=== PATIENT | female | born 1970 | race Caucasian/White ===

== ENCOUNTER 2021-06-02 17:31 | Emergency (ER) | payer OTHER, SELFPAY ==
--- NOTE | ~2021-06-02 | XR_ITS ---
XR chest 2V DATE: 06/02/2021 17:59 INDICATION: Cough, congestion, chest pain TECHNIQUE: 2 views COMPARISON: None FINDINGS: Normal heart size. No hilar or mediastinal enlargement. No pulmonary infiltrate or consolid ation, pleural effusion or pulmonary vascular congestion or pneumothorax is detected. IMPRESSION: No active cardiopulmonary disease Reviewed, dictated and finalized at location A. CELL TECHNICIAN
[2021-06-02 17:45] VITALS: BP 161/96; PULSE 95; RESP 18; TEMP 36.6; O2SAT 99
--- NOTE | 2021-06-02 17:53 | ECG_ITS ---
Measurements Intervals [place] Rate: 77 P: 38 CT: 146 QRS: 9 QRSD: 82 T: 54 QT: 360 QTc: 407 Interpretive Statements SINUS RHYTHM VOLTAGE CRITERIA FOR LVH CONSIDER INFERIOR INFARCT, AGE INDETERMINATE BASELINE ARTIFACT- I, II, III, AVR, AVF ABNORMAL ECG Electronically Signed On 06-02-2021 20:14:33 SALES OPERATIONS ANALYST by Dago Weinberg D.O.
--- NOTE | 2021-06-02 17:54 | ED.GENADULT ---
HPI - General Adult General Chief complaint: Upper Respiratory Infection Stated complaint: cold symptoms,back pain Source: patient Mode of arrival: ambulatory Limitations: no limitations History of Present Illness HPI narrative: 51 y/o female. PMHx ELEAZAR. Presents to [facility] today with acute complaints of increased nasal congestion, 'green' nasal discharge, cough, phlegm production, wheezing, as well as mid-upper back & chest pain when she coughs , can't stop coughing . Client adds that she had been treated for pneumonia at [facility] '3 weeks ago'. She tells me that she had completed an antibiotic from this [facility], but is unable to recollect what the name of this medication was. Unfortunately, this [facility] record is not crossing over into [facility], unavailable. Patient reports to have had negative Covid 19 testing in the past 1 week, and is worried she may still have pneumonia . Denies fever, chills. No palpitations, dyspnea, edema. Non-smoker. No additional acute c/o illness upon PE. Related Data Home Medications Medication Instructions Recorded Confirmed Xanax 06/02/21 Allergies Allergy/AdvReac Type Severity Reaction Status Date / Time ibuprofen Allergy Mild PALPITATION Verified 06/02/21 17:53 S Review of Systems Review of Systems: CONSTITUTIONAL: Denies fever, chills, sweats. EYES: Denies visual changes, redness, discharge. ENT: Positive rhinorrhea, congestion. No sore throat, otalgia. CARDIOVASCULAR: Chest wall pain. No palpitations, edema. RESPIRATORY: Denies dyspnea. Positive wheezing & cough GASTROINTESTINAL: Denies abdominal pain, nausea, vomiting, diarrhea. GENITOURINARY: Denies dysuria, hematuria, abnormal discharge SKIN: Denies rash or itching. MUSCULOSKELETAL: Denies acute back pain, joint pain, or myalgia. NEUROLOGIC: Denies numbness, or focal weakness. PSYCHIATRIC: Denies anxiety or depression. All systems reviewed & are unremarkable except as noted in HPI and below Exam Narrative: GENERAL: This is a well-nourished, well-developed adult, in no apparent distress. HEAD: normocephalic, atraumatic. EYES: PERRL. Sclera clear/white. EARS: External ears normal, auditory canals clear and without drainage, TMs normal. NOSE: External nose normal. Positive Rhinorrhea, bilateral nasal purulent discharge, no obstruction, nares patent. THROAT: Mucous membranes moist, posterior pharynx is erythematous, without exudative changes. NECK: Neck supple, non-tender without lymphadenopathy, masses or thyromegaly. CARDIOVASCULAR: Regular rate and rhythm without murmurs, gallops, or rubs. With reproducible mid-sternal chest wall and intercostal pain. RESPIRATORY: Upper airway Rhonchi, cleared with cough. Breath sounds equal bilaterally. No wheezes, rales, or distress. GASTROINTESTINAL: Abdomen soft, non-tender. SKIN: warm, intact. NEURO: No focal neurologic deficits. Course Course Level of Care: Express Care Visit Vital Signs Vital signs: Vital Signs Temperature 36.6 C 06/02/21 17:45 Pulse Rate 95 06/02/21 17:45 Respiratory Rate 18 06/02/21 17:45 Blood Pressure 161/96 H 06/02/21 17:45 Pulse Oximetry 99 06/02/21 17:45 Temperature 36.6 C 06/02/21 17:45 Pulse Rate 95 06/02/21 17:45 Respiratory Rate 18 06/02/21 17:45 Blood Pressure 161/96 H 06/02/21 17:45 Pulse Oximetry 99 06/02/21 17:45 The patient has been informed that they may have pre-hypertension or Hypertension based on a BP reading in the clinic. It is recommended that the patient call the primary care provider listed on their discharge instructions or a physician of their choice as soon as possible (within 1-2week) to arrange follow up for further evaluation of possible pre-hypertension or hypertension. Medical Decision Making MDM Narrative Medical decision making narrative: -ECG NSR rate 77bpm, no ischemic changes or ectopy, in comparison to prior 03/2017 exam. -Reproducible chest wall pain, in
== END 2021-06-02 18:28 | disposition home or self-care (01) ==
PROVIDERS: Emergency Provider Nurse Practitioner Adult Health; PCP Internal Medicine
DX: M94.0 Chondrocostal junction syndrome [Tietze] (principal); R07.89 Other chest pain; J06.9 Acute upper respiratory infection, unspecified; R94.31 Abnormal electrocardiogram [ECG] [EKG]
CPT/HCPCS: 71046; 93005; 99213; G0463

== ENCOUNTER 2022-06-12 11:49 | Emergency (ER) | payer OTHER, SELFPAY ==
[2022-06-12] VITALS (7 sets, daily range): BP systolic 130–142; BP diastolic 88–93; PULSE 68–102; RESP 14–18; TEMP 36.4; O2SAT 94–100
--- NOTE | ~2022-06-12 | XR_ITS ---
EXAMINATION: XR shoulder RT min 2V DATE: 06/12/2022 14:13 INDICATION: Right shoulder injury. TECHNIQUE: 3 views of right shoulder were obtained. COMPARISON: None. FINDINGS: There is a comminuted fracture of proximal humerus with displaced fracture components invol ving the greater tuberosity, lesser tuberosity, articular surface, and surgical neck. The main distal fracture fragment demonstrates one half shaft width anterior displacement, one half shaft width medi al displacement, and impaction. There is mild acromioclavicular joint osteoarthritis. IMPRESSION: 1. Comminuted four-part fracture of proximal right humerus. Reviewed, dictated and finalized at location A. TS WRITER
--- NOTE | ~2022-06-12 | XR_ITS ---
EXAMINATION: XR elbow RT min 3V DATE: 06/12/2022 14:13 INDICATION: Right elbow injury. TECHNIQUE: 3 views of right elbow were obtained. COMPARISON: None. FINDINGS: Bone alignment is normal. No fracture. Joint spaces are normal. There is an enthesophyte at lateral humeral epicondyle. No elbow joint effusion. There is posterior soft tissue swelling. IMPRESSION: 1. No fracture. Reviewed, dictated and finalized at location A. MOTOR ENGINEER IMPRESSION: 1. No fracture.
--- NOTE | 2022-06-12 14:00 | PC.NURSE ---
Pt has bruising to R arm, elbow, and is very shaky. Pt has small amount of bruising to L elbow as well. Pt states from fall several days ago. Pt unable to fully use R arm without difficulty
--- NOTE | 2022-06-12 14:13 | ED.GENADULT ---
HPI - General Adult General Chief complaint: Extremity Injury, Upper Stated complaint: right arm injury after fall Sunday night Time Seen by Provider: 06/12/22 13:45 Source: RN notes reviewed History of Present Illness HPI narrative: Patient presents emergency department from home for a fall. Patient states she fell June 09 in the evening she states she had slipped on ice and fell landing on her right side states that since that time she has had pain with swelling and ecchymosis in her right upper arm she notes pain with any movement of her right upper arm and states she cannot fully move that arm states the pain does radiate down into her elbow she denies striking her head or loss of consciousness she denies any neck pain chest pain or shortness of breath states she has been taking ibuprofen and Tylenol at home with last dose of Tylenol at 11 AM this morning denies any numbness or tingling of the extremities denies any other symptoms at this time Related Data Home Medications Medication Instructions Recorded Confirmed Xanax 06/02/21 Allergies Allergy/AdvReac Type Severity Reaction Status Date / Time ibuprofen Allergy Mild PALPITATION Verified 06/12/22 11:50 S Review of Systems Review of Systems: Gen.: Denies fevers or chills Eyes: Denies eye pain or visual change ENT: Denies facial pain Respiratory: Denies shortness of breath or cough CV: Denies chest pain GI: Denies abdominal pain nausea, emesis Musculoskeletal: See HPI Neuro: Denies headache or loss of consciousness denies numbness or tingling Skin: Denies rash Except as documented, all other systems reviewed and negative [facility] Past Medical History Medical History (Updated 06/12/22 @ 14:32 by Walt Vaz DO) Patient denies significant medical history Exam Narrative: APPEARANCE: No acute distress, nontoxic, resting in bed EYES: EOMI HEENT: Normocephalic, atraumatic, OMM RESPIRATORY: No respiratory distress Clear to auscultation bilaterally with no rhonchi wheezing or rales. CARDIOVASCULAR: Regular rate and rhythm without murmurs rubs or gallops. ABDOMINAL: Soft, nontender, nondistended, MUSCULOSKELETAl: . 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 Following commands, speech normal, no focal deficits SKIN:: Warm, dry. No rashes lesions or abrasions PSYCHIATRIC: Normal affect/mood, Course Course Emergency Course: Discussed with Dr. Lake for orthopedics presentation and work-up he was able to review the patient's imaging himself at this time he recommends the patient have a arm sling placed and follow-up as an outpatient Discussed with patient results of workup and diagnosis. Discussed need for follow-up with primary care, proper use of medication, and reasons to return to the emergency department. Patient understands and agrees to current treatment plan. I discussed with patient pain control she wishes to have no stronger pain medication than tramadol Vital Signs Vital signs: Vital Signs Temperature 97.6 F 06/12/22 11:58 Pulse Rate 68 06/12/22 11:58 Respiratory Rate 14 06/12/22 11:58 Blood Pressure 142/88 H 06/12/22 11:58 Pulse Oximetry 100 06/12/22 11:58 Temperature 97.6 F 06/12/22 11:58 Pulse Rate 68 06/12/22 11:58 Respiratory Rate 18 06/12/22 13:58 Blood Pressure 142/88 H 06/12/22 11:58 Pulse Oximetry 100 06/12/22 14:22 Medical Decision Making Vital Signs Vital Signs: Vital Sig
[2022-06-12] MEDS: traMADol HCL (*CRX) 50 MG TABLET PO (14:17)
--- NOTE | 2022-06-12 14:23 | PC.NURSE ---
Pt comfortably in bed at this time, call light in hand. no other needs or concerns at this time. pt on nbp and spo2 monitor.
[2022-06-12 15:42] LABS: Influenza A QL RT-PCR Negative (Negative); Influenza B QL RT-PCR Negative (Negative); SARS-CoV-2 RNA PCR Negative
== END 2022-06-12 15:20 | disposition home or self-care (01) ==
PROVIDERS: Emergency Provider Emergency Medicine; PCP Internal Medicine
DX: S42.241A 4-part fracture of surgical neck of right humerus, initial encounter for closed fracture (principal); Z20.822 Contact with and (suspected) exposure to COVID-19; W00.0XXA Fall on same level due to ice and snow, initial encounter
CPT/HCPCS: 73030; 73080; 87636; 99284; A4565; A9270

== ENCOUNTER 2022-09-24 22:38 | Emergency (ER) | payer OTHER, SELFPAY ==
--- NOTE | ~2022-09-24 | XR_ITS ---
EXAMINATION: XR wrist RT min 3V DATE: 09/25/2022 00:04 INDICATION: Right wrist cat bite. TECHNIQUE: 4 views of right wrist were obtained. COMPARISON: None. FINDINGS: Bone alignment is normal. No fracture. There is mild osteoarthritis of first metacarpophala ngeal joint. There is no radiopaque foreign body. Radial sided soft tissue swelling is noted. IMPRESSION: 1. No fracture or radiopaque foreign body. Reviewed, dictated and finalized at location A.
--- NOTE | ~2022-09-24 | XR_ITS ---
EXAMINATION: XR forearm RT 2V DATE: 09/25/2022 00:04 INDICATION: Right forearm cat bite. TECHNIQUE: 2 views of right forearm on 3 radiographs were obtained. COMPARISON: None. FINDINGS: Bone alignment is normal. No fracture. Joint spaces are normal. No elbow joint effusion. Th ere is soft tissue swelling of the forearm. IMPRESSION: 1. No fracture or radiopaque foreign body. Reviewed, dictated and finalized at location A.
--- NOTE | ~2022-09-24 | XR_ITS ---
EXAMINATION: XR knee RT 3V DATE: 09/25/2022 00:04 INDICATION: Right knee swelling. TECHNIQUE: 3 views of right knee were obtained. COMPARISON: None. FINDINGS: Bone alignment is normal. No fracture. There is mild osteoarthritis of lateral and patellof emoral compartments. No knee joint effusion. There is anteromedial soft tissue swelling. No radiopaqu e foreign body. IMPRESSION: 1. Mild right knee osteoarthritis. Reviewed, dictated and finalized at location A.
[2022-09-24 22:49] VITALS: BP 108/94; PULSE 110; RESP 14; TEMP 37.1; O2SAT 97
--- NOTE | 2022-09-24 23:34 | ED.ANIMALBIT ---
HPI - Animal Bite General Chief Complaint: Animal Bite Stated Complaint: cat bite Time Seen by Provider: 09/24/22 23:13 Source: patient Mode of arrival: ambulatory Limitations: no limitations History of Present Illness HPI narrative: This is a 52-year-old female who presents to the ED with chief complaint of being attacked by her cat. This happened around 2 hours prior to arrival. She had a fall during and hit her knee. She reports pain to the knee and right arm. She reports several abrasions/lacerations throughout the extremities with bruising and pain most significant in the right wrist and right knee. Cat is known to her. Up-to-date on shots. Related Data Home Medications Medication Instructions Recorded Confirmed Xanax 06/02/21 Allergies Allergy/AdvReac Type Severity Reaction Status Date / Time ibuprofen Allergy Mild PALPITATION Verified 09/24/22 22:39 S Review of Systems Review of Systems: CONSTITUTIONAL: Denies fever, chills, or sweats. EYES: Denies visual changes, redness, or discharge. ENT: Denies rhinorrhea, congestion, sore throat, or otalgia. CARDIOVASCULAR: Denies chest pain, palpitations, or edema. RESPIRATORY: Denies cough or dyspnea. GASTROINTESTINAL: Denies abdominal pain, nausea, vomiting, or diarrhea. GENITOURINARY: Denies dysuria or hematuria. SKIN: Denies rash or itching. MUSCULOSKELETAL: Denies back pain, joint pain, or myalgia. NEUROLOGIC: Denies headache, numbness, dizziness, or weakness. PSYCHIATRIC: Denies anxiety or depression. [facility] Past Medical History Medical History (Updated 09/25/22 @ 01:39 by Juwan Kerns PA-C) Patient denies significant medical history Exam Narrative: GENERAL: Well-appearing, well-nourished, and in no acute distress. HEAD: Normocephalic, atraumatic. EYES: PERRLA and EOMI. ENT: Nares clear, no rhinorrhea or epistaxis. Mucous membranes moist. Oropharynx without tonsillar hypertrophy exudate or other lesions. NECK: Supple. No adenopathy or masses. CHEST: No respiratory distress. Clear to auscultation. No wheezes rales or rhonchi HEART: Regular rate and rhythm. No murmur heard. Normal peripheral pulses. ABDOMEN: Soft, nontender, nondistended, normal active bowel sounds. MSK: Normal range of motion. No edema. SKIN: Numerous scattered abrasions and small lacerations and punctures to all 4 extremities. Worse in the right arm and right leg. Some bruising to the right arm and right knee is present as well. NEURO: Alert and oriented x3. No focal deficits. PSYCH: Normal mood and affect. Course Vital Signs Vital signs: Vital Signs Temperature 98.8 F 09/24/22 22:49 Pulse Rate 110 H 09/24/22 22:49 Respiratory Rate 14 09/24/22 22:49 Blood Pressure 108/94 H 09/24/22 22:49 Pulse Oximetry 97 09/24/22 22:49 Oxygen Delivery Room Air 09/24/22 22:49 Temperature 98.8 F 09/24/22 22:49 Pulse Rate 79 09/25/22 00:00 Respiratory Rate 16 09/25/22 00:00 Blood Pressure 131/84 09/25/22 00:00 Pulse Oximetry 100 09/25/22 00:00 Oxygen Delivery Room Air 09/24/22 22:49 MDM - Animal Bite MDM Narrative Medical decision making narrative: This is a 52-year-old female who presents to the ED with chief complaint of cat scratches and bites. Vitals are stable. afebrile. Exam shows multiple lacerations and abrasions. This occurred about 2 hours prior to arrival. Wounds were well cleaned here in the ED. she was given a dose of IV antibiotics here in the ED. X-rays do not reveal any acute osseous findings or broken off teeth in the skin. She will be given prescription for Augmentin and discharged home in stable condition. Return precautions given and supportive measures discussed. Patient is understanding and agreeable with the plan for discharge and follow-up with her PCP. Discharge Plan Discharge Clinical Impression: Cat bite Patient Disposition: Home, Self-Care Condition: Stable Instructions: Ant
[2022-09-25] VITALS: BP 131/84; PULSE 79; RESP 16; O2SAT 100
[2022-09-25] MEDS: ONDANSETRON INJ 4 MG/2 ML VIAL IV PUSH (00:05)
[2022-09-25] MEDS: SODIUM CHLORIDE 0.9% IV 1,000 ML 999 ML IV CONT (00:05)
[2022-09-25] MEDS: TETANUS,DIPHTHERIA,AC PERTUSSIS ADULT (0.5 ML) BOOSTRIX IM (00:08)
[2022-09-25] MEDS: ceFAZolin 1 GM/NS 50 ML 1 GM/50 ML BAG IVPB (00:11)
[2022-09-25] MEDS: CLINDAMYCIN 450 MG in DEXTROSE 5% IN WATER 50 ML 106 MG IVPB (00:41)
== END 2022-09-25 02:00 | disposition home or self-care (01) ==
PROVIDERS: Emergency Provider Physician Assistant; PCP Internal Medicine
DX: S81.051A Open bite, right knee, initial encounter (principal); S51.851A Open bite of right forearm, initial encounter; S61.551A Open bite of right wrist, initial encounter; Z23 Encounter for immunization; W55.01XA Bitten by cat, initial encounter
CPT/HCPCS: 73090; 73110; 73562; 90471; 90715; 96365; 96367; 96375; 99284; J0690; J2405; J7030

== ENCOUNTER 2022-10-27 11:52 | Emergency (ER) | payer OTHER, SELFPAY ==
[2022-10-27 12:17] VITALS: BP 114/82; PULSE 97; RESP 18; TEMP 36.8; O2SAT 98
--- NOTE | 2022-11-02 09:14 | ED.URI ---
HPI - URI/Sore Throat General Chief Complaint: Upper Respiratory Infection Stated Complaint: sorethroat Time Seen by Provider: 10/27/22 12:30 Source: patient Mode of arrival: ambulatory Limitations: no limitations History of Present Illness HPI Narrative: 52 yo F presents with c/o sore throat, nasal congestion, low grade fever, bodyaches, chills, headhache for 2 days. no sick contacts. denies N/V/D. Taking OTC meds to treat symptoms with no relief. All systems reviewed and negative except as noted above. Related Data Home Medications Medication Instructions Recorded Confirmed alprazolam 0.5 mg tablet 0.5 mg PO BID PRN Anxiety 10/11/22 10/27/22 Allergies Allergy/AdvReac Type Severity Reaction Status Date / Time ibuprofen Allergy Mild PALPITATION Verified 10/27/22 12:25 S Review of Systems Review of Systems: CONSTITUTIONAL: reports fever, chills, or sweats. EYES: Denies visual changes, redness, or discharge. ENT: reports rhinorrhea, congestion, sore throat her denies otalgia. CARDIOVASCULAR: Denies chest pain, palpitations, or edema. RESPIRATORY: reports cough. Denies dyspnea. GASTROINTESTINAL: Denies abdominal pain, nausea, vomiting, or diarrhea. GENITOURINARY: Denies dysuria or hematuria. SKIN: Denies rash or itching. MUSCULOSKELETAL: Denies back pain, joint pain, or myalgia. NEUROLOGIC: reports headache. Denies numbness, or weakness. PSYCHIATRIC: Denies anxiety or depression. All other systems reviewed are negative, except as documented in HPI. 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 Anxiety and depression Breast mass Patient denies significant medical history Surgical History Surgical History (Updated 10/11/22 @ 16:18 by Cammy Jalloh NP) H/O shoulder surgery H/O tubal ligation Family History Family History Sibling Acute myocardial infarction Diabetes mellitus Sibling Asthma Diabetes mellitus Breast cancer Father Diabetes mellitus Cerebrovascular accident Hypertension Mother Diabetes mellitus Chronic obstructive pulmonary disease Congestive heart failure Colon cancer Hypertension Sibling Diabetes mellitus Hypertension Sibling Diabetes mellitus Sibling Diabetes mellitus Social History Social History (Updated 10/11/22 @ 16:19 by Cammy Jalloh NP) Social History: the patient lives with her ex- she is unemployed. She has 2 children. She does not smoke or use any illicit drugs. The patient tells me that she only drinks about 2 glasses of wine a day. code status full code Smoking status: Never smoker Second hand tobacco smoke exposure: Yes Alcohol intake: current Drinks per week: 14 Substance use: never Lack of Transportation: No Lack of Food: Never True Current Housing: I Have Housing Concerned About Future Housing: YES Difficulty Paying Gas/Electric Bills: No Difficulty Paying for Meds: No Currently Unemployed: YES Education: Associate Degree Difficulty w/ Childcare or Family Care: No Spiritual care concerns: No Comments At time of signature, agree with nursing past medical, surgical, social and family history. There is no relevant family history pertinent to the presenting complaint. Exam Narrative: GENERAL: This is a well-nourished, well-developed patient, in no apparent distress. HEAD: normocephalic, atraumatic. EYES: PERRL. Sclera clear/white. Vision is grossly intact. EARS: External ears normal, auditory canals clear and without drainage, TMs normal without perforation. Hearing grossly intact. NOSE: External nose normal with clear nasal drainage. THROAT: Mucous membranes moist, Mild erythema to posterior with clear postnasal drainage. NECK: Neck supple, non-tender without lymphadenopathy, masses or thyromegaly. CARDIOV
== END 2022-10-27 12:57 | disposition home or self-care (01) ==
PROVIDERS: Emergency Provider Nurse Practitioner Family; PCP Internal Medicine
DX: J06.9 Acute upper respiratory infection, unspecified (principal); Z20.822 Contact with and (suspected) exposure to COVID-19; F41.9 Anxiety disorder, unspecified; Z96.611 Presence of right artificial shoulder joint
CPT/HCPCS: 87081; 87426; 87804; 87880; 99213; C9803; G0463

== ENCOUNTER 2022-12-26 09:48 | Outpatient (CLI) | payer OTHER, SELFPAY ==
--- NOTE | ~2022-12-26 | CT_ITS ---
EXAMINATION: CT abdomen w con INDICATION: Disorder of the adrenal gland TECHNIQUE: Computed tomographic images of the abdomen were obtained after the administration of 100 c c of Omnipaque 350 intravenous contrast. The dose-length product (DLP) was 261.65 mGy-cm. Automated e xposure control and iterative reconstruction technique were employed. COMPARISON: 10/11/2022 FINDINGS: Minimal dependent atelectasis is present in the lung bases. The heart size is normal. There are bilateral breast implants with collapse of the right implant. There is a small sliding hiatal he rnia. The liver is diffusely low in attenuation when compared with the spleen, consistent with hepati c steatosis. There is enlargement of the pancreatic duct in the head of the pancreas. The gallbladder is normal. There is a diverticulum of the gastric fundus. The previously described left adrenal mass is not definitely identified. The right adrenal gland is unremarkable. The kidneys are normal. There are no pathologically enlarged abdominal lymph nodes. There are healing anterolateral fractures of t he right seventh, eighth, and ninth ribs. IMPRESSION: 1. No discrete left adrenal mass identified. 2. Enlargement of the pancreatic duct in head of the pancreas of unclear etiology. Further evaluation with MRCP is recommended. 3. Healing anterolateral fractures of the right seventh through ninth ribs, new since the comparison examination. Correlate for history of interval trauma. 4. Diffuse hepatic steatosis. Reviewed, dictated and finalized at location A. IMPRESSION: 1. No discrete left adrenal mass identified. 2. Enlargement of the pancreatic duct in head of the pancreas of unclear etiolo gy. Further evaluation with MRCP is recommended. 3. Healing anterolateral fractures of the right seventh through ninth ribs, new since the comparison examination. Correlate for history of interval trauma. 4. Diffuse hepatic steatosis.
== END 2022-12-26 09:49 | disposition home or self-care (01) ==
PROVIDERS: PCP Internal Medicine; Visit Provider Internal Medicine
DX: E27.9 Disorder of adrenal gland, unspecified (principal); K76.0 Fatty (change of) liver, not elsewhere classified
CPT/HCPCS: 74160; Q9967

== ENCOUNTER 2023-01-18 09:35 | Outpatient (CLI) | payer OTHER, SELFPAY ==
--- NOTE | ~2023-01-18 | MMUS_ITS ---
EXAMINATION: US GUIDED NEEDLE BIOPSY DATE: 01/18/2023 12:13 CDT INDICATION: Right 7:00 breast mass.. TECHNIQUE AND FINDINGS: The risks and potential benefits of the procedure were discussed with the patient, and written inform ed consent was obtained. Timeout procedure was performed. After sterile preparation of the right beatriz st, 1% lidocaine was utilized for local anesthesia. A 12 G spring-loaded biopsy gun needle was advanced to the edge of the region of interest from a medi al superior/inferior/medial/lateral/superolateral/superomedial/inferolateral/inferomedial approach ut ilizing sonographic guidance. A total of 4 tissue core samples were obtained through the lesion. A r adiopaque marker was then placed at the biopsy site. Hemostasis was achieved. A sterile bandage was a pplied. The patient tolerated procedure well and there was no evidence of immediate complication. The patien t was given verbal instructions prior to departing from the department. A two view mammogram was perf ormed to document tissue marker clip placement. The tissue samples were submitted to surgical patholo gy for histologic analysis. IMPRESSION: Ultrasound guided biopsy of right 7:00 breast mass with biopsy marker placement. Please refer to path ology report for histologic analysis. Reviewed, dictated and finalized at Location A. Reviewed, dictated and finalized at location A. IMPRESSION: Ultrasound guided biopsy of right 7:00 breast mass with biopsy marker placement . Please refer to pathology report for histologic analysis.
--- NOTE | ~2023-01-18 | MM_ITS ---
EXAMINATION: MM diag tila implant BI w timur HISTORY: Right breast lump TECHNIQUE: Implant displaced ML, MLO and CC 3-D tomosynthesis images of both breasts were performed a nd synthetic 2-D images were generated. Bilateral implant ML, MLO and CC views. CAD analysis was subm itted and interpreted. COMPARISON: 10/12/2022right complete breast ultrasound examination FINDINGS: Status post bilateral augmentation mammoplasty. There is a 6 mm circumscribed low density opacity in the inner mid right breast. There is a spiculated irregular at least 12 mm mass with overlying retraction in the mid and lower o uter right breast, highly suggestive of malignancy. Other suspicious mass or architectural distortion or retraction, skin thickening or malignant calcifi cation in either breast is noted. IMPRESSION: 1. At least 12 mm irregular speculated mass with overlying retraction in the mid and lower outer righ t breast, highly suggestive of malignancy 2. Ultrasound-guided biopsy of right mid to lower outer breast mass is recommended BI-RADS Category 5: Highly suggestive of malignancy; appropriate action should be taken. Reviewed, dictated and finalized at location A. IMPRESSION: 1. At least 12 mm irregular speculated mass with overlying retraction in the mi d and lower outer right breast, highly suggestive of malignancy 2. Ultrasound-guided biopsy of right mid to lower outer breast mass is recommen ded BI-RADS Category 5: Highly suggestive of malignancy; appropriate action should be taken.
== END 2023-01-18 09:36 | disposition home or self-care (01) ==
PROVIDERS: PCP Internal Medicine; Visit Provider Surgery
DX: N63.10 Unspecified lump in the right breast, unspecified quadrant (principal); D05.11 Intraductal carcinoma in situ of right breast
CPT/HCPCS: 19083; 77062; 77066; 88305; 88360; A4648; G0279

== ENCOUNTER 2023-02-06 11:02 | Outpatient (CLI) | payer OTHER, SELFPAY ==
[2023-02-06 15:13] LABS: Kit Draw Collected
== END 2023-02-06 11:03 | disposition home or self-care (01) ==
LOC: ANHLAB 11:06
PROVIDERS: PCP Internal Medicine; Visit Provider Internal Medicine Hematology & Oncology
DX: C50.919 Malignant neoplasm of unspecified site of unspecified female breast (principal)
CPT/HCPCS: 36415

== ENCOUNTER 2023-03-23 13:57 | Outpatient (CLI) | payer OTHER, SELFPAY ==
[2023-03-23 14:34] LABS: Prothrombin Time 13.2 Seconds (11.1-14.7)
[2023-03-23 14:35] LABS: Partial Thromboplastin Time 25.9 SECONDS (22.3-36.8)
[2023-03-23 14:41] LABS: Anion Gap 16 mmol/L (8-16); Blood Urea Nitrogen 10 mg/dL (7-17); Calcium 9.4 mg/dL (8.4-10.2); Carbon Dioxide 25 mmol/L (22-30); Chloride 98 mmol/L (98-107); Estimated Glomerular Filt Rate > 60; Glucose 199 mg/dL (65-110); Potassium 3.7 mmol/L (3.4-5.0); Sodium 139 mmol/L (137-145)
== END 2023-03-23 13:58 | disposition home or self-care (01) ==
LOC: ANHSURGERY 14:04
PROVIDERS: Anesthesiology; PCP Internal Medicine; Visit Provider Surgery
DX: C50.911 Malignant neoplasm of unspecified site of right female breast (principal); K76.0 Fatty (change of) liver, not elsewhere classified; Z01.818 Encounter for other preprocedural examination
CPT/HCPCS: 36415; 80048; 85610; 85730; 86850; 86900; 86901

== ENCOUNTER 2023-03-27 14:02 | Inpatient (IN) | payer OTHER, SELFPAY ==
[2023-03-21 14:12] VITALS: BMI 25.7
--- NOTE | 2023-03-21 14:18 | PC.NURSE ---
Report to the Outpatient Waiting Room, entrance under the green pavilion located off [facility], at time 6:00 on date 03/27/23. Planned Procedure Time: 7:30. Time changes happen often and if your time is changed the preop area will call you the afternoon before. - You and your visitor will be asked to self-screen and do not enter if you have any COVID symptoms. - A mask is optional within the hospital at this time. Patients may have clear liquids (water, carbonated beverages, clear teas, apple juice) until 3 hours prior to surgery with a maximum of 20 ounces. - No food from midnight until time of surgery Take the following medications with a SIP of water the morning of surgery: ALPRAZOLAM IF NEEDED DO NOT STOP ANY OF YOUR OTHER PRESCRIPTION MEDICATIONS PRIOR TO SURGERY ?EXCEPT THE FOLLOWING Medications to discontinue per physician: VITAMINS/SUPPLEMENTS Date to take last dose: 03/23/23 Please no make-up, nail albanian, hairspray, perfume, deodorant, or body powder the day of surgery. No jewelry (including any body piercings) or valuables the day of surgery, leave them at home. Please take a shower or bath the night before, or the morning of, surgery with an antibacterial soap. Wear comfortable, loose fitting clothing. - Jewelry must be removed prior to entering the operating room. Rings and piercings that are not removed may be cut off. - The hospital will not accept responsibility for valuables. - Please leave all valuables, including medications, at home the day of surgery. If you are going home after surgery, a licensed intermodal truck driver must drive you home. - NO public transportation without another adult if you receive anesthesia. - We recommend that an adult stay with you for 24 hours following discharge. - We also recommend that you do not drive, make important decision, drink alcoholic beverages, or take any drugs that were not prescribed by your health care provider for at least 24 hours after your discharge time. Follow any additional instructions given to you from your surgeon. If you or anyone in your household have experienced Covid symptoms in the past week, please notify your surgeon or the nurse liaison at the phone number below for possible testing. Telephone instructions given to PT - ZENAIDA ARREAGA and asked if any additional questions and then verbalized understanding. Patient advised to call surgeon office or pre surgery nurse liaison [phone] if any additional questions.
--- NOTE | 2023-03-21 14:25 | PC.NURSE ---
Report to the Outpatient Waiting Room, entrance under the green pavilion located off [facility], at time 6:00 on date 03/27/23. Planned Procedure Time: 7:30. Time changes happen often and if your time is changed the preop area will call you the afternoon before. - You and your visitor will be asked to self-screen and do not enter if you have any COVID symptoms. - A mask is optional within the hospital at this time. - No food OR DRINK from midnight until time of surgery Take the following medications with a SIP of water the morning of surgery: ALPRAZOLAM IF NEEDED DO NOT STOP ANY OF YOUR OTHER PRESCRIPTION MEDICATIONS PRIOR TO SURGERY ?EXCEPT THE FOLLOWING Medications to discontinue per physician: VITAMINS/SUPPLEMENTS Date to take last dose: 03/23/23 Please no make-up, nail north korean, hairspray, perfume, deodorant, or body powder the day of surgery. No jewelry (including any body piercings) or valuables the day of surgery, leave them at home. Please take a shower or bath the night before, or the morning of, surgery with an antibacterial soap. Wear comfortable, loose fitting clothing. - Jewelry must be removed prior to entering the operating room. Rings and piercings that are not removed may be cut off. - The hospital will not accept responsibility for valuables. - Please leave all valuables, including medications, at home the day of surgery. If you are going home after surgery, a licensed tram driver must drive you home. - NO public transportation without another adult if you receive anesthesia. - We recommend that an adult stay with you for 24 hours following discharge. - We also recommend that you do not drive, make important decision, drink alcoholic beverages, or take any drugs that were not prescribed by your health care provider for at least 24 hours after your discharge time. Follow any additional instructions given to you from your surgeon. If you or anyone in your household have experienced Covid symptoms in the past week, please notify your surgeon or the nurse liaison at the phone number below for possible testing. Telephone instructions given to PT - ZENAIDA ARREAGA and asked if any additional questions and then verbalized understanding. Patient advised to call surgeon office or pre surgery nurse liaison [phone] if any additional questions.
[2023-03-27] VITALS (16 sets, daily range): BP systolic 113–199; BP diastolic 72–143; PULSE 84–120; RESP 8–26; TEMP 36.3–36.8; O2SAT 94–100
[2023-03-27] MEDS: ACETAMINOPHEN 500 MG TABLET 1000 MG PO (07:03)
--- NOTE | 2023-03-27 07:03 | WPDHPUPDATE1 ---
History and Physical Update Update Date/Time: 03/27/23 07:03 History and Physical has been reviewed, including an updated exam of the patient. There are NO changes in the patient's condition. Risks, benefits, and alternatives have been discussed and questions answered. Patient agrees to proceed with procedure.
--- NOTE | 2023-03-27 07:03 | WPDHPUPDATE1 ---
History and Physical Update Update Date/Time: 03/27/23 07:03 Patient seen and examined in pre-operative holding area. No interval change in medical history or symptoms. Patient remembers previous discussion of benefits and alternatives to procedure. Continues to desire to proceed with bilateral breast implant and capsule removal and immediate bilateral pre-pec breast recon with silicone implants and acelluar dermal matrix possible tissue expanders at time of bilateral gcs-ihbpzx-ppeolrp mastectomy. I reviewed the risks including but not limited to bleeding ,infection, asymmetry, undesireable cosmetic appearance, partial/total skin loss, no change or worsening of symptoms, change in sensation, device failure, capsular contracture. I discussed the possible use of assistants and their level of participation in the case. Patient stated understanding and signed the consent form wishing to proceed
--- NOTE | 2023-03-27 07:05 | W.PM.PROC2 ---
Procedure Note - Detailed Date of Procedure 03/27/23 Pre-op Diagnosis breast neoplasm and history of breast implants Post-op Diagnosis Other (acquired absence bilateral breasts and nipples) Procedure Performed Bilateral breast imlant and capsule removal, pectoralis major repair/pexy and immediate pre-pec reconstruction with silicone implants and adm at time of mastectomy Surgeon Jaylyn Prater MD Ceramic Design Engineer Elsie Arredondo PA-C Anesthesia General Description of Procedure Patient was seen in the preoperative holding area. She was consented and marked. She was taken back to the operating room and placed on the table in a supine position. Time-out was performed with Anesthesia, surgeons and staff agreeing on patient's name, site, and surgery to be performed. SCDs were placed on the lower extremities and inflated. Antibiotics were given IV. After general anesthesia was administered the breasts were prepped and draped in usual sterile fashion. I designed an elliptical skin pattern incision on the left breast. I then proceeded tith assisting Dr. Guzmán for the left non-nipple sparing subcutaneous mastectomy. The intact intact left breast implant and capsule was resected en-bloc with the breast specimen. It was found that her previous breast implants were placed in a dual plane, partially submuscular. I repaired pectoralis majormuscle down to rib periosteum with 2-0 vicryl suture. I irrigated with antibiotic irrigation and hemostasis with bovie electrocautery. I proceeded with sewing in a large piece of contoured, perforated, alloderm along the Inferior mammary fold and anterior axillary line with 2-0 vicryl suture. I placed a 10blake along IMF and onq pump catheter along superior aspect of cavity. I irrigated with abx irrigation again and prepped skin with betadine and placed down new towels. I changed my gloves and rinsed instruments in abx irrigation. I proceeded with placement of an allergan natrelle SCF-365cc implant serial number [id number] into the left breast pocket after rinsing it in abx irrigaiton and covered with the AlloDerm and immediately closed the incision with 3-0 vicryl for dermis and 4-0 monocryl for subcuticular closure. Next we took our attention to the right breast where we I created the elliptical skin paddle for excision andperformed the right hio-eemrtk-ewnrtav total subcutaneous mastectomy including en-bloc resection of ruptured implant and total capsulectomy. Dr. Guzmán also performed sentinel lymph node biopsy. After this was completed I proceeded with irrigation and hemostasis. I repaired pectoralis major to chest wall with 2-0 vicryl and proceeded with sewing in another piece of large, contoured, perforated alloderm along the IMF and anterior axillary line with 2-0 vicryl. I placed 10 riccardo drain along IMF and onQ catheter along superior aspect of cavity. I prepped skin with betadine and placed down new towels. I washed instruments in antibiotic irrigation and changed gloves. I proceeded with placing another SCF-365 implant SN [id number] taking it directly from the package after rinsing in abx irrgation, placing it in the alloderm pocket and immediately closing dermis with 3-0 vicryl and then 4-0 monocryl for skin. There was reasonable size, shape and symmetry to the reconstructed breasts. The skin flaps appeared healthy. A dressing of mastisol, steri-strips, 4x4, tegaderm and abds and breast binder were applied. The drains were hooked to bulb suction. The onQ catheters were primed and connected to the onQ pump. The patient was awaken from anesthesia and transferred to recovery in stable condition. EBL: 10cc for my portions Complicaitons: none Patient will be staying for 23 hour observation Elsie Arredondo PA-C was essential throughout procedure for positioning, retraction, hemostasis, closure and dressing placement. [facility] [place] B[place] Surgery - Charge Forward: Surgery Billing ([id number]
--- NOTE | 2023-03-27 07:09 | WPDANESEPPF ---
Anes - Initial Pre Proc Eval Procedure: Operation Date: 03/27/23 07:30 Proposed Procedures p Right Chinle Lymph Node Biopsy, Right Total Tjz-Ojuayu-Czmjxru Mastectomy, Left Prophylactic Nat-Hrkojf-Tumtppr Mastectomy, - Socorro Guzmán MD s Removal Bilateral Breast Implant, Capsulectomy with Immediate Breast Reconstruction with Silicone Implants, Possible Tissue Expanders - Jaylyn Prater MD Date/Time: 03/27/23 07:09 Surgeon: Socorro Guzmán MD Pre Op Diagnosis: malignant neoplasm unspecified site rt fem breast Patient Data Age: 53 Gender: F Height: 1.65 m Weight: 70.3 kg Allergies Allergy/AdvReac Type Severity Reaction Status Date / Time ibuprofen Allergy Mild PALPITATION Verified 03/21/23 14:11 S Home Medications Medication Instructions Recorded Confirmed Type alprazolam 0.5 mg tablet 0.5 mg PO BID PRN Anxiety 10/11/22 03/21/23 History thiamine HCl (vitamin B1) 100 mg 100 mg PO DAILY #30 tabs 10/14/22 03/21/23 Rx tablet multivitamin 1 tablet PO DAILY 03/21/23 03/21/23 History Patient hx anesthesia problems: none Family hx anesthesia problems: none Results Review: All pre-operative results and documents have been reviewed as part of the pre-operative evaluation. [facility] Past Medical History Medical History (Updated 03/27/23 @ 07:10 by Marko Ferrara DO) Aftercare following right shoulder joint replacement surgery Anxiety Anxiety and depression Breast cancer Breast mass Depression Fatty liver Patient denies significant medical history Surgical History Surgical History (Updated 10/11/22 @ 16:18 by Cammy Jlaloh NP) H/O shoulder surgery H/O tubal ligation Family History Family History Sibling Acute myocardial infarction Diabetes mellitus Sibling Asthma Diabetes mellitus Breast cancer Father Diabetes mellitus Cerebrovascular accident Hypertension Mother Diabetes mellitus Chronic obstructive pulmonary disease Congestive heart failure Colon cancer Hypertension Sibling Diabetes mellitus Hypertension Sibling Diabetes mellitus Sibling Diabetes mellitus Social History Social History (Updated 11/20/22 @ 15:08 by Rosalia Saeed CMA) Social History: the patient lives with her ex- she is unemployed. She has 2 children. She does not smoke or use any illicit drugs. The patient tells me that she only drinks about 2 glasses of wine a day. code status full code Smoking status: Never smoker Second hand tobacco smoke exposure: Yes Alcohol intake: current Drinks per week: 14 Alcohol use details: 2 GLASSES WINE/NIGHT, BEER OCCASIONALLY Substance use: never Substance use type: does not use Lack of Transportation: No Lack of Food: Never True Current Housing: I Have Housing Concerned About Future Housing: Decline to Answer Difficulty Paying Gas/Electric Bills: Decline to Answer Difficulty Paying for Meds: No Currently Unemployed: YES Education: Associate Degree Difficulty w/ Childcare or Family Care: No Living arrangements: with family Spiritual care concerns: No Anes - Eval Final PreProcedure Day of Procedure 03/27/23 07:09 Patient weight: overweight Heart: regular rate and rhythm Lungs: clear to auscultation Airway: Mallampati scale class II Neurological: alert and oriented Last oral intake: >/= 8 hours ASA classification: III Emergent: no Anesthetic plan: proceed Anesthesia type and monitoring: general ETT and standard monitoring Results Review: All pre-operative results and documents have been reviewed as part of the pre-operative evaluation. Informed Consent: The patient's anesthetic plan and its attendant risks and benefits were discussed with the patient/family/POA. Questions were solicited and answers provided to the satisfaction of the patient/family/POA.
[2023-03-27] MEDS: ceFAZolin 2 GM/D5W 50 ML 2 GM/50 ML BAG IVPB (07:42)
[2023-03-27 07:55] LABS: Glucose Point of Care 122 mg/dl (65-105)
[2023-03-27] MEDS: LIDO 1%/EPINEPHRINE 1:100,000 50 ML VIAL 40 ML INFILTRATE (08:19)
[2023-03-27] MEDS: NACL 0.9% IRRIG POUR BOTTLE 1,000 ML, GENTAMICIN SULFATE INJ 160 MG, ceFAZolin 2 GM IRRIGATION (08:19)
--- NOTE | 2023-03-27 11:27 | W.PM.PROC2 ---
Procedure Note - Detailed Date of Procedure 03/27/23 Pre-op Diagnosis Right breast invasive ductal carcinoma History of Right breast ruptured implant Post-op Diagnosis Same Procedure Performed 1. Right total non nipple sparing mastectomy, EN bloc resection with implant and associated capsule 2. Injection of med trays and methylene blue dye for sentinel lymph node mapping 3. Right axillary sentinel lymph node biopsy 4. Left prophylactic total mastectomy, EN bloc resection with implant and associated capsule Surgeon Socorro Guzmán MD Bench Tool Maker Elsie Arredondo PA-C Anesthesia General Indications 53-year-old female who presented for evaluation of right breast mass that was found incidentally on the CT abdomen and pelvis. Biopsy of the mass showed invasive ductal carcinoma. Patient also had a remote history of subpectoral saline implants, and the right side appeared rupture on physical exam and imaging as well. After discussing options of surgery, patient elected to proceed with bilateral total non nipple sparing mastectomy, right sentinel lymph node biopsy and replacement of implants by Plastic surgery. Risk of the procedure were discussed with the patient which included but not limited to risk of bleeding, infection, recurrence, positive margins, possible need for additional procedures in future, wound healing issues, asymmetry, scar, pain as well as the risk of anesthesia. All questions were answered patient agreed to proceed. Description of Procedure Patient was identified in the preoperative holding area brought to the operating room suite. She was laid supine in the operating table sequential compression devices were applied. General anesthesia was induced without difficulty. Bilateral chest and right axillary region were prepped and draped in a sterile fashion. Mag trace was injected in the right breast subareolar plane as well as subdermal around the areolar complex 1 cc at each site. Diluted methylene blue 50 50 solution was also injected in the subdermal plane around the nipple, for dual tracing and mapping of the sentinel lymph nodes. Attention was then turned to the left prophylactic side. An elliptical incision encompassing the nipple areolar complex was made and dissection was carried down through the subcutaneous tissue and continued through the thin areolar tissue plane between the subcutaneous tissue with the breast tissue superiorly to the inferior border of the clavicle.? We then continued our dissection medially to the lateral aspect of the sternum, inferiorly to the inframammary fold and laterally to latissimus.? Once this was performed the breast tissue along with the pectoralis fascia, the implant and implant capsule were dissected off the pectoralis muscle posteriorly in an en bloc fashion.? The mastectomy specimen was then marked short stitch superior long stitch lateral stitch lateral for orientation.? The specimen was then sent to pathology as a fresh specimen.? Hemostasis was assured.? Attention was then turned to the right axilla.? The sentimag probe was used to find the area of highest radio activity in the right axilla, and an incision was made overlying this area that was incorporated into the mastectomy incision.? Dissection was carried down through the subcutaneous tissue and the clavipectoral fascia was incised.? I was able to identify a node that was hot and blue.? This was gently grasped and excised using the LigaSure device.? The gamma probe was used to obtain account which was approximately 600.? This was sent to pathology as a frozen specimen for confirmation of lymph node within tissue specimen.? The gamma probe was again used to scan the axilla trying to identify another node that was at least 10% of the original sentinel lymph node count.? The cavity was irrigated hemostasis was assured. The clavipectoral fascia was approximated with a running 3-0 Vicryl.? An elliptical incision was again made around the left nipple areola
[2023-03-27] MEDS: BUPivacaine HCL 0.5% PF 30 ML VIAL INFILTRATE (11:39)
[2023-03-27] MEDS: ceFAZolin SODIUM 1 GM VIAL IV PUSH (11:42)
[2023-03-27] MEDS: BUPivacaine 0.5% ON-Q PUMP 335 ML INTRADERM (11:45)
[2023-03-27] MEDS: LACTATED RINGERS 1,000 ML 30 ML IV CONT ×2 (12:03)
[2023-03-27 12:19] LABS: Glucose Point of Care 157 mg/dl (65-105)
[2023-03-27] MEDS: fentaNYL CITRATE INJ (*CRX) 100 MCG/2 ML VIAL 25 MCG IV PUSH (12:24)
[2023-03-27] MEDS: MEPERIDINE HCL INJ (*CRX) 50 MG/ML AMPUL 25 MG IV PUSH (13:58)
--- NOTE | 2023-03-27 15:04 | SUR.PHASEI ---
1345: Patient meets PACU discharge criteria, unit bed unavailable at this time. Patient placed in extended recovery status.
[2023-03-27 15:16] LABS: Glucose Point of Care 157 mg/dl (65-105)
--- NOTE | 2023-03-27 15:24 | SUR.PHASEI ---
1444: RN tried to call report to ERP ANALYST but was told she was discharging another patient and she would call back.
[2023-03-27] MEDS: LORazepam INJ (*CRX) 2 MG/ML VIAL IV PUSH ×2 (16:05→19:53)
[2023-03-27] MEDS: chlordiazePOXIDE (*CRX) 25 MG CAPSULE PO ×2 (16:10→16:39)
[2023-03-27] MEDS: DOCUSATE SODIUM 100 MG CAPSULE PO (16:39)
--- NOTE | 2023-03-27 16:57 | ADMGEN ---
This patient, Flavia Patrick, was admitted to Intensive Care Unit-2. Patient/family oriented to hospital policies and general routines including ID bracelet, bed and alarms, visiting hours, pain management, procedures, bathroom and other care routines, personal items, smoking policy, room service/diet, and visiting hours. Information on how to activate the Rapid Response Team has been discussed. Patient/Family are encouraged to report perceived risks to care and to ask questions if they do not understand what they are told or what they should do.
--- NOTE | 2023-03-27 17:40 | PM.IMCN ---
Assessment and Plan Assessment and plan (1) Alcohol withdrawal: Qualifiers: Complication of substance-induced condition: uncomplicated Qualified Code(s): F10.930 - Alcohol use, unspecified with withdrawal, uncomplicated Code(s): F10.939 - Alcohol use, unspecified with withdrawal, unspecified Status: Acute (2) Invasive ductal carcinoma of right breast in female: Code(s): C50.911 - Malignant neoplasm of unspecified site of right female breast Status: Acute Plan Problem List 1. ETOH withdrawal Last drink on 03/23. CIWA protocol initiated Librium 50 mg Q6H scheduled Ativan 2 mg IVP Q2H Neurochecks Q2-4H Tele monitoring Thiamine/Folic Acid/Mag/D5LR at 100 mL/hr x1 L, then PO thiamine, folic acid, and multivitamin supplements start Protonix 40 IVP daily zofran PRN monitor labs AST 69, ALT 65, and total bili 1.0. trend. given easy bruising, abdominal distention and long standing daily ETOH use - c/f chronic liver disease. Last abdominal CT on 12/26/22 showed diffuse hepatic steatosis. 2. Invasive ductal carcinoma of the R breast, F management by breast/plastics surgery team drain/wound care management IS Q2H SCDs pain management: tyl PO, hydro/tyl PO, and hydromorphone IVP Home Meds/Chronic Conditions - Anxiety: hold home Xanax PO. Currently using CIWA protocol and Ativan ordered. Diet: Regular GI Prophylaxis: start Protonix IVP daily DVT Prophylaxis: SCDs, hold on pharm due to recent surgery Lines: pIV Code Status: Full Code HPI Date of Consult Consult date: 03/27/23 Requesting Physician: Socorro Guzmán MD Primary Care Provider: Chirag CordobaMD Consult Narrative Reason for consult: CIWA Protocol Narrative: Flavia Patrick is a 53 year old female presented here for a double mastectomy due to right breast invasive ductal carcinoma (ER positive, ME positive, and HER2 positive) with PMH of anxiety/depression and alcohol abuse with withdrawal DTs. Patient had double mastectomy performed today, 03/26 due to right breast invasive ductal carcinoma. Patient states that leading to surgery she began to wean herself off of alcohol. Last drink was 03/23. States that since cessation she has had gross tremors in her upper extremities and face that worsens with intentional movement. reports same symptoms during previous withdrawals. Also experiencing associated nausea without vomiting. Reports daily alcohol use for the past 5 years, approximately 0.5 - 1 bottle of wine daily. Last attempt at cessation was a month and half ago and she was able to quit for 2 weeks. Last inpatient rehab course was 2 years ago and 1 previous outpatient rehab treatment course. She currently denies any agitation, anxiety, visual hallucinations, or auditory hallucinations. No current nausea, diaphoresis, or diarrhea. Review of Systems Review of Systems: All systems reviewed & are unremarkable except as noted in HPI and below PMFSH Past Medical History Medical History (Updated 03/27/23 @ 17:53 by Indy Rivera APRN) Alcohol abuse Anxiety and depression Breast cancer Breast mass, right Depression Fatty liver Surgical History Surgical History (Updated 10/11/22 @ 16:18 by Cammy Jalloh NP) H/O shoulder surgery H/O tubal ligation Family History Family History Sibling Acute myocardial infarction Diabetes mellitus Sibling Asthma Diabetes mellitus Breast cancer Father Diabetes mellitus Cerebrovascular accident Hypertension Mother Diabetes mellitus Chronic obstructive pulmonary disease Congestive heart failure Colon cancer Hypertension Sibling Diabetes mellitus Hypertension Sibling Diabetes mellitus Sibling Diabetes mellitus Social History Social History (Updated 03/27/23 @ 17:55 by Indy Rivera APRN) Social History: the patient lives
[2023-03-27] MEDS: chlordiazePOXIDE (*CRX) 25 MG CAPSULE 50 MG PO (23:13)
[2023-03-28] VITALS (12 sets, daily range): BP systolic 111–175; BP diastolic 58–93; PULSE 68–100; RESP 12–22; TEMP 36.4–37.1; O2SAT 98–100
[2023-03-28] MEDS: HYDROcodone/acetaminophen (*CRX) 5-325 MG TABLET 1 TAB PO ×3 (00:40→21:24)
[2023-03-28] MEDS: LORazepam INJ (*CRX) 2 MG/ML VIAL IV PUSH ×2 (00:41→08:53)
[2023-03-28 04:23] LABS: Basophils Percent Auto 0.3 % (0.2-1.2); Eosinophils Absolute Auto 0.2 K/mm3 (0-0.3); Eosinophils Percent Auto 2.4 % (0-4.4); Hemoglobin 11.5 g/dL (12.0-15.0); Immature Granulocyte Absolute 0.03 K/mm3 (0.00-0.031); Immature Granulocyte Percent A 0.4 % (0-0.5); Immature Platelet Fraction Pct 3.4 % (0.9-11.2); Lymphocytes Absolute Auto 1.43 K/mm3 (0.9-3.2); Lymphocytes Percent Auto 21.2 % (18.3-44.2); Mean Corpuscular HGB Conc 31.9 g/dl (32-36); Mean Corpuscular Hemoglobin 33.2 pg (26-34); Mean Platelet Volume 8.9 fl (7.4-10.4); Monocytes Absolute Auto 0.8 K/mm3 (0.1-0.6); Monocytes Percent Auto 11.4 % (2.6-8.5); Neutrophils Absolute Auto 4.3 K/mm3 (1.3-6.7); Neutrophils Percent Auto 64.3 % (45.5-73.1); Platelet Count Result 117 k/mm3 (150-375); Red Blood Count 3.46 M/mm3 (4.2-5.4); Red Cell Distribution Width 12.2 % (11.5-14.5); White Blood Count 6.7 K/mm3 (4.5-10.0)
[2023-03-28 04:31] LABS: Alanine Aminotransferase 32 U/L (6-35); Alkaline Phosphatase 48 U/L (38-126); Anion Gap 11 mmol/L (8-16); Aspartate Amino Transferase 60 U/L (14-36); Bilirubin,Total 1.2 mg/dL (0.2-1.3); Blood Urea Nitrogen 5 mg/dL (7-17); Calcium 8.7 mg/dL (8.4-10.2); Carbon Dioxide 24 mmol/L (22-30); Chloride 100 mmol/L (98-107); Estimated CRCL calculation 95 ml/min; Estimated Glomerular Filt Rate > 60; Glucose 103 mg/dL (65-110); Magnesium 2.2 mg/dL (1.6-2.3); Potassium 3.7 mmol/L (3.4-5.0); Sodium 135 mmol/L (137-145)
[2023-03-28] MEDS: LACTATED RINGERS 1,000 ML 100 ML IV CONT (05:27)
[2023-03-28] MEDS: chlordiazePOXIDE (*CRX) 25 MG CAPSULE 50 MG PO ×4 (06:22→23:14)
--- NOTE | 2023-03-28 08:34 | PM.PNGS ---
Progress Note: A&P Assessment and Plan (1) HER2-positive carcinoma of right breast: Code(s): C50.911 - Malignant neoplasm of unspecified site of right female breast Status: Acute Assessment and Plan: 53 y/o female with RIGHT breast IDC and alcohol withdrawal POD#1 s/p bilateral non-nipple sparing mastectomy and R SLNBx and immediate prepec silicone implant reconstruction, improved overnight and healing well from surgical standpoint with On-Q in place, pain well managed, and decreasing drain output. Activity encouraged, PT/OT consult recommended to prepare for discharge. Reviewed impression and healing expectations with pt. Discussed signs/symptoms of concern. Reviewed drain and On-Q care. Reviewed dressing/activity instructions, OOB and incentive spirometer encouraged. Pt voiced understanding and agreement. Plan 1) CIWA protocol per IM 2) continue On-Q and PO pain control 3) drains q4 4) PT/OT consult (2) Invasive ductal carcinoma of right breast in female: Code(s): C50.911 - Malignant neoplasm of unspecified site of right female breast Status: Acute (3) Alcohol withdrawal: Qualifiers: Complication of substance-induced condition: uncomplicated Qualified Code(s): F10.930 - Alcohol use, unspecified with withdrawal, uncomplicated Code(s): F10.939 - Alcohol use, unspecified with withdrawal, unspecified Status: Acute Subjective Subjective Date/Time Seen: 03/28/23 08:34 Interval history: Pt seen at bedside. Pain well managed overnight. Denies fever/chills, ROCA/dizziness, bleeding/redness, change in breast size, SOB, chest pain, BLE pain, abd pain, N/V/D. Voiding and passing gas without issue. Tolerating PO diet. No bowel movement yet. Transfers to chair with moderate assist, anxious about eventual discharge home. Reports tremors have improved significantly. Exam Const: General: cooperative and healthy appearing Orientation/consciousness: patient oriented x3 Other: conversational, sitting in bed eating breakfast without assist HENMT: Head: normal to inspection Eyes: Other: anicteric Neck: Neck: normal visual inspection Chest: Other: Surg bra and dressing c/d/i, breast and NAC absent s/p mastectomy. Drains maintaining suction, moderate serosanguinous drainage b/l without clots. Visible skin flaps warm and well perfused, no erythema/ecchymosis. No palpable masses. Drain site clean. On-Q in place. Generally symmetric volume and ptosis. Resp: Effort & Inspection: normal respiratory effort and able to speak in complete sentences GI: GI Palp: No abdominal tenderness Objective Data Vital Signs Vital Signs: Vital Signs - 24 hr 03/27/23 12:03 03/27/23 12:15 03/27/23 12:30 Temperature 36.7 C Pulse Rate 116 H 120 H 120 H Respiratory Rate 8 L 16 14 Blood Pressure 178/81 H 181/72 H 172/75 H Pulse Oximetry 99 98 94 Oxygen Delivery Simple Face Mask Room Air Nasal Cannula Oxygen Flow Rate 6 2 03/27/23 12:45 03/27/23 13:00 03/27/23 13:15 Temperature Pulse Rate 115 H 111 H 106 H Respiratory Rate 13 16 15 Blood Pressure 167/89 H 165/87 H 169/79 H Pulse Oximetry 98 98 98 Oxygen Delivery Nasal Cannula Nasal Cannula Nasal Cannula Oxygen Flow Rate 2 2 2 03/27/23 13:30 03/27/23 13:45 03/27/23 14:00 Temperature Pulse Rate 109 H 98 96 Respiratory Rate 16 15 17 Blood Pressure 113/91 H 146/116 H 199/143 H Pulse Oximetry 98 98 98 Oxygen Delivery Nasal Cannula Nasal Cannula Nasal Cannula Oxygen Flow Rate 2 2 2 03/27/23 14:30 03/27/23 15:00 03/27/23 15:30 Temperature Pulse Rate 93 85 88 Respiratory Rate 18 14 13 Blood Pressure 174/77 H 139/86 154/92 H Pulse Oximetry 98 100 99 Oxygen Delivery Nasal Cannula Room Air Nasal Cannula Oxygen Flow Rate 2 2 03/27/23 16:00 03/27/23 16:00 03/27/23 16:00 Temperature 36.4 C Pulse Rate 88 Respiratory Rate 17 Blood Pressure 172/117 H 113/99 H Pulse Oximetry 96 Oxygen Del
[2023-03-28] MEDS: PANTOPRAZOLE SODIUM IV 40 MG VIAL IV PUSH (08:51)
[2023-03-28] MEDS: THIAMINE HCL 100 MG TABLET PO (08:51)
[2023-03-28] MEDS: FOLIC ACID 1 MG TABLET PO (08:51)
[2023-03-28] MEDS: MULTIVITAMINS THERAPEUTIC TAB (*BKC) 1 TABLET PO (08:51)
[2023-03-28] MEDS: DOCUSATE SODIUM 100 MG CAPSULE PO ×2 (08:51→17:07)
--- NOTE | 2023-03-28 12:09 | PM.IMPN ---
Progress Note: A&P Assessment and Plan (1) Alcohol withdrawal: Qualifiers: Complication of substance-induced condition: uncomplicated Qualified Code(s): F10.930 - Alcohol use, unspecified with withdrawal, uncomplicated Code(s): F10.939 - Alcohol use, unspecified with withdrawal, unspecified Status: Acute Assessment and Plan: Patient states that she has 2 drinks of wine and occasional beer per day. Her last drink was on Sunday, 03/23 by report. Patient developed withdrawal symptoms. CIWA protocol initiated with CIWA as high as 22. She was given a 'banana bag' and now on Thiamine and Folate She is on scheduled Librium 50 mg Q6H. Ativan available as needed for high CIWA score and she has been receiving this. CT abd 12/26/22 with enlargement of the pancreatic duct in the head of pancreas of unclear significance and hepatic steatosis. AST 60 otherwise LFTs normal. PT/PTT normal. Wean librium as toelrated (2) Invasive ductal carcinoma of right breast in female: Code(s): C50.911 - Malignant neoplasm of unspecified site of right female breast Status: Acute Assessment and Plan: Patient with incidental finding of breast mass in October. Sample taken in January with path showing invasive ductal carcinoma that was Estrogen positive, progesterone positive and HER2/mac positive. Patient was admitted and underwent bilateral mastectomy Management by breast/plastics surgery team (3) Anxiety and depression: Code(s): F41.9 - Anxiety disorder, unspecified; F32.A - Depression, unspecified Status: Acute Assessment and Plan: More calm and appropriate. Home Xanax on hold. Plan Diet: Regular GI Prophylaxis: Protonix IVP daily DVT Prophylaxis: SCDs Code Status: Full Code Subjective Date/time seen: 03/28/23 12:09 Interval history: 53yo female with alcoholism and breast cancer here for double mastectomy. Assuming care. Chart reviewed. Patient was confused last night. His CIWA score was in the 20s. She is more oriented this morning. She has a history of DTs. She has a history of attending alcohol rehab. No history of withdrawal seizures. No DUIs. Bruising noted in the bilateral upper arms but she denies abuse at home. She feels safe at home. She is currently living with her ex-. She denies any chest pain or shortness of breath but states her breasts are sore. Exam Narrative: AF 98.2 116/86 97 14 100% ra Gen - NARD Chest - CTA bilaterally, nml RR. Sports bra in place and visualized dressing is clean, dry intact. CV - RRR S1/S2. Telemetry showing no significant dysrhythmias Abd - Soft, NT/ND, Positive BS Ext - No pedal edema. 2+ DP pulses bilaterally Neuro - Alert and oriented x4. Nonfocal exam. Psych - Nml mood and affect Skin - Warm and dry Objective Data Vital Signs Vital Signs: Vital Signs - 24 hr 03/27/23 12:15 03/27/23 12:30 03/27/23 12:45 Temperature Pulse Rate 120 H 120 H 115 H Respiratory Rate 16 14 13 Blood Pressure 181/72 H 172/75 H 167/89 H Pulse Oximetry 98 94 98 Oxygen Delivery Room Air Nasal Cannula Nasal Cannula Oxygen Flow Rate 2 2 03/27/23 13:00 03/27/23 13:15 03/27/23 13:30 Temperature Pulse Rate 111 H 106 H 109 H Respiratory Rate 16 15 16 Blood Pressure 165/87 H 169/79 H 113/91 H Pulse Oximetry 98 98 98 Oxygen Delivery Nasal Cannula Nasal Cannula Nasal Cannula Oxygen Flow Rate 2 2 2 03/27/23 13:45 03/27/23 14:00 03/27/23 14:30 Temperature Pulse Rate 98 96 93 Respiratory Rate 15 17 18 Blood Pressure 146/116 H 199/143 H 174/77 H Pulse Oximetry 98 98 98 Oxygen Delivery Nasal Cannula Nasal Cannula Nasal Cannula Oxygen Flow Rate 2 2 2 03/27/23 15:00 03/27/23 15:30 03/27/23 16:00 Temperature 97.6 F Pulse Rate 85 88 88 Respiratory Rate 14 13 17 Blood Pressure 139/86 154/92 H 172/117 H Pulse Oximetry 100 99 96 Oxygen Delivery Room Air Nasal Cannula Oxygen Flow Rate 2 03/08
--- NOTE | 2023-03-28 13:54 | WPDANESPN ---
Anes - Prog Note Post-Op Date/Time: 03/28/23 13:54 Cardiovascular status: normal Respiratory status: normal Airway patency: baseline Mental status: baseline Post-Op hydration status: normal Vital Signs: Last Vital Signs Temp 98.2 F 03/28/23 11:35 Pulse 100 03/28/23 12:00 Resp 14 03/28/23 11:35 BP 116/86 03/28/23 11:48 Pulse Ox 100 03/28/23 11:35 O2 Del Method Room Air 03/28/23 11:55 O2 Flow Rate 2 03/27/23 15:30 Pain Score (VAS): 0/10 I/O: Intake & Output 03/27/23 03/28/23 03/28/23 23:59 07:59 15:59 Intake Total 240 480 Output Total 490 2830 650 Balance -669 -1660 -170 Laboratory Tests 03/28/23 04:15 03/28/23 04:15 03/27/23 03/28/23 15:13 04:15 WBC 6.7 RBC 3.46 L Hgb 11.5 L Hct 36.0 L MCV 104.0 H MCH 33.2 MCHC 31.9 L RDW 12.2 Plt Count 117 L MPV 8.9 Immature Gran % (Auto) 0.4 Neut % (Auto) 64.3 Lymph % (Auto) 21.2 Bailey % (Auto) 11.4 H Eos % (Auto) 2.4 Baso % (Auto) 0.3 Lymph # (Auto) 1.43 Bailey # (Auto) 0.8 H Eos # (Auto) 0.2 Baso # (Auto) 0.0 Abs Immat Gran (auto) 0.03 Absolute Neuts (auto) 4.3 Absolute Nucleated RBC 0.0 Nucleated RBC % 0.0 % Immature Plt Fraction 3.4 Sodium 135 L Potassium 3.7 Chloride 100 Carbon Dioxide 24 Anion Gap 11 BUN 5 L D Creatinine 0.50 L Estim Creat Clear Calc 95 Estimated GFR > 60 Glucose 103 POC Capillary Glucose 157 H Calcium 8.7 Magnesium 2.2 Total Bilirubin 1.2 AST 60 H ALT 32 Alkaline Phosphatase 48 Total Protein 7.0 Albumin 4.0 Post-procedural complaints: none Patient Feedback: Patient satisfied with anesthetic care. Other Findings: In ICU currently d/t treatment for DT's
[2023-03-28] MEDS: ONDANSETRON INJ 4 MG/2 ML VIAL IV PUSH (17:45)
--- NOTE | 2023-03-28 20:18 | PC.NURSE ---
This patient, Flavia Patrick, was transferred to [[facility]] on 03/28/23 at 2003. Personal belongings sent with patient. Report given to [YOLI Cadet]. Appropriate documentation sent with patient.
[2023-03-29] VITALS (16 sets, daily range): BP systolic 101–143; BP diastolic 66–89; PULSE 72–108; RESP 16–18; TEMP 36.6–36.9; O2SAT 97–100
[2023-03-29] MEDS: HYDROcodone/acetaminophen (*CRX) 5-325 MG TABLET 1 TAB PO ×3 (02:03→15:32)
[2023-03-29 05:35] LABS: Basophils Percent Auto 0.6 % (0.2-1.2); Eosinophils Absolute Auto 0.1 K/mm3 (0-0.3); Eosinophils Percent Auto 2.5 % (0-4.4); Hematocrit 35.5 % (37.0-47.0); Hemoglobin 11.4 g/dL (12.0-15.0); Immature Granulocyte Absolute 0.01 K/mm3 (0.00-0.031); Immature Granulocyte Percent A 0.2 % (0-0.5); Immature Platelet Fraction Pct 3.7 % (0.9-11.2); Lymphocytes Absolute Auto 1.95 K/mm3 (0.9-3.2); Lymphocytes Percent Auto 39.9 % (18.3-44.2); Mean Corpuscular HGB Conc 32.1 g/dl (32-36); Mean Corpuscular Hemoglobin 33.4 pg (26-34); Mean Corpuscular Volume 104.1 fl (80-100); Mean Platelet Volume 9.5 fl (7.4-10.4); Monocytes Absolute Auto 0.6 K/mm3 (0.1-0.6); Monocytes Percent Auto 11.2 % (2.6-8.5); Neutrophils Absolute Auto 2.2 K/mm3 (1.3-6.7); Neutrophils Percent Auto 45.6 % (45.5-73.1); Platelet Count Result 103 k/mm3 (150-375); Red Blood Count 3.41 M/mm3 (4.2-5.4); Red Cell Distribution Width 12.1 % (11.5-14.5); White Blood Count 4.9 K/mm3 (4.5-10.0)
[2023-03-29 05:47] LABS: Anion Gap 7 mmol/L (8-16); Blood Urea Nitrogen 4 mg/dL (7-17); Calcium 8.6 mg/dL (8.4-10.2); Carbon Dioxide 27 mmol/L (22-30); Chloride 103 mmol/L (98-107); Estimated CRCL calculation 81 ml/min; Estimated Glomerular Filt Rate > 60; Glucose 89 mg/dL (65-110); Potassium 3.8 mmol/L (3.4-5.0); Sodium 137 mmol/L (137-145)
[2023-03-29] MEDS: chlordiazePOXIDE (*CRX) 25 MG CAPSULE 50 MG PO (06:42)
[2023-03-29 08:46] LABS: Folic Acid 16.3 ng/mL (2.76->20)
[2023-03-29] MEDS: MULTIVITAMINS THERAPEUTIC TAB (*BKC) 1 TABLET PO (10:17)
[2023-03-29] MEDS: FOLIC ACID 1 MG TABLET PO (10:17)
[2023-03-29] MEDS: THIAMINE HCL 100 MG TABLET PO (10:17)
[2023-03-29] MEDS: DOCUSATE SODIUM 100 MG CAPSULE PO ×2 (10:17→17:24)
[2023-03-29] MEDS: PANTOPRAZOLE SODIUM IV 40 MG VIAL IV PUSH (10:18)
--- NOTE | 2023-03-29 11:08 | PM.IMPN ---
Progress Note: A&P Assessment and Plan (1) Alcohol withdrawal: Qualifiers: Complication of substance-induced condition: uncomplicated Qualified Code(s): F10.930 - Alcohol use, unspecified with withdrawal, uncomplicated Code(s): F10.939 - Alcohol use, unspecified with withdrawal, unspecified Status: Acute Assessment and Plan: Patient states that she has 2 drinks of wine and occasional beer per day. Her last drink was on Sunday, 03/23 by report. Patient developed withdrawal symptoms. CIWA protocol initiated with CIWA as high as 22. She was given a 'banana bag' and now on Thiamine and Folate She is on scheduled Librium 50 mg Q6H. Ativan available as needed for high CIWA score and she has been receiving this. CT abd 12/26/22 with enlargement of the pancreatic duct in the head of pancreas of unclear significance and hepatic steatosis. AST 60 otherwise LFTs normal. PT/PTT normal. Wean librium today (2) Invasive ductal carcinoma of right breast in female: Code(s): C50.911 - Malignant neoplasm of unspecified site of right female breast Status: Acute Assessment and Plan: Patient with incidental finding of breast mass in October. Sample taken in January with path showing invasive ductal carcinoma that was Estrogen positive, progesterone positive and HER2/mac positive. Patient was admitted and underwent bilateral mastectomy Management by breast/plastics surgery team (3) Anxiety and depression: Code(s): F41.9 - Anxiety disorder, unspecified; F32.A - Depression, unspecified Status: Acute Assessment and Plan: More calm and appropriate. Home Xanax on hold. Plan Diet: Regular GI Prophylaxis: Protonix DVT Prophylaxis: SCDs Code Status: Full Code Subjective Date/time seen: 03/29/23 11:08 Interval history: 53yo female with alcoholism and breast cancer here for double mastectomy. No tremors. Slept well. Eating okay. Pain 5-6/10 currently. She feels better overall. Exam Narrative: AF 98.3 143/89 91 17 100% ra Gen - NARD Chest - lungs clear anterirly and in the flanks. Sports bra in place with visualized dressing clean, dry intact. CV - RRR S1/S2. Telemetry showing no significant dysrhythmias Abd - Soft, NT/ND, Positive BS Ext - No pedal edema. Neuro - Alert and appropriate Psych - Nml mood and affect Skin - Warm and dry Objective Data Vital Signs Vital Signs: Vital Signs - 24 hr 03/28/23 11:35 03/28/23 11:48 03/28/23 11:55 Temperature 98.2 F Pulse Rate 97 Respiratory Rate 14 Blood Pressure 116/86 116/86 Pulse Oximetry 100 Oxygen Delivery Room Air 03/28/23 12:00 03/28/23 13:21 03/28/23 14:00 Temperature Pulse Rate 100 75 Respiratory Rate Blood Pressure Pulse Oximetry Oxygen Delivery Room Air 03/28/23 16:00 03/28/23 16:00 03/28/23 16:00 Temperature 98.7 F Pulse Rate 100 71 Respiratory Rate 16 Blood Pressure 152/90 H 152/90 H Pulse Oximetry 100 Oxygen Delivery 03/28/23 16:00 03/28/23 20:05 03/28/23 23:23 Temperature 97.9 F 97.5 F L Pulse Rate 68 77 Respiratory Rate 18 20 Blood Pressure 123/75 111/67 Pulse Oximetry 100 98 Oxygen Delivery Room Air 03/28/23 20:00 03/29/23 00:00 03/29/23 04:00 Temperature Pulse Rate 81 77 78 Respiratory Rate Blood Pressure Pulse Oximetry Oxygen Delivery 03/28/23 20:00 03/29/23 04:00 03/29/23 00:00 Temperature 98 F Pulse Rate 80 Respiratory Rate 16 Blood Pressure 118/66 Pulse Oximetry 100 100 98 Oxygen Delivery Room Air Room Air 03/29/23 02:00 03/29/23 04:00 03/29/23 06:00 Temperature Pulse Rate 81 72 Respiratory Rate Blood Pressure Pulse Oximetry 100 Oxygen Delivery Room Air 03/29/23 07:34 Temperature 98.3 F Pulse Rate 91 Respiratory Rate 17 Blood Pressure 143/89 H Pulse Oximetry 100 Oxygen Delivery Intake/Output Intake/Output: Intake & Output
--- NOTE | 2023-03-29 11:37 | WPDPN ---
Progress Note: A&P Assessment and Plan (1) Acquired absence of bilateral breasts and nipples: Code(s): Z90.13 - Acquired absence of bilateral breasts and nipples Status: Acute Assessment and Plan: 53yo female doing well pod#2 s/p b/l breast recon at time of mastectomy reviewed post-op expectations and protocols. appreciate hospitalist input and mgmt - notes reviewed discussed plan for likley d/c in AM if pt feels more capable of self care at home and if Ok'd by Dr. Guzmán. Plan: 1) cont drain and onq 2) cont binder 3) possible d/c in AM and f/u next week Subjective Date/time seen: 03/29/23 11:37 Interval history: Pt. seen and examined POD #2 s/p b/l mastectomy and pre-pec silicone impalnt recon with adm. pain controlled drain output decreasing tolerating diet and ambulating but still feels a little unsteady and uncertain about self care if she were discharged today. Exam Narrative: breast bra and dressing in place with scan dry sanguinous staining. drains and onq pump in place and functioning. light serosang fluid in drains. good symmetry and implant position. faint scattered ecchymosis L>R. Objective Data Vital Signs Vital Signs: Vital Signs - 24 hr 03/28/23 11:48 03/28/23 11:55 03/28/23 12:00 Temperature Pulse Rate 100 Respiratory Rate Blood Pressure 116/86 Pulse Oximetry Oxygen Delivery Room Air 03/28/23 13:21 03/28/23 14:00 03/28/23 16:00 Temperature Pulse Rate 75 Respiratory Rate Blood Pressure 152/90 H Pulse Oximetry Oxygen Delivery Room Air 03/28/23 16:00 03/28/23 16:00 03/28/23 16:00 Temperature 37.1 C Pulse Rate 100 71 Respiratory Rate 16 Blood Pressure 152/90 H Pulse Oximetry 100 Oxygen Delivery Room Air 03/28/23 20:05 03/28/23 23:23 03/28/23 20:00 Temperature 36.6 C 36.4 C L Pulse Rate 68 77 81 Respiratory Rate 18 20 Blood Pressure 123/75 111/67 Pulse Oximetry 100 98 Oxygen Delivery 03/29/23 00:00 03/29/23 04:00 03/28/23 20:00 Temperature Pulse Rate 77 78 Respiratory Rate Blood Pressure Pulse Oximetry 100 Oxygen Delivery Room Air 03/29/23 04:00 03/29/23 00:00 03/29/23 02:00 Temperature 36.6 C Pulse Rate 80 81 Respiratory Rate 16 Blood Pressure 118/66 Pulse Oximetry 100 98 Oxygen Delivery Room Air 03/29/23 04:00 03/29/23 06:00 03/29/23 07:34 Temperature 36.8 C Pulse Rate 72 91 Respiratory Rate 17 Blood Pressure 143/89 H Pulse Oximetry 100 100 Oxygen Delivery Room Air Intake/Output Intake/Output: Intake & Output 03/26/23 03/27/23 03/28/23 03/29/23 23:59 23:59 23:59 23:59 Intake Total 736 783 3673 Output Total 692 0955 790 Balance 298 -3154 284 Meds/Results Medications: Active Medications Generic Name Dose Route Start Last Admin Trade Name Freq PRN Reason Stop Dose Admin Acetaminophen 500 mg 03/27/23 15:43 Acetaminophen 500 Mg Tablet PO Q6H PRN Mild Pain (1-3) or Fever Hydrocodone Bitart/Acetaminophen 1 tab 03/27/23 15:43 03/29/23 10:18 Hydrocodone/Acetaminophen (*Crx) 5-325 Mg Tablet PO 1 tab Q4H PRN Administration Pain Rated 4-6 Chlordiazepoxide HCl 25 mg 03/29/23 12:00 Chlordiazepoxide (*Crx) 25 Mg Capsule PO Q6HR CLAUS Diphenhydramine HCl 25 mg 03/27/23 15:43 Diphenhydramine Hcl Inj 50 Mg/Ml Vial IV PUSH Q6H PRN Itching Docusate Sodium 100 mg 03/27/23 17:00 03/29/23 10:17 Docusate Sodium 100 Mg Capsule PO 100 mg BID CLAUS Administration Folic Acid 1 mg 03/28/23 09:00 03/29/23 10:17 Folic Acid 1 Mg Tablet PO 1 mg DAILY CLAUS Administration Hydromorphone HCl 1 mg 03/27/23 15:43 Hydromorphone Hcl Inj (*Crx) 1 Mg/Ml Syr IV PUSH Q2H PRN Pain Rated 7-10 Lorazepam 2 mg 03/27/23 13:51 03/28/23 08:53 Lorazepam Inj (*Crx) 2 Mg/Ml Vial IV PUSH 2 mg Q2H PRN Administration CIWA > 15 Multivitamins Therapeutic 1 t
--- NOTE | 2023-03-29 11:38 | PM.PNGS ---
Progress Note: A&P Assessment and Plan (1) HER2-positive carcinoma of right breast: Code(s): C50.911 - Malignant neoplasm of unspecified site of right female breast Status: Acute Assessment and Plan: 53 y/o female with RIGHT breast IDC and alcohol withdrawal admitted through same day surgery for observation now POD#2 s/p bilateral non-nipple sparing mastectomy and R SLNBx and immediate prepec silicone implant reconstruction, significantly improved. Begin plan for discharge home. Reviewed dressing/activity/drain/On-Q instructions with pt. Discussed signs/symptoms of concern. Reviewed pain medication and antibiotics at home. Reviewed follow up with plastics and breast. Walking and incentive spirometer encouraged at home. Plan 1) tramadol q6 PO and keflex q8 for discharge 2) drains q8 3) CIWA per IM 4) plan for discharge tomorrow (2) Invasive ductal carcinoma of right breast in female: Code(s): C50.911 - Malignant neoplasm of unspecified site of right female breast Status: Acute Subjective Subjective Date/Time Seen: 03/29/23 11:38 Interval history: Pt seen at bedside, feeling significantly better today with resolution of tremors per patient and less anxiety. No concerns overnight. Pain well managed. Tolerating PO diet, voiding and passing gas without issue. Ambulating with supervision but not requiring assistance. Denies fever/chills, bleeding/redness, change in breast size, SOB, chest pain, abd pain, BLE pain/claudication. Drain output improved. Exam Const: General: cooperative and comfortable Other: sitting comfortably in bed, conversational HENMT: Head: normal to inspection Eyes: Other: anicteric Neck: Neck: trachea midline Chest: Other: Surgical bra c/d/i, drain sites c/d/i, drains maintaining suction with minimal serosanguinous drainage. Breast and NAC absent, implants symmetric in place, skin flaps warm and well perfused, minimal left lateral ecchymosis. Minimal tenderness. No erythema, minimal edema. On-Q connected and in place. Resp: Effort & Inspection: normal respiratory effort Objective Data Vital Signs Vital Signs: Vital Signs - 24 hr 03/28/23 11:48 03/28/23 11:55 03/28/23 12:00 Temperature Pulse Rate 100 Respiratory Rate Blood Pressure 116/86 Pulse Oximetry Oxygen Delivery Room Air 03/28/23 13:21 03/28/23 14:00 03/28/23 16:00 Temperature Pulse Rate 75 Respiratory Rate Blood Pressure 152/90 H Pulse Oximetry Oxygen Delivery Room Air 03/28/23 16:00 03/28/23 16:00 03/28/23 16:00 Temperature 37.1 C Pulse Rate 100 71 Respiratory Rate 16 Blood Pressure 152/90 H Pulse Oximetry 100 Oxygen Delivery Room Air 03/28/23 20:05 03/28/23 23:23 03/28/23 20:00 Temperature 36.6 C 36.4 C L Pulse Rate 68 77 81 Respiratory Rate 18 20 Blood Pressure 123/75 111/67 Pulse Oximetry 100 98 Oxygen Delivery 03/29/23 00:00 03/29/23 04:00 03/28/23 20:00 Temperature Pulse Rate 77 78 Respiratory Rate Blood Pressure Pulse Oximetry 100 Oxygen Delivery Room Air 03/29/23 04:00 03/29/23 00:00 03/29/23 02:00 Temperature 36.6 C Pulse Rate 80 81 Respiratory Rate 16 Blood Pressure 118/66 Pulse Oximetry 100 98 Oxygen Delivery Room Air 03/29/23 04:00 03/29/23 06:00 03/29/23 07:34 Temperature 36.8 C Pulse Rate 72 91 Respiratory Rate 17 Blood Pressure 143/89 H Pulse Oximetry 100 100 Oxygen Delivery Room Air Intake/Output Intake/Output: Intake & Output 03/26/23 03/27/23 03/28/23 03/29/23 23:59 23:59 23:59 23:59 Intake Total 039 497 6621 Output Total 694 9705 790 Balance 237 -3141 284 Meds/Results Medications: Active Medications Generic Name Dose Route Start Last Admin Trade Name Freq PRN Reason Stop Dose Admin Acetaminophen 500 mg 03/27/23 15:43 Acetaminophen 500 Mg Tablet PO Q6H PRN Mild Pain (1-3) or Fever H
[2023-03-29] MEDS: chlordiazePOXIDE (*CRX) 25 MG CAPSULE PO ×3 (12:32→23:00)
[2023-03-29] MEDS: CEPHALEXIN 500 MG CAPSULE PO ×2 (15:32→23:00)
[2023-03-30] VITALS (8 sets, daily range): BP systolic 120–126; BP diastolic 69–77; PULSE 69–99; RESP 18–20; TEMP 36–36.2; O2SAT 91–99
[2023-03-30] MEDS: CEPHALEXIN 500 MG CAPSULE PO (05:04)
[2023-03-30] MEDS: chlordiazePOXIDE (*CRX) 25 MG CAPSULE PO (05:04)
[2023-03-30] MEDS: MULTIVITAMINS THERAPEUTIC TAB (*BKC) 1 TABLET PO (08:59)
[2023-03-30] MEDS: FOLIC ACID 1 MG TABLET PO (08:59)
[2023-03-30] MEDS: PANTOPRAZOLE 40 MG TABLET PO (08:59)
[2023-03-30] MEDS: DOCUSATE SODIUM 100 MG CAPSULE PO (08:59)
[2023-03-30] MEDS: THIAMINE HCL 100 MG TABLET PO (08:59)
--- NOTE | 2023-03-30 09:36 | PM.DS ---
DS: Admitting Diagnosis Discharge Date 03/30/2023 Admitting Diagnosis 1. Right breast invasive ductal carcinoma 2. History of alcohol abuse and delirium tremens DS: Discharge Diagnosis Discharge Diagnosis (1) Acquired absence of bilateral breasts and nipples: Code(s): Z90.13 - Acquired absence of bilateral breasts and nipples Status: Acute Assessment and Plan: See below (2) HER2-positive carcinoma of right breast: Code(s): C50.911 - Malignant neoplasm of unspecified site of right female breast Status: Acute Assessment and Plan: See below (3) Invasive ductal carcinoma of right breast in female: Code(s): C50.911 - Malignant neoplasm of unspecified site of right female breast Status: Acute Assessment and Plan: - Follow up with Plastic Surgery this upcoming week - Follow up with Breast surgery in 2 weeks - Drain teaching to be performed prior to discharge home - Review discharge instructions with patient, as well as activity, sponge bath, and drain care (4) Alcohol withdrawal: Qualifiers: Complication of substance-induced condition: uncomplicated Qualified Code(s): F10.930 - Alcohol use, unspecified with withdrawal, uncomplicated Code(s): F10.939 - Alcohol use, unspecified with withdrawal, unspecified Status: Acute Assessment and Plan: - Stable and improved. Will be discharge on current regimen per Internal Medicine as well as home medications - Patient to follow up with PCP within 1 week from discharge DS: Summary Hospital Course Reason for hospitalization: Alcohol withdrawal, history of delirium tremens Hospital Course: 53 year old female with history of right breast cancer and alcohol abuse, delirium tremens, who was admitted after surgery for observation. Patient was noted to have significant alcohol withdrawl symptoms in recovery area, and was admitted to step down for further evaluation and management. She was placed on CIWA protocol, and symptoms started improving on POD2. Patient was Evaluated by Physical therapy as well as occupational, and her unsteady gait started to improving. She is now mobilizing better with minimal assist. She is tolerating a diet well with no nausea or emesis. Her pain is well controlled and her alcohol withdrawal symptoms have resolved. She was deemed ready for discharge on postop day 3. Status at Discharge Functional status at discharge: independent ambulation Overall status at discharge: patient is back to baseline Time Spent with Patient Time attestation: Total time spent providing and/or coordinating discharge services: Time spent: Less than 30 minutes Exam Const: General: comfortable and no acute distress HENMT: Mouth: Yes moist mucous membranes Eyes: General: appearance normal, both eyes and all related structures Resp: Effort & Inspection: normal respiratory effort Cardio: Rate: regular rate GI: GI Palp: Yes Soft to palpation Skin: General skin exam: normal color Other: Bilateral mastectomy flaps appear viable and well perfused with minimal ecchymosis noted on the left lateral aspect. No bleeding noted. Drains have light serous sanguinous fluid output. Psych: Mental Status: mental status grossly normal Affect: normal affect DS: Data Data Completed and Pending Pending studies at discharge: Pending at discharge 03/27/23 09:13 Surgical [PTH] Routine 03/27/23 09:59 Surgical [PTH] Routine 03/27/23 10:52 Surgical [PTH] Routine 03/27/23 10:58 Surgical [PTH] Routine Procedures/Treatments: Bilateral mastectomies, right sentinel lymph node biopsy, immediate reconstruction with bilateral prepec silicone implants Discharge Plan Discharge Attending physician on discharge: Socorro Guzmán Consulting providers: Jaylyn Prater Asif Discharging Clinician: Socorro Guzmán Anticipated Discharge Date/Time: 03/30/23 14:00 Pamella
[2023-03-30] MEDS: HYDROcodone/acetaminophen (*CRX) 5-325 MG TABLET 1 TAB PO (10:20)
--- NOTE | 2023-03-30 10:57 | PM.IMPN ---
Progress Note: A&P Assessment and Plan (1) Alcohol withdrawal: Qualifiers: Complication of substance-induced condition: uncomplicated Qualified Code(s): F10.930 - Alcohol use, unspecified with withdrawal, uncomplicated Code(s): F10.939 - Alcohol use, unspecified with withdrawal, unspecified Status: Acute Assessment and Plan: Patient states that she has 2 drinks of wine and occasional beer per day. Her last drink was on Sunday, 03/23 by report. Patient developed withdrawal symptoms. CIWA protocol initiated with CIWA as high as 22. She was given a 'banana bag' and now on Thiamine and Folate She was on scheduled Librium 50 mg Q6H. Ativan available PRN for high CIWA score and she has not been receiving this. CT abd 12/26/22 with enlargement of the pancreatic duct in the head of pancreas of unclear significance and hepatic steatosis. AST 60 otherwise LFTs normal. PT/PTT normal. Continue to wean librium today (2) Invasive ductal carcinoma of right breast in female: Code(s): C50.911 - Malignant neoplasm of unspecified site of right female breast Status: Acute Assessment and Plan: Patient with incidental finding of breast mass in October. Sample taken in January with path showing invasive ductal carcinoma that was Estrogen positive, progesterone positive and HER2/mac positive. Patient was admitted and underwent bilateral mastectomy Management by breast/plastics surgery team (3) Anxiety and depression: Code(s): F41.9 - Anxiety disorder, unspecified; F32.A - Depression, unspecified Status: Acute Assessment and Plan: More calm and appropriate. Home Xanax on hold. Plan Diet: Regular GI Prophylaxis: Protonix DVT Prophylaxis: SCDs Code Status: Full Code Subjective Date/time seen: 03/30/23 10:57 Interval history: 53yo female with alcoholism and breast cancer here for double mastectomy. No complaints today. Pain still /10 . No n/v. Feels unsteady when she walks which is chronic. Exam Narrative: AF 96.8 120/77 70 20 99% ra Gen - NARD Chest - CTA bilaterally. Sports bra in place CV - RRR S1/S2. Telemetry showing no significant dysrhythmias Abd - Soft, NT/ND, Positive BS Ext - No pedal edema. Neuro - Alert and appropriate. No tremors Psych - Nml mood and affect Skin - Warm and dry Objective Data Vital Signs Vital Signs: Vital Signs - 24 hr 03/29/23 11:49 03/29/23 12:00 03/29/23 14:00 Temperature 98.5 F Pulse Rate 98 96 87 Pulse Rate [Monitor] Respiratory Rate 17 Blood Pressure 134/83 Pulse Oximetry 99 Oxygen Delivery 03/29/23 16:00 03/29/23 19:59 03/29/23 16:00 Temperature 97.8 F 97.8 F Pulse Rate 76 83 98 Pulse Rate [Monitor] Respiratory Rate 16 18 Blood Pressure 101/77 113/78 Pulse Oximetry 99 98 Oxygen Delivery 03/29/23 18:00 03/29/23 20:00 03/29/23 20:00 Temperature Pulse Rate 92 Pulse Rate [Monitor] 83 Respiratory Rate Blood Pressure 113/78 Pulse Oximetry Oxygen Delivery Room Air 03/29/23 23:05 03/29/23 20:00 03/29/23 22:00 Temperature 97.9 F Pulse Rate 72 77 86 Pulse Rate [Monitor] Respiratory Rate 18 Blood Pressure 126/76 Pulse Oximetry 97 Oxygen Delivery 03/30/23 00:00 03/30/23 00:00 03/30/23 00:00 Temperature Pulse Rate 99 Pulse Rate [Monitor] 99 Respiratory Rate Blood Pressure 126/76 Pulse Oximetry Oxygen Delivery Room Air 03/30/23 02:00 03/30/23 04:43 03/30/23 04:00 Temperature 97.1 F L Pulse Rate 91 81 Pulse Rate [Monitor] Respiratory Rate 18 Blood Pressure 120/69 Pulse Oximetry 91 Oxygen Delivery Room Air 03/30/23 04:00 03/30/23 06:00 03/30/23 04:00 Temperature Pulse Rate 75 74 Pulse Rate [Monitor] 81 Respiratory Rate Blood Pressure 120/69 Pulse Oximetry Oxygen Delivery 03/30/23 07:40 03/30/23 08:00 03/30/23 08:00 Temperature 96.8 F L Puls
== END 2023-03-30 10:43 | disposition home or self-care (01) | DRG 362 ==
LOC: ANHICU 03-28 08:03 → ANHIMU 03-28 20:24
PROVIDERS: Internal Medicine; Plastic Surgery; Student in an Organized Health Care Education/Training Program; Admitting Provider Surgery; PCP Internal Medicine; Visit Provider Surgery
PROC: 0HTV0ZZ Resection of Bilateral Breast, Open Approach (ICD-10-PCS; principal; 2023-03-27 07:30)
PROC: 0KU Muscles, Supplement (ICD-10-PCS; 2023-03-27 07:30)
DX: C50.911 Malignant neoplasm of unspecified site of right female breast (principal); F10.231 Alcohol dependence with withdrawal delirium; K76.0 Fatty (change of) liver, not elsewhere classified; G25.2 Other specified forms of tremor; F41.8 Other specified anxiety disorders
CPT/HCPCS: 36415; 80048; 80053; 82607; 82746; 82948; 83735; 85025; 85055; 88305; 88307; 88331; 97161; 97165; A9270; C1713; C9113; J0665; J0690; J1100; J1170; J1580; J2060; J2175; J2250; J2371; J2405; J2704; J3010; J3411; J3475; J7120; J7121; L8000; Q9968

== ENCOUNTER 2023-05-24 13:56 | Outpatient (CLI) | payer OTHER, SELFPAY ==
[2023-05-24 14:10] LABS: Basophils Percent Auto 0.9 % (0.2-1.2); Eosinophils Absolute Auto 0.1 K/mm3 (0-0.3); Eosinophils Percent Auto 1.9 % (0-4.4); Hematocrit 39.4 % (37.0-47.0); Hemoglobin 12.9 g/dL (12.0-15.0); Immature Granulocyte Absolute 0.02 K/mm3 (0.00-0.031); Immature Granulocyte Percent A 0.4 % (0-0.5); Lymphocytes Absolute Auto 1.87 K/mm3 (0.9-3.2); Lymphocytes Percent Auto 39.9 % (18.3-44.2); Mean Corpuscular HGB Conc 32.7 g/dl (32-36); Mean Corpuscular Hemoglobin 32.2 pg (26-34); Mean Corpuscular Volume 98.3 fl (80-100); Mean Platelet Volume 8.3 fl (7.4-10.4); Monocytes Absolute Auto 0.7 K/mm3 (0.1-0.6); Monocytes Percent Auto 14.7 % (2.6-8.5); Neutrophils Percent Auto 42.2 % (45.5-73.1); Platelet Count Result 136 k/mm3 (150-375); Red Blood Count 4.01 M/mm3 (4.2-5.4); Red Cell Distribution Width 13.1 % (11.5-14.5); White Blood Count 4.7 K/mm3 (4.5-10.0)
[2023-05-24 14:15] LABS: Blood Urea Nitrogen 6 mg/dL (8-26); Carbon Dioxide 27 mmol/L (22-30); Chloride 102 mmol/L (98-109); Estimated Glomerular Filt Rate > 60; Glucose 108 mg/dL (70-105); Ionized Calcium (POC) 1.21 mmol/L (1.11-1.31); Potassium 4.3 mmol/L (3.5-4.9); Sodium 142 mmol/L (138-146)
[2023-05-24 16:39] LABS: Alanine Aminotransferase 41 U/L (6-35); Albumin Level 4.1 g/dL (3.5-5.1); Alkaline Phosphatase 55 U/L (38-126); Anion Gap 9 mmol/L (8-16); Aspartate Amino Transferase 61 U/L (14-36); Bilirubin,Total 0.5 mg/dL (0.2-1.3); Blood Urea Nitrogen 7 mg/dL (7-17); Calcium 9.5 mg/dL (8.4-10.2); Carbon Dioxide 28 mmol/L (22-30); Chloride 104 mmol/L (98-107); Estimated Glomerular Filt Rate > 60; Glucose 102 mg/dL (65-110); Potassium 4.3 mmol/L (3.4-5.0); Sodium 141 mmol/L (137-145)
== END 2023-05-24 13:57 | disposition home or self-care (01) ==
LOC: ANHLAB 13:57
PROVIDERS: PCP Internal Medicine; Visit Provider Internal Medicine Hematology & Oncology
DX: C50.919 Malignant neoplasm of unspecified site of unspecified female breast (principal)
CPT/HCPCS: 36415; 80047; 80053; 85025

== ENCOUNTER 2023-07-24 09:29 | Outpatient (CLI) | payer OTHER, SELFPAY ==
[2023-07-24 10:28] LABS: Basophils Absolute Auto 0.1 K/mm3 (0.0-0.1); Basophils Percent Auto 1.6 % (0.2-1.2); Eosinophils Absolute Auto 0.1 K/mm3 (0-0.3); Eosinophils Percent Auto 1.7 % (0-4.4); Hematocrit 40.4 % (37.0-47.0); Hemoglobin 12.9 g/dL (12.0-15.0); Immature Granulocyte Absolute 0.07 K/mm3 (0.00-0.031); Immature Granulocyte Percent A 1.1 % (0-0.5); Immature Reticulocyte Fraction 18.3 % (3.0-15.9); Lymphocytes Absolute Auto 1.44 K/mm3 (0.9-3.2); Lymphocytes Percent Auto 22.9 % (18.3-44.2); Mean Corpuscular HGB Conc 31.9 g/dl (32-36); Mean Corpuscular Hemoglobin 32.9 pg (26-34); Mean Corpuscular Volume 103.1 fl (80-100); Mean Platelet Volume 8.6 fl (7.4-10.4); Monocytes Percent Auto 16.2 % (2.6-8.5); Neutrophils Absolute Auto 3.6 K/mm3 (1.3-6.7); Neutrophils Percent Auto 56.5 % (45.5-73.1); Platelet Count Result 268 k/mm3 (150-375); Red Blood Count 3.92 M/mm3 (4.2-5.4); Red Cell Distribution Width 14.6 % (11.5-14.5); Reticulocyte Hemoglobin Conten 38.6 pg (28.2-36.6); Reticulocytes Absolute 0.09 10^6/uL (0.02-0.10); White Blood Count 6.3 K/mm3 (4.5-10.0)
[2023-07-24 10:36] LABS: Appearance Urine Cloudy (Clear); Bacteria Urine 4+ /hpf; Bilirubin Urine Negative (Negative); Blood Urine Negative (Negative); Color Urine Dark Yellow (Yellow); Glucose Urine UA Negative (Negative); Ketones Urine Trace mg/dL (Negative); Leukocyte Esterase Ur Trace LEU/UL (Negative); Nitrate Urine Negative (Negative); Protein Urine Negative (Negative); RBC Urine 0-2 /hpf (0-2); Specific Grav Ur 1.024 (1.001-1.035); Squamous Epithelial Cell Urine Many /hpf (Few)
[2023-07-24 10:38] LABS: Alanine Aminotransferase 75 U/L (6-35); Albumin Level 4.2 g/dL (3.5-5.1); Alkaline Phosphatase 50 U/L (38-126); Anion Gap 7 mmol/L (8-16); Aspartate Amino Transferase 83 U/L (14-36); Bilirubin Indirect 0.3 mg/dL (0-1.1); Bilirubin,Total 0.7 mg/dL (0.2-1.3); Blood Urea Nitrogen 10 mg/dL (7-17); Calcium 9.6 mg/dL (8.4-10.2); Carbon Dioxide 27 mmol/L (22-30); Chloride 106 mmol/L (98-107); Cholesterol 252 mg/dL (0-200); Estimated Glomerular Filt Rate > 60; Glucose 144 mg/dL (65-110); HDL Direct 67 mg/dL; Lactate Dehydrogenase 226 U/L (120-246); Potassium 3.7 mmol/L (3.4-5.0); Sodium 140 mmol/L (137-145); Triglycerides 76 mg/dL (<150)
[2023-07-24 10:43] LABS: Add Urine Microscopic? YES
[2023-07-24 10:50] LABS: LDL Cholesterol Direct 150 mg/dL; Transferrin 187 mg/dL (206-381)
[2023-07-24 11:46] LABS: Folic Acid > 20.0 ng/mL (2.76->20)
[2023-07-24 12:27] LABS: Free T4 Free Thyroxine 0.92 ng/mL (0.78-2.19); Vitamin D 25 Hydroxy 44.6 ng/mL
[2023-07-24 15:15] LABS: Iron 116 ug/dL (37-170); Percent Iron Saturation 50 % (20-50)
[2023-07-27 10:08] LABS: Haptoglobin 157 mg/dL (43-212)
== END 2023-07-24 09:30 | disposition home or self-care (01) ==
LOC: ANHLAB 09:32
PROVIDERS: PCP Internal Medicine; Visit Provider Internal Medicine
DX: F41.9 Anxiety disorder, unspecified (principal); Z68.26 Body mass index [BMI] 26.0-26.9, adult; E78.2 Mixed hyperlipidemia; M54.2 Cervicalgia; K25.5 Chronic or unspecified gastric ulcer with perforation; H21.562 Pupillary abnormality, left eye; G62.9 Polyneuropathy, unspecified; M79.10 Myalgia, unspecified site; E78.1 Pure hyperglyceridemia; F41.1 Generalized anxiety disorder; D64.9 Anemia, unspecified; M25.529 Pain in unspecified elbow; G56.03 Carpal tunnel syndrome, bilateral upper limbs; S42.91XA Fracture of right shoulder girdle, part unspecified, initial encounter for closed fracture; Z13.820 Encounter for screening for osteoporosis; E27.9 Disorder of adrenal gland, unspecified; R92.8 Other abnormal and inconclusive findings on diagnostic imaging of breast; F10.11 Alcohol abuse, in remission
CPT/HCPCS: 36415; 80053; 80061; 82248; 82306; 82607; 82728; 82746; 83010; 83540; 83550; 83615; 84439; 84443; 84466; 85025; 85046; 87086

== ENCOUNTER 2023-09-10 11:57 | Outpatient (CLI) | payer OTHER, SELFPAY ==
[2023-09-10 12:18] LABS: Basophils Absolute Auto 0.1 K/mm3 (0.0-0.1); Basophils Percent Auto 2.3 % (0.2-1.2); Eosinophils Absolute Auto 0.1 K/mm3 (0-0.3); Eosinophils Percent Auto 2.3 % (0-4.4); Hematocrit 38.2 % (37.0-47.0); Hemoglobin 12.4 g/dL (12.0-15.0); Immature Granulocyte Absolute 0.04 K/mm3 (0.00-0.031); Immature Granulocyte Percent A 0.9 % (0-0.5); Lymphocytes Absolute Auto 1.43 K/mm3 (0.9-3.2); Lymphocytes Percent Auto 32.2 % (18.3-44.2); Mean Corpuscular HGB Conc 32.5 g/dl (32-36); Mean Corpuscular Hemoglobin 33.5 pg (26-34); Mean Corpuscular Volume 103.2 fl (80-100); Monocytes Absolute Auto 0.9 K/mm3 (0.1-0.6); Monocytes Percent Auto 19.1 % (2.6-8.5); Neutrophils Absolute Auto 1.9 K/mm3 (1.3-6.7); Neutrophils Percent Auto 43.2 % (45.5-73.1); Platelet Count Result 236 k/mm3 (150-375); Red Cell Distribution Width 13.2 % (11.5-14.5); White Blood Count 4.4 K/mm3 (4.5-10.0)
[2023-09-10 16:47] LABS: Alanine Aminotransferase 124 U/L (6-35); Albumin Level 4.2 g/dL (3.5-5.1); Alkaline Phosphatase 39 U/L (38-126); Anion Gap 6 mmol/L (4-12); Aspartate Amino Transferase 98 U/L (14-36); Bilirubin,Total 0.4 mg/dL (0.2-1.3); Blood Urea Nitrogen 7 mg/dL (7-17); Calcium 9.4 mg/dL (8.4-10.2); Carbon Dioxide 26 mmol/L (22-30); Chloride 108 mmol/L (98-107); Estimated Glomerular Filt Rate > 60; Glucose 95 mg/dL (65-110); Potassium 4.3 mmol/L (3.4-5.0); Sodium 140 mmol/L (137-145)
[2023-09-11 16:58] LABS: CA 15-3 8 U/mL (<32)
== END 2023-09-10 11:58 | disposition home or self-care (01) ==
LOC: ANHLAB 11:59
PROVIDERS: PCP Internal Medicine; Visit Provider Internal Medicine Hematology & Oncology
DX: C50.919 Malignant neoplasm of unspecified site of unspecified female breast (principal)
CPT/HCPCS: 36415; 80053; 85025; 86300

== ENCOUNTER 2024-01-28 13:07 | Outpatient (CLI) | payer OTHER, SELFPAY ==
[2024-01-28 13:37] LABS: Basophils Percent Auto 0.9 % (0.2-1.2); Eosinophils Absolute Auto 0.2 K/mm3 (0-0.3); Eosinophils Percent Auto 3.3 % (0-4.4); Hematocrit 39.5 % (37.0-47.0); Hemoglobin 13.3 g/dL (12.0-15.0); Immature Granulocyte Absolute 0.01 K/mm3 (0.00-0.031); Immature Granulocyte Percent A 0.2 % (0-0.5); Lymphocytes Absolute Auto 1.23 K/mm3 (0.9-3.2); Lymphocytes Percent Auto 27.3 % (18.3-44.2); Mean Corpuscular HGB Conc 33.7 g/dl (32-36); Mean Corpuscular Hemoglobin 34.1 pg (26-34); Mean Corpuscular Volume 101.3 fl (80-100); Mean Platelet Volume 9.4 fl (7.4-10.4); Monocytes Absolute Auto 0.6 K/mm3 (0.1-0.6); Monocytes Percent Auto 13.7 % (2.6-8.5); Neutrophils Absolute Auto 2.5 K/mm3 (1.3-6.7); Neutrophils Percent Auto 54.6 % (45.5-73.1); Platelet Count Result 82 k/mm3 (150-375); Red Cell Distribution Width 11.5 % (11.5-14.5); White Blood Count 4.5 K/mm3 (4.5-10.0)
[2024-01-28 14:11] LABS: Anion Gap 12 mmol/L (4-12); Blood Urea Nitrogen 11 mg/dL (7-17); Calcium 9.5 mg/dL (8.4-10.2); Carbon Dioxide 28 mmol/L (22-30); Chloride 94 mmol/L (98-107); Estimated Glomerular Filt Rate > 60; Glucose 113 mg/dL (65-110); Potassium 3.4 mmol/L (3.4-5.0); Sodium 134 mmol/L (137-145)
[2024-01-30 03:24] LABS: CA 15-3 13 U/mL (<32)
== END 2024-01-28 13:08 | disposition home or self-care (01) ==
LOC: ANHLAB 13:09
PROVIDERS: Nurse Practitioner Family; PCP Internal Medicine; Visit Provider Internal Medicine Hematology & Oncology
DX: C50.919 Malignant neoplasm of unspecified site of unspecified female breast (principal)
CPT/HCPCS: 36415; 71046; 80048; 85025; 86300

== ENCOUNTER 2024-01-28 13:44 | Outpatient (CLI) | payer OTHER, SELFPAY ==
--- NOTE | ~2024-01-28 | XR_ITS ---
XR chest 2V Ordering provider: Shmuel Bertrand MD History: 53 years Female with . pain in rt breast, masectomy x 11 months ago, today pain . Comparison: June 02, 2021 FINDINGS: MEDIASTINUM: The cardiac silhouette is not enlarged. LUNGS: No infiltrates, effusions or pneumothorax. OTHER: No free air under the diaphragm. IMPRESSION: No acute cardiopulmonary pathology. Reviewed, dictated and finalized at location A.
== END 2024-01-28 13:45 | disposition home or self-care (01) ==
LOC: ANHIMG 13:46
PROVIDERS: PCP Internal Medicine; Visit Provider Internal Medicine Hematology & Oncology
DX: N64.4 Mastodynia (principal)
CPT/HCPCS: 71046

== ENCOUNTER 2024-02-05 14:06 | Outpatient (CLI) | payer OTHER, SELFPAY ==
[2024-02-05 16:51] LABS: Iron 197 ug/dL (37-170)
[2024-02-05 17:02] LABS: Percent Iron Saturation 85 % (20-50)
[2024-02-05 17:54] LABS: Folic Acid 8.9 ng/mL (2.76->20)
[2024-02-09 20:13] LABS: Platelet Antibody, Direct NEGATIVE (NEGATIVE)
== END 2024-02-05 14:07 | disposition home or self-care (01) ==
LOC: ANHLAB 14:08
PROVIDERS: PCP Internal Medicine; Visit Provider Internal Medicine Hematology & Oncology
DX: D69.6 Thrombocytopenia, unspecified (principal)
CPT/HCPCS: 36415; 82607; 82728; 82746; 83540; 83550; 86023

== ENCOUNTER 2024-03-12 10:56 | Outpatient (CLI) | payer OTHER, SELFPAY ==
--- NOTE | ~2024-03-12 | US_ITS ---
EXAM: ABDOMEN ULTRASOUND HISTORY: thrombocytopenia COMPARISON: Reference was made to a CT examination of the abdomen dated 12/26/2022 FINDINGS: LIVER: The liver is increased in echogenicity and size measuring 20cm in longitudinal dimension. The main portal vein is patent demonstrating hepatopedal flow GALLBLADDER: The gallbladder is distended but otherwise unremarkable. No stones are identified. No gallbladder wall thickening or pericholecystic fluid. BILE DUCTS: Common bile duct measures 4.2mm. PANCREAS: Limited evaluation of the pancreas secondary to overlying bowel gas SPLEEN: The spleen is unremarkable in echogenicity and size measuring 9.9cm in longitudinal dimension . RIGHT KIDNEY: 11.2 cm. In length. No hydronephrosis or bulky renal calculi. LEFT KIDNEY: 10.9cm in length. No hydronephrosis or renal calculi. VASCULATURE : The abdominal aorta is nonaneurysmal. The IVC is patent. IMPRESSION: Evaluation of the pancreas is limited by overlying bowel gas. Fatty infiltration of an enlarged liver. Otherwise, unremarkable sonographic evaluation of the abdomen, as detailed above. Reviewed, dictated and finalized at location A. SHEET MAKER IMPRESSION: Evaluation of the pancreas is limited by overlying bowel gas. Fatty infiltration of an enlarged liver. Otherwise, unremarkable sonographic evaluation of the abdomen, as detailed nadya felder.
== END 2024-03-12 10:57 | disposition home or self-care (01) ==
LOC: ANHIMG 10:56
PROVIDERS: PCP Internal Medicine; Visit Provider Internal Medicine Hematology & Oncology
DX: D69.6 Thrombocytopenia, unspecified (principal); K76.0 Fatty (change of) liver, not elsewhere classified
CPT/HCPCS: 76700

== ENCOUNTER 2024-06-05 13:06 | Outpatient (CLI) | payer OTHER, SELFPAY ==
--- NOTE | ~2024-06-05 | DEXA_ITS ---
Bone Density Report Name: ZENAIDA ARREAGA Age: 54 Sex: Female Ethnicity: White Date of : 1970 Indication: postmenopausal; screening for osteoporosis; prior fracture; cancer; Referring Provider: NANCYTINO Study: Bone densitometry was performed. Exam Date: June 05, 2024 Accession number: [id number] Bone Density: Region BMD T-score Z-score Classification AP Spine(L1-L4) 0.843 -1.9 -0.7 Osteopenia Femoral Neck (Left) 0.788 -0.5 0.6 Normal Total Hip (Left) 0.946 0.0 0.8 Normal Femoral Neck (Right) 0.862 0.1 1.2 Normal Total Hip (Right) 0.963 0.2 0.9 Normal Total Hip Mean 0.954 0.1 0.9 Normal World Health Organization criteria for BMD impression classify patients as: Normal (T-score at or above -1.0), Osteopenia (T-score between -1.0 and -2.5), or Osteoporosis (T-score at or below -2.5). 10-year Fracture Risk: FRAX not reported because: Prior hip or vertebral fracture Clinical Information Provided by Patient: Have had a previous hip or vertebral fracture Has had a low trauma fracture Has 3 or more alcoholic drinks per day Has used the following medications: Vitamin D, Calcium Has the following medical conditions: Cancer Patient maximum height was 65 Menopause Age: 47 No regular weight bearing exercise Drinks caffeinated beverages Onset of menses at age 11 Number of children 2 Impression: The patient has low bone mass, based on the Total Spine T-score. The patient has risk factors, including: excessive alcohol use, previous fracture. Discussion: INCREASED RISK OF FRACTURE DUE TO HISTORY OF FRACTURE. The patient's previous fracture puts the patient at high risk of a future fracture. In untreated patients, the risk of osteoporotic fracture increases approximately two-fold for each 1.0 SD decrease in T-score. Low bone density is not the only risk factor for fracture; also consider factors such as patient's age, frailty or poor health, risk of falling, risk of injury, previous osteoporotic fracture, family history of osteoporosis, cigarette smoking, low body weight, etc. Not everyone with a low trauma fracture has osteoporosis; osteomalacia and other metabolic bone disorders should also be considered. Patients who have osteoporosis should be evaluated for specific diseases and conditions (secondary causes) that may cause or contribute to bone loss and fracture risk. National Osteoporosis Foundation (NOF) recommends pharmacologic intervention for patients with a prior hip or vertebral fracture regardless of BMD T-score. The patient should follow a healthful lifestyle (good nutrition with adequate calcium and vitamin D, and appropriate weight-bearing exercise). Follow-Up: Consider a repeat BMD and Vertebral Fracture Assessment (VFA) exam in 2 years or sooner if medically necessary, to reassess this patient's status. Reported by: ELÍAS on 06/05/2024 1:41:00 PM. Reviewed, dictated and finalized at location AJanna MONTES
--- OUTSIDE RECORDS SUMMARY | 2024-06-05 13:52 | XMS_ITS | Patient Health Summary ---
Author Organization [facility] Address [address] [place] [address] Care Team Providers Care Rail Assembler Name Role Phone Unavailable Primary Care Provider Unavailabl e Note from [facility],non-owned Affiliates and Associated Physician Practices is amultiple site organization consisting of ambulatory clinics and hospital sitesin [place], [place], [place] and [place]. This disclosure is being madepursuant to the Care Everywhere program and may not contain all information available regarding this patient. Last updated 18.[facility] Allergies No known active allergies Medications * Be aware that medications may not be up to date on this document. Alwaysverify current medications with the patient. * ALPRAZolam (XANAX) 0.5 MG tablet(Started 10/25/2020) Take 0.5 mg by mouth 2 times daily * amoxicillin-clavulanate (AUGMENTIN) 875-125 MG tablet(Started 01/22/2020) Take 875 mg by mouth 2 times daily * atorvastatin (LIPITOR) 80 MG tablet(Started 10/23/2020) * azithromycin (ZITHROMAX) 250 MG tablet(Started 11/06/2020) TK 2 TS PO ON DAY 1, THEN TK 1 T PO D FOR 4 DAYS DIRECTED. TAKE WITH FOOD * benzonatate (TESSALON) 100 MG capsule(Started 04/08/2020) TAKE 1 CAPSULE BY MOUTH EVERY 8 HOURS NEEDED FOR COUGH AND CONGESTION * cetirizine (ZYRTEC) 10 MG tablet(Started 06/08/2020) Take 10 mg by mouth once daily * ciprofloxacin (CIPRO) 500 MG tablet(Started 09/17/2020) * fenofibrate (TRICOR) 145 MG tablet(Started 10/23/2020) * fluticasone propionate (FLONASE) 50 MCG/ACT nasal spray(Started 06/08/2020) SHAKE LIQUID AND USE 1 SPRAY IN EACH NOSTRIL TWICE DAILY * gabapentin (NEURONTIN) 300 MG capsule Take 300 mg by mouth * gabapentin (NEURONTIN) 300 MG capsule(Started 10/27/2020) TAKE 1 CAPSULE BY MOUTH AT BEDTIME FOR NERVE PAIN. INCREASE TO 2 TIMES DAILY NEEDED * metroNIDAZOLE (FLAGYL) 500 MG tablet(Started 09/17/2020) * ondansetron, disintegrating, (ZOFRAN ODT) 8 MG tablet(Started 06/08/2020) DISSOLVE 1 TABLET ON THE TONGUE EVERY 8 HOURS * pantoprazole EC (PROTONIX) 40 MG tablet(Started 11/04/2020) * QUEtiapine (SEROQUEL) 50 MG tablet(Started 01/22/2020) TAKE 1 2 TO 1 (ONE HALF TO ONE) TABLET BY MOUTH ONCE DAILY AT BEDTIME * amitriptyline (ELAVIL) 10 MG tablet(Started 12/08/2020) Take 3 (three) tablets by mouth at bedtime 3 refills by 12/08/2021 Active Problems No known active problems Social History Tobacco Use Types Packs/Day Years Used Date Smoking Tobacco: Never Assessed Sex and Gender Information Value Date Recorded Sex Assigned at Not on file Gender Identity Not on file Sexual Orientation Not on file Procedures * VITAMIN B1(Performed 12/17/2020) Performed for Neuropathy, Neuropathic pain * ALFREDO BLOOD SCREEN W/REFLEX TITER(Performed 12/17/2020) Performed for Neuropathy, Neuropathic pain * IMMUNOFIXATION BLOOD(Performed 12/17/2020) Performed for Neuropathy * PROTEIN ELECTROPHORESIS BLOOD(Performed 12/17/2020) Performed for Neuropathy * HEAVY METALS BLOOD QUANT PANEL(Performed 12/17/2020) Performed for Neuropathy * TSH REFLEX FREE T4(Performed 12/17/2020) Performed for Neuropathy, Neuropathic pain * C-REACTIVE PROTEIN(Performed 12/17/2020) Performed for Neuropathy, Neuropathic pain * ERYTHROCYTE SEDIMENTATION RATE(Performed 12/17/2020) Performed for Neuropathy, Neuropathic pain Results * TSH REFLEX FREE T4 (12/17/2020 9:03 AM CDT) TSH with Reflex FT4 3.54 mIU/L [facility] Comment: ?Reference Range ?> or = 20 Years ??0.40-4.50 ? Ranges ?First trimester ?0.26-2.66 ?Second trimester ?? 0.55-2.73 ?Third trimester ?0.43-2.91 Test Performed at: [facility] [address] [place], [place] ??[phone] NELSY POWERS DO,MPH Blood BLOOD SPECIMEN / Unknown 12/17/2020 9:03 AM CDT 12/17/2020 9:04 AM CDT Radha Olson MD LAB - CHEMISTRY ABI MARES Performing Organization Address [facility] de Phone Number [facility] [address] [place] [address] * IMMUNOFIXATION BLOOD (12/17/2020 9:03 AM CDT) Pathologist [facility] Interpretation [facility] Comment: Normal pattern. No monoclonal proteins detected. Test Performed at: [facility] [address] [place], [place] ??[phone] NELSY POWERS DO,MPH Blood BLOOD SPECIMEN / Unknown 12/17/2020 9:03 AM CDT 12/17/2020 9:04 AM CDT Radha Olson MD LAB - CHEMISTRY ABI MARES Performing Organization Address [facility] de Phone Number [facility] [address] [place] [address] * HEAVY METALS BLOOD QUANT PANEL (12/17/2020 9:03 AM CDT) Arsenic <3 <23 mcg/L [facility] Comment: Whole Blood Arsenic level >100 mcg/L is indicative of acute/chronic exposure. Urine is usually the best specimen for the analysis of arsenic in body fluids. Blood levels tend to be low even when urine concentrations are high. See Note 1 Lead Blood (Venous) 4 <5 mcg/dL [facility] Comment: See Note 1 Analysis was performed by Inductively Coupled Plasma Mass Spectrometry (ICPMS) Mercury <5 <OR=10 mcg/L [facility] Comment: See Note 1 Note 1 This test was developed and its analytical performance characteristics have been determined by [facility]. It has not been cleared or approved by the FDA. This assay has been validated pursuant to the CLIA regulations and is used for clinical purposes. Test Performed at: [facility] [address] ??[phone] DAVID CRAWFORD MD Blood BLOOD SPECIMEN / Unknown 12/17/2020 9:03 AM CDT 12/17/2020 9:04 AM CDT Radha Olson MD LAB - CHEMISTRY ABI MARES Performing Organization Address [facility] Co de Phone Number [address] [address] * C-REACTIVE PROTEIN (CRP) (12/17/2020 9:03 AM CDT) [facility] C-Reactive Protein 0.4 <8.0 mg/L [facility] Comment: Test Performed at: [facility] [id number] [place], [place] ??[phone] NELSY POWERS DO,MPH Blood BLOOD SPECIMEN / Unknown 12/17/2020 9:03 AM CDT 12/17/2020 9:04 AM CDT Radha Olson MD LAB - CHEMISTRY ABI MARES Performing Organization Address [facility] Co de Phone Number [address] [address] * ALFREDO BLOOD SCREEN W/REFLEX TITER (12/17/2020 9:03 AM CDT) [facility] ALFREDO Screen NEGATIVE NEGATIVE [facility] Comment: ALFREDO IFA is a first line screen for detecting the presence of up to approximately 150 autoantibodies in various autoimmune diseases. A negative ALFREDO IFA result suggests an ALFREDO-associated autoimmune disease is not present at this time, but is not definitive. If there is high clinical suspicion for Sjogren's syndrome, testing for anti-SS-A/Ro antibody should be considered. Anti-Michaelle-1 antibody should be considered for clinically suspected inflammatory myopathies. AC-0: Negative International Consensus on ALFREDO Patterns (https://doi.org/10.1515/japj-2121-6706) For additional information, please refer to http://education.MyCoop/faq/YHN834 (This link is being provided for informational/ educational purposes only.) ?? Test Performed at: [facility] [place], [place] ??[phone] NELSY POWERS DO,MPH Blood BLOOD SPECIMEN / Unknown 12/17/2020 9:03 AM CDT 12/17/2020 9:04 AM CDT Radha Olson MD LAB - CHEMISTRY ABI MARES Performing Organization Address [facility] Co de Phone Number [address] [address] * VITAMIN B1 (12/17/2020 9:03 AM CDT) [facility] Vitamin B1 Whole Blood 130 78 - 185 nmol/L [facility] Comment: Vitamin supplementation within 24 hours prior to blood draw may affect the accuracy of results. This test was developed and its analytical performance characteristics have been determined by [facility]. It has not been cleared or approved by the FDA. This assay has been validated pursuant to the CLIA regulations and is used for clinical purposes. REPORT COMMENT: FASTING:YES Test Performed at: [facility] [address] ??[phone] DAVID CRAWFORD MD Blood BLOOD SPECIMEN / Unknown 12/17/2020 9:03 AM CDT 12/17/2020 9:04 AM CDT Radha Olson MD LAB - CHEMISTRY ABI MARES Performing Organization Address [facility] Co de Phone Number [address] [address] * ERYTHROCYTE SEDIMENTATION RATE (12/17/2020 9:03 AM CDT) [facility] Erythrocyte Sedimentation Rate Westergren 6 < OR = 30 mm/h [facility] Comment: Test Performed at: [facility] [address] [place], [place] ??[phone] NELSY POWERS DO,MPH Blood BLOOD SPECIMEN / Unknown 12/17/2020 9:03 AM CDT 12/17/2020 9:04 AM CDT Radha Olson MD LAB - HEMATOLOGY ORD ERABLES Performing Organization Address [facility] Co de Phone Number [facility] [address] [place] [phone] * PROTEIN ELECTROPHORESIS BLOOD (12/17/2020 9:03 AM CDT) Pathologist [facility] Protein Total 7.0 6.1 - 8.1 g/dL [facility] Albumin 4.1 3.8 - 4.8 g/dL [facility] Alpha-1 Globulin 0.2 0.2 - 0.3 g/dL [facility] Dsciu-0-Snhmadaa 0.6 0.5 - 0.9 g/dL [facility] Beta-1 Globulin g/dL 0.4 0.4 - 0.6 g/dL [facility] Beta-2 Globulin 0.4 0.2 - 0.5 g/dL [facility] Gamma Globulin 1.2 0.8 - 1.7 g/dL [facility] Interpretation [facility] Comment: No restricted band (M-spike) seen. Test Performed at: [facility] [address] [address] [place], [place] ??[phone] NELSY POWERS DO,MPH Blood BLOOD SPECIMEN / Unknown 12/17/2020 9:03 AM CDT 12/17/2020 9:04 AM CDT Radha Olson MD LAB - CHEMISTRY ORDE RABLES Performing Organization Address City/[facility]/ZIP Co de Phone Number [facility] [address] [place] [address]
--- OUTSIDE RECORDS SUMMARY | 2024-06-05 13:52 | XMS_ITS | Referral Summary ---
Author Organization [facility] Address [address] [place] [address] Care Team Providers Care Supervisor Compounding And Finishing Name Role Phone Unavailable Primary Care Provider Unavailabl e Source Comments [facility],non-owned Affiliates and Associated Physician Practices is amultiple site organization consisting of ambulatory clinics and hospital sitesin [place], [place], [place] and [place]. This disclosure is being madepursuant to the Care Everywhere program and may not contain all information available regarding this patient. Last updated 18.[facility] Allergies No known active allergies Medications * Be aware that medications may not be up to date on this document. Alwaysverify current medications with the patient. Medication Sig Dispensed Refills Start Date End Date Status ALPRAZolam (XANAX) 0.5 MG tablet Take 0.5 mg by mouth 2 times daily 10/25/2020 Active amoxicillin-clavula steve (AUGMENTIN) 875-125 MG tablet Take 875 mg by mouth 2 times daily 01/22/2020 Active atorvastatin (LIPITOR) 80 MG tablet 10/23/2020 Active azithromycin (ZITHROMAX) 250 MG tablet TK 2 TS PO ON DAY 1, THEN TK 1 T PO D FOR 4 DAYS DIRECTED. TAKE WITH FOOD 11/06/2020 Active benzonatate (TESSALON) 100 MG capsule TAKE 1 CAPSULE BY MOUTH EVERY 8 HOURS NEEDED FOR COUGH AND CONGESTION 04/08/2020 Active cetirizine (ZYRTEC) 10 MG tablet Take 10 mg by mouth once daily 06/08/2020 Active ciprofloxacin (CIPRO) 500 MG tablet 09/17/2020 Active fenofibrate (TRICOR) 145 MG tablet 10/23/2020 Active fluticasone propionate (FLONASE) 50 MCG/ACT nasal spray SHAKE LIQUID AND USE 1 SPRAY IN EACH NOSTRIL TWICE DAILY 06/08/2020 Active gabapentin (NEURONTIN) 300 MG capsule Take 300 mg by mouth Active gabapentin (NEURONTIN) 300 MG capsule TAKE 1 CAPSULE BY MOUTH AT BEDTIME FOR NERVE PAIN. INCREASE TO 2 TIMES DAILY NEEDED 10/27/2020 Active metroNIDAZOLE (FLAGYL) 500 MG tablet 09/17/2020 Active ondansetron, disintegrating, (ZOFRAN ODT) 8 MG tablet DISSOLVE 1 TABLET ON THE TONGUE EVERY 8 HOURS 06/08/2020 Active pantoprazole EC (PROTONIX) 40 MG tablet 11/04/2020 Active QUEtiapine (SEROQUEL) 50 MG tablet TAKE 1 2 TO 1 (ONE HALF TO ONE) TABLET BY MOUTH ONCE DAILY AT BEDTIME 01/22/2020 Active amitriptyline (ELAVIL) 10 MG tabletIndications:N europathy,Neuropath ic pain Take 3 (three) tablets by mouth at bedtime 90 tablet 3 12/08/2020 Active Active Problems No known active problems Social History Tobacco Use Types Packs/Day Years Used Date Smoking Tobacco: Never Assessed Sex and Gender Information Value Date Recorded Sex Assigned at Not on file Gender Identity Not on file Sexual Orientation Not on file Plan of Treatment Not on file
--- OUTSIDE RECORDS SUMMARY | 2024-06-05 13:52 | XMS_ITS | Clinical Summary ---
Author Organization [facility] Address [address] [place] [address] Care Team Providers Care Caul Fat Puller Name Role Phone Unavailable Primary Care Provider Unavailabl e Source Comments [facility],non-owned Affiliates and Associated Physician Practices is amultiple site organization consisting of ambulatory clinics and hospital sitesin [place], [place], [place] and [place]. This disclosure is being madepursuant to the Care Everywhere program and may not contain all information available regarding this patient. Last updated 18.[facility] Allergies No known active allergies Medications * [...] Orientation Not on file Plan of Treatment Health Maintenance Due Date Last Done Comments COLOGUARD (AGES 45-75) - COL ON CA SCREENING 1968 COLON MONITORING 1968 COLONOSCOPY - COLON CA SCREENING 1968 CT COLONOGRAPHY - COLON CA SCREENING 1968 Colorectal Cancer Screening 1968 FIT - COLON CA SCREENING 1968 FLEX SIG - COLON CA SCREENING 1968 MAMMOGRAM 1968 PAP SMEAR 1968 HIV SCREENING 1983 HEPATITIS C SCREENING 02/27/1986 DTAP/TDAP/TD VACCINES (1 - Tdap) 1987 HEPATITIS B VACCINE (1 of 3 - 19+ 3-dose series) 1987 PNEUMOCOCCAL VACCINE 50+ (1 of 1 - PCV) 2018 ZOSTER VACCINE (1 of 2) 2018 COVID-19 VACCINE (1 - 2023-2 5 season) 2024 INFLUENZA VACCINE (#1) 2024 DEPRESSION SCREENING 05/07/2024 HIB VACCINE Aged Out No longer eligi ble based on patient's age to complete this topic HPV VACCINE Aged Out No longer eligi ble based on patient's age to complete this topic MENINGOCOCCAL (Group B) VACCINE Aged Out No longer eligible based on patient's age to complete this topic MENINGOCOCCAL VACCINE Aged Out No simon real eligible based on patient's age to complete this topic PNEUMOCOCCAL VACCINE Aged Out No long er eligible based on patient's age to complete this topic
--- OUTSIDE RECORDS SUMMARY | 2024-06-05 13:52 | XMS_ITS ---
Care Plan - [facility] Created on: June 05, 2024 ZENAIDA ARREAGA : 1970 Sex: Female Author Organization [facility] Address [address] [place] [address] Phone Care Team Providers Care Industrial Trainer Name Role Phone KIRSTEN LAMA DO Unavailable [phone]
--- OUTSIDE RECORDS SUMMARY | 2024-06-05 13:52 | XMS_ITS | Patient Health Record ---
Author Organization [facility] Address [address] [place] [address] Care Team Providers Care Polymer Materials Consultant Name Role Phone Adalid HARRY, Chirag Primary Care Provider Unav ailable ERIC TIRE FABRIC INSPECTOR, WILFREDO Unavailable ALLERGIES Allergen (clinical drug ingredient) Drug/Non Drug Allergy documented on EMR Reaction Allergy Type Onset Date Status ibuprofen Ibuprofen Unknown Drug Allergy Active REASON FOR REFERRAL No Information PLAN OF TREATMENT No Information Insurance Providers Payer Name Payer Address Payer Phone Subscriber Number Group Number Insured Name Patient Relationship to Insured Coverage Start Date Coverage End Date [address] [id number] Flavia Patrick Self - patient is the insured MEDICAL (GENERAL) HISTORY Medical History History ICD Code carpal tunnel hyperlipidemia anxiety
--- OUTSIDE RECORDS SUMMARY | 2024-06-05 13:52 | XMS_ITS ---
Author Organization [facility] Address [address] [place] [address] Care Team Providers Care Manager Cost Name Role Phone Adalid HARRY, Chirag Primary Care Provider Unav ailable ERIC ONEAL, ASPEN Samuels ALLERGIES Allergen (clinical drug ingredient) Drug/Non Drug Allergy documented on EMR Reaction Allergy Type Onset Date Status ibuprofen Ibuprofen Unknown Drug Allergy Active REASON FOR VISIT Abnormal Pancreatic Duct VITAL SIGNS Blood pressure systolic 108 mm Hg 01/20/20 23 Blood pressure diastolic 92 mm Hg 023 Heart Rate 92 /min 01/19/2023 Height 65 in 01/19/2023 Weight 158 lbs 01/19/2023 BMI 26.29 kg/m2 01/19/2023 Encounters Encounter Location Date Provider Diagnosis [facility] [address] [place] [address] 01/19/2023 ASPEN REYES Abnormal findings on dx imaging of prt digestive tract R93.3 ASSESSMENTS Encounter Date Diagnosis Assessment Notes Treatment Notes Treatment Clinical Notes Section Notes 01/19/2023 Abnormal findings on dx imaging of prt digestive tract (ICD-10 - R93.3) EUS to be scehduled at this time 01/19/2023 Other Time spent: 25minutes. More than 50% spent reviewing diagnostic results, compliance with current medical therapy, counseling patient on low fat diet, weight reduction to normal BMI, normal BMI discussed, avoidance of ETOH/tobacco products, discussing treatment options. Have discussed details of EUS and/or ERCP procedure including indications/risks/exp ected outcomes/limitations/ possible medication side effects, and alternatives to procedure. All questions answered and patient expresses understanding. No contraindications noted. Instructed patient regarding management plan, follow-up visits, and stressed importance of compliance with plan. PLAN OF TREATMENT Treatment Notes Assessment Notes Abnormal findings on dx imag ing of prt digestive tract EUS to be scehduled at this time Other Time spent: 25minute s. More than 50% spent reviewing diagnostic results, compliance with current medical therapy, counseling patient on low fat diet, weight reduction to normal BMI, normal BMI discussed, avoidance of ETOH/tobacco products, discussing treatment options. Have discussed details of EUS and/or ERCP procedure including indications/risks/expected outcomes/limitations/possible medication side effects, and alternatives to procedure. All questions answered and patient expresses understanding. No contraindications noted. Instructed patient regarding management plan, follow-up visits, and stressed importance of compliance with plan. Next Appt Details Follow Up: prn, Reason: Progress Notes * Flavia ARREAGADOB: [birth year] (52 yo F)Acc No.[id number]:01/19/2023 Progress Notes Patient:??Flavia Arreaga Appointment Provider:??Aspen Reyes CNP :1970?Age:52 Y?Sex:Fe male Date:01/19/2023 Address:[address] [place], [place] [id number] Pcp:Chirag Cordoba MD Subjective: * Chief Complaints: * ?1. Abnormal Pancreatic Duct. * HPI: ?Constitutional:? Pleasant 52 year old female with history of hyperlipidemia, anxiety presents today as referred by Chirag Espinal for abnormal imaging. She was attacked by her cat and presented to the ED with her complaints as she had arm, abdominal pain. She was seen to have a healing rib fracture as well as enlargement of her PD duct in the head of pancreas. She has no complaints of abdominal pain, nausea, vomiting or diarrhea. She presents today for further management. ?Previous testing. * ROS:?Gastrointestinal:?Denies??Abdominal pain.??Denies??Blood in stool.??Denies??Change in bowel habits.??Denies??Colitis,??denies.??Denies??Constipation.??Denies??Decreased appetite.??Denies??Diarrhea.??Denies??Difficulty swallowing.??Denies??Exposure to hepatitis.??Denies??Heartburn.??Denies??Hematemesis.??Denies??Hepatitis,??denies .??Denies??Nausea.??Denies??Rectal bleeding.??Denies??Stomach problems,??denies.??Denies??Vomiting.??Denies??Weight loss.? * Medical History:??Carpal peter almas, Hyperlipidemia, Anxiety. * Family History:??Father: dec eased, lung cancer, HTN.??Mother: , HTN, DM.??1 brother(s) . .?? * Social History:?Drugs/Alcohol:??Do you smoke marijuana?: Denies. Do you drink alcohol?: No. * Allergies:??Ibuprofen. Objective: * Vitals:??HR:92/min, BP:108/9 2mm Hg, Wt:158lbs, BMI:26.29Index, Ht:65in, Ht-cm: 165.1 cm, Wt-k.67 kg. * Examination: ?General Examination: ?GENERAL APPEARANCE:??in no acute distress, well developed, well nourished.??HEART:??no murmurs, regular rate and rhythm, S1, S2 normal.??LUNGS:??clear to auscultation bilaterally.??ABDOMEN:??normal, bowel sounds present, soft, nontender, nondistended.??NEUROLOGIC:??alert and oriented, sensory exam intact.? Assessment: * Assessment: 1.??Abnormal findings on dx imaging of prt digestive tract - R93.3 (Primary)?? Plan: * Treatment: 2.??Others?? Notes: Time spent: 25minutes. More than 50% spent reviewing diagnostic results, compliance with current medical therapy, counseling patient on low fat diet, weight reduction to normal BMI, normal BMI discussed, avoidance of ETOH/tobacco products, discussing treatment options. Have discussed details of EUS and/or ERCP procedure including indications/risks/expected outcomes/limitations/possible medication side effects, and alternatives to procedure. All questions answered and patient expresses understanding. No contraindications noted. Instructed patient regarding management plan, follow-up visits, and stressed importance of compliance with plan.? * Preventive Medicine:?YOUR PREVENTIVE WELLNESS PLAN:??Colorectal Cancer Screening:??The Recommended Frequency is:??Every 10 years, Colonoscopy,??Screening for colorectal cancer was last done on:??05/07/2014.?? * Follow Up:??prn * Images: * Sign off status: Completed true * Appointment Provider:??Aspen Reyes CNP Date:??01/19/2023 History and Physical Notes * HPI (History of Present Illness) Category Sub-Category Detail Notes Category Not es Constitutional Pleasant 52 year old female with history of hyperlipidemia, anxiety presents today as referred by Chirag Espinal for abnormal imaging. She was attacked by her cat and presented to the ED with her complaints as she had arm, abdominal pain. She was seen to have a healing rib fracture as well as enlargement of her PD duct in the head of pancreas. She has no complaints of abdominal pain, nausea, vomiting or diarrhea. She presents today for further management. Previous testing Examination Category Sub-Category Detail Notes Category Not es General Examination GENERAL APPEARANCE: in no ac ab distress, well developed, well nourished HEART: no murmurs, regular rate and rhythm, S1, S2 normal LUNGS: clear to auscultatio n bilaterally ABDOMEN: normal, bowel sounds present, soft, nontender, nondistended NEUROLOGIC: alert and oriented, sensory exam intact
--- OUTSIDE RECORDS SUMMARY | 2024-06-05 13:53 | XMS_ITS | Clinical Summary ---
Author Organization [facility] Address [address] [place] [address] Phone Care Team Providers Care Welfare Project Manager Name Role Phone KIRSTEN LAMA DO Unavailable [phone] Reason for Visit and Chief Complaint The Chief Complaint is: sx started 05/01. Cough, sinus drainage down throat, fatigue, aches, headache, runny nose, The Chief Complaint is: Cough congestion runny nose chills and hot flashes Plan of Treatment - Clinical summary provided to patient - Last Documented On 05/08/2021 3:03PM ; [facility] - Plan of care reviewed and agreed to - Last Documented On 05/08/2021 3:03PM ; [facility] 1. Negative for COVID-19 today. 2. Has a pneumonia today. 3. Use antibiotic as prescribed, do not stop early. 4. Use Robitussin or Mucinex every day to get up the sputum. 5. Follow up with PCP, Dr. Cordoba, in 1-2 weeks. 1) Return to the clinic if condition worsens or new symptoms arise. 2) Patient to call if problem develops. - Last Documented On 05/08/2021 3:03PM ; [facility] Assessments Includes: Assessments from this encounter Findings - J15.9 - Unspecified bacterial pneumonia - Last Documented On 05/08/2021 3:03PM ; [facility] Medical Equipment - Implanted Devices Includes: Current Devices No Medical Equipment Recorded Medications Includes: Medications discussed during this encounter and other current Medications New / Renewed during this visit KVNG GRAMAJO-C on 05/08/2021 levoFLOXacin 500 MG Oral Tablet Provider: KVNG BARROSO 7 day supply: 7 tablet, 0 refills Diagnosis: Unspecified bacterial pneumonia One tablet daily Pharmacy: [id number], [phone] - Last Documented On 2 3:04PM By Kvng BARROSO ; [facility] Medications Administered Includes: Administered Medications from this encounter No Administered Medications Recorded Vital Signs Includes: Vital Signs from this encounter Vital Name 05/08/2021 02:33P Pulse Rate-Sitting (bpm) 91 Temp-Oral (F) 98.2 Oxygen Saturation (%) 97 Last Documented: On 05/08/2021 2:35PM ; [facility] Results Includes: Results discussed during this encounter Rapid COVID Test [facility] Ordered by KVNG BARROSO on 0 05/08/2021 Collected: Reported: 05/08/2021 14:45 Last Documented On 2 3:02PM ; [facility] Reviewed by KVNG BARROSO on 05/08/2021; All test results are final unless otherwise noted. Rapid COVId negativw N (Normal) Last Documented On 2 2:47PM ; [facility] Int. QC Acceptable yes N (Normal) Last Documented On 2 2:47PM ; [facility] Lot # and Exp. Date [id number] 08/07/21 N (Normal) Last Documented On 2 2:47PM ; [facility] History of Present Illness Includes: History of Present Illness from this encounter KHANH ARREAGA is a 51 year old female. - Allergy list reviewed - Medication list reviewed - Medication list reviewed Patient is a 51 year old female who presents today for complaints of the above symptoms since 05/01/21. No exposure to COVID-19. She has been taking Robitussin DM and dayquil. Has green drainage from nose and coughing up green sputum. Her PCP is Dr. Chirag Cordoba. Has had low grade fever. She feels it has traveled to her chest, and is having wheezing. Social History Description Last Updated [PHQ-2] Patient Health Questionnaire 2 i tem total score: 4 (Scale: 0-6) 05/08/2021 Last Documented On 2 3:03PM ; [facility] Smoking Status Unknown Procedures and Surgical History Includes: Procedures from this encounter Procedures Code Diagnosis Performing Provider Service L ocation Service Date review of medications documented [id number] Last Documented On 2 2:33PM ; [facility] Medical History Includes: Medical History addressed during this encounter Description Last Updated A fall 05/08/2021 Last Documented On 2 3:03PM ; [facility] Date COVID symptoms started: 04/2021 Last Documented On 2 3:03PM ; [facility] No Contact with and (Suspected) exposure to COVID-19 05/08/2021 Last Documented On 2 3:03PM ; [facility] Family History Includes: Family History addressed during this encounter No Family History Recorded Review of Systems Includes: Review of Systems from this encounter Systemic: Fatigue, fever, and chills and muscle aches. No recent weight change. How many days have you had cold sweats? (as sx). Head: Headache. No sinus pain. Eyes: No vision problems, no itching of the eyes, and no eye pain. Otolaryngeal: No earache and no tinnitus. Nasal discharge. No sore throat. Cardiovascular: Chest pain or discomfort. No chest pain or discomfort, no palpitations, and the heart rate was not fast. Pulmonary: Shortness of breath and cough. No hemoptysis and no wheezing. Gastrointestinal: No dysphagia, no nausea, no vomiting, and no abdominal pain. No change in bowel habit and no diarrhea. Genitourinary: No hematuria and no increase in urinary frequency. No dysuria. Musculoskeletal: Muscle aches. No nonspecific pain, swelling, and stiffness. Neurological: No dizziness and no vertigo. Skin: No skin lesions and no rash. 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
--- OUTSIDE RECORDS SUMMARY | 2024-06-05 13:53 | XMS_ITS | Encounter Summary ---
Author Organization [facility] Address [address] [place] [address] Care Team Providers Care Record Center Specialist Name Role Phone Chirag Cordoba MD Primary Care Provider [phone] Encounter Details Date Type Department Care Team (Late st Contact Info) Description 05/16/2008 Outpatient Historical [facility] [place], Authorized P NO ADDRESS ON FILE Jorge Oliva [place] [facility] [place] [address] Social History Tobacco Use Types Packs/Day Years Used Date Smoking Tobacco: Never Assessed Comments Unknown Sex and Gender Information Value Date Recorded Sex Assigned at Not on file Legal Sex Female 5:41 AM COMPOUND MACHINE OPERATOR Gender Identity Not on file Sexual Orientation Not on file documented as of this encounter Plan of Treatment Upcoming Encounters Date Type Department Care Team (Late st Contact Info) Description 06/16/2024 11:15 AM COMPOUND MACHINE OPERATOR Office Visit [facility] Oncology and Hematology - [place] [address] [facility] [address] [place] [address] Shmuel Bertrand MD [address] [place] [address] documented as of this encounter Procedures Procedure Name Priority Date/Time Associated Diagnosis Comments US PELVIS + TRANSVAG NON OB Stat 05/16/2008 3:06 PM COMPOUND MACHINE OPERATOR POC , URINE Routine 05/16/2008 2:59 PM COMPOUND MACHINE OPERATOR POC URINALYSIS DIPSTICK NON AUTOMATED Routine 05/16/2008 2:59 PM COMPOUND MACHINE OPERATOR CBC WITH DIFFERENTIAL Stat 05/16/2008 2:26 PM COMPOUND MACHINE OPERATOR COMPREHENSIVE METABOLIC PANEL Stat 05/16/2008 2:26 PM COMPOUND MACHINE OPERATOR documented in this encounter Results * US PELVIS + TRANSVAG NON OB (05/16/2008 3:06 PM COMPOUND MACHINE OPERATOR) Anatomical Region Laterality Modality Pelvis Other 05/16/2008 3:06 PM COMPOUND MACHINE OPERATOR Narrative 05/17/2008 7:19 AM COMPOUND MACHINE OPERATOR ? [facility] [place] ? [address] ?[place], [place] ??[address] ?Admit Date: 05/16/2008 ?HEATHER ARREAGAECJAVIER Cheng ?Sex: F ?Admit Prov: ER, AUTHORIZED P ? Date: 1970 ?Primary Care Prov: ? CMRN: [id number] ?Room: ER-A ? SSN: [id number] ? IMAGING SERVICES ?Ordering Prov: N/A ? Accession Number: [id number] ?Interpretation ? ULTRASOUND OF PELVIS TRANSABDOMINAL AND TRANSVAGINAL 05/16/2008 ? History: Pelvic pain. Clinical concern of a torsed ovary. ? Technique: Transabdominal and transvaginal ultrasound of the pelvis was ? performed. No prior studies are available for comparison. ? Findings: The uterus is homogeneous in echotexture on the transabdominal ? ultrasound. Endometrial stripe measures 4 mm. There is suggestion of ? heterogeneity within the uterus. Therefore, transvaginal ultrasound is ? recommended. The uterus measures 10.1 x 4.4 x 5.0 cm in size. The right ? ovary on transabdominal ultrasound measures 1.8 x 1.4 x 1.9 cm. Doppler ? flow is identified to the right ovary. The left ovary on transabdominal ? ultrasound measures 1.7 x 2.1 x 1.1 cm. Normal blood flow is identified to ? the left ovary. For further evaluation, transvaginal ultrasound is ? recommended. ? Transvaginal ultrasound was performed. Within the endometrial canal, a 1.8 ? x 1.4 cm area of mixed echogenicity is identified. This may represent an ? endometrial fibroid versus endometrial polyp versus a blood clot as the ? patient did just start her menstrual cycle. Six-week followup ultrasound is ? recommended for further evaluation. No other masses are identified within ? the uterus. ? Left ovary measures 2.9 x 2.1 x 1.2 cm. Normal blood flow was identified to ? the left ovary. ? The right ovary measures 2.8 x 1.5 x 1.8 cm. Echogenicity of the right ? ovary is normal. Normal blood flow was identified to the right ovary. ? No free fluid is identified within the pelvis. ? Impression: ? 1. No evidence of ovarian torsion. Normal blood flow is identified to both ? ovaries. No ovarian cysts are seen. ? 2. Mixed echogenicity mass identified within the endometrial canal. This ? may represent an endometrial polyp or fibroid versus a blood clot as the ? patient is just getting ready to start her menstrual period. A 6 week ? followup ultrasound is recommended. ? The findings were discussed with Dr. Francesco Oliva in the emergency room at ? 1505 hours. ? . ? Dictated by: ??DAVID SEWELL ? 05/16/2008 15:04 ? Electronically signed by: ??DAVID SEWELL ? 05/17/2008 07:18 ? Transcribed: ??05/16/2008 15:52 ?[facility] Procedure Note David Sewell - 05/17/[address] [address] Admit Date: 05/16/2008 ARREAGAZENAIDA Prosper Sex: F Admit Prov: EASTON LEONG Date:1970 Primary Care Prov: CMRN: [id number] [id number] SERVICES Ordering Prov: N/A Interpretation ULTRASOUND OF PELVIS TRANSABDOMINAL AND TRANSVAGINAL 05/16/2008 History: Pelvic pain. Clinical concern of a torsed ovary. Technique: Transabdominal and transvaginal ultrasound of the pelviswas performed. No prior studies are available for comparison. Findings: The uterus is homogeneous in echotexture on thetransabdominal ultrasound. Endometrial stripe measures 4 mm. There is suggestionof heterogeneity within the uterus. Therefore, transvaginal ultrasoundis recommended. The uterus measures 10.1 x 4.4 x 5.0 cm in size. Theright ovary on transabdominal ultrasound measures 1.8 x 1.4 x 1.9 cm.Doppler flow is identified to the right ovary. The left ovary ontransabdominal ultrasound measures 1.7 x 2.1 x 1.1 cm. Normal blood flow isidentified to the left ovary. For further evaluation, transvaginal ultrasound is recommended. Transvaginal ultrasound was performed. Within the endometrial canal,a 1.8 x 1.4 cm area of mixed echogenicity is identified. This may representan endometrial fibroid versus endometrial polyp versus a blood clot asthe patient did just start her menstrual cycle. Six-week followupultrasound is recommended for further evaluation. No other masses are identifiedwithin the uterus. Left ovary measures 2.9 x 2.1 x 1.2 cm. Normal blood flow wasidentified to the left ovary. The right ovary measures 2.8 x 1.5 x 1.8 cm. Echogenicity of theright ovary is normal. Normal blood flow was identified to the rightovary. No free fluid is identified within the pelvis. Impression: 1. No evidence of ovarian torsion. Normal blood flow is identified toboth ovaries. No ovarian cysts are seen. 2. Mixed echogenicity mass identified within the endometrial canal.This may represent an endometrial polyp or fibroid versus a blood clot asthe patient is just getting ready to start her menstrual period. A 6week followup ultrasound is recommended. The findings were discussed with Dr. Francesco Oliva in the emergencyroom at 1505 hours. . Dictated by: DAVID SEWELL 05/16/2008 15:04 Electronically signed by: DAVID SEWELL 05/17/2008 07:18 Transcribed: 05/16/2008 15:52 AMK Jorge Oliva MD ORDERABLES Final Result * (ABNORMAL) POC URINALYSIS DIPSTICK NON AUTOMATED (05/16/2008 2:59 PM COMPOUND MACHINE OPERATOR) UROBILINOGEN UA 1+ (1 mg/dL) <=1 mg/dL S [facility] SPECIFIC GRAVITY UA 1.025 1.001 - 1.030 [facility] GLUCOSE UA Negative Negative [facility] COLOR UA Yellow [facility] LEUKOCYTE ESTERASE UA Negative Negative [facility] NITRITE UA Negative Negative [facility] BILIRUBIN UA 1+(A) Negative [facility] PH UA 5.0 5.0 - 8.0 [facility] KETONES UA 1+ (Small)(A) Negative [facility] CLARITY UA Clear [facility] BLOOD UA 1+(A) Negative [facility] PROTEIN UA Negative Negative [facility] Urine specimen (specimen) 05/16/2008 2:59 PM COMPOUND MACHINE OPERATOR 05/16/2008 2:59 PM COMPOUND MACHINE OPERATOR us Authorized P Er POINT OF CARE TESTING Final Resu lt Performing Organization Address [facility] de Phone Number INTERFACE SYSTEM Refer to clinic/hospital department [facility] CLIA# [id number] [address] [place] [address] * POC , URINE (05/16/2008 2:59 PM COMPOUND MACHINE OPERATOR) , URINE POC Negative Negative [facility] SPECIFIC GRAVITY UA 1.025 1.001 - 1.035 [facility] Urine specimen (specimen) 05/16/2008 2:59 PM COMPOUND MACHINE OPERATOR 05/16/2008 2:59 PM COMPOUND MACHINE OPERATOR us Authorized P Er POINT OF CARE TESTING Final Resu lt Performing Organization Address [facility] Co de Phone Number INTERFACE SYSTEM Refer to clinic/hospital department [facility] CLIA# [id number] [address] [place] [address] * (ABNORMAL) CBC WITH DIFFERENTIAL (05/16/2008 2:26 PM COMPOUND MACHINE OPERATOR) PLATELETS 222 140 - 350 K/uL [facility] HEMOGLOBIN 12.8 11.8 - 14.8 g/dL [facility] RDW 12.9 11.5 - 14.5 % [facility] WBC 4.7 4.0 - 9.8 K/uL [facility] MCH 30.0 27.2 - 32.6 pg [facility] MPV 8.7(L) 9.3 - 12.4 fL [facility] HEMATOCRIT 38.7 35.5 - 44.0 % [facility] RDW-STDEV 42.6 37.1 - 48.7 fL [facility] RBC 4.27 3.90 - 4.90 M/uL [facility] MCHC 33.1 31.5 - 35.5 % [facility] MCV 90.6 82.0 - 99.0 fL [facility] EOSINOPHILS 1 0 - 7 % [facility] EOSINOPHIL ABSOLUTE 0.06 0.00 - 0.70 K/uL [facility] LYMPHOCYTES 37 16 - 45 % [facility] LYMPHOCYTE ABSOLUTE 1.74 0.70 - 4.50 K/uL [facility] BASOPHILS 0 0 - 2 % [facility] BASOPHILS ABSOLUTE 0.02 0.00 - 0.20 K/uL [facility] MONOCYTES 11 3 - 13 % [facility] MONOCYTE ABSOLUTE 0.51 0.10 - 1.30 K/uL [facility] NEUTROPHILS 50 45 - 70 % [facility] NEUTROPHIL ABSOLUTE 2.35 1.90 - 7.00 K/uL [facility] Blood specimen (specimen) 05/16/2008 2:26 PM COMPOUND MACHINE OPERATOR 05/16/2008 2:36 PM COMPOUND MACHINE OPERATOR us Authorized P Er HEMATOLOGY ORDERABLES Edited INTERFACE SYSTEM Refer to clinic/hospital department [facility] CLIA# [id number] [address] [place], [place] [address] * (ABNORMAL) COMPREHENSIVE METABOLIC PANEL (05/16/2008 2:26 PM COMPOUND MACHINE OPERATOR) ALKALINE PHOSPHATASE 30(L) 35 - 104 U/L [facility] BILIRUBIN TOTAL 0.7 0.2 - 1.0 mg/dL [facility] CO2 24 22 - 30 mmol/L [facility] TOTAL PROTEIN 6.6 6.3 - 8.6 g/dL [facility] POTASSIUM 3.6 3.5 - 4.9 mmol/L [facility] GLUCOSE 100(H) 65 - 99 mg/dL [facility] AST 16 12 - 32 U/L [facility] BUN 8 6 - 20 mg/dL [facility] CALCIUM 8.7 8.6 - 10.2 mg/dL [facility] CHLORIDE 105 96 - 108 mmol/L [facility] ALBUMIN 4.0 3.4 - 4.8 g/dL [facility] CREATININE 0.69 0.51 - 0.95 mg/dL [facility] SODIUM 138 135 - 145 mmol/L [facility] ALT 9 0 - 31 U/L [facility] GFR, >60 >=60 mL/min/1. 7 sq meter [facility] GFR >60 >=60 mL/min/1. 7 sq meter [facility] Comment: Modification of Diet in Renal Disease (MDRD) study formula. Estimated GFR rate interpretative information for both Americans and non- Americans is available on the [facility] Intranet at: [email or web address] Select: Lab Policies and Procedures Select: Reference Ranges - GFR Blood specimen (specimen) 05/16/2008 2:26 PM COMPOUND MACHINE OPERATOR 05/16/2008 2:36 PM COMPOUND MACHINE OPERATOR us Authorized P Er CHEMISTRY ORDERABLES Edited INTERFACE SYSTEM Refer to clinic/hospital department [facility] CLIA# [id number] [address] [place] [address] documented in this encounter Visit Diagnoses Not on filedocumented in this encounter Care Teams Record Center Specialist Relationship Specialty Start Date End Date Chirag Cordoba MD [address] [place], [place] [id number] PCP - General Internal Medicine 10/19/22 documented as of this encounter
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
--- OUTSIDE RECORDS SUMMARY | 2024-06-05 13:53 | XMS_ITS ---
Author Organization [facility] Address [address] [place] [address] Phone Care Team Providers Care Patroller Name Role Phone KIRSTEN LAMA DO Unavailable [phone] Plan of Treatment Findings Encounter Date Clinical summary provided to patient COV ID SICK VISIT- NEW PATIENT with KVNG DOBBINS ELECTRIC RELAY TESTER-C 05/08/2021 Last Documented On 2 3:03PM ; [facility] Plan of care reviewed and agreed to COVI D SICK VISIT- NEW PATIENT with KVNG DOBBINS ELECTRIC RELAY TESTER-C 05/08/2021 Last Documented On 2 3:03PM ; [facility] Assessments Includes: Assessments for all patient encounters Findings Encounter Date Pneumonia COVID SICK VISIT- NEW PATIENT wi th KVNG DOBBINS ELECTRIC RELAY TESTER-C 05/08/2021 Last Documented On 2 3:03PM ; [facility] Medical Equipment - Implanted Devices Includes: Current and historical Devices No Medical Equipment Recorded Medications Includes: Current and historical Medications Current Medications (continue as prescribed) levoFLOXacin 500 MG Oral Tablet 05/08/2021 Provider: KVNG BARROSO Diagnosis: Unspecified bact erial pneumonia One tablet daily Last Documented On 2 3:04PM By Kvng BARROSO ; [facility] Medications Administered Includes: Administered Medications in patient's chart No Administered Medications Recorded Results Includes: Results from 06/05/2023 through 06/05/2024 No Results Recorded For Specified Dates History of Present Illness History of Present Illness not supported for this document type No History of Present Illness Recorded Social History Description Last Updated [PHQ-2] Patient Health Questionnaire 2 i tem total score: 4 (Scale: 0-6) 05/08/2021 Last Documented On 2 3:03PM ; [facility] Smoking Status Unknown Medical History Includes: Medical History in patient's chart Description Last Updated A fall 05/08/2021 Last Documented On 2 3:03PM ; [facility] Date COVID symptoms started: 04/2021 Last Documented On 2 3:03PM ; [facility] No Contact with and (Suspected) exposure to COVID-19 05/08/2021 Last Documented On 2 3:03PM ; [facility] Family History Includes: Family History in patient's chart No Family History Recorded Review of Systems Review of Systems not supported for this document type No Review of Systems Recorded Mental Status No Mental Status Recorded Functional Status No Functional Status Recorded Physical Exam Physical Exam not supported for this document type No Physical Exam Recorded Allergies Includes: Active, inactive, and resolved Allergies Substance Type Reaction Onset Date Resolved Date Statu s Ibuprofen Allergy 05/08/2021 Active Last Documented On 2 2:58PM ; [facility] Insurance Includes: Active Insurance Policies Plan Name Member ID Group # Subscriber Relationship Effect teresa Dates - [facility] [id number] ZENAIDA ARREAGA Self Clinical Notes Includes: Signed Clinical Notes starting from 05/26/2022 No Clinical Notes Recorded
--- OUTSIDE RECORDS SUMMARY | 2024-06-05 13:53 | XMS_ITS | Referral Summary ---
Author Organization [facility] Medical Office Building A Address [address] [place] [address] Care Team Providers Care Transit Authority Police Officer Name Role Phone Josef Castro MD Primary [...] (06/16/2022): Added automatically from request for surgery [id number] Mixed hyperlipidemia 11/04/2020 Gastric perforation (CMS/HCC) 09/10/2020 Assessment & Plan (09/30/2020 9:40 AM CDT): I will make a referral to 1 of the resource manager forester for an upper endoscopy. Based on the [...] ago, Currently tremulous, anxious Will start on [facility] alcohol withdrawal protocol with IV ativan sins the patient currently NPO Start on IV folate, and thiamin Seizure precautions Fall precautions Will get SWcx, Discussed and encouraged to stop drinking ELEAZAR (generalized anxiety disorder) 09/10/2020 Assessment & Plan (09/10/2020 9:43 PM CDT): Holding xanax , patient is NPO Started on IV ativan To be used per [facility] protocol for symptomatic control for anxiety Severe [...] Immunizations Name Administration Dates Next Due Td, viky 10/23/2000 Social History Tobacco Use Types Packs/Day Years [...] on file Legal Sex Female 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 Gender Identity Not on file Sexual Orientation Not on file Last Filed Vital Signs Vital Sign Reading [...] 02/21/2023 12:20 PM CDT Plan of Treatment Not on file Medical Devices Implanted Type Area Servicer Coin Machines Device Identifier Shelf Expiration Date Model / Serial / Lot Allosource 10cm Frozen Graft Bone Fibula Segment [id number] - [id number] - [id number] Implanted:Qty: 1 on 06/21/2022 by Destiny Mayorga MD at [facility] Bone Right: Humerus Allosource [id number] 01/14/2026 [id number] / [id number] / [id number] Synthes Lcp Combi Philos [id number] 3 Hole Shaft Lock Compression 241.901 - S0 - [id number] Implanted:Qty: 1 on 06/21/2022 by Destiny Mayorga MD at [facility] Plate Right: Humerus Synthes I 241.901 / 0 / Synthes 3.5mm 6mm 22mm 2.5mm Self Tap Small Hexagonal Socket Low Profile 204.822 - S0 - [id number] Implanted:Qty: 1 on 06/21/2022 by Destiny Mayorga MD at [facility] Screw Right: Humerus Synthes I 204.822 / 0 / Synthes 3.5mm 2.9mm 24mm Self Tap Lock Stardrive Conical Head Pelvis T15 212.108 - S0 - [id number] Implanted:Qty: 1 on 06/21/2022 by Destiny Mayorga MD at [facility] Screw Right: Humerus Synthes I 212.108 / 0 / Synthes 3.5mm 6mm 26mm 2.5mm Self Tap Small Hexagonal Socket Low Profile 204.826 - S0 - [id number] Implanted:Qty: 1 on 06/21/2022 by Destiny Mayorga MD at [facility] Screw Right: Humerus Synthes I 204.826 / 0 / Synthes 3.5mm 2.9mm 36mm Self Tap Lock Stardrive Conical Head T15 Full 212.115 - S0 - [id number] Implanted:Qty: 3 on 06/21/2022 by Destiny Mayorga MD at [facility] Screw Right: Humerus Synthes I 212.115 / 0 / Synthes 3.5mm 2.9mm 45mm Self Tap Lock Stardrive Conical Head T15 Full 212.119 - S0 - [id number] Implanted:Qty: 2 on 06/21/2022 by Destiny Mayorga MD at [facility] Screw Right: Humerus Synthes I 212.119 / 0 / Synthes 3.5mm 2.9mm 42mm Self Tap Lock Stardrive Conical Head Full Thread 212.118 - S0 - [id number] Implanted:Qty: 1 on 06/21/2022 by Destiny Mayorga MD at [facility] Screw Right: Humerus Synthes I 212.118 / 0 / Synthes 3.5mm 2.9mm 46mm Self Tap Lock Stardrive Conical Head T15 Full 212.136 - [id number] Implanted:Qty: 1 on 06/21/2022 by Destiny Mayorga MD at [facility] Screw Right: Humerus Synthes I 212.136 / / Synthes 3.5mm 2.9mm 44mm Self Tap Lock Stardrive Conical Head T15 Full 212.134 - S0 - [id number] Implanted:Qty: 1 on 06/21/2022 by Destiny Mayorga MD at [facility] Screw Right: Humerus Synthes I 212.134 / 0 / Synthes 3.5mm 2.9mm 48mm Self Tap Lock Fix Angle Low Profile Pelvis Full 212.120 - S0 - [id number] Implanted:Qty: 1 on 06/21/2022 by Destiny Mayorga MD at [facility] Screw Right: Humerus Synthes I 212.120 / [...] last revised on 19. Testing performed by: [address] [address] Hep B core IgM Nonreactive Nonreactive Denis LEDESMA (DIMITRIS) Comment: Interpretive Data If HepB Core IgM Ab is reported as Equivocal, a new sample should be drawn in two weeks for testing. Current interpretive data was last revised on 19. Testing performed by: [address] [address] Hep C Ab Nonreactive Nonreactive JOESPH LEDESMA (DIMITRIS) Comment: Interpretive Data Nonreactive: Antibodies to [...] last revised on 2019. Testing performed by: [address], [place]., [address] HepBsAg Nonreactive Nonreactive JOESPH LEDESMA (DIMIRTIS) Comment:Testing performed by : [facility], [address] [place] [address], [place]., [address] Blood specimen (specimen) 09/11/2020 5:18 AM CDT 09/11/2020 11:17 AM CDT us Allison Price MD LAB MICROBIOLOGY - GENERAL OR DERABLES Final Result ALISSADONTRELL LEDESMA (DIMITRIS) [address] [facility] Department [place] [address] * COLONOSCOPY (01/20/2013 12:00 AM CDT) Anatomical Region Laterality Modality Other Narrative 01/20/2013 12:00 AM CDT Ordered by an unspecified provider. Procedure Note Provider, MD Edie - 01/20/2013 12:00 AM CDT PROCEDURE REPORT Patient: ZENAIDA ARREAGA Account: [id number] Room No: : 1970 Patient Type: [facility] Attend.: Tunde Miner M.D. Admit Date: 01/20/2013 [...] colon and terminal ileum. Tunde Miner M.D. Aydee TD: 01/20/2013 08:48 CC: Josef Castro M.D. Authenticated by Tunde Miner MD On 01/20/2013 09:37:41 AM Historical Provider ENDOSCOPY PROCEDURES Juliette l Result * Screening Mammogram (01/01/2013 8:11 AM CDT) Anatomical Region Laterality Modality Breast N/A Mammography 01/01/2013 8:11 AM CDT Narrative 01/01/2013 10:23 PM CDT Diag Mamm R ??Acc#: ??[id number] DATE OF EXAM: ??Jan 01 2013 Performed [...] Edie - 08/30/2016 Diag Mamm R Acc#: [id number] DATE OF EXAM: Jan 01 2013 Performed [...] interpretation of these images. This facility utilizes [employer] system to notify patients of yearly mammograms. IMPRESSION: BENIGN FINDINGS. ANNUAL MAMMOGRAPHIC FOLLOW-UP RECOMMENDED. BI-RADSCATEGORY 2 - BENIGN Interpreting Physician: DANIEL PARADA M.D. Read on: Jan 01 2013 8:11A Transcribed by: yordy On: Jan 01 2013 12:01P Approved Electronically by: DANIEL PARADA M.D. on: Jan 01 2013 10:23P Ordering DR: DR JOSEF CASTRO Attending DR: DR JOSEF CASTRO Historical Provider MD MAO MAMMO PROCEDURES Juliette l Result from Last 3 Months or Most Recently Relevant to Health Maintenance Insurance [facility] Advance Directives For more information, please contact: [phone] * Full Code (Latest Code Status on File) Date Activated Date Inactivated Comments 02/21/2023 12:16 PM 02/21/2023 6:09 PM * Full Code Date Activated Date Inactivated Comments 09/10/2020 4:50 PM 09/17/2020 4:48 PM Care Teams Transit Authority Police Officer Relationship Specialty Start Date End Date Josef Castro MD [address] [place] [address] PCP - General 11/04/20
--- OUTSIDE RECORDS SUMMARY | 2024-06-05 13:53 | XMS_ITS | Clinical Summary ---
Author Organization [facility] Marisa blancas [place] Address [address] [place] [address] Care Team Providers Care Office Aide Name Role Phone Chirag Cordoba MD Primary Care Provider [phone] Allergies Active Allergy Reactions Criticality Noted Date Comments Ibuprofen Hives High 10/19/2022 Medications ALPRAZolam (XANAX) 0.5 mg tablet Take 0.5 mg by mouth 2 times daily. 10/25/2020 Active amitriptyline (ELAVIL) 10 mg tablet Take 30 mg by mouth. 12/08/2020 Active anastrozole (ARIMIDEX) 1 mg tablet Take 1 Tablet (1 mg) by mouth daily. 90 Tablet 3 06/13/2023 Active multivitamin (DAILY-KAUSHIK) tablet Take 1 Tablet by mouth daily. Active CALCIUM CARBONATE-VITAMI N D3 ORAL Take by mouth. Active POTASSIUM CITRATE ORAL Take by mouth. Active ZINC SULFATE ORAL Take by mouth. Active Active Problems No known active problems Encounters Date Type Department Care Team Description 05/28/2024 External Device Data [facility] ABSTRACTION Provider, Abstract 05/27/2024 External Device Data [facility] ABSTRACTION Provider, Abstract 05/13/2024 External Device Data [facility] ABSTRACTION Provider, Abstract 03/13/2024 Orders Only [facility] - [address] [place] [id number] Shmuel Bertrand MD 03/05/2024 External Device Data [facility] ABSTRACTION Provider, Abstract from Last 3 Months Family History Medical History Relation Name Comments Diabetes Brother Heart Disease Brother Lung Cancer Father Colon Cancer Mother Breast Cancer Sister Diabetes Sister Relation Name Status Comments Brother Alive Daughter Alive Father Mother Sister Alive Son Alive Social History Tobacco Use Types Packs/Day Years Used Date Smoking Tobacco: Never Smokeless Tobacco: Never Tobacco Cessation:Counseling Given: Not Answered Alcohol Use Standard Drinks/Week Comments Yes 0 (1 standard drink = 0.6 oz pur e alcohol) occasional Comments Unknown Sex and Gender Information Value Date Recorded Sex Assigned at Not on file Legal Sex Female 5:41 AM BUSINESS 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 SPECIALIST Gender Identity Not on file Sexual Orientation Not on file Last Filed Vital Signs Vital Sign Reading Time Taken Comments Blood Pressure 114/81 02/05/2024 1:12 PM CDT Pulse 81 02/05/2024 1:12 PM CDT Temperature 36.9 ??C (98.4 ??F) 02/05/2024 1:12 PM CD T Respiratory Rate 16 02/05/2024 1:12 PM CDT Oxygen Saturation 94% 02/05/2024 1:12 PM CDT Inhaled Oxygen Concentration - - Weight 72.6 kg (160 lb) 02/05/2024 1:12 PM CDT Height - - Body Mass Index - - Plan of Treatment Upcoming Encounters Date Type Department Care Team (Late st Contact Info) Description 06/16/2024 11:15 AM BUSINESS 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 SPECIALIST Office Visit [facility] [address] [facility] [address] [address] Shmuel Bertrand MD [address] [facility] [address] [place] [address] Health Maintenance Due Date Last Done Comments DTAP/TDAP/TD VACCINES (1 - Tdap) 1987 HEPATITIS B VACCINES (1 of 3 - 19+ 3-dose series) 1987 Preventative Visit-Managed Medicaid 1987 CERVICAL CANCER SCREENING 1998 FIT-DNA Q 3 years 2013 FIT/FOBT Q 1 year 2013 Flex Sig/CT Colonography Q 5 years 2013 BREAST CANCER SCREENING 01/01/2014 01/01/2013, 12/17 ZOSTER VACCINE (1 of 2) 2018 COLORECTAL SCREENING 01/20/2023 01/20/2013 Colorectal Cancer Screening 01/20/2023 INFLUENZA VACCINE (#1) 2023 Procedures Procedure Name Priority Date/Time Associated Diagnosis Comments US ABDOMEN COMPLETE Routine 03/12/2024 8:01 AM BUSINESS 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 SPECIALIST from Last 3 Months Results * US ABDOMEN COMPLETE (03/12/2024 8:01 AM BUSINESS 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 SPECIALIST) Anatomical Region Laterality Modality Abdomen Other us Shmuel Bertrand MD US ORDERABLES Final Result from Last 3 Months Insurance [facility] MEDICAID Care Teams Office Aide Relationship Specialty Start Date End Date Chirag Cordoba MD [address] [place] [address] PCP - General Internal Medicine 10/19/22
== END 2024-06-05 13:07 | disposition home or self-care (01) ==
PROVIDERS: PCP Internal Medicine; Visit Provider Internal Medicine
DX: M85.88 Other specified disorders of bone density and structure, other site (principal)
CPT/HCPCS: 77080

== ENCOUNTER 2024-06-29 12:56 | Inpatient (IN) | payer OTHER, SELFPAY ==
[2024-06-29] VITALS (46 sets, daily range): BP systolic 121–162; BP diastolic 78–101; PULSE 104–132; RESP 14–31; TEMP 36.2–36.6; O2SAT 94–100
--- NOTE | ~2024-06-29 | CT_ITS ---
CLINICAL INDICATION: Pneumonia and abdominal pain. Personal history of invasive ductal carcinoma of the right breast COMPARISON: 12/26/2022. TECHNIQUE: An enhanced CT of the abdomen and pelvis was performed utilizing multislice spiral [employer] ue reconstructed at 5 mm slice thickness. Coronal and sagittal reconstructions were performed. This CT examination was performed utilizing dose reduction techniques. DLP: 884 mGy-cm FINDINGS/OBSERVATIONS: Lung: Right basilar atelectasis. The remainder of the lungs are clear. The heart is borderline enlarged, without pericardial effusion. Moderate hiatal hernia. Mediastinum: No pathologically enlarged or morphologically suspicious lymph nodes are identified within the spinal , bilateral axilla, within the soft tissues of the anterior chest wall. Soft tissues of the chest: Bilateral augmentation. Bones of the chest: No acute fracture. No lytic or blastic lesions are identified. Liver: The liver enhances homogeneously and demonstrates decreased attenuation, consistent with fatty infilt ration and is not enlarged measuring 18 cm in longitudinal dimension. Gallbladder and biliary system: The gallbladder is moderately distended, with hyperemia of the gallbladder wall without thickening or surrounding inflammatory change. No calcified stones. Pancreas: The pancreas enhances homogeneously, with dilatation of the main pancreatic duct to 6 mm. Spleen: The spleen enhances homogeneously, and is not enlarged. Kidneys: The bilateral kidneys enhance symmetrically without hydronephrosis or renal calculi. Adrenal glands: Unremarkable. Gastrointestinal tract: Colonic diverticulosis without surrounding inflammatory change. Appendix: The air-filled appendix is of normal caliber (axial series, images 177 through 184). Vasculature: No significant calcified atherosclerotic disease is present. No aneurysmal dilatation. Lymph nodes: Scattered nonpathologically enlarged lymph nodes within the root of the mesentery and deep in the pel vis. Pelvic structures: The bladder is minimally distended and otherwise unremarkable. The uterus is anteverted and anteflexed and otherwise unremarkable. Body wall and musculoskeletal: No significant degenerative disease within the thoracic or lumbosacral spines. IMPRESSION: Dilatation of the main pancreatic duct to 6 mm, for which nonemergent follow-up with MRI examination of the pancreas with pancreatic mass protocol is recommended. Otherwise, no acute pathology is detected within the chest, abdomen or pelvis, as detailed above. Reviewed, dictated and finalized at location [facility]. [employer] IMPRESSION: Dilatation of the main pancreatic duct to 6 mm, for which nonemergent follow-up with MRI examination of the pancreas with pancreatic mass protocol is recommen ded. Otherwise, no acute pathology is detected within the chest, abdomen or pelvis, as detailed above.
--- OUTSIDE RECORDS SUMMARY | 2024-06-29 12:59 | XMS_ITS ---
Author Organization [facility] Address [address] [place] [address] Care Team Providers Care Inspector Coated Fabrics Name Role Phone Adalid HARRY, Chirag Primary [...] 01/19/2023 Encounters Encounter Location Date Provider Diagnosis [facility] [address] [place] [address] 01/19/2023 ASPEN REYES Abnormal findings on dx [...] * Flavia ARREAGADOB: [birth year] (52 yo F)Acc No.[id number]:01/19/2023 Progress Notes Patient: Flavia Arreaga Appointment Provider: Aspen Reyes CNP :1970 Age:52 Y Sex:Female Date:01/19/2023 Address:[address] [place], [place] [id number] Pcp:Chirag Cordoba MD Subjective: * Chief Complaints: * 1. Abnormal Pancreatic Duct. * HPI: Constitutional: Pleasant 52 year old female with history [...] diarrhea. She presents today for further management. P revious testing. * ROS: Gastrointestinal: Denies Abdominal pain. Denies Blood in stool. Denies Change in bowel habits. Denies Colitis, denies. Denies Constipation. Denies Decreased appetite. Denies Diarrhea. Denies Difficulty swallowing. Denies Exposure to hepatitis. Denies Heartburn. Denies Hematemesis. Denies Hepatitis, denies. Denies Nausea. Denies Rectal bleeding. Denies Stomach problems, denies. Denies Vomiting. Denies Weight loss. * Medical History: Carpal tunnel, Hyperlipidemia, Anxiety. * Family History: Father: , lung cancer, HTN. Mother: , HTN, DM. 1 brother(s) . . * Social History: Drugs/Alcohol: Do you smoke marijuana?: Denies. Do you drink alcohol?: No. * Allergies: Ibuprofen. Objective: * Vitals: HR:92/min, BP:108/92mm Hg, Wt:158lbs, BMI:26.29Index, Ht:65in, Ht-cm: 165.1 cm, Wt-k.67 kg. * Examination: General Examination: GENERAL APPEARANCE: in no acute distress, well developed, well nourished. HEART: no murmurs, regular rate and rhythm, S1, S2 normal. LUNGS: clear to auscultation bilaterally. ABDOMEN: normal, bowel sounds present, soft, nontender, nondistended. NEUROLOGIC: alert and oriented, sensory exam intact. Assessment: * Assessment: 1. Abnormal findings on dx imaging of prt digestive tract - R93.3 (Primary) Plan: * Treatment: 2. Others Notes: Time spent: 25minutes. More than 50% [...] and stressed importance of compliance with plan. * Preventive Medicine: YOUR PREVENTIVE WELLNESS PLAN: Colorectal Cancer Screening: The Recommended Frequency is: Every 10 years, Colonoscopy, Screening for colorectal cancer was last done on: 05/07/2014. * Follow Up: prn * Images: * Sign off status: Completed true * Appointment Provider: Aspen Reyes CNP Date: 01/19/2023 History and Physical Notes * HPI (History [...]
--- OUTSIDE RECORDS SUMMARY | 2024-06-29 12:59 | XMS_ITS | Clinical Summary ---
Author Organization [facility] Address [address] [place] [address] Phone Care Team Providers Care Outside Cutter Name Role Phone KIRSTEN LAMA DO Unavailable [phone] Reason for Visit and Chief Complaint The Chief Complaint is: sx started 05/01. Cough, sinus drainage down throat, fatigue, aches, headache, runny nose, The Chief Complaint is: Cough congestion runny nose chills and hot flashes Plan of Treatment - Clinical summary provided to patient - Last Documented On 05/08/2021 3:03PM ; [facility] - Plan of care reviewed and agreed to - Last Documented On 05/08/2021 3:03PM ; [facility] 1. Negative for COVID-19 today. 2. Has [...] - Last Documented On 05/08/2021 3:03PM ; [facility] Assessments Includes: Assessments from this encounter Findings - J15.9 - Unspecified bacterial pneumonia - Last Documented On 05/08/2021 3:03PM ; [facility] Medical Equipment - Implanted Devices Includes: Current Devices No Medical Equipment Recorded Medications Includes: Medications discussed during this encounter and other current Medications New / Renewed during this visit KVNG GRAMAJO-C on 05/08/2021 levoFLOXacin 500 MG Oral Tablet Provider: KVNG BARROSO 7 day supply: 7 tablet, 0 refills Diagnosis: Unspecified bacterial pneumonia One tablet daily Pharmacy: [id number], [id number] - Last Documented On 2 3:04PM By Kvng BARROSO ; [facility] Medications Administered Includes: Administered Medications from this encounter No Administered Medications Recorded Vital Signs Includes: Vital Signs from this encounter Vital Name 05/08/2021 02:33P Pulse Rate-Sitting (bpm) 91 Temp-Oral (F) 98.2 Oxygen Saturation (%) 97 Last Documented: On 05/08/2021 2:35PM ; [facility] Results Includes: Results discussed during this encounter Rapid COVID Test [facility] Ordered by KVNG BARROSO on 0 05/08/2021 Collected: Reported: 05/08/2021 14:45 Last Documented On 2 3:02PM ; [facility] Reviewed by KVNG BARROSO on 05/08/2021; All test results are final unless otherwise noted. Rapid COVId negativw N (Normal) Last Documented On 2 2:47PM ; [facility] Int. QC Acceptable yes N (Normal) Last Documented On 2 2:47PM ; [facility] Lot # and Exp. Date [id number] 08/07/21 N (Normal) Last Documented On 2 2:47PM ; [facility] History of Present Illness Includes: History [...] 05/08/2021 Last Documented On 2 3:03PM ; [facility] Smoking Status Unknown Procedures and Surgical History Includes: Procedures from this encounter Procedures Code Diagnosis Performing Provider Service L ocation Service Date review of medications documented 1160F Last Documented On 2 2:33PM ; [facility] Medical History Includes: Medical History addressed during this encounter Description Last Updated A fall 05/08/2021 Last Documented On 2 3:03PM ; [facility] Date COVID symptoms started: 04/2021 Last Documented On 2 3:03PM ; [facility] No Contact with and (Suspected) exposure to COVID-19 05/08/2021 Last Documented On 2 3:03PM ; [facility] Family History Includes: Family History addressed during [...] Active Last Documented On 2 2:58PM ; [facility] Encounters Encounter Provider Location Date Check-In Time Check- Out Time Diagnosis COVID SICK VISIT- NEW PATIENT KVNG DOBBINS TRANSFER CAR OPERATOR DRIER-C [facility] 2 2:22PM 3:03PM Pneumonia Insurance Includes: Active Insurance Policies Plan Name Member ID Group # Subscriber Relationship Effect teresa Dates 1 - [facility] [id number] ZENAIDA ARREAGA Self Clinical Notes Includes: Clinical Notes from this encounter No Clinical Notes Recorded
--- OUTSIDE RECORDS SUMMARY | 2024-06-29 12:59 | XMS_ITS ---
Author Organization [facility] Address [address] [place] [address] Phone Care Team Providers Care Work Study Student Name Role Phone KIRSTEN LAMA DO Unavailable [phone] Plan of Treatment Findings Encounter Date Clinical summary provided to patient COV ID SICK VISIT- NEW PATIENT with KVNG DOBBINS CANINE SERVICE INSTRUCTOR TRAINER-C 05/08/2021 Last Documented On 2 3:03PM ; [facility] Plan of care reviewed and agreed to COVI D SICK VISIT- NEW PATIENT with KVNG DOBBINS CANINE SERVICE INSTRUCTOR TRAINER-C 05/08/2021 Last Documented On 2 3:03PM ; [facility] Assessments Includes: Assessments for all patient encounters Findings Encounter Date Pneumonia COVID SICK VISIT- NEW PATIENT wi th KVNG DOBBINS CANINE SERVICE INSTRUCTOR TRAINER-C 05/08/2021 Last Documented On 2 3:03PM ; [facility] Medical Equipment - Implanted Devices Includes: Current and historical Devices No Medical Equipment Recorded Medications Includes: Current and historical Medications Current Medications (continue as prescribed) levoFLOXacin 500 MG Oral Tablet 05/08/2021 Provider: KVNG BARROSO Diagnosis: Unspecified bact erial pneumonia One tablet daily Last Documented On 2 3:04PM By Kvng BARROSO ; [facility] Medications Administered Includes: Administered Medications in patient's chart No Administered Medications Recorded Results Includes: Results from 06/29/2023 through 06/29/2024 No Results Recorded For Specified Dates History of Present Illness History of Present Illness not supported for this document type No History of Present Illness Recorded Social History Description Last Updated [PHQ-2] Patient Health Questionnaire 2 i tem total score: 4 (Scale: 0-6) 05/08/2021 Last Documented On 2 3:03PM ; [facility] Smoking Status Unknown Medical History Includes: Medical History in patient's chart Description Last Updated A fall 05/08/2021 Last Documented On 2 3:03PM ; [facility] Date COVID symptoms started: 04/2021 Last Documented On 2 3:03PM ; [facility] No Contact with and (Suspected) exposure to COVID-19 05/08/2021 Last Documented On 2 3:03PM ; [facility] Family History Includes: Family History in patient's [...] Active Last Documented On 2 2:58PM ; [facility] Insurance Includes: Active Insurance Policies Plan Name Member ID Group # Subscriber Relationship Effect teresa Dates - [facility] [id number] ZENAIDA ARREAGA Self Clinical Notes Includes: Signed Clinical Notes starting from 05/26/2022 No Clinical Notes Recorded
--- OUTSIDE RECORDS SUMMARY | 2024-06-29 12:59 | XMS_ITS | Patient Health Record ---
Author Organization [facility] Address [address] [place] [address] Care Team Providers Care Merchandising Execution Associate Name Role Phone Adalid HARRY, Chirag Primary Care Provider Unav ailable ERIC TASSEL SNIPPER, WILFREDO Unavailable ALLERGIES Allergen (clinical drug ingredient) Drug/Non Drug Allergy documented on EMR Reaction Allergy Type Onset Date Status ibuprofen Ibuprofen Unknown Drug Allergy Active REASON FOR REFERRAL No Information PLAN OF TREATMENT No Information Insurance Providers Payer Name Payer Address Payer Phone Subscriber Number Group Number Insured Name Patient Relationship to Insured Coverage Start Date Coverage End Date [address] [id number] Flavia Patrick Self - patient is the insured MEDICAL (GENERAL) HISTORY Medical History History ICD Code carpal tunnel hyperlipidemia anxiety
--- OUTSIDE RECORDS SUMMARY | 2024-06-29 12:59 | XMS_ITS | Patient Health Summary ---
Author Organization [facility] Address [address] [facility] [place] [address] Care Team Providers Care Technical Translator Name Role Phone Unavailable Primary Care Provider Unavailabl e Note from [facility],non-owned Affiliates and Associated Physician Practices is amultiple site organization consisting of ambulatory clinics and hospital sitesin [place], [place], [place] and [place]. This disclosure is being madepursuant to the Care Everywhere program and may not contain all information available regarding this patient. Last updated 18.[facility] Allergies No known active allergies Medications * [...] with Reflex FT4 3.54 mIU/L [facility] Comment: Reference Range > or = 20 Years 0.40-4.50 Ranges First trimester 0.26-2.66 Second trimester 0.55-2.73 Third trimester 0.43-2.91 Test Performed at: [facility] [address] [facility] [address] NELSY POWERS DO,MPH Blood BLOOD SPECIMEN / Unknown 12/17/2020 9:03 AM CDT 12/17/2020 9:04 AM CDT Radha Olson MD LAB - CHEMISTRY ABI MARES Performing Organization Address [facility] de Phone Number [facility] [phone] [place] [address] * IMMUNOFIXATION BLOOD (12/17/2020 9:03 AM CDT) Pathologist [facility] Interpretation [facility]ST Comment: Normal pattern. No monoclonal proteins detected. Test Performed at: [facility] [address] [facility] [address] NELSY POWERS DO,MPH Blood BLOOD SPECIMEN / Unknown 12/17/2020 9:03 AM CDT 12/17/2020 9:04 AM CDT Radha Olson MD LAB - CHEMISTRY ABI MARES Performing Organization Address [facility] [place] [address] * HEAVY METALS BLOOD QUANT PANEL (12/17/2020 9:03 AM CDT) Pathologist [facility] [place] Arsenic <3 <23 mcg/L [facility] Comment: Whole [...] analytical performance characteristics have been determined by [employer]. It has not been cleared or approved by the FDA. This assay has been validated pursuant to the CLIA regulations and is used for clinical purposes. Test Performed at: [facility] [employer] [facility] [address] [place] [address] DAVID CRAWFORD MD Blood BLOOD SPECIMEN / Unknown 12/17/2020 9:03 AM CDT 12/17/2020 9:04 AM CDT Radha Olson MD LAB - CHEMISTRY ABI ROBERTSONBULL Performing Organization Address [facility]/ZIP Co de Phone Number [address] [address] * C-REACTIVE PROTEIN (CRP) (12/17/2020 9:03 AM CDT) Pathologist [facility] [place] C-Reactive Protein 0.4 <8.0 mg/L [facility] Comment: Test Performed at: [facility] [place] [address] NELSY POWERS DO,MPH Blood BLOOD SPECIMEN / Unknown 12/17/2020 9:03 AM CDT 12/17/2020 9:04 AM CDT Radha Olson MD LAB - CHEMISTRY ABI MARES Performing Organization Address [facility] Co de Phone Number [facility] [phone] [place] [address] * ALFREDO BLOOD SCREEN W/REFLEX TITER (12/17/2020 9:03 AM CDT) [facility] ALFREDO Screen NEGATIVE NEGATIVE [facility] Comment: [...] AC-0: Negative International Consensus on ALFREDO Patterns (https://doi.org/10.1515/dbco-0258-9615) For additional information, please refer to http://education.[employer].Wattpad/faq/SVR176 (This link is being provided for informational/ educational purposes only.) Test Performed at: [facility] [address] NELSY POWERS DO,MPH Blood BLOOD SPECIMEN / Unknown 12/17/2020 9:03 AM CDT 12/17/2020 9:04 AM CDT Radha Olson MD LAB - CHEMISTRY ABI MARES Performing Organization Address [facility] Co de Phone Number [facility] [phone] [place] [address] * VITAMIN B1 (12/17/2020 9:03 AM CDT) Pathologist [facility] [place] Vitamin B1 Whole Blood 130 78 - 185 nmol/L [facility] Comment: Vitamin supplementation within 24 hours prior to blood draw may affect the accuracy of results. This test was developed and its analytical performance characteristics have been determined by [employer]. It has not been cleared or approved by the FDA. This assay has been validated pursuant to the CLIA regulations and is used for clinical purposes. REPORT COMMENT: FASTING:YES Test Performed at: [facility] [address] [address] DAVID CRAWFORD MD Blood BLOOD SPECIMEN / Unknown 12/17/2020 9:03 AM CDT 12/17/2020 9:04 AM CDT Radha Olson MD LAB - CHEMISTRY ABI MARES Performing Organization Address [facility] de Phone Number [facility] [phone] [place] [address] * ERYTHROCYTE SEDIMENTATION RATE (12/17/2020 9:03 AM CDT) [facility] Erythrocyte Sedimentation Rate Westergren 6 < OR = 30 mm/h [facility] Comment: Test Performed at: [employer] [address] [facility] [place] [address] NELSY POWERS DO,MPH Blood BLOOD SPECIMEN / Unknown 12/17/2020 9:03 AM CDT 12/17/2020 9:04 AM CDT Radha Olson MD LAB - HEMATOLOGY ESVIN YU Performing Organization Address [facility] [place] [address] * PROTEIN ELECTROPHORESIS BLOOD (12/17/2020 9:03 AM CDT) Protein Total 7.0 6.1 - 8.1 g/dL [facility] Albumin 4.1 3.8 - 4.8 g/dL [facility] Alpha-1 Globulin 0.2 0.2 - 0.3 g/dL [facility] Otyjb-1-Sxqrvuwd 0.6 0.5 - 0.9 g/dL [facility] Beta-1 Globulin g/dL 0.4 0.4 - 0.6 g/dL [facility] Beta-2 Globulin 0.4 0.2 - 0.5 g/dL [facility] Gamma Globulin 1.2 0.8 - 1.7 g/dL [facility] Interpretation [facility] Comment: No restricted band (M-spike) seen. Test Performed at: [facility] [address] [place] [address] NELSY POWERS DO,MPH Blood BLOOD SPECIMEN / Unknown 12/17/2020 9:03 AM CDT 12/17/2020 9:04 AM CDT Radha Olson MD LAB - CHEMISTRY ABI MARES [facility] [address] [place] [address]
--- OUTSIDE RECORDS SUMMARY | 2024-06-29 12:59 | XMS_ITS | Clinical Summary ---
Author Organization [facility] Marisa blancas Julianna Address [address] [place] [address] Care Team Providers Care Top Closer Name Role Phone Chirag Cordoba MD Primary Care Provider [phone] Allergies Active Allergy Reactions Criticality Noted Date [...] Encounters Date Type Department Care Team Description 06/24/2024 External Device Data STL ABSTRACTION Provider, Abstract 06/17/2024 Telephone [facility] Oncology [facility] Hematology [place] [address] [place] [address] Shmuel Bertrand MD Lab Authorization 06/17/2024 Abstract [facility] Oncology [facility] Hematology [facility] [address] [place] [address] Shmuel Bertrand MD 06/13/2024 Telephone [facility] Oncology [facility] Hematology [place] [place] [address] Shmuel Bertrand MD lab work for appointment 05/28/2024 External Device Data STL ABSTRACTION Provider, [...] on file Legal Sex Female 5:41 AM PROFILE TRIMMER Gender Identity Not on file Sexual Orientation Not on file Last Filed Vital Signs Vital Sign Reading Time Taken Comments Blood Pressure 114/81 02/05/2024 1:12 PM CDT Pulse 81 02/05/2024 1:12 PM CDT Temperature 36.9 C (98.4 F) 02/05/2024 1:12 PM CDT Respiratory Rate 16 02/05/2024 1:12 PM CDT Oxygen Saturation 94% 02/05/2024 1:12 PM CDT Inhaled Oxygen Concentration - - Weight 72.6 kg (160 lb) 02/05/2024 1:12 PM CDT Height - - Body Mass Index - - Plan of Treatment Upcoming Encounters Date Type Department Care Team (Late st Contact Info) Description 07/15/2024 11:15 AM CDT Office Visit [facility] Oncology and Hematology - [place] [address] [facility] [address] [place] [address] Shmuel Bertrand MD [address] [facility] [address] [place] [address] Health Maintenance Due Date Last [...] Cancer Screening 01/20/2023 INFLUENZA VACCINE (#1) 2023 Insurance [facility] MEDICAID Care Teams Top Closer Relationship Specialty Start Date End Date Chirag Cordoba MD [facility] T[place] [address] PCP - General Internal Medicine 10/19/22
--- OUTSIDE RECORDS SUMMARY | 2024-06-29 12:59 | XMS_ITS | Encounter Summary ---
Author Organization [facility] Address [address] [place] [address] Care Team Providers Care Computer Education Professor Name Role Phone Chirag Cordoba MD Primary Care Provider [phone] Encounter Details Date Type Department Care Team (Late st Contact Info) Description 05/16/2008 Outpatient Historical [facility] Er, Authorized P NO ADDRESS ON FILE Jorge Oliva MD [facility] [place] [address] Social History Tobacco Use Types Packs/Day Years Used Date Smoking Tobacco: Never Assessed Comments Unknown Sex and Gender Information Value Date Recorded Sex Assigned at Not on file Legal Sex Female 5:41 AM WINDOW TREATMENT INSTALLER Gender Identity Not on file Sexual Orientation Not on file documented as of this encounter Plan of Treatment Upcoming Encounters Date Type Department Care Team (Late st Contact Info) Description 07/15/2024 11:15 AM CDT Office Visit [facility] Oncology and Hematology - [place] [address] [facility] [address] [place] [address] Shmuel Bertrand MD [address] [facility] [address] [place] [address] documented as of this encounter Procedures Procedure Name Priority Date/Time Associated Diagnosis Comments US PELVIS + TRANSVAG NON OB Stat 05/16/2008 3:06 PM WINDOW TREATMENT INSTALLER POC , URINE Routine 05/16/2008 2:59 PM WINDOW TREATMENT INSTALLER POC URINALYSIS DIPSTICK NON AUTOMATED Routine 05/16/2008 2:59 PM WINDOW TREATMENT INSTALLER CBC WITH DIFFERENTIAL Stat 05/16/2008 2:26 PM WINDOW TREATMENT INSTALLER COMPREHENSIVE METABOLIC PANEL Stat 05/16/2008 2:26 PM WINDOW TREATMENT INSTALLER documented in this encounter Results * US PELVIS + TRANSVAG NON OB (05/16/2008 3:06 PM WINDOW TREATMENT INSTALLER) Anatomical Region Laterality Modality Pelvis Other 05/16/2008 3:06 PM WINDOW TREATMENT INSTALLER Narrative 05/17/2008 7:19 AM WINDOW TREATMENT INSTALLER [facility] [address], [place] [address] Admit Date: 05/16/2008 ARRAEGAZENAIDA Sex: F Admit Prov: ER, AUTHORIZED P Date: 1970 Primary Care Prov: CMRN: [id number] Room: ER-A SSN: [id number] IMAGING SERVICES Ordering Prov: N/A Accession Number: [id number] Interpretation ULTRASOUND OF PELVIS TRANSABDOMINAL AND TRANSVAGINAL 05/16/2008 History: Pelvic pain. Clinical concern of a torsed ovary. Technique: Transabdominal and transvaginal ultrasound of the pelvis was performed. No prior studies are available for comparison. Findings: The uterus is homogeneous in echotexture on the transabdominal ultrasound. Endometrial stripe measures 4 mm. There is suggestion of heterogeneity within the uterus. Therefore, transvaginal ultrasound is recommended. The uterus measures 10.1 x 4.4 x 5.0 cm in size. The right ovary on transabdominal ultrasound measures 1.8 x 1.4 x 1.9 cm. Doppler flow is identified to the right ovary. The left ovary on transabdominal ultrasound measures 1.7 x 2.1 x 1.1 cm. Normal blood flow is identified to the left ovary. For further evaluation, transvaginal ultrasound is recommended. Transvaginal ultrasound was performed. Within the endometrial canal, a 1.8 x 1.4 cm area of mixed echogenicity is identified. This may represent an endometrial fibroid versus endometrial polyp versus a blood clot as the patient did just start her menstrual cycle. Six-week followup ultrasound is recommended for further evaluation. No other masses are identified within the uterus. Left ovary measures 2.9 x 2.1 x 1.2 cm. Normal blood flow was identified to the left ovary. The right ovary measures 2.8 x 1.5 x 1.8 cm. Echogenicity of the right ovary is normal. Normal blood flow was identified to the right ovary. No free fluid is identified within the pelvis. Impression: 1. No evidence of ovarian torsion. Normal blood flow is identified to both ovaries. No ovarian cysts are seen. 2. Mixed echogenicity mass identified within the endometrial canal. This may represent an endometrial polyp or fibroid versus a blood clot as the patient is just getting ready to start her menstrual period. A 6 week followup ultrasound is recommended. The findings were discussed with Dr. Francesco Oliva in the emergency room at 1505 hours. . Dictated by: KEIKO SEWELL 05/16/2008 15:04 Electronically signed by: KEIKO SEWELL 05/17/2008 07:18 Transcribed: 05/16/2008 15:52 AMK Procedure Note Keiko Sewell - 05/17/2008 [facility] [address] [place], [place] [address] Admit Date: 05/16/2008 ZENAIDA ARREAGA Sex: F Admit Prov: EASTON LEONG Date:1970 Primary Care Prov: CMRN: [id number] Room: [facility] SSN: [id number] IMAGING SERVICES Ordering Prov: N/A Interpretation ULTRASOUND [...] emergencyroom at 1505 hours. . Dictated by: KEIKO SEWELL 05/16/2008 15:04 Electronically signed by: KEIKO SEWELL 05/17/2008 07:18 Transcribed: 05/16/2008 15:52 AMK us Jorge Oliva MD ORDERABLES Final Result * (ABNORMAL) POC URINALYSIS DIPSTICK NON AUTOMATED (05/16/2008 2:59 PM WINDOW TREATMENT INSTALLER) UROBILINOGEN UA 1+ (1 mg/dL) <=1 mg/dL [facility] SPECIFIC GRAVITY UA 1.025 1.001 - 1.030 [facility] GLUCOSE UA Negative Negative [facility] COLOR UA Yellow [facility] LEUKOCYTE ESTERASE UA Negative Negative [facility] NITRITE UA Negative Negative [facility] BILIRUBIN UA 1+(A) Negative [facility] PH UA 5.0 5.0 - 8.0 [facility] KETONES UA 1+ (Small)(A) Negative [facility] CLARITY UA Clear [facility] BLOOD UA 1+(A) Negative [facility] PROTEIN UA Negative Negative [facility] Urine specimen (specimen) 05/16/2008 2:59 PM WINDOW TREATMENT INSTALLER 05/16/2008 2:59 PM WINDOW TREATMENT INSTALLER us Authorized P Er POINT OF CARE TESTING Final Resu lt Performing Organization Address [facility] de Phone Number INTERFACE SYSTEM Refer to clinic/hospital department [facility] CLIA# [id number] [address] [place] [address] * POC , URINE (05/16/2008 2:59 PM WINDOW TREATMENT INSTALLER) , URINE POC Negative Negative [facility] SPECIFIC GRAVITY UA 1.025 1.001 - 1.035 [facility] Urine specimen (specimen) 05/16/2008 2:59 PM WINDOW TREATMENT INSTALLER 05/16/2008 2:59 PM WINDOW TREATMENT INSTALLER us Authorized P Er POINT OF CARE TESTING Final Resu lt Performing Organization Address City/[facility] de Phone Number INTERFACE SYSTEM Refer to clinic/hospital department [facility] CLIA# [id number] [address] [place] [address] * (ABNORMAL) CBC WITH DIFFERENTIAL (05/16/2008 2:26 PM WINDOW TREATMENT INSTALLER) PLATELETS 222 140 - 350 K/uL [facility] HEMOGLOBIN 12.8 11.8 - 14.8 g/dL [facility] RDW 12.9 11.5 - 14.5 % [facility] WBC 4.7 4.0 - 9.8 K/uL [facility] MCH 30.0 27.2 - 32.6 pg [facility] MPV 8.7(L) 9.3 - 12.4 fL [facility] HEMATOCRIT 38.7 35.5 - 44.0 % [facility] RDW-STDEV 42.6 37.1 - 48.7 fL [facility] RBC 4.27 3.90 - 4.90 M/uL [facility] MCHC 33.1 31.5 - 35.5 % [facility] MCV 90.6 82.0 - 99.0 fL [facility] EOSINOPHILS 1 0 - 7 % [facility] EOSINOPHIL ABSOLUTE 0.06 0.00 - 0.70 K/uL [facility] LYMPHOCYTES 37 16 - 45 % [facility] LYMPHOCYTE ABSOLUTE 1.74 0.70 - 4.50 K/uL [facility] BASOPHILS 0 0 - 2 % [facility] BASOPHILS ABSOLUTE 0.02 0.00 - 0.20 K/uL [facility] MONOCYTES 11 3 - 13 % [facility] MONOCYTE ABSOLUTE 0.51 0.10 - 1.30 K/uL [facility] NEUTROPHILS 50 45 - 70 % [facility] NEUTROPHIL ABSOLUTE 2.35 1.90 - 7.00 K/uL [facility] Blood specimen (specimen) 05/16/2008 2:26 PM WINDOW TREATMENT INSTALLER 05/16/2008 2:36 PM WINDOW TREATMENT INSTALLER us Authorized P Er HEMATOLOGY ORDERABLES Edited INTERFACE SYSTEM Refer to clinic/hospital department [facility] CLIA# [id number] [address] [place] [address] * (ABNORMAL) COMPREHENSIVE METABOLIC PANEL (05/16/2008 2:26 PM WINDOW TREATMENT INSTALLER) ALKALINE PHOSPHATASE 30(L) 35 - 104 U/L [facility] BILIRUBIN TOTAL 0.7 0.2 - 1.0 mg/dL [facility] CO2 24 22 - 30 mmol/L [facility] TOTAL PROTEIN 6.6 6.3 - 8.6 g/dL [facility] POTASSIUM 3.6 3.5 - 4.9 mmol/L [facility] GLUCOSE 100(H) 65 - 99 mg/dL [facility] AST 16 12 - 32 U/L [facility] BUN 8 6 - 20 mg/dL [facility] CALCIUM 8.7 8.6 - 10.2 mg/dL [facility] CHLORIDE 105 96 - 108 mmol/L [facility] ALBUMIN 4.0 3.4 - 4.8 g/dL [facility] CREATININE 0.69 0.51 - 0.95 mg/dL [facility] SODIUM 138 135 - 145 mmol/L [facility] ALT 9 0 - 31 U/L [facility] GFR, >60 >=60 mL/min/1. 7 sq meter [facility] GFR >60 >=60 mL/min/1. 7 sq meter [facility] Comment: Modification of Diet in Renal Disease (MDRD) study formula. Estimated GFR rate interpretative information for both Americans and non- Americans is available on the [facility] Intranet at: [email or web address] Select: Lab Policies and Procedures Select: Reference Ranges - GFR Blood specimen (specimen) 05/16/2008 2:26 PM WINDOW TREATMENT INSTALLER 05/16/2008 2:36 PM WINDOW TREATMENT INSTALLER us Authorized P Er CHEMISTRY ORDERABLES Edited INTERFACE SYSTEM Refer to clinic/hospital department [facility] CLIA# [id number] [address] [place] [address] documented in this encounter Visit Diagnoses Not on filedocumented in this encounter Care Teams Computer Education Professor Relationship Specialty Start Date End Date Chirag Cordoba MD [address] [address] PCP - General Internal Medicine 10/19/22 documented as of this encounter
--- OUTSIDE RECORDS SUMMARY | 2024-06-29 12:59 | XMS_ITS | Referral Summary ---
Author Organization [facility] Address [address] [place] [address] Care Team Providers Care Male Infertility Specialist Name Role Phone Unavailable Primary Care Provider Unavailabl e Source Comments [facility],non-owned Affiliates and Associated Physician Practices is amultiple site organization consisting of ambulatory clinics and hospital sitesin [place], [place], [place] and [place]. This disclosure is being madepursuant to the Care Everywhere program and may not contain all information available regarding this patient. Last updated 18.[facility] knowNormal Allergies No known active allergies Medications * [...]
--- OUTSIDE RECORDS SUMMARY | 2024-06-29 12:59 | XMS_ITS ---
Care Plan - [facility] Created on: June 29, 2024 ZENAIDA ARREAGA : 1970 Sex: Female Author Organization [facility] Address [address] [place] [address] Phone Care Team Providers Care Benzene Worker Name Role Phone KIRSTEN LAMA DO Unavailable [phone]
--- OUTSIDE RECORDS SUMMARY | 2024-06-29 12:59 | XMS_ITS | Clinical Summary ---
Author Organization [facility] Address [address] [place] [address] Care Team Providers Care Rag Cutting Machine Feeder Name Role Phone Unavailable Primary Care Provider Unavailabl e Source Comments [facility],non-owned Affiliates and Associated Physician Practices is amultiple site organization consisting of ambulatory clinics and hospital sitesin [place], [place], [place] and [place]. This disclosure is being madepursuant to the Care Everywhere program and may not contain all information available regarding this patient. Last updated 18.[facility] [employer] Allergies No known active allergies Medications * [...]
--- OUTSIDE RECORDS SUMMARY | 2024-06-29 13:00 | XMS_ITS ---
Author Organization [facility] Address [address] [facility] [address] [place] [address] Care Team Providers Care Electrician Apprentice Name Role Phone Adalid HARRY, Chirag Primary Care Provider Unav ailable ERIC MIXED CROP AND LIVESTOCK FARM WORKER, WILFREDO Unavailable [phone] REASON FOR VISIT EUS Encounters Encounter Location Date Provider Diagnosis [facility] [address] [facility] [address] [place] [address] 01/19/2023 WILFREDO REYES PLAN OF TREATMENT No Information Progress Notes * Flavia ARREAGADOB: [birth year] (52 yo F)Acc No.[id number]:01/19/2023 Patient: DarnellFatemehFlavia :1970 Age:52 Y Sex:Female Address:[address] [place] [address] * true * Date:
--- OUTSIDE RECORDS SUMMARY | 2024-06-29 13:00 | XMS_ITS | Referral Summary ---
Author Organization [facility] A Address [address] [place] [address] Care Team Providers Care Principal Biostatistician Name Role Phone Josef Castro MD Primary [...] (06/16/2022): Added automatically from request for surgery [id number] Mixed hyperlipidemia 11/04/2020 Gastric perforation (CMS/HCC) 09/10/2020 Assessment & Plan (09/30/2020 9:40 AM CDT): I will make a referral to 1 of the workers compensation examiner for an upper endoscopy. Based on the [...] ago, Currently tremulous, anxious Will start on [facility] withdrawal protocol with IV ativan sins the patient currently NPO Start on IV folate, and thiamin Seizure precautions Fall precautions Will get SWcx, Discussed and encouraged to stop drinking ELEAZAR (generalized anxiety disorder) 09/10/2020 Assessment & Plan (09/10/2020 9:43 PM CDT): Holding xanax , patient is NPO Started on IV ativan To be used per [facility] protocol for symptomatic control for anxiety Severe [...] Overview (08/10/2016): VITAMIN D DEFICIENCY NOS Immunizations Immunization Administration Dates Next Due Td, adsorbed 10/23/2000 Social History Tobacco Use Types Packs/Day [...] on file 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 Gender Identity Not on file Sexual Orientation Not on file Last Filed Vital Signs Vital Sign Reading Time Taken Comments Blood Pressure 133/93 02/21/2023 1:23 PM CDT Pulse 89 02/21/2023 1:23 PM CDT Temperature 36.6 C (97.9 F) 02/21/2023 12:20 PM CDT Respiratory Rate 15 02/21/2023 1:23 PM CDT Oxygen Saturation 100% 02/21/2023 1:23 PM CDT Inhaled Oxygen Concentration - - Weight 71.2 kg (157 lb) 02/21/2023 12:20 PM CDT Height 165.1 cm (5' 5 ) 02/21/2023 12:20 PM CDT Body Mass Index 26.13 02/21/2023 12:20 PM CDT Plan of Treatment Not on file Medical Devices Implanted Type Area Wire Bound Box Machine Operator Device Identifier Shelf Expiration Date Model / Serial / Lot Allosource 10cm Frozen Graft Bone Fibula Segment [id number] - [id number] - [id number] Implanted:Qty: 1 on 06/21/2022 by Destiny Mayorga MD at [facility] Bone Right: Humerus Allosource [id number] 01/14/2026 [id number] / [id number] / [id number] Synthes Lcp Combi Philos [id number] 3 Hole Shaft Lock Compression 241.901 - S0 - [id number] Implanted:Qty: 1 on 06/21/2022 by Destiny Mayorga MD at [facility] Plate Right: Humerus Synthes I 241.901 / 0 / Synthes 3.5mm 6mm 22mm 2.5mm Self Tap Small Hexagonal Socket Low Profile 204.822 - S0 - [id number] Implanted:Qty: 1 on 06/21/2022 by Destiny Mayorga MD at [facility] Screw Right: Humerus Synthes I 204.822 / 0 / Synthes 3.5mm 2.9mm 24mm Self Tap Lock Stardrive Conical Head Pelvis T15 212.108 - S0 - [id number] Implanted:Qty: 1 on 06/21/2022 by Destiny Mayorga MD at [facility] Screw Right: Humerus Synthes I 212.108 / 0 / Synthes 3.5mm 6mm 26mm 2.5mm Self Tap Small Hexagonal Socket Low Profile 204.826 - S0 - [id number] Implanted:Qty: 1 on 06/21/2022 by Destiny Mayorga MD at [facility] Screw Right: Humerus Synthes I 204.826 / 0 / Synthes 3.5mm 2.9mm 36mm Self Tap Lock Stardrive Conical Head T15 Full 212.115 - S0 - [id number] Implanted:Qty: 3 on 06/21/2022 by Destiny Mayorga MD at [facility] Screw Right: Humerus Synthes I 212.115 / 0 / Synthes 3.5mm 2.9mm 45mm Self Tap Lock Stardrive Conical Head T15 Full 212.119 - S0 - [id number] Implanted:Qty: 2 on 06/21/2022 by Destiny Mayorga MD at [facility] Screw Right: Humerus Synthes I 212.119 / 0 / Synthes 3.5mm 2.9mm 42mm Self Tap Lock Stardrive Conical Head Full Thread 212.118 - S0 - [id number] Implanted:Qty: 1 on 06/21/2022 by Destiny Mayorga MD at [facility] Screw Right: Humerus Synthes I 212.118 / 0 / Synthes 3.5mm 2.9mm 46mm Self Tap Lock Stardrive Conical Head T15 Full 212.136 - [id number] Implanted:Qty: 1 on 06/21/2022 by Destiny Mayorga MD at [facility] Screw Right: Humerus Synthes I 212.136 / / Synthes 3.5mm 2.9mm 44mm Self Tap Lock Stardrive Conical Head T15 Full 212.134 - S0 - [id number] Implanted:Qty: 1 on 06/21/2022 by Destiny Mayorga MD at [facility] Screw Right: Humerus Synthes I 212.134 / 0 / Synthes 3.5mm 2.9mm 48mm Self Tap Lock Fix Angle Low Profile Pelvis Full 212.120 - S0 - [id number] Implanted:Qty: 1 on 06/21/2022 by Destiny Mayorga MD at [facility] Screw Right: Humerus Synthes I 212.120 [...] last revised on 19. Testing performed by: [address] [address] Hep B core IgM Nonreactive Nonreactive C LEIER CALLIE ([place]) Comment: Interpretive Data If HepB Core IgM Ab is reported as Equivocal, a new sample should be drawn in two weeks for testing. Current interpretive data was last revised on 19. Testing performed by: [facility], [address] [place] [address]., [address] Hep C Ab Nonreactive Nonreactive [facility] ([place]) Comment: Interpretive Data Nonreactive: Antibodies to HCV not detected. Does NOT exclude the possibility of recent exposure to HCV. Equivocal: Equivocal for HCV antibodies. Supplemental molecular testing will be automatically performed to determine infection status in accordance with current CDC screening recommendations. Reactive: Positive for HCV antibodies. This may represent current or past HCV infection. Supplemental molecular testing will be automatically performed to determine current infection status in accordance with current CDC screening recommendations. Interpretive data was last revised on 2019. Testing performed by: [address] [address] HepBsAg Nonreactive Nonreactive [facility] ([place]) Comment:Testing performed by : [facility], [address] [facility], [place]., [address] Blood specimen (specimen) 09/11/2020 5:18 AM CDT 09/11/2020 11:17 AM CDT us Allison Price MD LAB MICROBIOLOGY - GENERAL OR DERABLES Final Result JOESPH LEDESMA ([place]) 1 [facility] Department [place] [address] * COLONOSCOPY (01/20/2013 12:00 AM CDT) Anatomical Region Laterality Modality Other Narrative 01/20/2013 12:00 AM CDT Ordered by an unspecified provider. Procedure Note Provider, MD Edie - 01/20/2013 12:00 AM CDT PROCEDURE REPORT Patient: ZENAIDA ARREAGA Account: [id number] Room No: : 1970 Patient Type: SDS Attend.: Tunde Miner M.D. Admit Date: 01/20/2013 [...] 01/01/2013 10:23 PM CDT Diag Mamm R Acc#: [id number] DATE OF EXAM: Jan 01 2013 Performed by: CLINICAL HISTORY: Small density upper right breast, additional view recommended. RESULT: A cone compression view was obtained for the mediolateral oblique implant displacement view, for the density at the posterior aspect of the upper right breast. On the cone compression view, no discreet density is seen in the region of concern. Somewhat more anteriorly, a density is seen which appears to be due to fibroglandular tissue and superimposition of shadows. A few scattered microcalcifications are noted. Digital technology was employed plus computer-aided detection software (R2) was utilized in interpretation of these images. This facility utilizes a reminder system to notify patients of yearly mammograms. IMPRESSION: BENIGN FINDINGS. ANNUAL MAMMOGRAPHIC FOLLOW-UP RECOMMENDED. BI-RADS CATEGORY 2 - BENIGN Interpreting Physician: DANIEL PARADA M.D. Read on: Jan 01 2013 8:11A Transcribed by: yordy On: Jan 01 2013 12:01P Approved Electronically by: DANIEL PARADA M.D. on: Jan 01 2013 10:23P Ordering DR: DR JOSEF CASTRO Attending DR: DR JOSEF CASTRO Procedure Note Provider, MD Edie - 08/30/2016 Diag Mamm R Acc#: [id number] DATE OF EXAM: Jan 01 2013 Performed [...] interpretation of these images. This facility utilizes [employer] system to notify patients of yearly mammograms. IMPRESSION: BENIGN FINDINGS. ANNUAL MAMMOGRAPHIC FOLLOW-UP RECOMMENDED. BI-RADSCATEGORY 2 - BENIGN Interpreting Physician: DANIEL PARADA M.D. Read on: Jan 01 2013 8:11A Transcribed by: yordy On: Jan 01 2013 12:01P Approved Electronically by: DANIEL PARADA M.D. on: Jan 01 2013 10:23P Ordering DR: DR JOSEF CASTRO Attending DR: DR JOSEF CASTRO Historical Provider MD MAYCO MAMMO PROCEDURES Juliette l Result from Last 3 Months or Most Recently Relevant to Health Maintenance Insurance [facility] Advance Directives For more information, please contact: [phone] * Full Code (Latest Code Status on File) Date Activated Date Inactivated Comments 02/21/2023 12:16 PM 02/21/2023 6:09 PM * Full Code Date Activated Date Inactivated Comments 09/10/2020 4:50 PM 09/17/2020 4:48 PM Care Teams Principal Biostatistician Relationship Specialty Start Date End Date Josef Castro MD [address] [place] [address] PCP - General 11/04/20
--- OUTSIDE RECORDS SUMMARY | 2024-06-29 13:00 | XMS_ITS | Clinical Summary ---
Author Organization [facility] A Address [address] [place] [address] Care Team Providers Care Track Dresser Name Role Phone Josef Castro MD Primary [...] (06/16/2022): Added automatically from request for surgery [id number] Mixed hyperlipidemia 11/04/2020 Gastric perforation (CMS/HCC) 09/10/2020 Assessment & Plan (09/30/2020 9:40 AM CDT): I will make a referral to 1 of the evs manager for an upper endoscopy. Based on the [...] ago, Currently tremulous, anxious Will start on [facility] alcohol withdrawal protocol with IV ativan sins the patient currently NPO Start on IV folate, and thiamin Seizure precautions Fall precautions Will get SWcx, Discussed and encouraged to stop drinking ELEAZAR (generalized anxiety disorder) 09/10/2020 Assessment & Plan (09/10/2020 9:43 PM CDT): Holding xanax , patient is NPO Started on IV ativan To be used per [facility] protocol for symptomatic control for anxiety [...] Hx Other Medical Dermatofibroma Hx Other Medical 01-KILN MAINTENANCE Hx Other Medical 12/01/2012 [facility] BP [...] on file 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 Gender Identity Not on file Sexual Orientation [...] Colon Cancer Screening-Colonoscopy 01/20/2023 01/20/2013 Covid-19 Vaccine ( season) 2024 09/15/2021 Influenza Vaccine (#1) 2024 Colon Cancer Screening-CT Colonography Discontinued 01/20/2013 Colon Cancer Screening-DNA Stool Discontinued 01/20/2013 Colon Cancer Screening-FIT Discontinued 01/20/2013 Colon Cancer Screening-Sigmoidoscopy Discontinued 01/20/2013 Hepatitis C Screening Completed 09/11/2020 Pneumococcal vaccine <65 Aged Out No longer eligible based on patient's age to complete this topic Medical Devices Implanted Type Area Arc Cutter Device Identifier Shelf Expiration Date Model / Serial / Lot Allosource 10cm Frozen Graft Bone Fibula Segment [id number] - [id number] - [id number] Implanted:Qty: 1 on 06/21/2022 by Destiny Mayorga MD at [facility] Bone Right: Humerus Allosource [id number] 01/14/2026 [id number] / [id number] / [id number] Synthes Lcp Combi Philos 04x36s9.5mm 3 Hole Shaft Lock Compression 241.901 - S0 - [id number] Implanted:Qty: 1 on 06/21/2022 by Destiny Mayorga MD at [facility] Plate Right: Humerus Synthes I 241.901 / 0 / Synthes 3.5mm 6mm 22mm 2.5mm Self Tap Small Hexagonal Socket Low Profile 204.822 - S0 - [id number] Implanted:Qty: 1 on 06/21/2022 by Destiny Mayorga MD at [facility] Screw Right: Humerus Synthes I 204.822 / 0 / Synthes 3.5mm 2.9mm 24mm Self Tap Lock Stardrive Conical Head Pelvis T15 212.108 - S0 - [id number] Implanted:Qty: 1 on 06/21/2022 by Destiny Mayorga MD at [facility] Screw Right: Humerus Synthes I 212.108 / 0 / Synthes 3.5mm 6mm 26mm 2.5mm Self Tap Small Hexagonal Socket Low Profile 204.826 - S0 - [id number] Implanted:Qty: 1 on 06/21/2022 by Destiny Mayorga MD at [facility] Screw Right: Humerus Synthes I 204.826 / 0 / Synthes 3.5mm 2.9mm 36mm Self Tap Lock Stardrive Conical Head T15 Full 212.115 - S0 - [id number] Implanted:Qty: 3 on 06/21/2022 by Destiny Mayorga MD at [facility] Screw Right: Humerus Synthes I 212.115 / 0 / Synthes 3.5mm 2.9mm 45mm Self Tap Lock Stardrive Conical Head T15 Full 212.119 - S0 - [id number] Implanted:Qty: 2 on 06/21/2022 by Destiny Mayorga MD at [facility] Screw Right: Humerus Synthes I 212.119 / 0 / Synthes 3.5mm 2.9mm 42mm Self Tap Lock Stardrive Conical Head Full Thread 212.118 - S0 - [id number] Implanted:Qty: 1 on 06/21/2022 by Destiny Mayorga MD at [facility] Screw Right: Humerus Synthes I 212.118 / 0 / Synthes 3.5mm 2.9mm 46mm Self Tap Lock Stardrive Conical Head T15 Full 212.136 - [id number] Implanted:Qty: 1 on 06/21/2022 by Destiny Mayorga MD at [facility] Screw Right: Humerus Synthes I 212.136 / / Synthes 3.5mm 2.9mm 44mm Self Tap Lock Stardrive Conical Head T15 Full 212.134 - S0 - [id number] Implanted:Qty: 1 on 06/21/2022 by Destniy Mayorga MD at [facility] Screw Right: Humerus Synthes I 212.134 / 0 / Synthes 3.5mm 2.9mm 48mm Self Tap Lock Fix Angle Low Profile Pelvis Full 212.120 - S0 - [id number] Implanted:Qty: 1 on 06/21/2022 by Destiny Mayorga MD at [facility] Screw Right: Humerus Synthes I 212.120 / [...] CDT) Hep A IgM Nonreactive Nonreactive [facility] ([place]) Comment: Interpretive Data: If Hep A IgM Ab is reported as Equivocal, a new sample should be drawn in two weeks for testing. Current interpretive data was last revised on 19. Testing performed by: [address] [address] Hep B core IgM Nonreactive Nonreactive C NANO LEDESMA ([place]) Comment: Interpretive Data If HepB Core IgM Ab is reported as Equivocal, a new sample should be drawn in two weeks for testing. Current interpretive data was last revised on 19. Testing performed by: [facility], [address] [place] [address]., [address] Hep C Ab Nonreactive Nonreactive [facility] [...] last revised on 2019. Testing performed by: [facility], [address] [place] [address]., [address] HepBsAg Nonreactive Nonreactive [facility] ([place]) Comment:Testing performed by : [address] [address] Blood specimen (specimen) 09/11/2020 5:18 AM CDT 09/11/2020 11:17 AM CDT Allison Price MD LAB MICROBIOLOGY - GENERAL OR DERABLES Final Result [facility] [place] 1 [facility] Department [place] [address] * COLONOSCOPY (01/20/2013 12:00 AM CDT) Anatomical Region Laterality Modality Other Narrative 01/20/2013 12:00 AM CDT Ordered by an unspecified provider. Procedure Note Provider, MD Edie - 01/20/2013 12:00 AM CDT PROCEDURE REPORT Patient: ZENAIDA ARREAGA Account: [id number] Room No: : 1970 Patient Type: SDS [...] disease, otherwise normal colon and terminal ileum. Félix Gutierrez TD: 01/20/2013 08:48 CC: Josef Castro M.D. Authenticated by Tunde Miner MD On 01/20/2013 09:37:41 AM us Historical Provider ENDOSCOPY PROCEDURES Juliette l Result * Screening Mammogram (01/01/2013 8:11 AM CDT) Anatomical Region Laterality Modality Breast N/A Mammography 01/01/2013 8:11 AM CDT Narrative 01/01/2013 10:23 PM CDT Diag Mamm R Acc#: [id number] DATE OF EXAM: Jan 01 2013 Performed [...] Edie - 08/30/2016 Diag Mamm R Acc#: [id number] DATE OF EXAM: Jan 01 2013 Performed [...] interpretation of these images. This facility utilizes [employer] system to notify patients of yearly mammograms. IMPRESSION: BENIGN FINDINGS. ANNUAL MAMMOGRAPHIC FOLLOW-UP RECOMMENDED. BI-RADSCATEGORY 2 - BENIGN Interpreting Physician: DANIEL PARADA M.D. Read on: Jan 01 2013 8:11A Transcribed by: yordy On: Jan 01 2013 12:01P Approved Electronically by: DANIEL PARADA M.D. on: Jan 01 2013 10:23P Ordering DR: DR JOSEF CASTRO Attending DR: DR JOSEF CASTRO us Historical Provider MD MAO MAMMO PROCEDURES Juliette l Result from Last 3 Months or Most Recently Relevant to Health Maintenance [place] [address] [address] [place] [address] [facility] Advance Directives For more information, please contact: [phone] * Full Code (Latest Code Status on File) Date Activated Date Inactivated Comments 02/21/2023 12:16 PM 02/21/2023 6:09 PM * Full Code Date Activated Date Inactivated Comments 09/10/2020 4:50 PM 09/17/2020 4:48 PM Care Teams Track Dresser Relationship Specialty Start Date End Date Josef Castro MD [address] [place] [address] PCP - General 11/04/20
--- OUTSIDE RECORDS SUMMARY | 2024-06-29 13:26 | XMS_ITS | Encounter Summary ---
Author Organization [facility] Address 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 Gender Identity Not on file Sexual Orientation Not on file documented as of this encounter Plan of Treatment Upcoming Encounters Date Type Department Care Team (Late st Contact Info) Description 07/15/2024 11:15 AM CDT Office Visit [facility] Oncology and Hematology - Edgardo [address] [facility] [email or web address] [address] [place] [address] Shmuel eBrtrand MD [address] [facility] [address] [place] [address] documented as of this encounter Procedures Procedure Name Priority Date/Time Associated Diagnosis Comments US PELVIS + TRANSVAG NON OB Stat 05/16/2008 3:06 PM WALL INSULATION SPRAYER POC , URINE Routine 05/16/2008 2:59 PM WALL INSULATION SPRAYER POC URINALYSIS DIPSTICK NON AUTOMATED Routine 05/16/2008 2:59 PM WALL INSULATION SPRAYER CBC WITH DIFFERENTIAL Stat 05/16/2008 2:26 PM WALL INSULATION SPRAYER COMPREHENSIVE METABOLIC PANEL Stat 05/16/2008 2:26 PM WALL INSULATION SPRAYER documented in this encounter Results * US PELVIS + TRANSVAG NON OB (05/16/2008 3:06 PM WALL INSULATION SPRAYER) Anatomical Region Laterality Modality Pelvis Other 05/16/2008 3:06 PM WALL INSULATION SPRAYER Narrative 05/17/2008 7:19 AM WALL INSULATION SPRAYER [facility] [address] [place], [place] [address] Admit Date: 05/16/2008 ARREAGAZENAIDA Sex: F Admit Prov: ER, AUTHORIZED P Date: 1970 Primary Care Prov: CMRN: [id number] Room: ER-A SSN: [id number] IMAGING SERVICES Ordering Prov: N/A Accession Number: [id number] Interpretation ULTRASOUND OF PELVIS TRANSABDOMINAL AND TRANSVAGINAL [...] AMK Procedure Note Keiko Sewell - 05/17/2008 [facility] [address] [place], [place] [address] Admit Date: 05/16/2008 ZENAIDA ARREAGA Sex: F Admit Prov: EASTON LEONG Date:1970 Primary Care Prov: CMRN: [id number] Room: [facility] SSN: [id number] IMAGING SERVICES Ordering Prov: N/A Interpretation ULTRASOUND [...] URINALYSIS DIPSTICK NON AUTOMATED (05/16/2008 2:59 PM WALL INSULATION SPRAYER) UROBILINOGEN UA 1+ (1 mg/dL) <=1 mg/dL S [facility] SPECIFIC GRAVITY UA 1.025 1.001 - 1.030 [facility] GLUCOSE UA Negative Negative [facility] COLOR UA Yellow [facility] LEUKOCYTE ESTERASE UA Negative Negative [facility] NITRITE UA Negative Negative [facility] BILIRUBIN UA 1+(A) Negative [facility] PH UA 5.0 5.0 - 8.0 [facility] KETONES UA 1+ (Small)(A) Negative [facility] CLARITY UA Clear [facility] BLOOD UA 1+(A) Negative [facility] PROTEIN UA Negative Negative [facility] Urine specimen (specimen) 05/16/2008 2:59 PM WALL INSULATION SPRAYER 05/16/2008 2:59 PM WALL INSULATION SPRAYER us Authorized P Er POINT OF CARE TESTING Final Resu lt Performing Organization Address [facility] de Phone Number INTERFACE SYSTEM Refer to clinic/hospital department [facility] CLIA# [id number] [address] [place] [address] * POC , URINE (05/16/2008 2:59 PM WALL INSULATION SPRAYER) , URINE POC Negative Negative [facility] SPECIFIC GRAVITY UA 1.025 1.001 - 1.035 [facility] Urine specimen (specimen) 05/16/2008 2:59 PM WALL INSULATION SPRAYER 05/16/2008 2:59 PM WALL INSULATION SPRAYER us Authorized P Er POINT OF CARE TESTING Final Resu lt Performing Organization Address City/[facility] de Phone Number INTERFACE SYSTEM Refer to clinic/hospital department [facility] CLIA# [id number] [address] [place] [address] * (ABNORMAL) CBC WITH DIFFERENTIAL (05/16/2008 2:26 PM WALL INSULATION SPRAYER) PLATELETS 222 140 - 350 K/uL [facility] HEMOGLOBIN 12.8 11.8 - 14.8 g/dL [facility] RDW 12.9 11.5 - 14.5 % [facility] WBC 4.7 4.0 - 9.8 K/uL [facility] MCH 30.0 27.2 - 32.6 pg [facility] MPV 8.7(L) 9.3 - 12.4 fL [facility] HEMATOCRIT 38.7 35.5 - 44.0 % [facility] RDW-STDEV 42.6 37.1 - 48.7 fL [facility] RBC 4.27 3.90 - 4.90 M/uL [facility] MCHC 33.1 31.5 - 35.5 % [facility] MCV 90.6 82.0 - 99.0 fL [facility] EOSINOPHILS 1 0 - 7 % [facility] EOSINOPHIL ABSOLUTE 0.06 0.00 - 0.70 K/uL [facility] LYMPHOCYTES 37 16 - 45 % [facility] LYMPHOCYTE ABSOLUTE 1.74 0.70 - 4.50 K/uL [facility] BASOPHILS 0 0 - 2 % [facility] BASOPHILS ABSOLUTE 0.02 0.00 - 0.20 K/uL [facility] MONOCYTES 11 3 - 13 % [facility] MONOCYTE ABSOLUTE 0.51 0.10 - 1.30 K/uL [facility] NEUTROPHILS 50 45 - 70 % [facility] NEUTROPHIL ABSOLUTE 2.35 1.90 - 7.00 K/uL [facility] Blood specimen (specimen) 05/16/2008 2:26 PM WALL INSULATION SPRAYER 05/16/2008 2:36 PM WALL INSULATION SPRAYER us Authorized P Er HEMATOLOGY ORDERABLES Edited INTERFACE SYSTEM Refer to clinic/hospital department [facility] CLIA# [id number] [address] [place] [address] * (ABNORMAL) COMPREHENSIVE METABOLIC PANEL (05/16/2008 2:26 PM WALL INSULATION SPRAYER) ALKALINE PHOSPHATASE 30(L) 35 - 104 U/L [facility] BILIRUBIN TOTAL 0.7 0.2 - 1.0 mg/dL [facility] CO2 24 22 - 30 mmol/L [facility] TOTAL PROTEIN 6.6 6.3 - 8.6 g/dL [facility] POTASSIUM 3.6 3.5 - 4.9 mmol/L [facility] GLUCOSE 100(H) 65 - 99 mg/dL [facility] AST 16 12 - 32 U/L [facility] BUN 8 6 - 20 mg/dL [facility] CALCIUM 8.7 8.6 - 10.2 mg/dL [facility] CHLORIDE 105 96 - 108 mmol/L [facility] ALBUMIN 4.0 3.4 - 4.8 g/dL [facility] CREATININE 0.69 0.51 - 0.95 mg/dL [facility] SODIUM 138 135 - 145 mmol/L [facility] ALT 9 0 - 31 U/L [facility] GFR, >60 >=60 mL/min/1. 7 sq meter [facility] GFR >60 >=60 mL/min/1. 7 sq meter [facility] Comment: Modification of Diet in Renal Disease (MDRD) study formula. Estimated GFR rate interpretative information for both Americans and non- Americans is available on the [facility] Intranet at: [email or web address] Select: Lab Policies and Procedures Select: Reference Ranges - GFR Blood specimen (specimen) 05/16/2008 2:26 PM WALL INSULATION SPRAYER 05/16/2008 2:36 PM WALL INSULATION SPRAYER us Authorized P Er CHEMISTRY ORDERABLES Edited INTERFACE SYSTEM Refer to clinic/hospital department [facility] CLIA# [id number] [address] [place] [address] documented in this encounter Visit Diagnoses Not on filedocumented in this encounter Care Teams Skewer Up Relationship Specialty Start Date End Date Chirag Cordoba MD [address] [place] [id number] PCP - General Internal Medicine 10/19/22 documented as of this encounter
--- OUTSIDE RECORDS SUMMARY | 2024-06-29 13:26 | XMS_ITS | Clinical Summary ---
Author Organization [facility] Address [address] [place] [address] Phone Care Team Providers Care Infectious Disease Technician Name Role Phone KIRSTEN LAMA DO Unavailable [phone] Reason for Visit and Chief Complaint The Chief Complaint is: sx started 05/01. Cough, sinus drainage down throat, fatigue, aches, headache, runny nose, The Chief Complaint is: Cough congestion runny nose chills and hot flashes Plan of Treatment - Clinical summary provided to patient - Last Documented On 05/08/2021 3:03PM ; [facility] - Plan of care reviewed and agreed to - Last Documented On 05/08/2021 3:03PM ; [facility] 1. Negative for COVID-19 today. 2. [...] - Last Documented On 05/08/2021 3:03PM ; [facility] Assessments Includes: Assessments from this encounter Findings - J15.9 - Unspecified bacterial pneumonia - Last Documented On 05/08/2021 3:03PM ; [facility] Medical Equipment - Implanted Devices Includes: Current Devices No Medical Equipment Recorded Medications Includes: Medications discussed during this encounter and other current Medications New / Renewed during this visit KVNG GRAMAJO-C on 05/08/2021 levoFLOXacin 500 MG Oral Tablet Provider: KVNG BARROSO 7 day supply: 7 tablet, 0 refills Diagnosis: Unspecified bacterial pneumonia One tablet daily Pharmacy: [id number], [id number] - Last Documented On 2 3:04PM By Kvng BARROSO ; [facility] Medications Administered Includes: Administered Medications from this encounter No Administered Medications Recorded Vital Signs Includes: Vital Signs from this encounter Vital Name 05/08/2021 02:33P Pulse Rate-Sitting (bpm) 91 Temp-Oral (F) 98.2 Oxygen Saturation (%) 97 Last Documented: On 05/08/2021 2:35PM ; [facility] Results Includes: Results discussed during this encounter Rapid COVID Test [facility] Ordered by KVNG BARROSO on 0 05/08/2021 Collected: Reported: 05/08/2021 14:45 Last Documented On 2 3:02PM ; [facility] Reviewed by KVNG BARROSO on 05/08/2021; All test results are final unless otherwise noted. Rapid COVId negativw N (Normal) Last Documented On 2 2:47PM ; [facility] Int. QC Acceptable yes N (Normal) Last Documented On 2 2:47PM ; [facility] Lot # and Exp. Date [id number] 08/07/21 N (Normal) Last Documented On 2 2:47PM ; [facility] History of Present Illness Includes: [...] 05/08/2021 Last Documented On 2 3:03PM ; [facility] Smoking Status Unknown Procedures and Surgical History Includes: Procedures from this encounter Procedures Code Diagnosis Performing Provider Service L ocation Service Date review of medications documented 1160F Last Documented On 2 2:33PM ; [facility] Medical History Includes: Medical History addressed during this encounter Description Last Updated A fall 05/08/2021 Last Documented On 2 3:03PM ; [facility] Date COVID symptoms started: 04/2021 Last Documented On 2 3:03PM ; [facility] No Contact with and (Suspected) exposure to COVID-19 05/08/2021 Last Documented On 2 3:03PM ; [facility] Family History Includes: Family History addressed [...] Active Last Documented On 2 2:58PM ; [facility] Encounters Encounter Provider Location Date Check-In Time Check- Out Time Diagnosis COVID SICK VISIT- NEW PATIENT KVNG DOBBINS SLASHER-C [facility] 2 2:22PM 3:03PM Pneumonia Insurance Includes: Active Insurance Policies Plan Name Member ID Group # Subscriber Relationship Effect teresa Dates 1 - [facility] [id number] ZENAIDA ARREAGA Self Clinical Notes Includes: Clinical Notes from this encounter No Clinical Notes Recorded
--- OUTSIDE RECORDS SUMMARY | 2024-06-29 13:26 | XMS_ITS ---
Author Organization [facility] Address [address] [place] [address] Phone Care Team Providers Care Administrative Associate Name Role Phone KIRSTEN LAMA DO Unavailable [phone] Plan of Treatment Findings Encounter Date Clinical summary provided to patient COV ID SICK VISIT- NEW PATIENT with KVNG DOBBINS PRODUCTIVITY ENGINEER-C 05/08/2021 Last Documented On 2 3:03PM ; [facility] Plan of care reviewed and agreed to COVI D SICK VISIT- NEW PATIENT with KVNG DOBBINS PRODUCTIVITY ENGINEER-C 05/08/2021 Last Documented On 2 3:03PM ; [facility] Assessments Includes: Assessments for all patient encounters Findings Encounter Date Pneumonia COVID SICK VISIT- NEW PATIENT wi th KVNG DOBBINS PRODUCTIVITY ENGINEER-C 05/08/2021 Last Documented On 2 3:03PM ; [...] 05/08/2021 Last Documented On 2 3:03PM ; [facility] Date COVID symptoms started: 04/2021 [...] Active Last Documented On 2 2:58PM ; [facility] Insurance Includes: Active Insurance Policies Plan Name Member ID Group # Subscriber Relationship Effect teresa Dates - [facility] [id number] ZENAIDA ARREAGA Self Clinical Notes Includes: Signed Clinical Notes starting from 05/26/2022 No Clinical Notes Recorded
--- OUTSIDE RECORDS SUMMARY | 2024-06-29 13:26 | XMS_ITS | Patient Health Summary ---
Author Organization [facility] Address [address] [place] [address] Care Team Providers Care Separating Machine Operator Name Role Phone Unavailable Primary Care Provider Unavailabl e Note from [facility],non-owned Affiliates and Associated Physician Practices is amultiple site organization consisting of ambulatory clinics and hospital sitesin [place], [place], [place] and [place]. This disclosure is being madepursuant to the Care Everywhere program and may not contain all information available regarding this patient. Last updated 18.[facility] Allergies No known active allergies Medications * [...] 0.55-2.73 Third trimester 0.43-2.91 Test Performed at: [facility] [id number] [employer] [facility] [place] [address] NELSY POWERS DO,MPH Blood BLOOD SPECIMEN / Unknown 12/17/2020 9:03 AM CDT 12/17/2020 9:04 AM CDT Radha Olson MD LAB - CHEMISTRY ABI MARES Performing Organization Address [facility] de Phone Number [facility] [phone] [place] [address] * IMMUNOFIXATION BLOOD (12/17/2020 9:03 AM CDT) Pathologist [facility] Interpretation [facility] Comment: Normal pattern. No monoclonal proteins detected. Test Performed at: [facility] [id number] [facility] [place] [address] NELSY POWERS DO,MPH Blood BLOOD SPECIMEN / Unknown 12/17/2020 9:03 AM CDT 12/17/2020 9:04 AM CDT Radha Olson MD LAB - CHEMISTRY ABI MARES Performing Organization Address [facility] [place] [address] * HEAVY METALS BLOOD QUANT PANEL (12/17/2020 9:03 AM CDT) Pathologist [facility] Arsenic <3 <23 mcg/L [facility] Comment: Whole [...] analytical performance characteristics have been determined by [employer]. It has not been cleared or approved by the FDA. This assay has been validated pursuant to the CLIA regulations and is used for clinical purposes. Test Performed at: [facility] [address] [place] [address] DAVID CRAWFORD MD Blood BLOOD SPECIMEN / Unknown 12/17/2020 9:03 AM CDT 12/17/2020 9:04 AM CDT Radha Olson MD LAB - CHEMISTRY ABI [place] Performing Organization Address [facility]/ZIP Co de Phone Number [address] [address] * C-REACTIVE PROTEIN (CRP) (12/17/2020 9:03 AM CDT) Pathologist [facility] C-Reactive Protein 0.4 <8.0 mg/L [facility] Comment: Test Performed at: [facility] [employer] [place] [address] NELSY POWERS DO,MPH Blood BLOOD SPECIMEN / Unknown 12/17/2020 9:03 AM CDT 12/17/2020 9:04 AM CDT Radha Olson MD LAB - CHEMISTRY ABI MARES Performing Organization Address [facility] Co de Phone Number [facility] [phone] [place] [address] * ALFREDO BLOOD SCREEN W/REFLEX TITER (12/17/2020 9:03 AM CDT) [facility] ALFREDO Screen NEGATIVE NEGATIVE [facility] Comment: ALFREDO [...] AC-0: Negative International Consensus on ALFREDO Patterns (https://doi.org/10.1515/mnax-1294-3242) For additional information, please refer to http://education.EverythingMe.[employer]/faq/TVY334 (This link is being provided for informational/ educational purposes only.) Test Performed at: [facility] [address] NELSY POWERS DO,MPH Blood BLOOD SPECIMEN / Unknown 12/17/2020 9:03 AM CDT 12/17/2020 9:04 AM CDT Radha Olson MD LAB - CHEMISTRY ABI MARES Performing Organization Address [facility] Co de Phone Number [facility] [phone] [place] [address] * VITAMIN B1 (12/17/2020 9:03 AM CDT) Pathologist [facility] Vitamin B1 Whole Blood 130 78 - 185 nmol/L [facility] Comment: Vitamin supplementation within 24 hours prior to blood draw may affect the accuracy of results. This test was developed and its analytical performance characteristics have been determined by [employer]. It has not been cleared or approved by the FDA. This assay has been validated pursuant to the CLIA regulations and is used for clinical purposes. REPORT COMMENT: FASTING:YES Test Performed at: [facility] [address] [address] DAVID CRAWFORD MD Blood BLOOD SPECIMEN / Unknown 12/17/2020 9:03 AM CDT 12/17/2020 9:04 AM CDT Radha Olson MD LAB - CHEMISTRY ABI MARES Performing Organization Address [facility] de Phone Number [facility] [phone] [place] [address] * ERYTHROCYTE SEDIMENTATION RATE (12/17/2020 9:03 AM CDT) [facility] Erythrocyte Sedimentation Rate Westergren 6 < OR = 30 mm/h [facility] Comment: Test Performed at: [facility] [address] [place] [address] NELSY POWERS DO,MPH Blood BLOOD SPECIMEN / Unknown 12/17/2020 9:03 AM CDT 12/17/2020 9:04 AM CDT Radha Olson MD LAB - HEMATOLOGY ESVIN YU Performing Organization Address [facility] [place] [address] * PROTEIN ELECTROPHORESIS BLOOD (12/17/2020 9:03 AM CDT) Protein Total 7.0 6.1 - 8.1 g/dL [facility] Albumin 4.1 3.8 - 4.8 g/dL [facility] Alpha-1 Globulin 0.2 0.2 - 0.3 g/dL [facility] Qydej-0-Byjpdogt 0.6 0.5 - 0.9 g/dL [facility] Beta-1 Globulin g/dL 0.4 0.4 - 0.6 g/dL [facility] Beta-2 Globulin 0.4 0.2 - 0.5 g/dL [facility] Gamma Globulin 1.2 0.8 - 1.7 g/dL [facility] Interpretation [facility] Comment: No restricted band (M-spike) seen. Test Performed at: [facility] [id number] [place] [address] NELSY POWERS DO,MPH Blood BLOOD SPECIMEN / Unknown 12/17/2020 9:03 AM CDT 12/17/2020 9:04 AM CDT Radha Olson MD LAB - CHEMISTRY ABI MARES [facility] [address] [place] [address]
--- OUTSIDE RECORDS SUMMARY | 2024-06-29 13:26 | XMS_ITS | Referral Summary ---
Author Organization [facility] A Address [address] [place] [address] Care Team Providers Care X Ray Technician Name Role Phone Josef Castro MD Primary [...] (06/16/2022): Added automatically from request for surgery [id number] Mixed hyperlipidemia 11/04/2020 Gastric perforation (CMS/HCC) 09/10/2020 Assessment & Plan (09/30/2020 9:40 AM CDT): I will make a referral to 1 of the grinder set up operator internal for an upper endoscopy. 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 Gender Identity Not on file Sexual Orientation [...] on file Medical Devices Implanted Type Area Home Health Lvn Device Identifier Shelf Expiration Date Model / Serial / Lot Allosource 10cm Frozen Graft Bone Fibula Segment [id number] - [id number] - [id number] Implanted:Qty: 1 on 06/21/2022 by Destiny Mayorga MD at [facility] Bone Right: Humerus Allosource [id number] 01/14/2026 [id number] / [id number] / [id number] Synthes Lcp Combi Philos [id number] 3 Hole Shaft Lock Compression 241.901 - S0 - [id number] Implanted:Qty: 1 on 06/21/2022 by Destiny Mayorga MD at [facility] Plate Right: Humerus Synthes I 241.901 / 0 / Synthes 3.5mm 6mm 22mm 2.5mm Self Tap Small Hexagonal Socket Low Profile 204.822 - S0 - [id number] Implanted:Qty: 1 on 06/21/2022 by Destiny Mayorga MD at [facility] Screw Right: Humerus Synthes I 204.822 / 0 / Synthes 3.5mm 2.9mm 24mm Self Tap Lock Stardrive Conical Head Pelvis T15 212.108 - S0 - [id number] Implanted:Qty: 1 on 06/21/2022 by Destiny Mayorga MD at [facility] Screw Right: Humerus Synthes I 212.108 / 0 / Synthes 3.5mm 6mm 26mm 2.5mm Self Tap Small Hexagonal Socket Low Profile 204.826 - S0 - [id number] Implanted:Qty: 1 on 06/21/2022 by Destiny Mayorga MD at [facility] Screw Right: Humerus Synthes I 204.826 / 0 / Synthes 3.5mm 2.9mm 36mm Self Tap Lock Stardrive Conical Head T15 Full 212.115 - S0 - [id number] Implanted:Qty: 3 on 06/21/2022 by Destiny Mayorga MD at [facility] Screw Right: Humerus Synthes I 212.115 / 0 / Synthes 3.5mm 2.9mm 45mm Self Tap Lock Stardrive Conical Head T15 Full 212.119 - S0 - [id number] Implanted:Qty: 2 on 06/21/2022 by Destiny Mayorga MD at [facility] Screw Right: Humerus Synthes I 212.119 / 0 / Synthes 3.5mm 2.9mm 42mm Self Tap Lock Stardrive Conical Head Full Thread 212.118 - S0 - [id number] Implanted:Qty: 1 on 06/21/2022 by Destiny Mayorga MD at [facility] Screw Right: Humerus Synthes I 212.118 / 0 / Synthes 3.5mm 2.9mm 46mm Self Tap Lock Stardrive Conical Head T15 Full 212.136 - [id number] Implanted:Qty: 1 on 06/21/2022 by Destiny Mayorga MD at [facility] Screw Right: Humerus Synthes I 212.136 / / Synthes 3.5mm 2.9mm 44mm Self Tap Lock Stardrive Conical Head T15 Full 212.134 - S0 - [id number] Implanted:Qty: 1 on 06/21/2022 by Destiny Mayorga MD at [facility] Screw Right: Humerus Synthes I 212.134 / 0 / Synthes 3.5mm 2.9mm 48mm Self Tap Lock Fix Angle Low Profile Pelvis Full 212.120 - S0 - [id number] Implanted:Qty: 1 on 06/21/2022 by Destiny Mayorga MD at [facility] Screw Right: Humerus Synthes I 212.120 / [...] last revised on 19. Testing performed by: [address] [address] Hep B core IgM Nonreactive Nonreactive C LEIER CALLIE (DIMITRIS) Comment: Interpretive Data If HepB Core IgM Ab is reported as Equivocal, a new sample should be drawn in two weeks for testing. Current interpretive data was last revised on 19. Testing performed by: [facility], [address] [place] [address]., [address] Hep C Ab Nonreactive Nonreactive [facility] [...] last revised on 2019. Testing performed by: [address] [address] HepBsAg Nonreactive Nonreactive JOESPH LEDESMA (DIMITRIS) Comment:Testing performed by : [facility], [address] [facility], [place]., [address] Blood specimen (specimen) 09/11/2020 5:18 AM CDT 09/11/2020 11:17 AM CDT us Allison Price MD LAB MICROBIOLOGY - GENERAL OR DERABLES Final Result JOESPH LEDESMA (DIMITRIS) [facility] Department [place] [address] * COLONOSCOPY (01/20/2013 12:00 AM CDT) Anatomical Region Laterality Modality Other Narrative 01/20/2013 12:00 AM CDT Ordered by an unspecified provider. Procedure Note Provider, MD Edie - 01/20/2013 12:00 AM CDT PROCEDURE REPORT Patient: ZENAIDA ARREAGA Account: [id number] Room No: : 1970 Patient Type: SDS [...] 10:23 PM CDT Diag Mamm R Acc#: [id number] DATE OF EXAM: Jan 01 2013 Performed [...] Edie - 08/30/2016 Diag Mamm R Acc#: [id number] DATE OF EXAM: Jan 01 2013 Performed [...] interpretation of these images. This facility utilizes [employer] system to notify patients of yearly mammograms. [...] Advance Directives For more information, please contact: [phone] * Full Code (Latest Code Status on File) Date Activated Date Inactivated Comments 02/21/2023 12:16 PM 02/21/2023 6:09 PM * Full Code Date Activated Date Inactivated Comments 09/10/2020 4:50 PM 09/17/2020 4:48 PM Care Teams X Ray Technician Relationship Specialty Start Date End Date Josef Castro MD [address] [place] [address] PCP - General 11/04/20
--- OUTSIDE RECORDS SUMMARY | 2024-06-29 13:26 | XMS_ITS ---
Care Plan - [facility] Created on: June 29, 2024 ZENAIDA ARREAGA : 1970 Sex: Female Author Organization [facility] Address [address] [place] [address] Phone Care Team Providers Care Child Advocate Name Role Phone KIRSTEN LAMA DO Unavailable [phone]
--- OUTSIDE RECORDS SUMMARY | 2024-06-29 13:26 | XMS_ITS | Clinical Summary ---
Author Organization [facility] A Address [address] [place] [address] Care Team Providers Care Hand Tacker Name Role Phone Josef Castro MD Primary [...] (06/16/2022): Added automatically from request for surgery [id number] Mixed hyperlipidemia 11/04/2020 Gastric perforation (CMS/HCC) 09/10/2020 Assessment & Plan (09/30/2020 9:40 AM CDT): I will make a referral to 1 of the plan consultant for an upper endoscopy. Based on the [...] ago, Currently tremulous, anxious Will start on [facility] alcohol withdrawal protocol with IV ativan sins the patient currently NPO Start on IV folate, and thiamin Seizure precautions Fall precautions Will get SWcx, Discussed and encouraged to stop drinking ELEAZAR (generalized anxiety disorder) 09/10/2020 Assessment & Plan (09/10/2020 9:43 PM CDT): Holding xanax , patient is NPO Started on IV ativan To be used per [facility] protocol for symptomatic control for anxiety Severe [...] Hx Other Medical Dermatofibroma Hx Other Medical 01-GARAGE HAND Hx Other Medical 12/01/2012 [facility] BP [...] on file 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 Gender Identity Not on file Sexual Orientation [...] this topic Medical Devices Implanted Type Area Ruby On Rails Web Developer Device Identifier Shelf Expiration Date Model / Serial / Lot Allosource 10cm Frozen Graft Bone Fibula Segment [id number] - [id number] - [id number] Implanted:Qty: 1 on 06/21/2022 by Destiny Mayorga MD at [facility] Bone Right: Humerus Allosource [id number] 01/14/2026 [id number] / [id number] / [id number] Synthes Lcp Combi Philos [id number] 3 Hole Shaft Lock Compression 241.901 - S0 - [id number] Implanted:Qty: 1 on 06/21/2022 by Destiny Mayorga MD at [facility] Plate Right: Humerus Synthes I 241.901 / 0 / Synthes 3.5mm 6mm 22mm 2.5mm Self Tap Small Hexagonal Socket Low Profile 204.822 - S0 - [id number] Implanted:Qty: 1 on 06/21/2022 by Destiny Mayorga MD at [facility] Screw Right: Humerus Synthes I 204.822 / 0 / Synthes 3.5mm 2.9mm 24mm Self Tap Lock Stardrive Conical Head Pelvis T15 212.108 - S0 - [id number] Implanted:Qty: 1 on 06/21/2022 by Destiny Mayorga MD at [facility] Screw Right: Humerus Synthes I 212.108 / 0 / Synthes 3.5mm 6mm 26mm 2.5mm Self Tap Small Hexagonal Socket Low Profile 204.826 - S0 - [id number] Implanted:Qty: 1 on 06/21/2022 by Destiny Mayorga MD at [facility] Screw Right: Humerus Synthes I 204.826 / 0 / Synthes 3.5mm 2.9mm 36mm Self Tap Lock Stardrive Conical Head T15 Full 212.115 - S0 - [id number] Implanted:Qty: 3 on 06/21/2022 by Destiny Mayorga MD at [facility] Screw Right: Humerus Synthes I 212.115 / 0 / Synthes 3.5mm 2.9mm 45mm Self Tap Lock Stardrive Conical Head T15 Full 212.119 - S0 - [id number] Implanted:Qty: 2 on 06/21/2022 by Destiny Mayorga MD at [facility] Screw Right: Humerus Synthes I 212.119 / 0 / Synthes 3.5mm 2.9mm 42mm Self Tap Lock Stardrive Conical Head Full Thread 212.118 - S0 - [id number] Implanted:Qty: 1 on 06/21/2022 by Destiny Mayorga MD at [facility] Screw Right: Humerus Synthes I 212.118 / 0 / Synthes 3.5mm 2.9mm 46mm Self Tap Lock Stardrive Conical Head T15 Full 212.136 - [id number] Implanted:Qty: 1 on 06/21/2022 by Destiny Mayorga MD at [facility] Screw Right: Humerus Synthes I 212.136 / / Synthes 3.5mm 2.9mm 44mm Self Tap Lock Stardrive Conical Head T15 Full 212.134 - S0 - [id number] Implanted:Qty: 1 on 06/21/2022 by Destiny Mayorga MD at [facility] Screw Right: Humerus Synthes I 212.134 / 0 / Synthes 3.5mm 2.9mm 48mm Self Tap Lock Fix Angle Low Profile Pelvis Full 212.120 - S0 - [id number] Implanted:Qty: 1 on 06/21/2022 by Destiny Mayorga [...] last revised on 19. Testing performed by: [address] [address] Hep B core IgM Nonreactive Nonreactive C NANO LEDESMA (DIMITRIS) Comment: Interpretive Data If HepB Core IgM Ab is reported as Equivocal, a new sample should be drawn in two weeks for testing. Current interpretive data was last revised on 19. Testing performed by: [facility], [address] [place] [address]., [address] Hep C Ab Nonreactive Nonreactive [facility] [...] last revised on 2019. Testing performed by: [facility], [address] [place] [address]., [address] HepBsAg Nonreactive Nonreactive [facility] (DIMITRIS) Comment:Testing performed by : [address] [address] Blood specimen (specimen) 09/11/2020 5:18 AM CDT 09/11/2020 11:17 AM CDT Allison Price MD LAB MICROBIOLOGY - GENERAL OR DERABLES Final Result [facility] [place] [address] [facility] Department [place] [address] * COLONOSCOPY (01/20/2013 12:00 AM CDT) Anatomical Region Laterality Modality Other Narrative 01/20/2013 12:00 AM CDT Ordered by an unspecified provider. Procedure Note Provider, MD Edie - 01/20/2013 12:00 AM CDT PROCEDURE REPORT Patient: ZENAIDA ARREAGA Account: [id number] Room No: : 1970 Patient Type: SDS [...] 10:23 PM CDT Diag Mamm R Acc#: [id number] DATE OF EXAM: Jan 01 2013 Performed [...] Edie - 08/30/2016 Diag Mamm R Acc#: [id number] DATE OF EXAM: Jan 01 2013 Performed [...] interpretation of these images. This facility utilizes [employer] system to notify patients of yearly mammograms. [...] Most Recently Relevant to Health Maintenance [place] [address] [address] [facility] Advance Directives For more information, please contact: [phone] * Full Code (Latest Code Status on File) Date Activated Date Inactivated Comments 02/21/2023 12:16 PM 02/21/2023 6:09 PM * Full Code Date Activated Date Inactivated Comments 09/10/2020 4:50 PM 09/17/2020 4:48 PM Care Teams Hand Tacker Relationship Specialty Start Date End Date Josef Castro MD [address] [place] [address] PCP - General 11/04/20
--- OUTSIDE RECORDS SUMMARY | 2024-06-29 13:26 | XMS_ITS | Referral Summary ---
Author Organization [facility] Address [address] [place] [address] Care Team Providers Care Property Management Intern Name Role Phone Unavailable Primary Care Provider Unavailabl e Source Comments [facility],non-owned Affiliates and Associated Physician Practices is amultiple site organization consisting of ambulatory clinics and hospital sitesin [place], [place], [place] and [place]. This disclosure is being madepursuant to the Care Everywhere program and may not contain all information available regarding this patient. Last updated 18.[facility] [employer] Allergies No known active allergies Medications * [...]
--- OUTSIDE RECORDS SUMMARY | 2024-06-29 13:26 | XMS_ITS | Clinical Summary ---
Author Organization [facility] Marisa blancas [place] Address [address] [place] [address] Care Team Providers Care Deal Architect Name Role Phone Chirag Cordoba MD Primary Care Provider [phone] Allergies Active Allergy Reactions Criticality Noted Date [...] Data STL ABSTRACTION Provider, Abstract 06/17/2024 Telephone [facility] Oncology [facility] Hematology [address] [place] [address] Shmuel Bertrand MD Lab Authorization 06/17/2024 Abstract [facility] Oncology [facility] Hematology [facility] [address] [place] [address] Shmuel Bertrand MD 06/13/2024 Telephone [facility] Oncology [facility] Hematology [address] [place] [address] Shmuel Bertrand MD lab work [...] on file 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 MEDICAID Care Teams Deal Architect Relationship Specialty Start Date End Date Chirag Cordoba MD [facility] [place] [id number] PCP - General Internal Medicine 10/19/22
--- OUTSIDE RECORDS SUMMARY | 2024-06-29 13:26 | XMS_ITS | Clinical Summary ---
Author Organization [facility] Address [address] [place] [address] Care Team Providers Care Marketing Traffic Manager Name Role Phone Unavailable Primary Care Provider Unavailabl e Source Comments [facility],non-owned Affiliates and Associated Physician Practices is amultiple site organization consisting of ambulatory clinics and hospital sitesin [place], [place], [place]. This disclosure is being madepursuant to the Care Everywhere program and may not contain all information available regarding this patient. Last updated 18.[facility] [employer] Allergies No known active allergies Medications * [...]
[2024-06-29] MEDS: LACTATED RINGERS 1,000 ML 999 ML IV CONT ×2 (13:30→14:39)
[2024-06-29] MEDS: ONDANSETRON INJ 4 MG/2 ML VIAL IV PUSH (13:31)
[2024-06-29] MEDS: LORazepam INJ (*CRX) 2 MG/ML VIAL IV PUSH ×2 (13:31→14:43)
--- NOTE | 2024-06-29 13:36 | ED_ITS ---
HPI - General Adult General Chief complaint: Abdominal Pain Stated complaint: n/v/d, abd pain Time Seen by Provider: 06/29/24 13:22 History of Present Illness HPI narrative: 54-year-old female with history of alcohol withdrawal present to the emergency department for evaluation for nausea vomiting cough congestion. Patient states that she has been drinking daily for the last week, she reports she drinks wine and gin. Patient reports that she was sober for approximately 2 weeks prior to that. States that about 4 days ago she began having cough congestion nausea vomiting and diarrhea. This is the reason that the patient has stopped drinking alcohol. Patient does have history of alcohol withdrawal, patient denies any prior seizure history. Patient has had to be admitted for alcohol withdrawal. Related Data Home Medications ?Medication ?Instructions ?Recorded ?Confirmed ?Last Taken ?Type alprazolam 0.5 mg tablet 0.5 mg PO BID PRN Anxiety 10/11/22 03/27/23 Unknown History multivitamin 1 tablet PO DAILY 03/21/23 03/27/23 Unknown History B-Complex W/Vitamin B-12 1 tab-cap PO DAILY 03/27/23 03/27/23 Unknown History amitriptyline 10 mg tablet 10 mg PO QHS 04/09/23 Unknown History Allergies Allergy/AdvReac Type Severity Reaction Status Date / Time ibuprofen Allergy Mild PALPITATION Verified 06/29/24 12:57 S Review of Systems 2 Review of Systems: All systems reviewed & are unremarkable except as noted in HPI and below PMFSH Past Medical History Medical History Alcohol abuse Breast cancer Depression Fatty liver Breast mass, right Anxiety and depression Surgical History Surgical History H/O shoulder surgery H/O tubal ligation Family History Family History Sibling Acute myocardial infarction Diabetes mellitus Sibling Asthma Diabetes mellitus Breast cancer Father Diabetes mellitus Cerebrovascular accident Hypertension Mother Diabetes mellitus Chronic obstructive pulmonary disease Congestive heart failure Colon cancer Hypertension Sibling Diabetes mellitus Hypertension Sibling Diabetes mellitus Sibling Diabetes mellitus Social History Social History Social History: the patient lives with her ex-. she is unemployed. she has 2 children. she does not smoke or use any illicit drugs. currently drinking 0.5-1 bottle of wine daily, daily drinker for the past 5 years. surrogate decision makers: Young Patrick (ex-) or Monica Nolasco (friend). code status: full code Smoking status: Never smoker Second hand tobacco smoke exposure: Yes Alcohol intake: current Drinks per week: 21 Alcohol use details: 2 GLASSES WINE/NIGHT, BEER OCCASIONALLY Substance use: never Substance use type: does not use Lack of Transportation: No Lack of Food: Never True Current Housing: I Have Housing Concerned About Future Housing: YES Difficulty Paying Gas/Electric Bills: YES Difficulty Paying for Meds: No Currently Unemployed: YES Education: Associate Degree Difficulty w/ Childcare or Family Care: No Living arrangements: with family Spiritual care concerns: No Exam 2 Narrative: APPEARANCE: Tremulous and ill-appearing HEAD: normocephalic, atraumatic. EYES: PERRLA/EOMI, conjunctivae clear. NOSE: Normal no drainage EARS:TMS clear with good light reflex. THROAT: Pharynx clear, no exudate. NECK: Supple. No adenopathy, no masses. RESPIRATORY: Airway patent, respirations nonlabored. Clear to auscultation bilaterally, no rales, rhonchi, wheezing. CARDIOVASCULAR: Sinus tachycardia ABDOMINAL: Soft, nontender, nondistended, normal bowel sounds MUSCULOSKELETAL: Moves all extremities. Strength/ROM intact, No edema, No calf tenderness. NEURO: Alert. Cranial nerves II through XII intact. Good gait. Good coordination SKIN: Warm, dry. Normal Color PSYCHIATRIC: Anxious affect Course Vital Signs Vital signs: Vital Signs Temperature 97.9 F 06/29/24 13:08 Pulse Rate 132 H 06/29/24 13:08 Respiratory Rate 20 06/29/24 13:08 Blood Pressure 162/98 H 06/29/24 13:08 Pulse Oximetry 98 06/29/24 13:08 Oxygen Delivery Room Air 06/29/24 13:08 Temperature 97.2 F L 06/29/24 13:40 Pulse Rate 120 H 06/29/24 19:21 Respiratory Rate 19 06/29/24 19:21 Blood Pressure 134/94 H 06/29/24 19:21 Pulse Oximetry 96 06/29/24 19:21 Oxygen Delivery Room Air 06/29/24 13:08 Medical Decision Making [facility] Narrative Medical decision making narrative: 54-year-old female presenting to the emergency department for nausea vomiting diarrhea and alcohol withdrawal. Patient was tachycardic into the 130s upon arrival. Patient was tremulous and was treated with IV fluids and 2 mg of IV Ativan. Patient did feel improved with this. Patient was then treated with an additional 2 mg Ativan later during her stay. Patient is currently afebrile but does have a leukocytosis of 11.2 and hemoglobin of 15.7. Patient's INR is 1.0. Patient has and a gap of 16 and a blood glucose of 198 on her initial labs. Patient was treated with 2 L of lactated Ringer's. Patient is nasal lactic acid was 4.5 and this was improved to 1.3 after rehydration. Patient did have AT bili of 2.1 but patient had no reproducible tenderness to palpation. UA was positive for ketones but negative for infection. Patient was negative influenza RSV and for COVID, CT chest abdomen pelvis was ordered and there was no evidence of acute cholecystitis. Even after rehydration patient is still tachycardic with some mild tremor. Patient does not feel strong enough for discharge home. Case was discussed with hospitalist patient will be admitted to the IMU. Differential Diagnosis Differential Diagnosis: COVID, RSV, influenza a, pneumonia alcohol withdrawal, colitis, diverticulitis, appendicitis, cholecystitis Vital Signs Vital Signs: Vital Signs Temperature 97.9 F 06/29/24 13:08 Pulse Rate 132 H 06/29/24 13:08 Respiratory Rate 20 06/29/24 13:08 Blood Pressure 162/98 H 06/29/24 13:08 Pulse Oximetry 98 06/29/24 13:08 Oxygen Delivery Room Air 06/29/24 13:08 Temperature 97.2 F L 06/29/24 13:40 Pulse Rate 120 H 06/29/24 19:21 Respiratory Rate 19 06/29/24 19:21 Blood Pressure 134/94 H 06/29/24 19:21 Pulse Oximetry 96 06/29/24 19:21 Oxygen Delivery Room Air 06/29/24 13:08 Lab Data Lab results reviewed: Yes I reviewed the patient's lab results. 06/29/24 13:33 06/29/24 13:33 Labs: Lab Results 06/29/24 06/29/24 06/29/24 Range/Units 13:33 13:39 16:30 WBC 11.2 H (4.5-10.0) K/mm3 RBC 4.68 (4.2-5.4) M/mm3 Hgb 15.7 H (12.0-15.0) g/dL Hct 44.4 (37.0-47.0) % MCV 94.9 (80-100) fl MCH 33.5 (26-34) pg MCHC 35.4 (32-36) g/dl RDW 12.9 (11.5-14.5) % Plt Count 296 D (150-375) k/mm3 MPV 8.8 (7.4-10.4) fl Immature Gran % (Auto) 0.3 (0-0.5) % Neut % (Auto) 71.0 (45.5-73.1) % Lymph % (Auto) 18.5 (18.3-44.2) % Nicholas % (Auto) 9.2 H (2.6-8.5) % Eos % (Auto) 0.0 (0-4.4) % Baso % (Auto) 1.0 (0.2-1.2) % Lymph # (Auto) 2.07 (0.9-3.2) K/mm3 Nicholas # (Auto) 1.0 H (0.1-0.6) K/mm3 Eos # (Auto) 0.0 (0-0.3) K/mm3 Baso # (Auto) 0.1 (0.0-0.1) K/mm3 Abs Immat Gran (auto) 0.03 (0.00-0.031) K/mm3 Absolute Neuts (auto) 8.0 H (1.3-6.7) K/mm3 Absolute Nucleated RBC 0.000 (0.0-0.012) K/mm3 Nucleated RBC % 0.0 (0.0-0.2) % PT 13.5 (11.1-14.7) Seconds INR 1.0 APTT 23.9 (22.3-36.8) Seconds Sodium 135 L (137-145) mmol/L Potassium 3.4 (3.4-5.0) mmol/L Chloride 87 L (98-107) mmol/L Carbon Dioxide 32 H (22-30) mmol/L Anion Gap 16 H (4-12) mmol/L BUN 15 (7-17) mg/dL Creatinine 0.68 L (0.7-1.0) mg/dL Estim Creat Clear Calc 71 ml/min Estimated GFR > 60 (59 - ) Glucose 198 H (65-110) mg/dL Lactic Acid 4.5 H* (0.7-2.0) mmol/L Calcium 10.6 H (8.4-10.2) mg/dL Total Bilirubin 2.1 H (0.2-1.3) mg/dL AST 109 H (14-36) U/L ALT 85 H (6-35) U/L Alkaline Phosphatase 95 (38-126) U/L Total Protein 9.0 H (6.3-8.2) g/dL Albumin 4.9 (3.5-5.1) g/dL Urine Color Yellow (Yellow) Urine Appearance Clear (Clear) Urine pH >=9.0 H (5.0-9.0) Ur Specific [place] > 1.045 H (1.001-1.035) Urine Protein Trace (Negative) mg/dL Urine Glucose (UA) Negative (Negative) mg/dL Urine Ketones Trace H (Negative) mg/dL Ur Blood (Man) Trace (Negative) Urine Nitrate Negative (Negative) Urine Bilirubin Negative (Negative) Urine Urobilinogen 0.2 (<2.0) mg/dL Leukocyte Esterase Rfl Negative (Negative) DELORES/UL Urine RBC 0-2 (0-2) /hpf Urine WBC 0-5 (0-3) /hpf Ur Squamous Epith Cells None seen (Few) /hpf Urine Bacteria None seen /hpf Urine Casts 0-2 Ethyl Alcohol < 10 (<10) mg/dL Influenza A (RT-PCR) Negative (Negative) Influenza B (RT-PCR) Negative (Negative) RSV (RT-PCR) Negative (Negative) SARS-CoV-2 RNA (RT-PCR) Negative (Negative) 06/29/24 Range/Units 17:24 WBC (4.5-10.0) K/mm3 RBC (4.2-5.4) M/mm3 Hgb (12.0-15.0) g/dL Hct (37.0-47.0) % MCV (80-100) fl MCH (26-34) pg MCHC (32-36) g/dl RDW (11.5-14.5) % Plt Count (150-375) k/mm3 MPV (7.4-10.4) fl Immature Gran % (Auto) (0-0.5) % Neut % (Auto) (45.5-73.1) % Lymph % (Auto) (18.3-44.2) % Nicholas % (Auto) (2.6-8.5) % Eos % (Auto) (0-4.4) % Baso % (Auto) (0.2-1.2) % Lymph # (Auto) (0.9-3.2) K/mm3 Nicholas # (Auto) (0.1-0.6) K/mm3 Eos # (Auto) (0-0.3) K/mm3 Baso # (Auto) (0.0-0.1) K/mm3 Abs Immat Gran (auto) (0.00-0.031) K/mm3 Absolute Neuts (auto) (1.3-6.7) K/mm3 Absolute Nucleated RBC (0.0-0.012) K/mm3 Nucleated RBC % (0.0-0.2) % PT (11.1-14.7) Seconds INR APTT (22.3-36.8) Seconds Sodium (137-145) mmol/L Potassium (3.4-5.0) mmol/L Chloride (98-107) mmol/L Carbon Dioxide (22-30) mmol/L Anion Gap (4-12) mmol/L BUN (7-17) mg/dL Creatinine (0.7-1.0) mg/dL Estim Creat Clear Calc ml/min Estimated GFR (59 - ) Glucose (65-110) mg/dL Lactic Acid 1.3 (0.7-2.0) mmol/L Calcium (8.4-10.2) mg/dL Total Bilirubin (0.2-1.3) mg/dL AST (14-36) U/L ALT (6-35) U/L Alkaline Phosphatase (38-126) U/L Total Protein (6.3-8.2) g/dL Albumin (3.5-5.1) g/dL Urine Color (Yellow) Urine Appearance (Clear) Urine pH (5.0-9.0) Ur Specific [place] (1.001-1.035) Urine Protein (Negative) mg/dL Urine Glucose (UA) (Negative) mg/dL Urine Ketones (Negative) mg/dL Ur Blood (Man) (Negative) Urine Nitrate (Negative) Urine Bilirubin (Negative) Urine Urobilinogen (<2.0) mg/dL Leukocyte Esterase Rfl (Negative) DELORES/UL Urine RBC (0-2) /hpf Urine WBC (0-3) /hpf Ur Squamous Epith Cells (Few) /hpf Urine Bacteria /hpf Urine Casts Ethyl Alcohol (<10) mg/dL Influenza A (RT-PCR) (Negative) Influenza B (RT-PCR) (Negative) RSV (RT-PCR) (Negative) SARS-CoV-2 RNA (RT-PCR) (Negative) Imaging Data Radiologist's impression: Impressions Chest/Abdomen/Pelvis CT 06/29/24 15:32 IMPRESSION: Dilatation of the main pancreatic duct to 6 mm, for which nonemergent follow-up with MRI examination of the pancreas with pancreatic mass protocol is recommended. Otherwise, no acute pathology is detected within the chest, abdomen or pelvis, as detailed above. Discharge Plan Discharge Clinical Impression: Nausea vomiting and diarrhea, Alcohol withdrawal Patient Disposition: Still a Patient Condition: Serious Instructions: Antibiotic Form Patient Language: [place] Prescriptions: No Action amitriptyline 10 mg tablet 10 mg PO QHS alprazolam 0.5 mg tablet 0.5 mg PO BID PRN (Reason: Anxiety) thiamine HCl (vitamin B1) 100 mg tablet 100 mg PO DAILY Qty: 30 0RF multivitamin Tablet 1 tablet PO DAILY B-Complex W/Vitamin B-12 1 tab-cap PO DAILY folic acid 1 mg Tablet 1 mg PO DAILY Qty: 30 0RF tramadol 50 mg tablet 50 mg PO Q6H PRN (Reason: pain) Qty: 30 0RF Follow-up/Referrals: Adalid,Kofi Rogel MD [Primary Care Provider] -
[2024-06-29 13:47] LABS: Basophils Absolute Auto 0.1 K/mm3 (0.0-0.1); Hematocrit 44.4 % (37.0-47.0); Hemoglobin 15.7 g/dL (12.0-15.0); Immature Granulocyte Absolute 0.03 K/mm3 (0.00-0.031); Immature Granulocyte Percent A 0.3 % (0-0.5); Lymphocytes Absolute Auto 2.07 K/mm3 (0.9-3.2); Lymphocytes Percent Auto 18.5 % (18.3-44.2); Mean Corpuscular HGB Conc 35.4 g/dl (32-36); Mean Corpuscular Hemoglobin 33.5 pg (26-34); Mean Corpuscular Volume 94.9 fl (80-100); Mean Platelet Volume 8.8 fl (7.4-10.4); Monocytes Percent Auto 9.2 % (2.6-8.5); Platelet Count Result 296 k/mm3 (150-375); Red Blood Count 4.68 M/mm3 (4.2-5.4); Red Cell Distribution Width 12.9 % (11.5-14.5); White Blood Count 11.2 K/mm3 (4.5-10.0)
[2024-06-29 14:00] LABS: Prothrombin Time 13.5 Seconds (11.1-14.7)
[2024-06-29 14:01] LABS: Partial Thromboplastin Time 23.9 Seconds (22.3-36.8)
[2024-06-29 14:05] LABS: Alanine Aminotransferase 85 U/L (6-35); Albumin Level 4.9 g/dL (3.5-5.1); Alkaline Phosphatase 95 U/L (38-126); Anion Gap 16 mmol/L (4-12); Aspartate Amino Transferase 109 U/L (14-36); Bilirubin,Total 2.1 mg/dL (0.2-1.3); Blood Urea Nitrogen 15 mg/dL (7-17); Calcium 10.6 mg/dL (8.4-10.2); Carbon Dioxide 32 mmol/L (22-30); Chloride 87 mmol/L (98-107); Estimated CRCL calculation 71 ml/min; Estimated Glomerular Filt Rate > 60; Glucose 198 mg/dL (65-110); Potassium 3.4 mmol/L (3.4-5.0); Sodium 135 mmol/L (137-145)
[2024-06-29 14:14] LABS: Lactic Acid Reflex 4.5 mmol/L (0.7-2.0)
[2024-06-29 14:21] LABS: Influenza A QL RT-PCR Negative (Negative); Influenza B QL RT-PCR Negative (Negative); RSV RNA, RT-PCR Negative (Negative); SARS-CoV-2 RNA PCR Negative (Negative)
[2024-06-29 16:40] LABS: Add Urine Microscopic? YES; Appearance Urine Clear (Clear); Bacteria Urine None Seen /hpf; Bilirubin Urine Negative (Negative); Blood Urine Trace (Negative); Color Urine Yellow (Yellow); Glucose Urine UA Negative (Negative); Ketones Urine Trace mg/dL (Negative); Leukocyte Esterase Ur Negative LEU/UL (Negative); Nitrate Urine Negative (Negative); Non Pathogenic Casts 0-2; Protein Urine Trace mg/dL (Negative); RBC Urine 0-2 /hpf (0-2); Specific Grav Ur > 1.045 (1.001-1.035); Squamous Epithelial Cell Urine None Seen /hpf (Few); Urobilinogen Urine 0.2 mg/dL (<2.0); WBC Urine 0-5 /hpf (0-3); pH Urine >=9.0 (5.0-9.0)
[2024-06-29 16:42] LABS: Reflex Lactic Acid Yes or No Add Lactic
[2024-06-29 16:56] LABS: Ethanol < 10 mg/dL (<10)
[2024-06-29 17:40] LABS: Lactic Acid 1.3 mmol/L (0.7-2.0)
--- NOTE | 2024-06-29 18:35 | PM.IMHP ---
H&P: HPI History of Present Illness Date/Time: 06/29/24 22:00 Chief Complaint: Multiple complaints. Narrative: This is a 54-year-old female history of alcohol abuse, fatty liver, hypertension, hyperlipidemia, breast cancer, depression, and anxiety who presented to the emergency department via private vehicle with multiple complaints. She has not been feeling well for 4 days with symptoms to include congestion, nonproductive cough, nausea, vomiting, loose stools, and GERD symptoms which she has difficulties describing. On occasion she has noticed a small amount of bright red blood with her bowel movements as well. In the ED she was tachycardic, tremulous, and anxious and reports that she has not had alcohol for almost 24 hours due to her symptoms. She reports having a problem with alcohol for about 10 years and has had periods of sobriety. More recently she stopped drinking for about 2 weeks however started again, drinking wine and gin daily in amounts that she cannot or will not qualify. She denies fever, headache, focal weakness, paresthesias, seizures, syncope, near syncope, chest and pleuritic pain, shortness of breath, bloating, belching, hematemesis, hematuria, dysuria, and tactile and auditory hallucinations. In the ED: Observed on arrival include a temperature of 97.9?, blood pressure 162/98, pulse 132, respiratory 20, SpO2 98 % room air. Labs are significant for WBC count of 11.2, hemoglobin 15.7, platelet 296, sodium 135, chloride 87, carbon dioxide 32, anion gap 16, BUN 15, creatinine 0.68, glucose 198, lactic acid 4.5, calcium 10.6, bilirubin 2.1, AST 109, ALT 85. Ethyl alcohol level was less than 10. Respiratory panel was negative. CT of the chest, abdomen, and pelvis showed dilatation of the main pancreatic duct of 6 mm otherwise no acute pathology. Review of Systems Review of Systems: 12 systems were reviewed and are negative except for as per HPI. [facility] Past Medical History Medical History (Updated 06/30/24 @ 15:19 by Nadira Goyal PA-C) Pancreatitis Alcohol abuse Breast cancer Depression Fatty liver Anxiety and depression Surgical History Surgical History (Updated 06/30/24 @ 15:19 by Nadira Goyal PA-C) History of open reduction and internal fixation (ORIF) procedure (06/2022) repair right humeral fracture History of bilateral mastectomy History of tubal ligation Family History Family History Sibling Acute myocardial infarction Diabetes mellitus Sibling Asthma Diabetes mellitus Breast cancer Father Diabetes mellitus Cerebrovascular accident Hypertension Mother Diabetes mellitus Chronic obstructive pulmonary disease Congestive heart failure Colon cancer Hypertension Sibling Diabetes mellitus Hypertension Sibling Diabetes mellitus Sibling Diabetes mellitus Social History Social History (Updated 06/30/24 @ 15:20 by Nadira Goyal PA-C) Social History: Surrogate decision maker: Monica Li (friend). Code status: Full code. Smoking status: Never smoker Second hand tobacco smoke exposure: Yes Alcohol intake: current Drinks per week: 28 Alcohol use details: Heavy drinker, up to a bottle of wine a day in addition to gin Substance use: never Substance use type: does not use Do You Feel Safe in your Home?: Yes Lack of Transportation: No Lack of Food: Never True Current Housing: I Have Housing Concerned About Future Housing: No Difficulty Paying Gas/Electric Bills: No Difficulty Paying for Meds: No Currently Unemployed: No Education: Decline to Answer Difficulty w/ Childcare or Family Care: No Living arrangements: with family Additional living arrangements comments: Lives with boyfriend in [place]. Additional occupation/education comments: Not currently employed. Spiritual care concerns: No Meds Home Medications and Allergies Home Medications ?Medication ?Instructions ?Recorded ?Confirmed ?Type alprazolam 0.5 mg tablet 0.5 mg PO BID PRN Anxiety 10/11/22 06/29/24 History multivitamin 1 tablet PO DAILY 03/21/23 06/29/24 History amitriptyline 10 mg tablet 10 mg PO QHS 04/09/23 06/29/24 History anastrozole 1 mg tablet 1 mg PO HS 06/29/24 06/29/24 History ascorbic acid (vitamin C) 250 mg 250 mg PO DAILY 06/29/24 06/29/24 History tablet (Vitamin C) calcium carbonate (Calcium Antacid) 200 mg PO BID PRN dyspepsia 06/29/24 06/29/24 History cholecalciferol (vitamin D3) 25 25 mcg PO DAILY 06/29/24 06/29/24 History mcg (1,000 unit) capsule (Vitamin D3) Allergies Allergy/AdvReac Type Severity Reaction Status Date / Time ibuprofen Allergy Mild PALPITATION Verified 06/29/24 23:47 S Vital Signs Vital Signs - 24 hr 06/29/24 13:08 06/29/24 13:26 06/29/24 13:30 Temperature 97.9 F Pulse Rate 132 H 130 H 130 H Respiratory Rate 20 14 18 Blood Pressure 162/98 H Pulse Oximetry 98 Oxygen Delivery Room Air 06/29/24 13:40 06/29/24 13:47 06/29/24 14:03 Temperature 97.2 F L Pulse Rate 130 H 123 H 128 H Respiratory Rate 22 H 18 14 Blood Pressure Pulse Oximetry 98 Oxygen Delivery 06/29/24 14:15 06/29/24 14:30 06/29/24 14:36 Temperature Pulse Rate 121 H 119 H 119 H Respiratory Rate 15 15 14 Blood Pressure 155/99 H Pulse Oximetry 98 97 Oxygen Delivery 06/29/24 14:37 06/29/24 15:30 06/29/24 16:15 Temperature Pulse Rate 112 H 116 H 112 H Respiratory Rate 16 18 17 Blood Pressure 138/95 H 139/98 H 136/84 Pulse Oximetry 97 98 96 Oxygen Delivery 06/29/24 16:36 06/29/24 16:55 06/29/24 16:56 Temperature Pulse Rate 113 H 115 H Respiratory Rate 19 Blood Pressure 147/94 H 131/91 H 149/89 H Pulse Oximetry 95 Oxygen Delivery 06/29/24 16:57 06/29/24 17:18 06/29/24 17:31 Temperature Pulse Rate 118 H 113 H 114 H Respiratory Rate 17 18 Blood Pressure 123/78 121/84 Pulse Oximetry 96 95 Oxygen Delivery Exam Narrative: General: Mildly ill-appearing female in the semi-Hardin position in bed. Weight: 70.9 kg. BMI: 26.0. HEENT: Normocephalic, atraumatic. PERRL, EOMI. Left pupil is slightly bigger when compared to the right which he states is chronic. Sclera anicteric. Conjunctiva are injected. Tacky mucous membranes. Neck: Supple. Respiratory: Lungs are clear to auscultation bilaterally. Cardiovascular: Tachycardic with normal S1-S2. Gastrointestinal: Abdomen is soft, nontender, and nondistended with positive bowel sounds. N Skin: Warm and dry. No rash or lesions on limited exam. Extremities: No cyanosis, clubbing, or edema. Radial and pedal pulses intact. Neurological: Alert and oriented. Cranial nerves 2-12 are grossly intact. Speech is clear. No facial asymmetry. Fine tremors of the hands. No tongue fasciculations. No gross focal deficits to casual conversation. Psychiatric: Cooperative with appropriate mood and flat affect. H&P: Results Labs Labs: Short CBC 06/29/24 Range/Units 13:33 WBC 11.2 H (4.5-10.0) K/mm3 Hgb 15.7 H (12.0-15.0) g/dL Hct 44.4 (37.0-47.0) % Plt Count 296 D (150-375) k/mm3 BMP 06/29/24 13:33 Sodium 135 L Potassium 3.4 Chloride 87 L Carbon Dioxide 32 H BUN 15 Creatinine 0.68 L Glucose 198 H Calcium 10.6 H Liver Function 06/29/24 Range/Units 13:33 Total Bilirubin 2.1 H (0.2-1.3) mg/dL AST 109 H (14-36) U/L ALT 85 H (6-35) U/L Alkaline Phosphatase 95 (38-126) U/L Albumin 4.9 (3.5-5.1) g/dL Urine 06/29/24 Range/Units 16:30 Urine Color Yellow (Yellow) Urine Appearance Clear (Clear) Urine pH >=9.0 H (5.0-9.0) Ur Specific [place] > 1.045 H (1.001-1.035) Urine Protein Trace (Negative) mg/dL Urine Glucose (UA) Negative (Negative) mg/dL Impressions Chest/Abdomen/Pelvis CT 06/29/24 15:32 IMPRESSION: Dilatation of the main pancreatic duct to 6 mm, for which nonemergent follow-up with MRI examination of the pancreas with pancreatic mass protocol is recommended. Otherwise, no acute pathology is detected within the chest, abdomen or pelvis, as detailed above. Assessment and Plan Assessment and plan (1) Alcohol withdrawal: Qualifiers: Complication of substance-induced condition: uncomplicated Qualified Code(s): F10.930 - Alcohol use, unspecified with withdrawal, uncomplicated Code(s): F10.939 - Alcohol use, unspecified with withdrawal, unspecified Status: Acute (2) Nausea vomiting and diarrhea: Code(s): R11.2 - Nausea with vomiting, unspecified; R19.7 - Diarrhea, unspecified Status: Acute (3) Dilated pancreatic duct: Code(s): K86.89 - Other specified diseases of pancreas Status: Acute (4) Transaminitis: Code(s): R74.01 - Elevation of levels of liver transaminase levels Status: Acute Plan The patient presented to the emergency department with multiple complaints including sinus congestion, cough, nausea, vomiting, diarrhea, and GERD symptoms as detailed in HPI. Labs, imaging, EKG, and all reports were personally reviewed. CT of the chest, abdomen, and pelvis were pretty unremarkable although pancreatic duct was slightly dilated at 6 mm. It is my understanding that she is followed by [facility] and this can be followed up as an outpatient as long as there is no significant change in her bilirubin. She looks very dry on exam and by labs and will be hydrated overnight. She is starting to exhibit symptoms of alcohol withdrawal and CIWA protocol has been initiated. Check fasting glucose and hemoglobin A1c as her random glucose was 198. Monitor bowel movement as she reports intermittent bright red blood per rectum with bowel movements. Her blood pressures are stable. Home medications will be reviewed and resumed as appropriate. Findings and treatment plan were discussed with the patient. Questions were solicited and answered to satisfaction. The patient's medical management will be taken over by the hospitalist team in a.m. Quality VTE Prophylaxis VTE prophylaxis: mechanical ordered If No VTE Prophylaxis Answer both mechanical and pharmacologic: Reason no pharmacologic proph: medical contraindication (occasional blood in stools) The patient has been admitted under observation status. Hospitalist MIPS Advance Care Plan I have confirmed that the patient's Advanced Care Plan is present, code status is documented, or surrogate decision maker is listed in patient medical record.: Yes Medication Reconciliation I have utilized all available resources to obtain, update and review the patients current medications (includes all prescriptions, OTC, herbals, cannabis, and nutritional supplements).: Yes
--- NOTE | 2024-06-29 19:20 | PC.NURSE ---
Report received from YOLI Pickard. Assumed care of patient at this time.
[2024-06-29 20:09] LABS: Lipase 126 U/L (23-300)
[2024-06-29] MEDS: ACETAMINOPHEN 500 MG TABLET 1000 MG PO (21:42)
--- NOTE | 2024-06-29 23:24 | PC.NURSE ---
This patient, Flavia Patrick, was admitted to IMU Room 205-01 06/29/24 at 2324. Patient/family oriented to hospital policies and general routines including ID bracelet, bed and alarms, visiting hours, pain management, procedures, bathroom and other care routines, personal items, smoking policy, room service/diet, and visiting hours. Information on how to activate the Rapid Response Team has been discussed. Patient/Family are encouraged to report perceived risks to care and to ask questions if they do not understand what they are told or what they should do.
[2024-06-30] VITALS (18 sets, daily range): BP systolic 125–150; BP diastolic 78–91; PULSE 81–112; RESP 18–20; TEMP 37–37.3; O2SAT 94–98; BMI 28.1
[2024-06-30] MEDS: CALCIUM CARBONATE (TUMS) 500 MG (200 MG ELEMENTAL) PO ×2 (00:28→04:02)
[2024-06-30 00:36] LABS: Glucose Point of Care 124 mg/dl (65-105)
[2024-06-30 01:38] LABS: Hemoglobin A1C 5.8 % (<5.7)
[2024-06-30] MEDS: SODIUM CHLORIDE 0.9% IV 1,000 ML 100 ML IV CONT ×2 (01:50→16:02)
[2024-06-30] MEDS: ACETAMINOPHEN 500 MG TABLET PO (04:15)
[2024-06-30 05:54] LABS: Hematocrit 37.8 % (37.0-47.0); Mean Corpuscular HGB Conc 34.4 g/dl (32-36); Mean Corpuscular Hemoglobin 34.1 pg (26-34); Mean Corpuscular Volume 99.2 fl (80-100); Platelet Count Result 199 k/mm3 (150-375); Red Blood Count 3.81 M/mm3 (4.2-5.4); Red Cell Distribution Width 12.8 % (11.5-14.5); White Blood Count 5.3 K/mm3 (4.5-10.0)
[2024-06-30 06:15] LABS: Alanine Aminotransferase 54 U/L (6-35); Albumin Level 3.7 g/dL (3.5-5.1); Alkaline Phosphatase 62 U/L (38-126); Anion Gap 9 mmol/L (4-12); Aspartate Amino Transferase 67 U/L (14-36); Blood Urea Nitrogen 10 mg/dL (7-17); Calcium 9.1 mg/dL (8.4-10.2); Carbon Dioxide 30 mmol/L (22-30); Chloride 95 mmol/L (98-107); Estimated CRCL calculation 94 ml/min; Estimated Glomerular Filt Rate > 60; Glucose 123 mg/dL (65-110); Magnesium 1.8 mg/dL (1.6-2.3); Potassium 2.7 mmol/L (3.4-5.0); Sodium 134 mmol/L (137-145)
[2024-06-30] MEDS: POTASSIUM CHLORIDE 20 MEQ PACKET (FOR LIQUID) 40 MEQ PO (06:59)
[2024-06-30] MEDS: POTASSIUM CHLORIDE INJ 40 MEQ in SODIUM CHLORIDE 0.9% IV 500 ML 130 MEQ IVPB (06:59)
[2024-06-30 07:55] LABS: Glucose Point of Care 93 mg/dl (65-105)
[2024-06-30] MEDS: PANTOPRAZOLE SODIUM IV 40 MG VIAL IV PUSH (08:41)
[2024-06-30] MEDS: FOLIC ACID 1 MG TABLET PO (08:41)
[2024-06-30] MEDS: CHOLECALCIFEROL 1,000 UNITS TABLET 1000 UNITS PO (08:41)
[2024-06-30] MEDS: THIAMINE HCL 100 MG TABLET PO (08:41)
[2024-06-30] MEDS: MULTIVITAMINS THERAPEUTIC TAB (*BKC) 1 TABLET PO (08:41)
[2024-06-30] MEDS: ASCORBIC ACID 250 MG TABLET PO (08:42)
[2024-06-30] MEDS: chlordiazePOXIDE (*CRX) 10 MG CAPSULE PO (10:51)
[2024-06-30] MEDS: MAGNESIUM SULF 1 GM/D5W 100 ML 1 GM/100 ML BAG IVPB (10:52)
[2024-06-30 11:35] LABS: Glucose Point of Care 124 mg/dl (65-105)
[2024-06-30] MEDS: POTASSIUM CHLORIDE 20 MEQ ER TABLET 40 MEQ PO (12:54)
--- NOTE | 2024-06-30 13:21 | P.PNIM_ITS ---
Progress Note: A&P Assessment and Plan (1) Alcohol withdrawal: Qualifiers: Complication of substance-induced condition: uncomplicated Qualified Code(s): F10.930 - Alcohol use, unspecified with withdrawal, uncomplicated Code(s): F10.939 - Alcohol use, unspecified with withdrawal, unspecified Status: Acute (2) Nausea vomiting and diarrhea: Code(s): R11.2 - Nausea with vomiting, unspecified; R19.7 - Diarrhea, unspecified Status: Acute (3) Dilated pancreatic duct: Code(s): K86.89 - Other specified diseases of pancreas Status: Acute (4) Transaminitis: Code(s): R74.01 - Elevation of levels of liver transaminase levels Status: Acute Plan Alcohol abuse and withdrawal patient noted improvement in tremors since admission continue CIWA protocol with PRN Ativan continue Folic acid and Thiamine counseled about alcohol cessation Last alcohol drink was 2 days ago Dilated pancreatic duct patient noted she follows with a GI at [facility] and has undergone ERCP over there and has follow up scheduled contineu follow up with GI at [facility] Vomiting and Diarrhea resolving Hypokalemia k 2.7 replaced and Mag ordered Elevated Liver enzymes AST 109, ALT 85 and Bili 2.1 Improved to AST 67, ALT 54 and Bili 2.0 continue follow up with [facility] GI DVT prophylaxis on Sq Lovenox Subjective Date/time seen: 06/30/24 13:21 Interval history: Comfortable at bedside noted marked improvement Review of Systems Review of Systems: 12 systems were reviewed and are negativ e except for as per HPI. Exam Narrative: General: Mildly ill-appearing female in the semi-Hardin position in bed. Weight: 70.9 kg. BMI: 26.0. HEENT: Normocephalic, atraumatic. PERRL, EOMI. Left pupil is slightly bigger when compared to the right which he states is chronic. Sclera anicteric. Conjunctiva are injected. Tacky mucous membranes. Neck: Supple. Respiratory: Lungs are clear to auscultation bilaterally. Cardiovascular: Tachycardic with normal S1-S2. Gastrointestinal: Abdomen is soft, nontender, and nondistended with positive bowel sounds. N Skin: Warm and dry. No rash or lesions on limited exam. Extremities: No cyanosis, clubbing, or edema. Radial and pedal pulses intact. Neurological: Alert and oriented. Cranial nerves 2-12 are grossly intact. Speech is clear. No facial asymmetry. Fine tremors of the hands. No tongue fa sciculations. No gross focal deficits to casual conversation. Psychiatric: Cooperative with appropriate mood and flat affect. Objective Data Vital Signs Vital Signs: Vital Signs - 24 hr 06/29/24 13:26 06/29/24 13:30 06/29/24 13:40 Temperature 97.2 F L Pulse Rate 130 H 130 H 130 H Respiratory Rate 14 18 22 H Blood Pressure Pulse Oximetry 98 Oxygen Delivery 06/29/24 13:47 06/29/24 14:03 06/29/24 14:15 Temperature Pulse Rate 123 H 128 H 121 H Respiratory Rate 18 14 15 Blood Pressure Pulse Oximetry Oxygen Delivery 06/29/24 14:30 06/29/24 14:36 06/29/24 14:37 Temperature Pulse Rate 119 H 119 H 112 H Respiratory Rate 15 14 16 Blood Pressure 155/99 H 138/95 H Pulse Oximetry 98 97 97 Oxygen Delivery 06/29/24 15:30 06/29/24 16:15 06/29/24 16:36 Temperature Pulse Rate 116 H 112 H 113 H Respiratory Rate 18 17 19 Blood Pressure 139/98 H 136/84 147/94 H Pulse Oximetry 98 96 95 Oxygen Delivery 06/29/24 16:55 06/29/24 16:56 06/29/24 16:57 Temperature Pulse Rate 115 H 118 H Respiratory Rate Blood Pressure 131/91 H 149/89 H 123/78 Pulse Oximetry Oxygen Delivery 06/29/24 17:18 06/29/24 17:31 06/29/24 17:45 Temperature Pulse Rate 113 H 114 H 110 H Respiratory Rate 17 18 17 Blood Pressure 121/84 131/84 Pulse Oximetry 96 95 94 Oxygen Delivery 06/29/24 18:30 06/29/24 18:45 06/29/24 19:21 Temperature Pulse Rate 120 H 115 H 120 H Respiratory Rate 20 18 19 Blood Pressure 147/90 H 138/98 H 134/94 H Pulse Oximetry 96 99 96 Oxygen Delivery 06/29/24 19:45 06/29/24 20:00 06/29/24 20:15 Temperature Pulse Rate 124 H 114 H 122 H Respiratory Rate 17 19 14 Blood Pressure Pulse Oximetry 97 100 Oxygen Delivery 06/29/24 20:29 06/29/24 20:30 06/29/24 20:31 Temperature Pulse Rate 128 H 130 H 130 H Respiratory Rate 21 H 31 H 18 Blood Pressure Pulse Oximetry 95 97 Oxygen Delivery 06/29/24 20:45 06/29/24 20:46 06/29/24 21:00 Temperature Pulse Rate 113 H 117 H 114 H Respiratory Rate 16 19 16 Blood Pressure 133/96 H 141/88 H Pulse Oximetry 98 98 Oxygen Delivery 06/29/24 21:01 06/29/24 21:15 06/29/24 21:16 Temperature Pulse Rate 113 H 124 H 120 H Respiratory Rate 17 20 16 Blood Pressure 130/101 H Pulse Oximetry Oxygen Delivery 06/29/24 21:30 06/29/24 21:31 06/29/24 21:45 Temperature Pulse Rate 111 H 110 H 107 H Respiratory Rate 17 17 20 Blood Pressure 123/82 151/96 H Pulse Oximetry 98 99 Oxygen Delivery 06/29/24 21:46 06/29/24 22:01 06/29/24 22:30 Temperature Pulse Rate 114 H 106 H 106 H Respiratory Rate 16 15 15 Blood Pressure 136/86 Pulse Oximetry 97 Oxygen Delivery 06/29/24 22:31 06/29/24 22:40 06/29/24 22:45 Temperature 97.2 F L Pulse Rate 107 H 104 H Respiratory Rate 15 17 Blood Pressure Pulse Oximetry 96 Oxygen Delivery 06/29/24 23:00 06/29/24 23:01 06/29/24 23:09 Temperature Pulse Rate 104 H 106 H 112 H Respiratory Rate 16 18 20 Blood Pressure 136/82 136/82 Pulse Oximetry 97 Oxygen Delivery 06/30/24 00:00 06/30/24 00:00 06/30/24 00:10 Temperature 98.8 F Pulse Rate 99 112 H Respiratory Rate 20 Blood Pressure 125/88 Pulse Oximetry 96 Oxygen Delivery Room Air 06/30/24 02:00 06/30/24 04:00 06/30/24 04:00 Temperature Pulse Rate 97 90 Respiratory Rate Blood Pressure Pulse Oximetry Oxygen Delivery Room Air 06/30/24 04:09 06/30/24 05:44 06/30/24 08:06 Temperature 98.6 F 98.8 F Pulse Rate 91 90 85 Respiratory Rate 18 20 Blood Pressure 128/86 150/91 H Pulse Oximetry 94 97 Oxygen Delivery 06/30/24 11:25 Temperature 98.8 F Pulse Rate 83 Respiratory Rate 18 Blood Pressure 135/91 H Pulse Oximetry 98 Oxygen Delivery Intake/Output Intake/Output: Intake & Output 06/27/24 06/28/24 06/29/24 06/30/24 23:59 23:59 23:59 23:59 Intake Total 1999 540 Output Total 650 Balance 1999 - Meds/Results Medications: Active Medications Generic Name Dose Route Start Last Admin Trade Name Freq PRN Reason Stop Dose Admin Amitriptyline HCl 10 mg 06/30/24 00:10 06/30/24 00:30 Amitriptyline Hcl 10 Mg Tablet PO Not Given QHS CLAUS Anastrozole 1 mg 06/30/24 00:10 06/30/24 00:30 Anastrozole (*Chemo) 1 Mg Tablet PO Not Given HS CLAUS Ascorbic Acid 250 mg 06/30/24 09:00 06/30/24 08:42 Ascorbic Acid 250 Mg Tablet PO 250 mg DAILY CLAUS Administration Calcium Carbonate 200 mg 06/30/24 00:02 06/30/24 04:02 Calcium Carbonate (Tums) 500 Mg (200 Mg Elemental) PO 200 mg BID PRN Administration dyspepsia Chlordiazepoxide HCl 10 mg 06/30/24 00:00 06/30/24 10:51 Chlordiazepoxide (*Crx) 10 Mg Capsule PO 10 mg Q8H PRN Administration withdrawal symptoms & CIWA < 8 Dextrose 12.5 gm 06/29/24 23:55 Dextrose 50% 25 Gm/50 Ml Syringe IV PUSH PRN PRN Hypoglycemia Protocol Folic Acid 1 mg 06/30/24 09:00 06/30/24 08:41 Folic Acid 1 Mg Tablet PO 1 mg DAILY CLAUS Administration Glucagon 1 mg 06/29/24 23:55 Glucagon For Inj 1 Mg Vial IM PRN PRN Hypoglycemia Protocol Glucose 15 gm 06/29/24 23:55 Glucose Oral Gel 15 Gm Of Glucse In 37.5 Gm Tube PO PRN PRN Hypoglycemia Protocol Dextrose 1,000 mls @ 100 mls/hr 06/29/24 23:55 Dextrose 5% 1,000 Ml IVPB PRN PRN Hypoglycemia Protocol Sodium Chloride 1,000 mls @ 100 mls/hr 06/30/24 00:00 06/30/24 01:50 Normal Saline Iv IV CONT 100 mls/hr .Q10H CLAUS Administration Insulin Aspart 2 - 5 units 06/30/24 08:00 06/30/24 12:53 Insulin Aspart (*Bkc) 100 Units/Ml SUB-Q Not Given TIDWM [facility] Protocol Insulin Aspart 1 - 2 units 06/30/24 21:00 Insulin Aspart (*Bkc) 100 Units/Ml SUB-Q HS [facility] Protocol Lorazepam 1 mg 06/30/24 00:00 Lorazepam Inj (*Crx) 2 Mg/Ml Vial IV PUSH Q2H PRN CIWA 8-15 Lorazepam 2 mg 06/30/24 00:00 Lorazepam Inj (*Crx) 2 Mg/Ml Vial IV PUSH Q2H PRN CIWA > 15 Multivitamins Therapeutic 1 tablet 06/30/24 09:00 06/30/24 08:41 Multivitamins Therapeutic Tab (*Bkc) PO 1 tablet DAILY CLAUS Administration Ondansetron HCl 4 mg 06/29/24 17:58 Ondansetron Inj 4 Mg/2 Ml Vial IV PUSH Q4H PRN Nausea Pantoprazole Sodium 40 mg 06/30/24 09:00 06/30/24 08:41 Pantoprazole Sodium Iv 40 Mg Vial IV PUSH 40 mg QAM CLAUS Administration Thiamine HCl 100 mg 06/30/24 09:00 06/30/24 08:41 Thiamine Hcl 100 Mg Tablet PO 100 mg QAM CLAUS Administration Vitamin D 1,000 units 06/30/24 09:00 06/30/24 08:41 Cholecalciferol 1,000 Units Tablet PO 1,000 units DAILY CLAUS Administration Radiology Results: ITS Impressions Chest/Abdomen/Pelvis CT 06/29/24 15:32 IMPRESSION: Dilatation of the main pancreatic duct to 6 mm, for which nonemergent follow-up with MRI examination of the pancreas with pancreatic mass protocol is recommended. Otherwise, no acute pathology is detected within the chest, abdomen or pelvis, as detailed above. Labs Labs: Laboratory Results - last 24 hr 06/29/24 06/29/24 06/29/24 13:33 13:39 16:30 WBC 11.2 H RBC 4.68 Hgb 15.7 H Hct 44.4 MCV 94.9 MCH 33.5 MCHC 35.4 RDW 12.9 Plt Count 296 D MPV 8.8 Immature Gran % (Auto) 0.3 Neut % (Auto) 71.0 Lymph % (Auto) 18.5 Perry % (Auto) 9.2 H Eos % (Auto) 0.0 Baso % (Auto) 1.0 Lymph # (Auto) 2.07 Perry # (Auto) 1.0 H Eos # (Auto) 0.0 Baso # (Auto) 0.1 Abs Immat Gran (auto) 0.03 Absolute Neuts (auto) 8.0 H Absolute Nucleated RBC 0.000 Nucleated RBC % 0.0 PT 13.5 INR 1.0 APTT 23.9 Sodium 135 L Potassium 3.4 Chloride 87 L Carbon Dioxide 32 H Anion Gap 16 H BUN 15 Creatinine 0.68 L Estim Creat Clear Calc 71 Estimated GFR > 60 Glucose 198 H POC Capillary Glucose Hemoglobin A1c 5.8 H Lactic Acid 4.5 H* Calcium 10.6 H Magnesium Total Bilirubin 2.1 H AST 109 H ALT 85 H Alkaline Phosphatase 95 Total Protein 9.0 H Albumin 4.9 Lipase 126 TSH (Reflex) Urine Color Yellow Urine Appearance Clear Urine pH >=9.0 H Ur Specific [place] > 1.045 H Urine Protein Trace Urine Glucose (UA) Negative Urine Ketones Trace H Ur Blood (Man) Trace Urine Nitrate Negative Urine Bilirubin Negative Urine Urobilinogen 0.2 Leukocyte Esterase Rfl Negative Urine RBC 0-2 Urine WBC 0-5 Ur Squamous Epith Cells None seen Urine Bacteria None seen Urine Casts 0-2 Ethyl Alcohol < 10 Influenza A (RT-PCR) Negative Influenza B (RT-PCR) Negative RSV (RT-PCR) Negative SARS-CoV-2 RNA (RT-PCR) Negative 06/29/24 06/30/24 06/30/24 17:24 00:33 05:11 WBC 5.3 RBC 3.81 L Hgb 13.0 Hct 37.8 MCV 99.2 MCH 34.1 H MCHC 34.4 RDW 12.8 Plt Count 199 MPV 9.0 Immature Gran % (Auto) Neut % (Auto) Lymph % (Auto) Perry % (Auto) Eos % (Auto) Baso % (Auto) Lymph # (Auto) Perry # (Auto) Eos # (Auto) Baso # (Auto) Abs Immat Gran (auto) Absolute Neuts (auto) Absolute Nucleated RBC Nucleated RBC % PT INR APTT Sodium 134 L Potassium 2.7 L* Chloride 95 L Carbon Dioxide 30 Anion Gap 9 BUN 10 D Creatinine 0.58 L Estim Creat Clear Calc 94 Estimated GFR > 60 Glucose 123 H POC Capillary Glucose 124 H Hemoglobin A1c Lactic Acid 1.3 Calcium 9.1 Magnesium 1.8 Total Bilirubin 2.0 H AST 67 H ALT 54 H Alkaline Phosphatase 62 Total Protein 7.0 Albumin 3.7 Lipase TSH (Reflex) 2.720 Urine Color Urine Appearance Urine pH Ur Specific [place] Urine Protein Urine Glucose (UA) Urine Ketones Ur Blood (Man) Urine Nitrate Urine Bilirubin Urine Urobilinogen Leukocyte Esterase Rfl Urine RBC Urine WBC Ur Squamous Epith Cells Urine Bacteria Urine Casts Ethyl Alcohol Influenza A (RT-PCR) Influenza B (RT-PCR) RSV (RT-PCR) SARS-CoV-2 RNA (RT-PCR) 06/30/24 06/30/24 07:33 11:23 WBC RBC Hgb Hct MCV MCH MCHC RDW Plt Count MPV Immature Gran % (Auto) Neut % (Auto) Lymph % (Auto) Perry % (Auto) Eos % (Auto) Baso % (Auto) Lymph # (Auto) Perry # (Auto) Eos # (Auto) Baso # (Auto) Abs Immat Gran (auto) Absolute Neuts (auto) Absolute Nucleated RBC Nucleated RBC % PT INR APTT Sodium Potassium Chloride Carbon Dioxide Anion Gap BUN Creatinine Estim Creat Clear Calc Estimated GFR Glucose POC Capillary Glucose 93 124 H Hemoglobin A1c Lactic Acid Calcium Magnesium Total Bilirubin AST ALT Alkaline Phosphatase Total Protein Albumin Lipase TSH (Reflex) Urine Color Urine Appearance Urine pH Ur Specific [place] Urine Protein Urine Glucose (UA) Urine Ketones Ur Blood (Man) Urine Nitrate Urine Bilirubin Urine Urobilinogen Leukocyte Esterase Rfl Urine RBC Urine WBC Ur Squamous Epith Cells Urine Bacteria Urine Casts Ethyl Alcohol Influenza A (RT-PCR) Influenza B (RT-PCR) RSV (RT-PCR) SARS-CoV-2 RNA (RT-PCR) Quality VTE Prophylaxis VTE prophylaxis: mechanical ordered
[2024-06-30 16:17] LABS: Glucose Point of Care 124 mg/dl (65-105)
[2024-06-30] MEDS: FAMOTIDINE 20 MG TABLET PO (16:42)
[2024-06-30 20:15] LABS: Glucose Point of Care 126 mg/dl (65-105)
[2024-06-30] MEDS: AMITRIPTYLINE HCL 10 MG TABLET PO (20:50)
[2024-06-30] MEDS: LORazepam INJ (*CRX) 2 MG/ML VIAL 1 MG IV PUSH (20:51)
[2024-07-01] VITALS (14 sets, daily range): BP systolic 136–178; BP diastolic 86–95; PULSE 72–103; RESP 16–82; TEMP 36.6–37.3; O2SAT 96–99
[2024-07-01] MEDS: chlordiazePOXIDE (*CRX) 10 MG CAPSULE PO ×3 (00:27→21:59)
[2024-07-01] MEDS: SODIUM CHLORIDE 0.9% IV 1,000 ML 100 ML IV CONT ×2 (02:02→11:05)
[2024-07-01 07:31] LABS: Glucose Point of Care 107 mg/dl (65-105)
--- NOTE | 2024-07-01 08:21 | P.PNIM_ITS ---
Progress Note: A&P Assessment and Plan (1) Alcohol withdrawal: Qualifiers: Complication of substance-induced condition: uncomplicated Qualified Code(s): F10.930 - Alcohol use, unspecified with withdrawal, uncomplicated Code(s): F10.939 - Alcohol use, unspecified with withdrawal, unspecified Status: Acute (2) Nausea vomiting and diarrhea: Code(s): R11.2 - Nausea with vomiting, unspecified; R19.7 - Diarrhea, unspecified Status: Acute (3) Dilated pancreatic duct: Code(s): K86.89 - Other specified diseases of pancreas Status: Acute (4) Transaminitis: Code(s): R74.01 - Elevation of levels of liver transaminase levels Status: Acute Plan The patient presented to the emergency department with multiple complaints including sinus congestion, cough, nausea, vomiting, diarrhea, and GERD symptoms as detailed in HPI. Labs, imaging, EKG, and all reports were personally reviewed. CT of the chest, abdomen, and pelvis were pretty unremarkable although pancreatic duct was slightly dilated at 6 mm. It is my understanding that [facility] and this can be followed up as an outpatient as long as there is no significant change in her bilirubin. She looks very dry on exam and by labs and will be hydrated overnight. She is starting to exhibit symptoms of alcohol withdrawal and CIWA protocol has been initiated. Check fasting glucose and hemoglobin A1c as her random glucose was 198. Monitor bowel movement as she reports intermittent bright red blood per rectum with bowel movements. Her blood pressures are stable. Home medications will be reviewed and resumed as appropriate. Findings and treatment plan were discussed with the monica lopez. 07/01 Alcohol withdrawal Patient still has as anxiety, uncontrolled blood pressure Patient needed Ativan IV yesterday Continue manage alcohol withdrawal per CIWA protocol Hypokalemia Repeated potassium chloride Follow-up BMP intermittent bright red blood per rectum with bowel movements. Hemoglobin stable Follow-up stool guaiac, if positive consult GI Subjective Date/time seen: 07/01/24 08:21 Interval history: I saw exam patient today, patient still has anxiety, feeling better today, patient stated she feeling nauseous, without vomiting today. Had fresh red blood with stools yesterday, denies abdomen pain Exam Narrative: GENERAL: Pleasant, in no acute distress. Well-nourished. - EYES: EOMI. Anicteric. - HENT: Moist mucous membranes. - LUNGS: Clear to auscultation bilateral ly, no wheezing, rhonchi, or rales. - CARDIOVASCULAR: Regular rate and rhyth m. No murmur. No JVD. - ABDOMEN: Soft, non-tender and non-dist ended. No palpable masses. - EXTREMITIES: No edema. Peripheral puls es 2+. Non-tender. - NEUROLOGIC: No focal neurological defi cits. CN II-XII grossly intact. - PSYCHIATRIC: Awake, Alert and oriented x 3. Appropriate mood and affect. - SKIN: No rashes or lesions. Warm. - LYMPH: No cervical lymphadenopathy. Objective Data Vital Signs Vital Signs: Vital Signs - 24 hr 06/30/24 10:00 06/30/24 11:25 06/30/24 12:00 Temperature 98.8 F Pulse Rate 92 83 89 Respiratory Rate 18 Blood Pressure 135/91 H Pulse Oximetry 98 Oxygen Delivery 06/30/24 14:00 06/30/24 16:00 06/30/24 16:18 Temperature 98.8 F Pulse Rate 91 85 81 Respiratory Rate 18 Blood Pressure 148/87 H Pulse Oximetry 97 Oxygen Delivery 06/30/24 18:00 06/30/24 20:00 06/30/24 20:00 Temperature Pulse Rate 89 88 Respiratory Rate Blood Pressure Pulse Oximetry Oxygen Delivery Room Air 06/30/24 20:03 06/30/24 22:00 07/01/24 00:00 Temperature 99.1 F Pulse Rate 83 87 Respiratory Rate 18 Blood Pressure 145/78 H Pulse Oximetry 98 Oxygen Delivery Room Air 07/01/24 00:00 07/01/24 00:08 07/01/24 02:00 Temperature 99.2 F Pulse Rate 80 92 80 Respiratory Rate 18 Blood Pressure 153/86 H Pulse Oximetry 96 Oxygen Delivery 07/01/24 04:00 07/01/24 04:00 07/01/24 05:01 Temperature 98.5 F Pulse Rate 79 72 Respiratory Rate 18 Blood Pressure 142/87 H Pulse Oximetry 96 Oxygen Delivery Room Air 07/01/24 06:00 07/01/24 07:55 Temperature 98.5 F Pulse Rate 77 92 Respiratory Rate 18 Blood Pressure 136/90 Pulse Oximetry 97 Oxygen Delivery Intake/Output Intake/Output: Intake & Output 06/28/24 06/29/24 06/30/2425/25 23:59 23:59 23:59 23:59 Intake Total 1999 2249 1900 Output Total 2049 1200 Balance 1999 200 700 Meds/Results Medications: Active Medications Generic Name Dose Route Start Last Admin Trade Name Freq PRN Reason Stop Dose Admin Amitriptyline HCl 10 mg 06/30/24 00:10 06/30/24 20:50 Amitriptyline Hcl 10 Mg Tablet PO 10 mg QHS CLAUS Administration Anastrozole 1 mg 06/30/24 00:10 06/30/24 20:46 Anastrozole (*Chemo) 1 Mg Tablet PO Not Given HS CLAUS Ascorbic Acid 250 mg 06/30/24 09:00 06/30/24 08:42 Ascorbic Acid 250 Mg Tablet PO 250 mg DAILY CLAUS Administration Calcium Carbonate 200 mg 06/30/24 00:02 06/30/24 04:02 Calcium Carbonate (Tums) 500 Mg (200 Mg Elemental) PO 200 mg BID PRN Administration dyspepsia Chlordiazepoxide HCl 10 mg 06/30/24 00:00 07/01/24 00:27 Chlordiazepoxide (*Crx) 10 Mg Capsule PO 10 mg Q8H PRN Administration withdrawal symptoms & CIWA < 8 Dextrose 12.5 gm 06/29/24 23:55 Dextrose 50% 25 Gm/50 Ml Syringe IV PUSH PRN PRN Hypoglycemia Protocol Enoxaparin Sodium 40 mg 07/01/24 09:00 Enoxaparin 40 Mg/0.4 Ml Syringe SUB-Q DAILY [facility] Famotidine 20 mg 06/30/24 16:20 06/30/24 16:42 Famotidine 20 Mg Tablet PO 20 mg Q12HR CLAUS Administration Folic Acid 1 mg 06/30/24 09:00 06/30/24 08:41 Folic Acid 1 Mg Tablet PO 1 mg DAILY CLAUS Administration Glucagon 1 mg 06/29/24 23:55 Glucagon For Inj 1 Mg Vial IM PRN PRN Hypoglycemia Protocol Glucose 15 gm 06/29/24 23:55 Glucose Oral Gel 15 Gm Of Glucse In 37.5 Gm Tube PO PRN PRN Hypoglycemia Protocol Dextrose 1,000 mls @ 100 mls/hr 06/29/24 23:55 Dextrose 5% 1,000 Ml IVPB PRN PRN Hypoglycemia Protocol Sodium Chloride 1,000 mls @ 100 mls/hr 06/30/24 00:00 07/01/24 06:09 Normal Saline Iv IV CONT Not Given .Q10H CLAUS Insulin Aspart 2 - 5 units 06/30/24 08:00 06/30/24 16:50 Insulin Aspart (*Bkc) 100 Units/Ml SUB-Q Not Given TIDWM [facility] Protocol Insulin Aspart 1 - 2 units 06/30/24 21:00 06/30/24 20:52 Insulin Aspart (*Bkc) 100 Units/Ml SUB-Q Not Given HS [facility] Protocol Lorazepam 1 mg 06/30/24 00:00 06/30/24 20:51 Lorazepam Inj (*Crx) 2 Mg/Ml Vial IV PUSH 1 mg Q2H PRN Administration CIWA 8-15 Lorazepam 2 mg 06/30/24 00:00 Lorazepam Inj (*Crx) 2 Mg/Ml Vial IV PUSH Q2H PRN CIWA > 15 Multivitamins Therapeutic 1 tablet 06/30/24 09:00 06/30/24 08:41 Multivitamins Therapeutic Tab (*Bkc) PO 1 tablet DAILY CLAUS Administration Ondansetron HCl 4 mg 06/29/24 17:58 Ondansetron Inj 4 Mg/2 Ml Vial IV PUSH Q4H PRN Nausea Pantoprazole Sodium 40 mg 06/30/24 09:00 06/30/24 08:41 Pantoprazole Sodium Iv 40 Mg Vial IV PUSH 40 mg QAM CLAUS Administration Thiamine HCl 100 mg 06/30/24 09:00 06/30/24 08:41 Thiamine Hcl 100 Mg Tablet PO 100 mg QAM CLAUS Administration Vitamin D 1,000 units 06/30/24 09:00 06/30/24 08:41 Cholecalciferol 1,000 Units Tablet PO 1,000 units DAILY CLAUS Administration Radiology Results: ITS Impressions Chest/Abdomen/Pelvis CT 06/29/24 15:32 IMPRESSION: Dilatation of the main pancreatic duct to 6 mm, for which nonemergent follow-up with MRI examination of the pancreas with pancreatic mass protocol is recommended. Otherwise, no acute pathology is detected within the chest, abdomen or pelvis, as detailed above. Labs Labs: Laboratory Results - last 24 hr 06/30/24 06/30/24 06/30/24 11:23 16:10 20:06 POC Capillary Glucose 124 H 124 H 126 H 07/01/24 07:23 POC Capillary Glucose 107 H
[2024-07-01 08:47] LABS: Hematocrit 36.5 % (37.0-47.0); Hemoglobin 12.3 g/dL (12.0-15.0); Mean Corpuscular HGB Conc 33.7 g/dl (32-36); Mean Corpuscular Volume 100.8 fl (80-100); Mean Platelet Volume 8.7 fl (7.4-10.4); Platelet Count Result 144 k/mm3 (150-375); Red Blood Count 3.62 M/mm3 (4.2-5.4); Red Cell Distribution Width 12.7 % (11.5-14.5); White Blood Count 5.1 K/mm3 (4.5-10.0)
[2024-07-01] MEDS: LORazepam INJ (*CRX) 2 MG/ML VIAL 1 MG IV PUSH (09:11)
[2024-07-01 09:13] LABS: Anion Gap 10 mmol/L (4-12); Blood Urea Nitrogen 3 mg/dL (7-17); Calcium 8.4 mg/dL (8.4-10.2); Carbon Dioxide 22 mmol/L (22-30); Chloride 105 mmol/L (98-107); Estimated CRCL calculation 111 ml/min; Estimated Glomerular Filt Rate > 60; Glucose 108 mg/dL (65-110); Potassium 3.6 mmol/L (3.4-5.0); Sodium 137 mmol/L (137-145)
[2024-07-01] MEDS: FOLIC ACID 1 MG TABLET PO (09:13)
[2024-07-01] MEDS: MULTIVITAMINS THERAPEUTIC TAB (*BKC) 1 TABLET PO (09:13)
[2024-07-01] MEDS: ASCORBIC ACID 250 MG TABLET PO (09:14)
[2024-07-01] MEDS: THIAMINE HCL 100 MG TABLET PO (09:14)
[2024-07-01] MEDS: PANTOPRAZOLE SODIUM IV 40 MG VIAL IV PUSH (09:14)
[2024-07-01] MEDS: CHOLECALCIFEROL 1,000 UNITS TABLET 1000 UNITS PO (09:14)
[2024-07-01] MEDS: FAMOTIDINE 20 MG TABLET PO ×2 (09:14→21:59)
[2024-07-01 11:53] LABS: Glucose Point of Care 116 mg/dl (65-105)
--- NOTE | 2024-07-01 13:44 | PC.NURSE ---
Pt transferred to [facility]. Hand-off given to YOLI Marcelino.
--- NOTE | 2024-07-01 14:32 | PC.NURSE ---
This patient, Flavia Patrick, was received from IMU on 07/01/24 at 1430. Patient/family oriented to unit policies and routines
[2024-07-01 17:28] LABS: Glucose Point of Care 90 mg/dl (65-105)
[2024-07-01] MEDS: CALCIUM CARBONATE (TUMS) 500 MG (200 MG ELEMENTAL) PO (21:59)
[2024-07-01] MEDS: AMITRIPTYLINE HCL 10 MG TABLET PO (21:59)
[2024-07-01 22:38] LABS: Glucose Point of Care 101 mg/dl (65-105)
[2024-07-02] VITALS (7 sets, daily range): BP systolic 122–158; BP diastolic 81–85; PULSE 79–101; RESP 12–16; TEMP 36.2–36.8; O2SAT 97–99
[2024-07-02 09:11] LABS: Glucose Point of Care 106 mg/dl (65-105)
[2024-07-02] MEDS: FAMOTIDINE 20 MG TABLET PO (09:12)
[2024-07-02] MEDS: FOLIC ACID 1 MG TABLET PO (09:12)
[2024-07-02] MEDS: ASCORBIC ACID 250 MG TABLET PO (09:12)
[2024-07-02] MEDS: CHOLECALCIFEROL 1,000 UNITS TABLET 1000 UNITS PO (09:12)
[2024-07-02] MEDS: THIAMINE HCL 100 MG TABLET PO (09:12)
[2024-07-02] MEDS: PANTOPRAZOLE SODIUM IV 40 MG VIAL IV PUSH ×2 (09:12→19:42)
[2024-07-02] MEDS: MULTIVITAMINS THERAPEUTIC TAB (*BKC) 1 TABLET PO (09:12)
[2024-07-02 10:16] LABS: Basophils Absolute Auto 0.1 K/mm3 (0.0-0.1); Basophils Percent Auto 1.1 % (0.2-1.2); Eosinophils Absolute Auto 0.3 K/mm3 (0-0.3); Eosinophils Percent Auto 4.5 % (0-4.4); Hematocrit 39.8 % (37.0-47.0); Hemoglobin 13.4 g/dL (12.0-15.0); Immature Granulocyte Absolute 0.02 K/mm3 (0.00-0.031); Immature Granulocyte Percent A 0.3 % (0-0.5); Lymphocytes Absolute Auto 1.76 K/mm3 (0.9-3.2); Lymphocytes Percent Auto 28.1 % (18.3-44.2); Mean Corpuscular HGB Conc 33.7 g/dl (32-36); Mean Corpuscular Hemoglobin 33.7 pg (26-34); Mean Platelet Volume 8.6 fl (7.4-10.4); Monocytes Absolute Auto 0.3 K/mm3 (0.1-0.6); Monocytes Percent Auto 4.8 % (2.6-8.5); Neutrophils Absolute Auto 3.8 K/mm3 (1.3-6.7); Neutrophils Percent Auto 61.2 % (45.5-73.1); Platelet Count Result 144 k/mm3 (150-375); Red Blood Count 3.98 M/mm3 (4.2-5.4); Red Cell Distribution Width 12.5 % (11.5-14.5); White Blood Count 6.3 K/mm3 (4.5-10.0)
[2024-07-02 10:37] LABS: Alanine Aminotransferase 118 U/L (6-35); Alkaline Phosphatase 52 U/L (38-126); Anion Gap 8 mmol/L (4-12); Aspartate Amino Transferase 170 U/L (14-36); Bilirubin,Total 1.1 mg/dL (0.2-1.3); Blood Urea Nitrogen 8 mg/dL (7-17); Calcium 9.3 mg/dL (8.4-10.2); Carbon Dioxide 27 mmol/L (22-30); Chloride 100 mmol/L (98-107); Estimated CRCL calculation 90 ml/min; Estimated Glomerular Filt Rate > 60; Glucose 118 mg/dL (65-110); Magnesium 1.6 mg/dL (1.6-2.3); Potassium 3.6 mmol/L (3.4-5.0); Sodium 135 mmol/L (137-145)
[2024-07-02 12:14] LABS: Glucose Point of Care 141 mg/dl (65-105)
--- NOTE | 2024-07-02 15:14 | P.PNIM_ITS ---
Progress Note: A&P Assessment and Plan (1) Alcohol withdrawal: Qualifiers: Complication of substance-induced condition: uncomplicated Qualified Code(s): F10.930 - Alcohol use, unspecified with withdrawal, uncomplicated Code(s): F10.939 - Alcohol use, unspecified with withdrawal, unspecified Status: Acute Assessment and Plan: Patient presents with multiple complaints. Concern for alcohol withdrawal. She is on thiamine and folate. CIWA score was as high as 10 yesterday but better today down to 0-2 range. No lorazepam for the past 24 hours. Last Librium dose was last evening. Begin to wean off benzodiazepines. She was educated about the benefits of abstaining from alcohol use. (2) Nausea vomiting and diarrhea: Code(s): R11.2 - Nausea with vomiting, unspecified; R19.7 - Diarrhea, unspecified Status: Acute Assessment and Plan: Probably related to above. Symptoms are improved. Tolerating oral intake but still with the epigastric pain. She may have gastritis from her alcohol use. Imaging shows moderate hiatal hernia. CT also shows dilation of the main pancreatic duct of 6 mm with MRCP recommended. Given her epigastric pain and elevated LFTs, will proceed with MRCP. GI consulted as well for possibly EGD and/or colonoscopy. (3) Dilated pancreatic duct: Code(s): K86.89 - Other specified diseases of pancreas Status: Acute Assessment and Plan: As above. Lipase was normal on admission. Will repeat in the morning (4) Transaminitis: Code(s): R74.01 - Elevation of levels of liver transaminase levels Status: Acute Assessment and Plan: Patient with persistent epigastric pain. Imaging findings as mentioned above. AST and ALT are higher today. Bilirubin was elevated at 2.1 but has normalized. Suspect more likely related to her alcoholism and fatty liver. We will proceed with MRCP given the above findings however. Check hepatitis panel. Follow LFTs. (5) Bright red blood per rectum: Code(s): K62.5 - Hemorrhage of anus and rectum Status: Acute Assessment and Plan: Patient with persistent bright red blood per rectum. Hemoglobin remains stable. Suspect related to hemorrhoids. Use suppositories and witch ke. Follow HH (6) Epigastric pain: Code(s): R10.13 - Epigastric pain Status: Acute Assessment and Plan: As above. Patient currently on Protonix and Pepcid. Will stop Pepcid in advance Protonix to q.12 Plan DVT prophylaxis -Lovenox but will stop and had SCDs given the rectal bleeding Code status -full Subjective Date/time seen: 07/02/24 15:14 Interval history: 54yo female with hx of alcohol abuse, fatty liver, HTN, HLD, breast cancer, depression, and anxiety who presented to the emergency department via private vehicle with multiple complaints. Assuming care. Chart reviewed. She has been up walking in the room. She has been eating okay. She complains of heartburn which actually is better today. She normally just takes Tums at home. No further nausea, vomiting or diarrhea. She still having bright red blood per rectum for the past few days. She is having some rectal pain. She cannot recall the last time she had a colonoscopy. Exam Narrative: AF 97.1 158/81 101 16 97% ra Gen - NARD Chest - CTA bilaterally, nml RR CV - RRR S1/S2. tele showing occasional sinus tachycardia. Abd - Soft, NT/ND, Positive BS Ext - No pedal edema Psych - Nml mood and affect. no tremors Skin - Warm and dry. not diaphoretic Objective Data Vital Signs Vital Signs: Vital Signs - 24 hr 07/01/24 16:00 07/01/24 16:00 07/01/24 17:46 Temperature 97.8 F Pulse Rate 80 78 Respiratory Rate 18 82 H Blood Pressure 178/95 H 149/92 H Pulse Oximetry 99 Oxygen Delivery 07/01/24 19:58 07/01/24 20:00 07/01/24 20:00 Temperature 97.8 F Pulse Rate 81 85 Respiratory Rate 16 Blood Pressure 156/88 H Pulse Oximetry 99 Oxygen Delivery Room Air 07/02/24 00:00 07/02/24 04:00 07/02/24 04:10 Temperature 97.1 F L Pulse Rate 93 83 82 Respiratory Rate 16 Blood Pressure 158/81 H Pulse Oximetry 97 Oxygen Delivery 07/02/24 09:12 07/02/24 09:12 07/02/24 12:00 Temperature Pulse Rate 79 101 H Respiratory Rate Blood Pressure Pulse Oximetry Oxygen Delivery Room Air Intake/Output Intake/Output: Intake & Output 02/23/25 02/24/25 02/25/25 02/26/25 23:59 23:59 23:59 23:59 Intake Total 19990 3955 520 Output Total 2049 1799 Balance 1999 200 2155 520 Meds/Results Medications: Active Medications Generic Name Dose Route Start Last Admin Trade Name Freq PRN Reason Stop Dose Admin Amitriptyline HCl 10 mg 06/30/24 00:10 07/01/24 21:59 Amitriptyline Hcl 10 Mg Tablet PO 10 mg QHS CLAUS Administration Anastrozole 1 mg 06/30/24 00:10 07/01/24 22:02 Anastrozole (*Chemo) 1 Mg Tablet PO Not Given HS CLAUS Ascorbic Acid 250 mg 06/30/24 09:00 07/02/24 09:12 Ascorbic Acid 250 Mg Tablet PO 250 mg DAILY CLAUS Administration Calcium Carbonate 200 mg 06/30/24 00:02 07/01/24 21:59 Calcium Carbonate (Tums) 500 Mg (200 Mg Elemental) PO 200 mg BID PRN Administration dyspepsia Chlordiazepoxide HCl 10 mg 06/30/24 00:00 07/01/24 21:59 Chlordiazepoxide (*Crx) 10 Mg Capsule PO 10 mg Q8H PRN Administration withdrawal symptoms & CIWA < 8 Dextrose 12.5 gm 06/29/24 23:55 Dextrose 50% 25 Gm/50 Ml Syringe IV PUSH PRN PRN Hypoglycemia Protocol Enoxaparin Sodium 40 mg 07/01/24 09:00 07/02/24 09:15 Enoxaparin 40 Mg/0.4 Ml Syringe SUB-Q Not Given DAILY [facility] Famotidine 20 mg 06/30/24 16:20 07/02/24 09:12 Famotidine 20 Mg Tablet PO 20 mg Q12HR CLAUS Administration Folic Acid 1 mg 06/30/24 09:00 07/02/24 09:12 Folic Acid 1 Mg Tablet PO 1 mg DAILY CLAUS Administration Glucagon 1 mg 06/29/24 23:55 Glucagon For Inj 1 Mg Vial IM PRN PRN Hypoglycemia Protocol Glucose 15 gm 06/29/24 23:55 Glucose Oral Gel 15 Gm Of Glucse In 37.5 Gm Tube PO PRN PRN Hypoglycemia Protocol Dextrose 1,000 mls @ 100 mls/hr 06/29/24 23:55 Dextrose 5% 1,000 Ml IVPB PRN PRN Hypoglycemia Protocol Insulin Aspart 2 - 5 units 06/30/24 08:00 07/02/24 12:22 Insulin Aspart (*Bkc) 100 Units/Ml SUB-Q Not Given TIDWM [facility] Protocol Insulin Aspart 1 - 2 units 06/30/24 21:00 07/01/24 21:59 Insulin Aspart (*Bkc) 100 Units/Ml SUB-Q Not Given HS CLAUS Protocol Lorazepam 1 mg 06/30/24 00:00 07/01/24 09:11 Lorazepam Inj (*Crx) 2 Mg/Ml Vial IV PUSH 1 mg Q2H PRN Administration CIWA 8-15 Lorazepam 2 mg 06/30/24 00:00 Lorazepam Inj (*Crx) 2 Mg/Ml Vial IV PUSH Q2H PRN CIWA > 15 Multivitamins Therapeutic 1 tablet 06/30/24 09:00 07/02/24 09:12 Multivitamins Therapeutic Tab (*Bkc) PO 1 tablet DAILY CLAUS Administration Ondansetron HCl 4 mg 06/29/24 17:58 Ondansetron Inj 4 Mg/2 Ml Vial IV PUSH Q4H PRN Nausea Pantoprazole Sodium 40 mg 06/30/24 09:00 07/02/24 09:12 Pantoprazole Sodium Iv 40 Mg Vial IV PUSH 40 mg QAM CLAUS Administration Thiamine HCl 100 mg 06/30/24 09:00 07/02/24 09:12 Thiamine Hcl 100 Mg Tablet PO 100 mg QAM CLAUS Administration Vitamin D 1,000 units 06/30/24 09:00 07/02/24 09:12 Cholecalciferol 1,000 Units Tablet PO 1,000 units DAILY CLAUS Administration Radiology Results: ITS Impressions Chest/Abdomen/Pelvis CT 06/29/24 15:32 IMPRESSION: Dilatation of the main pancreatic duct to 6 mm, for which nonemergent follow-up with MRI examination of the pancreas with pancreatic mass protocol is recommended. Otherwise, no acute pathology is detected within the chest, abdomen or pelvis, as detailed above. Labs Labs: Laboratory Results - last 24 hr 07/01/24 07/01/24 07/02/24 17:22 20:03 08:53 WBC RBC Hgb Hct MCV MCH MCHC RDW Plt Count MPV Immature Gran % (Auto) Neut % (Auto) Lymph % (Auto) [place] % (Auto) Eos % (Auto) Baso % (Auto) Lymph # (Auto) [place] # (Auto) Eos # (Auto) Baso # (Auto) Abs Immat Gran (auto) Absolute Neuts (auto) Absolute Nucleated RBC Nucleated RBC % Sodium Potassium Chloride Carbon Dioxide Anion Gap BUN Creatinine Estim Creat Clear Calc Estimated GFR Glucose POC Capillary Glucose 90 101 106 H Calcium Magnesium Total Bilirubin AST ALT Alkaline Phosphatase Total Protein Albumin 07/02/24 07/02/24 10:07 12:09 WBC 6.3 RBC 3.98 L Hgb 13.4 Hct 39.8 MCV 100.0 MCH 33.7 MCHC 33.7 RDW 12.5 Plt Count 144 L MPV 8.6 Immature Gran % (Auto) 0.3 Neut % (Auto) 61.2 Lymph % (Auto) 28.1 [place] % (Auto) 4.8 Eos % (Auto) 4.5 H Baso % (Auto) 1.1 Lymph # (Auto) 1.76 [place] # (Auto) 0.3 Eos # (Auto) 0.3 Baso # (Auto) 0.1 Abs Immat Gran (auto) 0.02 Absolute Neuts (auto) 3.8 Absolute Nucleated RBC 0.000 Nucleated RBC % 0.0 Sodium 135 L Potassium 3.6 Chloride 100 Carbon Dioxide 27 Anion Gap 8 BUN 8 D Creatinine 0.53 L Estim Creat Clear Calc 90 Estimated GFR > 60 Glucose 118 H POC Capillary Glucose 141 H Calcium 9.3 Magnesium 1.6 Total Bilirubin 1.1 AST 170 H ALT 118 H Alkaline Phosphatase 52 Total Protein 7.0 Albumin 4.0
[2024-07-02 17:15] LABS: Glucose Point of Care 118 mg/dl (65-105)
[2024-07-02] MEDS: ANASTROZOLE (*CHEMO) 1 MG TABLET PO (19:43)
[2024-07-02] MEDS: HYDROCORTISONE ACETATE 25 MG SUPPOSITORY RECTAL (19:43)
[2024-07-02] MEDS: AMITRIPTYLINE HCL 10 MG TABLET PO (19:43)
[2024-07-02 23:11] LABS: Glucose Point of Care 106 mg/dl (65-105)
[2024-07-03 06:00] VITALS: BP 104/63; PULSE 91; RESP 16; TEMP 36.8; O2SAT 97
[2024-07-03 06:06] LABS: Hematocrit 39.3 % (37.0-47.0); Hemoglobin 13.2 g/dL (12.0-15.0); Mean Corpuscular HGB Conc 33.6 g/dl (32-36); Mean Corpuscular Hemoglobin 33.4 pg (26-34); Mean Corpuscular Volume 99.5 fl (80-100); Mean Platelet Volume 8.9 fl (7.4-10.4); Platelet Count Result 149 k/mm3 (150-375); Red Blood Count 3.95 M/mm3 (4.2-5.4); Red Cell Distribution Width 12.5 % (11.5-14.5)
[2024-07-03 06:23] LABS: Alanine Aminotransferase 106 U/L (6-35); Albumin Level 3.8 g/dL (3.5-5.1); Alkaline Phosphatase 49 U/L (38-126); Anion Gap 10 mmol/L (4-12); Aspartate Amino Transferase 102 U/L (14-36); Bilirubin,Total 0.9 mg/dL (0.2-1.3); Blood Urea Nitrogen 9 mg/dL (7-17); Calcium 9.4 mg/dL (8.4-10.2); Carbon Dioxide 23 mmol/L (22-30); Chloride 103 mmol/L (98-107); Estimated CRCL calculation 100 ml/min; Estimated Glomerular Filt Rate > 60; Glucose 102 mg/dL (65-110); Lipase 233 U/L (23-300); Magnesium 1.8 mg/dL (1.6-2.3); Potassium 3.8 mmol/L (3.4-5.0); Sodium 136 mmol/L (137-145)
[2024-07-03 07:06] LABS: Hepatitis B Surface Antigen Negative (Negative)
[2024-07-03 07:11] LABS: HAV RESULT Negative (Negative); Hepatitis B Core IgM Result Negative (Negative)
[2024-07-03 07:23] LABS: Hepatitis C Virus Antibody Negative (Negative)
[2024-07-03 08:00] VITALS: BP 104/63
[2024-07-03 08:39] LABS: Glucose Point of Care 88 mg/dl (65-105)
[2024-07-03] MEDS: FOLIC ACID 1 MG TABLET PO (09:34)
[2024-07-03] MEDS: PANTOPRAZOLE SODIUM IV 40 MG VIAL IV PUSH (09:34)
[2024-07-03] MEDS: CHOLECALCIFEROL 1,000 UNITS TABLET 1000 UNITS PO (09:34)
[2024-07-03] MEDS: THIAMINE HCL 100 MG TABLET PO (09:34)
[2024-07-03] MEDS: ASCORBIC ACID 250 MG TABLET PO (09:34)
[2024-07-03] MEDS: MULTIVITAMINS THERAPEUTIC TAB (*BKC) 1 TABLET PO (09:35)
--- NOTE | 2024-07-03 10:36 | WPDGICN ---
Assessment and Plan Assessment and plan (1) Epigastric pain: Code(s): R10.13 - Epigastric pain Status: Acute (2) Nausea vomiting and diarrhea: Code(s): R11.2 - Nausea with vomiting, unspecified; R19.7 - Diarrhea, unspecified Status: Acute (3) Dilated pancreatic duct: Code(s): K86.89 - Other specified diseases of pancreas Status: Acute (4) Transaminitis: Code(s): R74.01 - Elevation of levels of liver transaminase levels Status: Acute (5) Bright red blood per rectum: Code(s): K62.5 - Hemorrhage of anus and rectum Status: Acute Plan 1. BUQ abdominal pain/ GERD/ nausea and vomiting/ETOH abuse: Past EGD Hx unknown. Patient states that prior to her admission she had an acute viral illness and was having a burning sensation in her upper abdomen and esophageal burning, this pain started after a few episodes of nausea and vomiting. Pain, nausea and vomiting has improved but not resolved since admission. Prior to admission she was also having reflux that was severe at times and only partially improved with Tums, reflux has improved with PPI. Patient states that she can drink up to 1 bottle of wine a 2 gin and tonics daily. ETOH level on admission <10. Lipase normal at 233. Denies coffee grounds emesis, hematemesis or melena. DDX: Acid versus non acid reflux versus motility disorder versus esophagitis versus peptic ulcer disease versus Karissa-Castaneda tear Continue BID PPI care with NSAIDs, aspirin or anticoags may require EGD but we will determine if that will be done inpatient vs outpatient based on MRCP results alcohol cessation recommended 2. Hematochezia/ personal Hx of colon polyps/ family Hx colon cancer: Per patient last colonoscopy either 2014 or 2019. Admits to a personal history of colon polyps and a family history of colon cancer in her mother who was diagnosed in her 60s. patient states that prior to her hospital admission she was experiencing diarrhea secondary to acute illness which has resolved. During this time of increased bowel frequency she was having painless bright red rectal bleeding. No active bleeding since admission. Last BM was yesterday, formed and brown. She does admit to a history of hemorrhoids. No anemia with HGB 13, HCT 39. Platelets low at 149 and INR 1.0. DDX: hemorrhoid versus polyp versus AVM versus neoplasm. Colonoscopy as outpatient 2. Elevated liver transaminase/ hepatic steatosis/ thrombocytopenia/ abnormal imaging biliary- Pancreatic ductal dilation/ETOH abuse: Patient with chronic liver transaminitis and intermittent bilirubin elevation. Alk Phos has remained normal. Labs today showed total bilirubin 0.6, AST 102, ALT 106, alkaline phosphatase 49, albumin 3.8 and lipase 233.f EtOH abuse patient with known history of ETOH abuse. Hepatitis panel negative. CT and ultrasound showed fatty liver and hepatic. Common bile duct measuring 4.[address] showed a moderately distended gallbladder with hyperemia of the gallbladder wall without thickening or surrounding inflammatory change. No calcified stones. Main pancreatic duct dilated to 6 mm. Patient passes, unclear past medical history as she states she had an EUS performed at [facility] 02/22/2024 for something in her pancreas patient states that she was told that she had sludge and needed a stent the patient never followed up with them as she was later diagnosed with breast cancer and was going through treatment. She denies any GI symptoms prior to incidental finding of what ever pancreatic abnormality was previously noted. Mildly elevated liver transaminases likely secondary to EtOH use and known fatty liver Given thrombocytopenia will check a fibrosis panel to ensure that there is no fibrosis unclear if pancreatic ductal dilation is chronic in nature MRCP pending Further recommendations to follow MRCP Thank you very much for allowing me to share in the care of this very nice patient. This report may have been done utilizing a voice recognition system. Attempts have been made to correct errors. However, there may be uncorrected grammatical, spelling, and recognition errors present. GI Consult Note Consult date/time: 07/03/24 10:36 Reason for consult: epigastric pain and rectal bleeding HPI: This is a 54 year old female with a PMSH of pancreatitis, Hx of breast cancer S/P bilateral mastectomy and bilateral breast implants, anxiety, depression, tubal ligation, fatty liver, HTN, HLD, and ETOH abuse. She presented to the ER 06/29 with multiple complaints including sinus congestion and cough. GI has been consulted for pancreatic duct dilation and rectal bleeding. ENDOSCOPY HISTORY: EGD: Bx results: COLONOSCOPY: Bx results: LABS AND STOOL STUDIES: LABS 07/03/2024: Sodium 136, potassium 3.8, BUN 9, creatinine 0.47, GFR > 60 WBC 7, Hgb 13, Hct 39, MCV 100, platelets 149, INR 1.0 Total bilirubin 0.9, AST 102, ALT 106, Alkaline Phos 49, albumin 3.8 Calcium 9.4, Phos 5.0, magnesium 1.8, and lipase 233 IMAGING: CT chest/abd/pelvis w/contrast 06/29/2024: Liver: The liver enhances homogeneously and demonstrates decreased attenuation, consistent with fatty infiltration and is not enlarged measuring 18 cm in longitudinal dimension. Gallbladder and biliary system: The gallbladder is moderately distended, with hyperemia of the gallbladder wall without thickening or surrounding inflammatory change. No calcified stones. Pancreas: The pancreas enhances homogeneously, with dilatation of the main pancreatic duct to 6 mm. Spleen: The spleen enhances homogeneously, and is not enlarged. Gastrointestinal tract: Colonic diverticulosis without surrounding inflammatory change. Appendix: The air-filled appendix is of normal caliber (axial series, images 177 through 184). IMPRESSION: Dilatation of the main pancreatic duct to 6 mm, for which nonemergent follow-up with MRI examination of the pancreas with pancreatic mass protocol is recommended. Otherwise, no acute pathology is detected within the chest, abdomen or pelvis, as detailed above. Abdominal Ultrasound 03/12/2024: IMPRESSION: Evaluation of the pancreas is limited by overlying bowel gas. Fatty infiltration of an enlarged liver. Otherwise, unremarkable sonographic evaluation of the abdomen, as detailed above. [facility] Past Medical History Medical History (Updated 07/02/24 @ 18:31 by Kofi Ureña MD) Pancreatitis Alcohol abuse Breast cancer Depression Fatty liver Anxiety and depression Surgical History Surgical History (Updated 06/30/24 @ 15:19 by Nadira Goyal PA-C) History of open reduction and internal fixation (ORIF) procedure (06/2022) repair right humeral fracture History of bilateral mastectomy History of tubal ligation Family History Family History Sibling Acute myocardial infarction Diabetes mellitus Sibling Asthma Diabetes mellitus Breast cancer Father Diabetes mellitus Cerebrovascular accident Hypertension Mother Diabetes mellitus Chronic obstructive pulmonary disease Congestive heart failure Colon cancer Hypertension Sibling Diabetes mellitus Hypertension Sibling Diabetes mellitus Sibling Diabetes mellitus Social History Social History (Updated 06/30/24 @ 15:20 by Nadira Goyal PA-C) Social History: Surrogate decision maker: Monica Li (friend). Code status: Full code. Smoking status: Never smoker Second hand tobacco smoke exposure: Yes Alcohol intake: current Drinks per week: 28 Alcohol use details: Heavy drinker, up to a bottle of wine a day in addition to gin Substance use: never Substance use type: does not use Do You Feel Safe in your Home?: Yes Lack of Transportation: No Lack of Food: Never True Current Housing: I Have Housing Concerned About Future Housing: No Difficulty Paying Gas/Electric Bills: No Difficulty Paying for Meds: No Currently Unemployed: No Education: Decline to Answer Difficulty w/ Childcare or Family Care: No Living arrangements: with family Additional living arrangements comments: Lives with boyfriend in [place]. Additional occupation/education comments: Not currently employed. Spiritual care concerns: No Meds Home Medications and Allergies Home Medications ?Medication ?Instructions ?Recorded ?Confirmed ?Type alprazolam 0.5 mg tablet 0.5 mg PO BID PRN Anxiety 10/11/22 06/29/24 History multivitamin 1 tablet PO DAILY 03/21/23 06/29/24 History amitriptyline 10 mg tablet 10 mg PO QHS 04/09/23 06/29/24 History anastrozole 1 mg tablet 1 mg PO HS 06/29/24 06/29/24 History ascorbic acid (vitamin C) 250 mg 250 mg PO DAILY 06/29/24 06/29/24 History tablet (Vitamin C) calcium carbonate (Calcium Antacid) 200 mg PO BID PRN dyspepsia 06/29/24 06/29/24 History cholecalciferol (vitamin D3) 25 25 mcg PO DAILY 06/29/24 06/29/24 History mcg (1,000 unit) capsule (Vitamin D3) Allergies Allergy/AdvReac Type Severity Reaction Status Date / Time ibuprofen Allergy Mild PALPITATION Verified 06/29/24 23:47 S Vital Signs Vital Signs - 24 hr 07/02/24 12:00 07/02/24 15:19 07/02/24 20:00 Temperature 98.1 F Pulse Rate 101 H 96 Respiratory Rate 12 Blood Pressure 122/85 Pulse Oximetry 99 Oxygen Delivery Room Air 07/02/24 21:57 07/03/24 06:00 Temperature 98.3 F 98.3 F Pulse Rate 101 H 91 Respiratory Rate 14 16 Blood Pressure 143/85 H 104/63 Pulse Oximetry 99 97 Oxygen Delivery Results Labs 07/03/24 05:21 07/03/24 05:21 Labs: Short CBC 07/03/24 Range/Units 05:21 WBC 7.0 (4.5-10.0) K/mm3 Hgb 13.2 (12.0-15.0) g/dL Hct 39.3 (37.0-47.0) % Plt Count 149 L (150-375) k/mm3 BMP 07/02/24 07/03/24 10:07 05:21 Sodium 135 L 136 L Potassium 3.6 3.8 Chloride 100 103 Carbon Dioxide 27 23 BUN 8 D 9 Creatinine 0.53 L 0.47 L Glucose 118 H 102 Calcium 9.3 9.4 Liver Function 07/02/24 07/03/24 Range/Units 10:07 05:21 Total Bilirubin 1.1 0.9 (0.2-1.3) mg/dL AST 170 H 102 H (14-36) U/L ALT 118 H 106 H (6-35) U/L Alkaline Phosphatase 52 49 (38-126) U/L Albumin 4.0 3.8 (3.5-5.1) g/dL
[2024-07-03 12:00] VITALS: BP 104/63
[2024-07-03 12:34] LABS: Glucose Point of Care 106 mg/dl (65-105)
[2024-07-03 16:00] VITALS: BP 104/63
--- NOTE | 2024-07-03 16:25 | PM.DS ---
DS: Admitting Diagnosis Discharge Date 07/03/24 Admitting Diagnosis Nausea and vomiting DS: Discharge Diagnosis Discharge Diagnosis (1) Alcohol withdrawal: Qualifiers: Complication of substance-induced condition: uncomplicated Qualified Code(s): F10.930 - Alcohol use, unspecified with withdrawal, uncomplicated Code(s): F10.939 - Alcohol use, unspecified with withdrawal, unspecified Status: Acute (2) Nausea vomiting and diarrhea: Code(s): R11.2 - Nausea with vomiting, unspecified; R19.7 - Diarrhea, unspecified Status: Acute (3) Dilated pancreatic duct: Code(s): K86.89 - Other specified diseases of pancreas Status: Acute (4) Transaminitis: Code(s): R74.01 - Elevation of levels of liver transaminase levels Status: Acute (5) Bright red blood per rectum: Code(s): K62.5 - Hemorrhage of anus and rectum Status: Acute (6) Epigastric pain: Code(s): R10.13 - Epigastric pain Status: Acute DS: Summary Hospital Course Reason for hospitalization: 54yo female with hx of alcohol abuse, fatty liver, HTN, HLD, breast cancer, depression, and anxiety who presented to the emergency department via private vehicle with multiple complaints. Please see H&P for details. Hospital Course: Patient presents with multiple complaints. Concern for alcohol withdrawal. She was placed on thiamine and folate. CIWA score was as high as 13 but improved down to 0-2 range. She was educated about the benefits of abstaining from alcohol use. Nausea and vomiting probably related to above. Symptoms are improved. Tolerating oral intake but still with the epigastric pain. She may have gastritis from her alcohol use. Imaging shows moderate hiatal hernia.CT also shows dilation of the main pancreatic duct of 6 mm with MRCP recommended. Given her epigastric pain and elevated LFTs, we proceeded with MRCP. GI was consulted and appreciate their input. She does mention that a biliary stent was recommended when she was at [facility] in the past (about 1-2 years ago) but she declined this. Lipase was normal on admission and remained normal on repeat. AST and ALT were up and down. Bilirubin was elevated at 2.1 but has normalized. Suspect more likely related to her alcoholism and fatty liver. Hepatitis panel negative. MRCP showing dilated main pancreatic duct at the head of the pancreas with a a few mildly dilated pancreatic side branches in the body and tail the pancreas suggestive of sequela of chronic pancreatitis but no intrahepatic or extrahepatic biliary ductal dilation with no evident cholelithiasis/choledocholithiasis. Patient also with bright red blood per rectum. Hemoglobin remained normal and stable. Suspect related to hemorrhoids treated with Anusol and witch ke. Plan for her to follow up with GI for outpatient colonoscopy. She feels much better and feels ready for discharge. She overall did well was able be discharged home on 07/03/2024. Status at Discharge Cognitive/behavioral status at discharge: stable Time Spent with Patient Time attestation: Total time spent providing and/or coordinating discharge services: 35 minutes Time spent: Greater than 30 minutes Exam Narrative: AF 98.3 104/63 91 16 97% ra Gen - NARD Chest - CTA bilaterally, nml RR CV - RRR S1/S2 Abd - Soft, NT/ND, Positive BS Ext - No pedal edema Psych - Nml mood and affect. Skin - Warm and dry. DS: Data Data Completed and Pending Labs on day of discharge: Labs from last 24 hours 07/03/24 07/03/24 07/03/24 12:23 08:29 05:21 WBC 7.0 RBC 3.95 L Hgb 13.2 Hct 39.3 MCV 99.5 MCH 33.4 MCHC 33.6 RDW 12.5 Plt Count 149 L MPV 8.9 Sodium 136 L Potassium 3.8 Chloride 103 Carbon Dioxide 23 Anion Gap 10 BUN 9 Creatinine 0.47 L Estim Creat Clear Calc 100 Estimated GFR > 60 Glucose 102 POC Capillary Glucose 106 H 88 Calcium 9.4 Phosphorus 5.0 H Magnesium 1.8 Total Bilirubin 0.9 AST 102 H ALT 106 H Alkaline Phosphatase 49 Liver Fibrosis Ref ID Liver Fibrosis GGTP Liver Total Bilirubin Liver Apolipoprotein A1 Liver Fibrosis ALT Liver Haptoglobin Liver Fib Fibro Score Liver Fib Fibro Interp Liver Fib Fibro Stage Liver Fibrosis Footnote Necroinflammator Score Necroinflammator Grade Necroinflam Interp Total Protein 7.0 Albumin 3.8 Lipase 233 U Obqsz-1-Ybrjnjcartyty Hepatitis A IgM Ab Negative Hep Bs Antigen Negative Hep B Core IgM Ab Negative Hepatitis C Ab Screen Negative 07/03/24 07/02/24 07/02/24 05:17 19:41 17:12 WBC RBC Hgb Hct MCV MCH MCHC RDW Plt Count MPV Sodium Potassium Chloride Carbon Dioxide Anion Gap BUN Creatinine Estim Creat Clear Calc Estimated GFR Glucose POC Capillary Glucose 106 H 118 H Calcium Phosphorus Magnesium Total Bilirubin AST ALT Alkaline Phosphatase Liver Fibrosis Ref ID Pending Liver Fibrosis GGTP Pending Liver Total Bilirubin Pending Liver Apolipoprotein A1 Pending Liver Fibrosis ALT Pending Liver Haptoglobin Pending Liver Fib Fibro Score Pending Liver Fib Fibro Interp Pending Liver Fib Fibro Stage Pending Liver Fibrosis Footnote Pending Necroinflammator Score Pending Necroinflammator Grade Pending Necroinflam Interp Pending Total Protein Albumin Lipase U Zyfzf-[id number]-Afrukaozdkwyi Pending Hepatitis A IgM Ab Hep Bs Antigen Hep B Core IgM Ab Hepatitis C Ab Screen Discharge Plan Discharge Attending physician on discharge: Kfoi Ureña Consulting providers: Matthew Frederick Discharging Clinician: Kofi Ureña Anticipated Discharge Date/Time: 07/03/24 16:38 Patient Disposition: Home, Self-Care Activity: as tolerated Diet: heart healthy Discharge Instructions: Avoid using any product that contains alcohol Contact your doctor or call 911 and come to the Emergency Room if you have worsening abdominal pain or other worrisome symptoms. Avoid NSAIDs (ibuprofen, naproxen, Aleve). Tylenol is safe to take. Follow-up with your primary care provider in 1-2 weeks. Please call for appointment. Follow-up with GI doctor to schedule a colonoscopy. Please call for an appointment. Thank you for using [facility] for your health care needs. Patient Instructions: Antibiotic Form, Alcohol Withdrawal (GEN) Patient Language: [place] Stand Alone Forms: General Discharge Information Follow-up/Referrals: Adalid,Kofi Rogel MD [Primary Care Provider] - Call for Appointment Matthew Frederick MD [Physician] - Call for Appointment Discharge Medications: New pantoprazole [Protonix] 40 mg tablet,delayed release (DR/EC) 40 mg PO Q12H Qty: 60 0RF Continued amitriptyline 10 mg tablet 10 mg PO QHS Patient Comments: states she takes as needed for sleep alprazolam 0.5 mg tablet 0.5 mg PO BID PRN (Reason: Anxiety) multivitamin Tablet 1 tablet PO DAILY calcium carbonate [Calcium Antacid] 200 mg calcium (500 mg) tablet,chewable 200 mg PO BID PRN (Reason: dyspepsia) ascorbic acid (vitamin C) [Vitamin C] 250 mg tablet 250 mg PO DAILY anastrozole 1 mg tablet 1 mg PO HS cholecalciferol (vitamin D3) [Vitamin D3] 25 mcg (1,000 unit) capsule 25 mcg PO DAILY Date of admission: 07/01/24 14:40 Primary Care Provider: AdalidKofi Admitting Provider: Swathi Youssef Attending physician on admission: Swathi Youssef Condition: Stable Hospitalist MIPS Heart Failure (Exclusion) Patient has history of Heart Transplant or Left Ventricular Assistive Device?: No IF YES, STOP HERE Heart Failure (Qualifier) Patient has current or prior documentation of LVEF less than or equal to 40%, or mod/servere depressed LVSF?: No IF NO, STOP HERE
[2024-07-03 16:58] LABS: Glucose Point of Care 106 mg/dl (65-105)
[2024-07-07 22:28] LABS: ALT 77 U/L (6-29); Alpha-2-Macroglobulin 167 mg/dL (106-279); Apolipoprotein A1 155 mg/dL (101-198); Fibrosis Stage F1; GGT 284 U/L (3-70); Haptoglobin 170 mg/dL (43-212); Necroinflammat Act Grade A1-A2; Reference ID 5363749; Total Bilirubin 0.6 mg/dL (0.2-1.2)
--- NOTE | 2024-07-08 08:37 | PC.NURSE ---
Liver fibrosis panel results given to Dr. Ureña.
--- NOTE | 2024-07-09 08:22 | PC.NURSE ---
Liver fibrosis panel faxed to GI physician.
== END 2024-07-03 17:10 | disposition home or self-care (01) | DRG 775 ==
LOC: ANHED 17:58 → ANHIMU 21:42 → ANH3MED 07-01 13:45
PROVIDERS: Hospitalist; Nurse Practitioner Family; Physician Assistant; Admitting Provider Internal Medicine; Emergency Provider Emergency Medicine; PCP Internal Medicine; Visit Provider Internal Medicine
DX: F10.239 Alcohol dependence with withdrawal, unspecified (principal); K86.89 Other specified diseases of pancreas; K62.5 Hemorrhage of anus and rectum; K70.0 Alcoholic fatty liver; E78.5 Hyperlipidemia, unspecified; E87.6 Hypokalemia; I10 Essential (primary) hypertension; D69.59 Other secondary thrombocytopenia; K76.0 Fatty (change of) liver, not elsewhere classified; F32.A Depression, unspecified; F41.9 Anxiety disorder, unspecified; K21.9 Gastro-esophageal reflux disease without esophagitis; Z85.3 Personal history of malignant neoplasm of breast
CPT/HCPCS: 36415; 71260; 74177; 74183; 76376; 80048; 80053; 80074; 81001; 81596; 82077; 82948; 83036; 83605; 83690; 83735; 84100; 84443; 85025; 85027; 85610; 85730; 87637; 96361; 96374; 96375; 96376; 99285; A9270; A9577; A9579; G0378; G0379; J1650; J2060; J2405; J2470; J3475; J3480; J7030; J7040; J7120; Q9967

== ENCOUNTER 2024-07-10 15:47 | Outpatient (CLI) | payer OTHER, SELFPAY ==
--- OUTSIDE RECORDS SUMMARY | 2024-07-10 16:47 | XMS_ITS | Clinical Summary ---
Author Organization [facility] A Address [address] [place] [address] Care Team Providers Care Auto Radiator Mechanic Name Role Phone Josef Castro MD Primary [...] (06/16/2022): Added automatically from request for surgery [id number] Mixed hyperlipidemia 11/04/2020 Gastric perforation 09/10/2020 Assessment & Plan (09/30/2020 9:40 AM CDT): I will make a referral to 1 of the head athletic trainer/strength coach for an upper endoscopy. Based on the [...] ago, Currently tremulous, anxious Will start on [facility] alcohol withdrawal protocol with IV ativan sins the patient currently NPO Start on IV folate, and thiamin Seizure precautions Fall precautions Will get SWcx, Discussed and encouraged to stop drinking ELEAZAR (generalized anxiety disorder) 09/10/2020 Assessment & Plan (09/10/2020 9:43 PM CDT): Holding xanax , patient is NPO Started on IV ativan To be used per [facility] protocol for symptomatic control for anxiety [...] Hx Other Medical Dermatofibroma 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 Hx Other Medical 12/01/2012 ER [facility] BP issue s not feeling well Hx Other Medical egg allergy; Co mments: CRG 08/18/2014 - Neuropathy Family History Medical History Relation Name Comments [...] on file 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 Gender Identity Not on file Sexual Orientation [...] this topic Medical Devices Implanted Type Area Acquisition Professional Device Identifier Shelf Expiration Date Model / Serial / Lot Allosource 10cm Frozen Graft Bone Fibula Segment [id number] - [id number] - [id number] Implanted:Qty: 1 on 06/21/2022 by Destiny Mayorga MD at [facility] Bone Right: Humerus Allosource [id number] 01/14/2026 [id number] / [id number] / [id number] Synthes Lcp Combi Philos 33s42x0.5mm 3 Hole Shaft Lock Compression 241.901 - S0 - [id number] Implanted:Qty: 1 on 06/21/2022 by Destiny Mayorga MD at [facility] Plate Right: Humerus Synthes I 241.901 / 0 / Synthes 3.5mm 6mm 22mm 2.5mm Self Tap Small Hexagonal Socket Low Profile 204.822 - S0 - [id number] Implanted:Qty: 1 on 06/21/2022 by Destiny Mayorga MD at [facility] Screw Right: Humerus Synthes I 204.822 / 0 / Synthes 3.5mm 2.9mm 24mm Self Tap Lock Stardrive Conical Head Pelvis T15 212.108 - S0 - [id number] Implanted:Qty: 1 on 06/21/2022 by Destiny Mayorga MD at [facility] Screw Right: Humerus Synthes I 212.108 / 0 / Synthes 3.5mm 6mm 26mm 2.5mm Self Tap Small Hexagonal Socket Low Profile 204.826 - S0 - [id number] Implanted:Qty: 1 on 06/21/2022 by Destiny Mayorga MD at [facility] Screw Right: Humerus Synthes I 204.826 / 0 / Synthes 3.5mm 2.9mm 36mm Self Tap Lock Stardrive Conical Head T15 Full 212.115 - S0 - [id number] Implanted:Qty: 3 on 06/21/2022 by Destiny Mayorga MD at [facility] Screw Right: Humerus Synthes I 212.115 / 0 / Synthes 3.5mm 2.9mm 45mm Self Tap Lock Stardrive Conical Head T15 Full 212.119 - S0 - [id number] Implanted:Qty: 2 on 06/21/2022 by Destiny Mayorga MD at [facility] Screw Right: Humerus Synthes I 212.119 / 0 / Synthes 3.5mm 2.9mm 42mm Self Tap Lock Stardrive Conical Head Full Thread 212.118 - S0 - [id number] Implanted:Qty: 1 on 06/21/2022 by Destiny Mayorga MD at [facility] Screw Right: Humerus Synthes I 212.118 / 0 / Synthes 3.5mm 2.9mm 46mm Self Tap Lock Stardrive Conical Head T15 Full 212.136 - [id number] Implanted:Qty: 1 on 06/21/2022 by Destiny Mayorga MD at [facility] Screw Right: Humerus Synthes I 212.136 / / Synthes 3.5mm 2.9mm 44mm Self Tap Lock Stardrive Conical Head T15 Full 212.134 - S0 - [id number] Implanted:Qty: 1 on 06/21/2022 by Destiny Mayorga MD at [facility] Screw Right: Humerus Synthes I 212.134 / 0 / Synthes 3.5mm 2.9mm 48mm Self Tap Lock Fix Angle Low Profile Pelvis Full 212.120 - S0 - [id number] Implanted:Qty: 1 on 06/21/2022 by Destiny Mayorga MD at [facility] Screw Right: Humerus Synthes I 212.120 [...] last revised on 19. Testing performed by: [address] [address] Hep B core IgM Nonreactive Nonreactive Denis LEDESMA (DIMITRIS) Comment: Interpretive Data If HepB Core IgM Ab is reported as Equivocal, a new sample should be drawn in two weeks for testing. Current interpretive data was last revised on 19. Testing performed by: [facility], [address] [place] [address]., [address] Hep C Ab Nonreactive Nonreactive JOESPH LEDESMA [...] last revised on 2019. Testing performed by: [facility], [address] [place] [address]., [address] HepBsAg Nonreactive Nonreactive JOESPH LEDESMA (DIMITRIS) Comment:Testing performed by : [address] [address] Blood specimen (specimen) 09/11/2020 5:18 AM CDT 09/11/2020 11:17 AM CDT us Allison Price MD LAB MICROBIOLOGY - GENERAL OR DERABLES Final Result JOESPH LEDESMA (DIMITRIS 1 [facility] Department [place] [address] * COLONOSCOPY (01/20/2013 12:00 AM CDT) Anatomical Region Laterality Modality Other Narrative 01/20/2013 12:00 AM CDT Ordered by an unspecified provider. Procedure Note Provider, MD Edie - 01/20/2013 12:00 AM CDT PROCEDURE REPORT Patient: ZENAIDA ARREAGA Account: [id number] Room No: : 1970 Patient Type: SDS [...] AM CDT Narrative 01/01/2013 10:23 PM CDT Dia Mamm R Acc#: [id number] DATE OF EXAM: Jan 01 2013 Performed [...] Edie - 08/30/2016 Diag Mamm R Acc#: [id number] DATE OF EXAM: Jan 01 2013 Performed [...] interpretation of these images. This facility utilizes areminder system to notify patients of yearly mammograms. [...] Most Recently Relevant to Health Maintenance Insurance [place] [place] [address] [facility] Advance Directives For more information, please contact: [phone] * Full Code (Latest Code Status on File) Date Activated Date Inactivated Comments 02/21/2023 12:16 PM 02/21/2023 6:09 PM * Full Code Date Activated Date Inactivated Comments 09/10/2020 4:50 PM 09/17/2020 4:48 PM Care Teams Auto Radiator Mechanic Relationship Specialty Start Date End Date Josef Castro MD [address] [place] [address] PCP - General 11/04/20
--- OUTSIDE RECORDS SUMMARY | 2024-07-10 16:47 | XMS_ITS ---
Author Organization [facility] Address [address] [facility] [address] [place] [address] Care Team Providers Care Dump Motorman Name Role Phone Adalid HARRY, Chirag Primary Care Provider Unav ailable ERIC PROBATE LAWYER, WILFREDO Unavailable [phone] REASON FOR VISIT EUS Encounters Encounter Location Date Provider Diagnosis [facility] [address] [facility] [address] [place] [address] 01/19/2023 WILFREDO REYES PLAN OF TREATMENT No Information Progress Notes * Flavia ARREAGADOB: 8 (52 yo F)Acc No.[id number]:01/19/2023 Patient: DarnellFatemehFlavia :1970 Age:52 Y Sex:Female Address:[address] [place] [address] * true * Date:
--- OUTSIDE RECORDS SUMMARY | 2024-07-10 16:47 | XMS_ITS ---
Author Organization [facility] Address [address] [place] [address] Care Team Providers Care Hot Plate Plywood Press Operator Name Role Phone Adalid HARRY, Chirag Primary [...] 01/19/2023 Encounters Encounter Location Date Provider Diagnosis [facility] [address] [place] [address] 01/19/2023 ASPEN REYES Abnormal findings on dx [...] * Flavia ARREAGADOB: 8 (52 yo F)Acc No.[id number]:01/19/2023 Progress Notes Patient: Flavia Arreaga Appointment Provider: Aspen Reyes CNP :1970 Age:52 Y Sex:Female Date:01/19/2023 Address:[address] [place], [place] [id number] Pcp:Chirag Cordoba MD Subjective: * Chief Complaints: [...] General Examination GENERAL APPEARANCE: in no ac kashia distress, well developed, well nourished HEART: no murmurs, regular rate and rhythm, S1, S2 normal LUNGS: clear to auscultatio n bilaterally ABDOMEN: normal, bowel sounds present, soft, nontender, nondistended NEUROLOGIC: alert and oriented, sensory exam intact
--- OUTSIDE RECORDS SUMMARY | 2024-07-10 16:47 | XMS_ITS | Encounter Summary ---
Author Organization [facility] Address [address] [place] [address] Care Team Providers Care Director Of Cardiac Cath Lab Name Role Phone Chirag Cordoba MD Primary Care Provider [phone] Encounter Details Date Type Department Care Team (Late st Contact Info) Description 07/08/2024 External Device Data ST[place] ABSTRACTION Provider, Abstract NO ADDRESS ON FILE Social History Tobacco Use Types Packs/Day Years Used Date Smoking Tobacco: Never Smokeless Tobacco: Never Alcohol Use Standard Drinks/Week Comments Yes 0 (1 standard drink = 0.6 oz pur e alcohol) occasional Comments Unknown Sex and Gender Information Value Date Recorded Sex Assigned at Not on file 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 Gender Identity Not on file Sexual Orientation Not on file documented as of this encounter Plan of Treatment Upcoming Encounters Date Type Department Care Team (Late st Contact Info) Description 07/15/2024 11:15 AM CDT Office Visit [facility] Oncology and Hematology - [place] [address] [facility] [address] [place] [address] Shmuel Bertrand MD [address] [facility] [address] [place] [address] documented as of this encounter Visit Diagnoses Not on filedocumented in this encounter Care Teams Director Of Cardiac Cath Lab Relationship Specialty Start Date End Date Chirag Cordoba MD [address] [facility] [address] [place] [id number] PCP - General Internal Medicine 10/19/22 documented as of this encounter
--- OUTSIDE RECORDS SUMMARY | 2024-07-10 16:47 | XMS_ITS ---
Author Organization [facility] Address [address] [place] [address] Phone Care Team Providers Care Director Of Strategic Sales Name Role Phone KIRSTEN LAMA DO Unavailable [phone] Plan of Treatment Findings Encounter Date Clinical summary provided to patient COV ID SICK VISIT- NEW PATIENT with [facility] DOBBINS BEEF FARMER-C 05/08/2021 Last Documented On 2 3:03PM ; [facility] Plan of care reviewed and agreed to COVI D SICK VISIT- NEW PATIENT with [facility] DOBBINS BEE[employer] FARMER-C 05/08/2021 Last Documented On 2 3:03PM ; [facility] Assessments Includes: Assessments for all patient encounters Findings Encounter Date Pneumonia COVID SICK VISIT- NEW PATIENT wi th [facility] DOBBINS BEE[employer] FARMER-C 05/08/2021 Last Documented On 2 3:03PM ; [facility] Medical Equipment - Implanted Devices Includes: Current and historical Devices No Medical Equipment Recorded Medications Includes: Current and historical Medications Current Medications (continue as prescribed) levoFLOXacin 500 MG Oral Tablet 05/08/2021 Provider: KVNG BARROSO Diagnosis: Unspecified bact erial pneumonia One tablet daily Last Documented On 2 3:04PM By Kvng BARROSO ; [facility] Medications Administered Includes: Administered Medications in patient's chart No Administered Medications Recorded Results Includes: Results from 07/11/2023 through 07/10/2024 No Results Recorded For Specified Dates History of Present Illness History of Present Illness not supported for this document type No History of Present Illness Recorded Social History Description Last Updated [PHQ-2] Patient Health Questionnaire 2 i tem total score: 4 (Scale: 0-6) 05/08/2021 Last Documented On 2 3:03PM ; [facility] Smoking Status Unknown Medical History Includes: Medical History in patient's chart Description Last Updated A fall 05/08/2021 Last Documented On 2 3:03PM ; [facility] Date COVID symptoms started: 04/2021 Last Documented On 2 3:03PM ; [facility] No Contact with and (Suspected) exposure to COVID-19 05/08/2021 Last Documented On 2 3:03PM ; [facility] Family History Includes: Family History in [...] Active Last Documented On 2 2:58PM ; [facility] Insurance Includes: Active Insurance Policies Plan Name Member ID Group # Subscriber Relationship Effect teresa Dates - [facility] [id number] ZENAIDA ARRAEGA Self Clinical Notes Includes: Signed Clinical Notes starting from 05/26/2022 No Clinical Notes Recorded
--- OUTSIDE RECORDS SUMMARY | 2024-07-10 16:47 | XMS_ITS | Patient Health Summary ---
Author Organization [facility] Address [address] [facility] [place] [address] Care Team Providers Care Neurosurgical Nurse Practitioner Name Role Phone Unavailable Primary Care Provider Unavailabl e Note from [facility],non-owned Affiliates and Associated Physician Practices is amultiple site organization consisting of ambulatory clinics and hospital sitesin [place], [place]. This disclosure is being [...] 0.55-2.73 Third trimester 0.43-2.91 Test Performed at: [facility] [address] [address] [facility] [address] NELSY POWERS DO,MPH Blood BLOOD SPECIMEN / Unknown 12/17/2020 9:03 AM CDT 12/17/2020 9:04 AM CDT Radha Olson MD LAB - CHEMISTRY ABI MARES Performing Organization Address [facility] de Phone Number [facility] [id number] [place] [address] * IMMUNOFIXATION BLOOD (12/17/2020 9:03 AM CDT) Pathologist [facility] Interpretation [facility] Comment: Normal pattern. No monoclonal proteins detected. Test Performed at: [facility] [address] [email or web address] [address] NLESY POWERS DO,MPH Blood BLOOD SPECIMEN / Unknown 12/17/2020 9:03 AM CDT 12/17/2020 9:04 AM CDT Radha Olson MD LAB - CHEMISTRY ABI MARES Performing Organization Address [facility] [place] [address] * HEAVY METALS BLOOD QUANT PANEL (12/17/2020 9:03 AM CDT) Pathologist [facility] Arsenic <3 <23 mcg/L [facility] Comment: Whole [...] analytical performance characteristics have been determined by [facility]. It has not been cleared or approved by the FDA. This assay has been validated pursuant to the CLIA regulations and is used for clinical purposes. Test Performed at: [facility] [address] [place] [address] DAVID CRAWFORD MD Blood BLOOD SPECIMEN / Unknown 12/17/2020 9:03 AM CDT 12/17/2020 9:04 AM CDT Radha Olson MD LAB - CHEMISTRY ABI [place] Performing Organization Address [facility]/ZIP Co de Phone Number [address] [address] * C-REACTIVE PROTEIN (CRP) (12/17/2020 9:03 AM CDT) Pathologist [facility] C-Reactive Protein 0.4 <8.0 mg/L [facility] Comment: Test Performed at: [facility] [place] [address] NELSY POWERS DO,MPH Blood BLOOD SPECIMEN / Unknown 12/17/2020 9:03 AM CDT 12/17/2020 9:04 AM CDT Radha Olson MD LAB - CHEMISTRY ABI MARES Performing Organization Address [facility] Co de Phone Number [facility] [id number] [place] [address] * ALFREDO BLOOD SCREEN W/REFLEX TITER (12/17/2020 9:03 AM CDT) [facility] ALFREDO Screen NEGATIVE NEGATIVE [facility] Comment: ALFREDO [...] AC-0: Negative International Consensus on ALFREDO Patterns (https://doi.org/10.1515/yhqu-0492-2690) For additional information, please refer to http://education.Waveseis.[employer] [place] [employer]/faq/PIB752 (This link is being provided for informational/ educational purposes only.) Test Performed at: [facility] [address] NELSY POWERS DO,MPH Blood BLOOD SPECIMEN / Unknown 12/17/2020 9:03 AM CDT 12/17/2020 9:04 AM CDT Radha Olson MD LAB - CHEMISTRY ABI MARES Performing Organization Address [facility] Co de Phone Number [facility] [phone] [place] [address] * VITAMIN B1 (12/17/2020 9:03 AM CDT) Pathologist [facility] Vitamin B1 Whole Blood 130 78 - 185 nmol/L [facility] Comment: Vitamin supplementation within 24 hours prior to blood draw may affect the accuracy of results. This test was developed and its analytical performance characteristics have been determined by [facility]. It has not been cleared or approved by the FDA. This assay has been validated pursuant to the CLIA regulations and is used for clinical purposes. REPORT COMMENT: FASTING:YES Test Performed at: [facility] [address] [address] DAVID CRAWFORD MD Blood BLOOD SPECIMEN / Unknown 12/17/2020 9:03 AM CDT 12/17/2020 9:04 AM CDT Radha Olson MD LAB - CHEMISTRY ABI MARES Performing Organization Address [facility] de Phone Number [facility] [phone] [place] [address] * ERYTHROCYTE SEDIMENTATION RATE (12/17/2020 9:03 AM CDT) [facility] Erythrocyte Sedimentation Rate Westergren 6 < OR = 30 mm/h [facility] Comment: Test Performed at: [facility] [address] [facility] [place] [address] NELSY POWERS DO,MPH Blood BLOOD SPECIMEN / Unknown 12/17/2020 9:03 AM CDT 12/17/2020 9:04 AM CDT Radha Olson MD LAB - HEMATOLOGY ESVIN YU Performing Organization Address [facility] [place] [address] * PROTEIN ELECTROPHORESIS BLOOD (12/17/2020 9:03 AM CDT) Protein Total 7.0 6.1 - 8.1 g/dL [facility] Albumin 4.1 3.8 - 4.8 g/dL [facility] Alpha-1 Globulin 0.2 0.2 - 0.3 g/dL [facility] Lbffc-3-Bvrbxyun 0.6 0.5 - 0.9 g/dL [facility] Beta-1 Globulin g/dL 0.4 0.4 - 0.6 g/dL [facility] Beta-2 Globulin 0.4 0.2 - 0.5 g/dL [facility] Gamma Globulin 1.2 0.8 - 1.7 g/dL [facility] Interpretation [facility] Comment: No restricted band (M-spike) seen. Test Performed at: [facility] [address] [place] [address] NELSY POWERS DO,MPH Blood BLOOD SPECIMEN / Unknown 12/17/2020 9:03 AM CDT 12/17/2020 9:04 AM CDT Radha Olson MD LAB - CHEMISTRY ABI MARES [facility] [address] [place] [address]
--- OUTSIDE RECORDS SUMMARY | 2024-07-10 16:47 | XMS_ITS | Referral Summary ---
Author Organization [facility] Address [address] [place] [address] Care Team Providers Care Resource Manager Forester Name Role Phone Josef Castro MD Primary [...] (06/16/2022): Added automatically from request for surgery [id number] Mixed hyperlipidemia 11/04/2020 Gastric perforation 09/10/2020 Assessment & Plan (09/30/2020 9:40 AM CDT): I will make a referral to 1 of the salmon gillnet vessel operator for an upper endoscopy. 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 Gender Identity Not on file Sexual Orientation [...] on file Medical Devices Implanted Type Area Band Log Mill And Carriage Operator Device Identifier Shelf Expiration Date Model / Serial / Lot Allosource 10cm Frozen Graft Bone Fibula Segment [id number] - [id number] - [id number] Implanted:Qty: 1 on 06/21/2022 by Destiny Mayorga MD at [facility] Bone Right: Humerus Allosource [id number] 01/14/2026 [id number] / [id number] / [id number] Synthes Lcp Combi Philos [id number] 3 Hole Shaft Lock Compression 241.901 - S0 - [id number] Implanted:Qty: 1 on 06/21/2022 by Destiny Mayorga MD at [facility] Plate Right: Humerus Synthes I 241.901 / 0 / Synthes 3.5mm 6mm 22mm 2.5mm Self Tap Small Hexagonal Socket Low Profile 204.822 - S0 - [id number] Implanted:Qty: 1 on 06/21/2022 by Destiny Mayorga MD at [facility] Screw Right: Humerus Synthes I 204.822 / 0 / Synthes 3.5mm 2.9mm 24mm Self Tap Lock Stardrive Conical Head Pelvis T15 212.108 - S0 - [id number] Implanted:Qty: 1 on 06/21/2022 by Destiny Mayorga MD at [facility] Screw Right: Humerus Synthes I 212.108 / 0 / Synthes 3.5mm 6mm 26mm 2.5mm Self Tap Small Hexagonal Socket Low Profile 204.826 - S0 - [id number] Implanted:Qty: 1 on 06/21/2022 by Destiny Mayorga MD at [facility] Screw Right: Humerus Synthes I 204.826 / 0 / Synthes 3.5mm 2.9mm 36mm Self Tap Lock Stardrive Conical Head T15 Full 212.115 - S0 - [id number] Implanted:Qty: 3 on 06/21/2022 by Destiny Mayorga MD at [facility] Screw Right: Humerus Synthes I 212.115 / 0 / Synthes 3.5mm 2.9mm 45mm Self Tap Lock Stardrive Conical Head T15 Full 212.119 - S0 - [id number] Implanted:Qty: 2 on 06/21/2022 by Destiny Mayorga MD at [facility] Screw Right: Humerus Synthes I 212.119 / 0 / Synthes 3.5mm 2.9mm 42mm Self Tap Lock Stardrive Conical Head Full Thread 212.118 - S0 - [id number] Implanted:Qty: 1 on 06/21/2022 by Destiny Mayorga MD at [facility] Screw Right: Humerus Synthes I 212.118 / 0 / Synthes 3.5mm 2.9mm 46mm Self Tap Lock Stardrive Conical Head T15 Full 212.136 - [id number] Implanted:Qty: 1 on 06/21/2022 by Destiny Mayorga MD at [facility] Screw Right: Humerus Synthes I 212.136 / / Synthes 3.5mm 2.9mm 44mm Self Tap Lock Stardrive Conical Head T15 Full 212.134 - S0 - [id number] Implanted:Qty: 1 on 06/21/2022 by Destiny Mayorga MD at [facility] Screw Right: Humerus Synthes I 212.134 / 0 / Synthes 3.5mm 2.9mm 48mm Self Tap Lock Fix Angle Low Profile Pelvis Full 212.120 - S0 - [id number] Implanted:Qty: 1 on 06/21/2022 by Destiny Mayorga MD at [facility] Screw Right: Humerus Synthes I 212.120 [...] last revised on 19. Testing performed by: [address] [address] Hep B core IgM Nonreactive Nonreactive Denis LEDESMA (DIMITRIS) Comment: Interpretive Data If HepB Core IgM Ab is reported as Equivocal, a new sample should be drawn in two weeks for testing. Current interpretive data was last revised on 19. Testing performed by: [address] [address] Hep C Ab Nonreactive Nonreactive [facility] [...] last revised on 2019. Testing performed by: [address] [place] [address] HepBsAg Nonreactive Nonreactive ALISSADONTRELL CALLIE (DIMITRIS) Comment:Testing performed by : [facility], [id number] [place] [address], [place]., [address] Blood specimen (specimen) 09/11/2020 5:18 AM CDT 09/11/2020 11:17 AM CDT us Allison Price MD LAB MICROBIOLOGY - GENERAL OR DERABLES Final Result JOESPH LEDESMA (DIMITRIS) [address] [facility] Department [place] [address] * COLONOSCOPY (01/20/2013 12:00 AM CDT) Anatomical Region Laterality Modality Other Narrative 01/20/2013 12:00 AM CDT Ordered by an unspecified provider. Procedure Note Provider, MD Edie - 01/20/2013 12:00 AM CDT PROCEDURE REPORT Patient: ZENAIDA ARREAGA Account: [id number] Room No: : 1970 Patient Type: [facility] Attend.: Tunde Miner M.D. Admit Date: [...] colon and terminal ileum. Tunde Miner M.D. /mars TD: 01/20/2013 08:48 CC: Josef Castro M.D. Authenticated by Tunde Miner MD On 01/20/2013 09:37:41 AM us Historical Provider ENDOSCOPY PROCEDURES Juliette l Result * Screening Mammogram (01/01/2013 8:11 AM CDT) Anatomical Region Laterality Modality Breast N/A Mammography 01/01/2013 8:11 AM CDT Narrative 01/01/2013 10:23 PM CDT Diag Mamm R Acc#: [id number] DATE OF EXAM: Jan 01 2013 Performed [...] Edie - 08/30/2016 Diag Mamm R Acc#: [id number] DATE OF EXAM: Jan 01 2013 Performed [...] interpretation of these images. This facility utilizes [employer] system to notify patients of yearly mammograms. [...] Most Recently Relevant to Health Maintenance Insurance [facility] Advance Directives For more information, please contact: [phone] * Full Code (Latest Code Status on File) Date Activated Date Inactivated Comments 02/21/2023 12:16 PM 02/21/2023 6:09 PM * Full Code Date Activated Date Inactivated Comments 09/10/2020 4:50 PM 09/17/2020 4:48 PM Care Teams Resource Manager Forester Relationship Specialty Start Date End Date Josef Castro MD [address] [address] PCP - General 11/04/20
--- OUTSIDE RECORDS SUMMARY | 2024-07-10 16:47 | XMS_ITS | Clinical Summary ---
Author Organization [facility] Address [address] [place] [address] Phone Care Team Providers Care Environmental Maintenance Worker Name Role Phone KIRSTEN LAMA DO Unavailable [phone] Reason for Visit and Chief Complaint The Chief Complaint is: sx started 05/01. Cough, sinus drainage down throat, fatigue, aches, headache, runny nose, The Chief Complaint is: Cough congestion runny nose chills and hot flashes Plan of Treatment - Clinical summary provided to patient - Last Documented On 05/08/2021 3:03PM ; [facility] - Plan of care reviewed and agreed to - Last Documented On 05/08/2021 3:03PM ; [facility] 1. Negative for COVID-19 today. 2. [...] - Last Documented On 05/08/2021 3:03PM ; [facility] Assessments Includes: Assessments from this encounter Findings - J15.9 - Unspecified bacterial pneumonia - Last Documented On 05/08/2021 3:03PM ; [facility] Medical Equipment - Implanted Devices Includes: Current Devices No Medical Equipment Recorded Medications Includes: Medications discussed during this encounter and other current Medications New / Renewed during this visit KVNG GRAMAJO-C on 05/08/2021 levoFLOXacin 500 MG Oral Tablet Provider: KVNG BARROSO 7 day supply: 7 tablet, 0 refills Diagnosis: Unspecified bacterial pneumonia One tablet daily Pharmacy: [id number], [id number] - Last Documented On 2 3:04PM By Kvng BARROSO ; [facility] Medications Administered Includes: Administered Medications from this encounter No Administered Medications Recorded Vital Signs Includes: Vital Signs from this encounter Vital Name 05/08/2021 02:33P Pulse Rate-Sitting (bpm) 91 Temp-Oral (F) 98.2 Oxygen Saturation (%) 97 Last Documented: On 05/08/2021 2:35PM ; [facility] Results Includes: Results discussed during this encounter Rapid COVID Test [facility] Ordered by KVNG BARROSO on 0 05/08/2021 Collected: Reported: 05/08/2021 14:45 Last Documented On 2 3:02PM ; [facility] Reviewed by KVNG BARROSO on 05/08/2021; All test results are final unless otherwise noted. Rapid COVId negativw N (Normal) Last Documented On 2 2:47PM ; [facility] Int. QC Acceptable yes N (Normal) Last Documented On 2 2:47PM ; [facility] Lot # and Exp. Date [id number] 08/07/21 N (Normal) Last Documented On 2 2:47PM ; [facility] History of Present Illness Includes: History [...] 05/08/2021 Last Documented On 2 3:03PM ; [facility] Smoking Status Unknown Procedures and Surgical History Includes: Procedures from this encounter Procedures Code Diagnosis Performing Provider Service L ocation Service Date review of medications documented 1160F Last Documented On 2 2:33PM ; [facility] Medical History Includes: Medical History addressed during this encounter Description Last Updated A fall 05/08/2021 Last Documented On 2 3:03PM ; [facility] Date COVID symptoms started: 04/2021 Last Documented On 2 3:03PM ; [facility] No Contact with and (Suspected) exposure to COVID-19 05/08/2021 Last Documented On 2 3:03PM ; [facility] Family History Includes: Family History addressed [...] Active Last Documented On 2 2:58PM ; [facility] Encounters Encounter Provider Location Date Check-In Time Check- Out Time Diagnosis COVID SICK VISIT- NEW PATIENT KVNG DOBBINS FIBERGLASS MACHINE OPERATOR-C [facility] 2 2:22PM 3:03PM Pneumonia Insurance Includes: Active Insurance Policies Plan Name Member ID Group # Subscriber Relationship Effect teresa Dates 1 - [facility] [id number] ZENAIDA ARREAGA Self Clinical Notes Includes: Clinical Notes from this encounter No Clinical Notes Recorded
--- OUTSIDE RECORDS SUMMARY | 2024-07-10 16:47 | XMS_ITS | Encounter Summary ---
Author Organization [facility] Address [address] [place] [address] Care Team Providers Care Release Specialist Name Role Phone Chirag Cordoba MD Primary Care Provider [phone] Encounter Details Date Type Department Care Team (Late st Contact Info) Description 05/16/2008 Outpatient Historical [facility] Er, Authorized P NO ADDRESS ON FILE Jorge Oliva [place] [facility] [place] [address] Social History Tobacco Use Types Packs/Day Years Used Date Smoking Tobacco: Never Assessed Comments Unknown Sex and Gender Information Value Date Recorded Sex Assigned at Not on file Legal Sex Female 5:41 AM TELEVISION MAINTENANCE WORKER Gender Identity Not on file Sexual Orientation Not on file documented as of this encounter Plan of Treatment Upcoming Encounters Date Type Department Care Team (Late st Contact Info) Description 07/15/2024 11:15 AM CDT Office Visit [facility]3] Oncology and Hematology - [place] [address] [facility] [address] [place] [address] Shmuel Bertrand MD [address] [facility] [address] [place] [address] documented as of this encounter Procedures Procedure Name Priority Date/Time Associated Diagnosis Comments US PELVIS + TRANSVAG NON OB Stat 05/16/2008 3:06 PM TELEVISION MAINTENANCE WORKER POC , URINE Routine 05/16/2008 2:59 PM TELEVISION MAINTENANCE WORKER POC URINALYSIS DIPSTICK NON AUTOMATED Routine 05/16/2008 2:59 PM TELEVISION MAINTENANCE WORKER CBC WITH DIFFERENTIAL Stat 05/16/2008 2:26 PM TELEVISION MAINTENANCE WORKER COMPREHENSIVE METABOLIC PANEL Stat 05/16/2008 2:26 PM TELEVISION MAINTENANCE WORKER documented in this encounter Results * US PELVIS + TRANSVAG NON OB (05/16/2008 3:06 PM TELEVISION MAINTENANCE WORKER) Anatomical Region Laterality Modality Pelvis Other 05/16/2008 3:06 PM TELEVISION MAINTENANCE WORKER Narrative 05/17/2008 7:19 AM TELEVISION MAINTENANCE WORKER [facility] [address] [place], [place] [address] Admit Date: 05/16/2008 ARREAGAZENAIDA Sex: F Admit Prov: ER, AUTHORIZED P Date: 1970 Primary Care Prov: CMRN: [id number] Room: ER-A SSN: [id number] IMAGING SERVICES Ordering Prov: N/A Accession Number: [id number] Interpretation ULTRASOUND OF PELVIS TRANSABDOMINAL AND TRANSVAGINAL [...] AMK Procedure Note Keiko Sewell - 05/17/2008 [facility] [address] [place], [place] [address] Admit Date: 05/16/2008 ZENAIDA ARREAGA Sex: F Admit Prov: EASTON LEONG Date:1970 Primary Care Prov: CMRN: [id number] Room: [facility] SSN: [id number] IMAGING SERVICES Ordering Prov: N/A Interpretation ULTRASOUND [...] URINALYSIS DIPSTICK NON AUTOMATED (05/16/2008 2:59 PM TELEVISION MAINTENANCE WORKER) UROBILINOGEN UA 1+ (1 mg/dL) <=1 mg/dL [facility] SPECIFIC GRAVITY UA 1.025 1.001 - 1.030 [facility] GLUCOSE UA Negative Negative [facility] COLOR UA Yellow [facility] LEUKOCYTE ESTERASE UA Negative Negative [facility] NITRITE UA Negative Negative [facility] BILIRUBIN UA 1+(A) Negative [facility] PH UA 5.0 5.0 - 8.0 [facility] KETONES UA 1+ (Small)(A) Negative [facility] CLARITY UA Clear [facility] BLOOD UA 1+(A) Negative [facility] PROTEIN UA Negative Negative [facility] Urine specimen (specimen) 05/16/2008 2:59 PM TELEVISION MAINTENANCE WORKER 05/16/2008 2:59 PM TELEVISION MAINTENANCE WORKER us Authorized P Er POINT OF CARE TESTING Final Resu lt Performing Organization Address [facility] de Phone Number INTERFACE SYSTEM Refer to clinic/hospital department [facility] CLIA# [id number] [address] [place] [address] * POC , URINE (05/16/2008 2:59 PM TELEVISION MAINTENANCE WORKER) , URINE POC Negative Negative [facility] SPECIFIC GRAVITY UA 1.025 1.001 - 1.035 [facility] Urine specimen (specimen) 05/16/2008 2:59 PM TELEVISION MAINTENANCE WORKER 05/16/2008 2:59 PM TELEVISION MAINTENANCE WORKER us Authorized P Er POINT OF CARE TESTING Final Resu lt Performing Organization Address City/[facility] de Phone Number INTERFACE SYSTEM Refer to clinic/hospital department [facility] CLIA# [id number] [address] [place] [address] * (ABNORMAL) CBC WITH DIFFERENTIAL (05/16/2008 2:26 PM TELEVISION MAINTENANCE WORKER) PLATELETS 222 140 - 350 K/uL [facility] HEMOGLOBIN 12.8 11.8 - 14.8 g/dL [facility] RDW 12.9 11.5 - 14.5 % [facility] WBC 4.7 4.0 - 9.8 K/uL [facility] MCH 30.0 27.2 - 32.6 pg [facility] MPV 8.7(L) 9.3 - 12.4 fL [facility] HEMATOCRIT 38.7 35.5 - 44.0 % [facility] RDW-STDEV 42.6 37.1 - 48.7 fL [facility] RBC 4.27 3.90 - 4.90 M/uL [facility] MCHC 33.1 31.5 - 35.5 % [facility] MCV 90.6 82.0 - 99.0 fL [facility] EOSINOPHILS 1 0 - 7 % [facility] EOSINOPHIL ABSOLUTE 0.06 0.00 - 0.70 K/uL [facility] LYMPHOCYTES 37 16 - 45 % [facility] LYMPHOCYTE ABSOLUTE 1.74 0.70 - 4.50 K/uL [facility] BASOPHILS 0 0 - 2 % [facility] BASOPHILS ABSOLUTE 0.02 0.00 - 0.20 K/uL [facility] MONOCYTES 11 3 - 13 % [facility] MONOCYTE ABSOLUTE 0.51 0.10 - 1.30 K/uL [facility] NEUTROPHILS 50 45 - 70 % [facility] NEUTROPHIL ABSOLUTE 2.35 1.90 - 7.00 K/uL [facility] Blood specimen (specimen) 05/16/2008 2:26 PM TELEVISION MAINTENANCE WORKER 05/16/2008 2:36 PM TELEVISION MAINTENANCE WORKER us Authorized P Er HEMATOLOGY ORDERABLES Edited INTERFACE SYSTEM Refer to clinic/hospital department [facility] CLIA# [id number] [address] [place] [address] * (ABNORMAL) COMPREHENSIVE METABOLIC PANEL (05/16/2008 2:26 PM TELEVISION MAINTENANCE WORKER) ALKALINE PHOSPHATASE 30(L) 35 - 104 U/L [facility] BILIRUBIN TOTAL 0.7 0.2 - 1.0 mg/dL [facility] CO2 24 22 - 30 mmol/L [facility] TOTAL PROTEIN 6.6 6.3 - 8.6 g/dL [facility] POTASSIUM 3.6 3.5 - 4.9 mmol/L [facility] GLUCOSE 100(H) 65 - 99 mg/dL [facility] AST 16 12 - 32 U/L [facility] BUN 8 6 - 20 mg/dL [facility] CALCIUM 8.7 8.6 - 10.2 mg/dL [facility] CHLORIDE 105 96 - 108 mmol/L [facility] ALBUMIN 4.0 3.4 - 4.8 g/dL [facility] CREATININE 0.69 0.51 - 0.95 mg/dL [facility] SODIUM 138 135 - 145 mmol/L [facility] ALT 9 0 - 31 U/L [facility] GFR, >60 >=60 mL/min/1. 7 sq meter [facility] GFR >60 >=60 mL/min/1. 7 sq meter [facility] Comment: Modification of Diet in Renal Disease (MDRD) study formula. Estimated GFR rate interpretative information for both Americans and non- Americans is available on the [facility] Intranet at: [email or web address]-minded[email or web address] Select: Lab Policies and Procedures Select: Reference Ranges - GFR Blood specimen (specimen) 05/16/2008 2:26 PM TELEVISION MAINTENANCE WORKER 05/16/2008 2:36 PM TELEVISION MAINTENANCE WORKER us Authorized P Er CHEMISTRY ORDERABLES Edited INTERFACE SYSTEM Refer to clinic/hospital department [facility] CLIA# [id number] [address] [place] [address] documented in this encounter Visit Diagnoses Not on filedocumented in this encounter Care Teams Release Specialist Relationship Specialty Start Date End Date Chirag Cordoba MD [address] [place] [id number] PCP - General Internal Medicine 10/19/22 documented as of this encounter
--- OUTSIDE RECORDS SUMMARY | 2024-07-10 16:47 | XMS_ITS | Clinical Summary ---
Author Organization [facility] Marisa blancas Julianna Address [address] [place] [address] Care Team Providers Care Ground Water Pump Installer Name Role Phone Chirag Cordoba MD Primary Care Provider [phone] Allergies Active Allergy Reactions Criticality Noted Date [...] Encounters Date Type Department Care Team Description 07/08/2024 External Device Data STL ABSTRACTION Provider, Abstract 06/24/2024 External Device Data STL ABSTRACTION Provider, Abstract 06/17/2024 Telephone [facility] Oncology and Hematology [facility] [address] [place] [address] Shmuel Bertrand MD Lab Authorization 06/17/2024 Abstract [facility] Oncology and Hematology [facility] [address] [place] [address] Shmuel Bertrand MD 06/13/2024 Telephone [facility] Oncology and Hematology [facility] [address] [place] [phone] Shmuel Bertrand MD lab work for appointment [...] on file Legal Sex Female 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 [place] [id number] PCP - General Internal Medicine 10/19/22
--- OUTSIDE RECORDS SUMMARY | 2024-07-10 16:47 | XMS_ITS | Patient Health Record ---
Author Organization [facility] Address [address] [place] [address] Care Team Providers Care Superintendent Oil Well Services Name Role Phone Adalid HARRY, Chirag Primary Care Provider Unav ailable ERIC PULP ROLLER, WILFREDO Unavailable ALLERGIES Allergen (clinical drug ingredient) Drug/Non Drug Allergy documented on EMR Reaction Allergy Type Onset Date Status ibuprofen Ibuprofen Unknown Drug Allergy Active REASON FOR REFERRAL No Information PLAN OF TREATMENT No Information Insurance Providers Payer Name Payer Address Payer Phone Subscriber Number Group Number Insured Name Patient Relationship to Insured Coverage Start Date Coverage End Date [address] [id number] Flavia Patrick Self - patient is the insured MEDICAL (GENERAL) HISTORY Medical History History ICD Code carpal tunnel hyperlipidemia anxiety
--- OUTSIDE RECORDS SUMMARY | 2024-07-10 16:47 | XMS_ITS ---
Care Plan - [facility] Created on: July 10, 2024 ZENAIDA ARREAGA : 1970 Sex: Female Author Organization [facility] Address [address] [place] [address] Phone Care Team Providers Care Buyer Internship Name Role Phone KIRSTEN LAMA DO Unavailable [phone]
--- OUTSIDE RECORDS SUMMARY | 2024-07-10 16:47 | XMS_ITS | Referral Summary ---
Author Organization [facility] Address [address] [place] [address] Care Team Providers Care Kiln Operator Helper Name Role Phone Unavailable Primary Care Provider Unavailabl e Source Comments [facility],non-owned Affiliates and Associated Physician Practices is amultiple site organization consisting of ambulatory clinics and hospital sitesin [place], [place], [place] and [place]. This disclosure is being madepursuant to the Care Everywhere program and may not contain all information available regarding this patient. Last updated 18.[facility] Audacious Allergies No known active allergies Medications * [...]
--- OUTSIDE RECORDS SUMMARY | 2024-07-10 16:47 | XMS_ITS | Clinical Summary ---
Author Organization [facility] Address [address] [place] [address] Care Team Providers Care Vp Ad Sales West Name Role Phone Unavailable Primary Care Provider Unavailabl e Source Comments [facility],non-owned Affiliates and Associated Physician Practices is amultiple site organization consisting of ambulatory clinics and hospital sitesin [place], [place], [place] and [place]. This disclosure is being madepursuant to the Care Everywhere program and may not contain all information available regarding this patient. Last updated 18.[facility] Ice Cream Allergies No known active allergies Medications * [...]
== END 2024-07-10 15:48 | disposition home or self-care (01) ==
LOC: ANHLAB 15:48
PROVIDERS: PCP Internal Medicine; Visit Provider Internal Medicine Hematology & Oncology
DX: E83.19 Other disorders of iron metabolism (principal)
CPT/HCPCS: 36415; 81256

== ENCOUNTER 2024-08-04 13:32 | Outpatient (CLI) | payer OTHER, SELFPAY ==
--- OUTSIDE RECORDS SUMMARY | 2024-08-04 14:50 | XMS_ITS | Clinical Summary ---
Author Organization [facility] Address [address] [place] [address] Care Team Providers Care Legal Word Processor Name Role Phone Unavailable Primary Care Provider Unavailabl e Source Comments [facility],non-owned Affiliates and Associated Physician Practices is amultiple site organization consisting of ambulatory clinics and hospital sitesin [place], [place], [place] and [place]. This disclosure is being madepursuant to the Care Everywhere program and may not contain all information available regarding this patient. Last updated 18.[facility] [employer] Allergies No known active allergies Medications * [...] to complete this topic MENINGOCOCCAL (Group B) VACC INE SHARED DECISION-MAKING Aged Out No longer eligibl e based on patient's age to complete this topic MENINGOCOCCAL GROUPS A/C/Y/W VACCINE Aged Out No longer eligible b ased on patient's age to complete this topic PNEUMOCOCCAL VACCINE Aged Out No long er eligible based on patient's age to complete this topic
--- OUTSIDE RECORDS SUMMARY | 2024-08-04 14:50 | XMS_ITS | Clinical Summary ---
Author Organization [facility] Marisa Nguyen Address [address] [place] [address] Care Team Providers Care Ear Mold Laboratory Technician Name Role Phone Chirag Cordoba MD Primary Care Provider [phone] Allergies Active Allergy Reactions Criticality Noted Date Comments Ibuprofen Hives High 10/19/2022 Medications ALPRAZolam (XANAX) 0.5 mg tablet Take 0.5 mg by mouth 2 times daily. 1 Active amitriptyline (ELAVIL) 10 mg tablet Take 30 mg by mouth. 1 Active multivitamin (DAILY-KAUSHIK) tablet Take 1 Tablet by mouth daily. Active CALCIUM CARBONATE-VITAM IN D3 ORAL Take by mouth. Active POTASSIUM CITRATE ORAL Take by mouth. Active ZINC SULFATE ORAL Take by mouth. Active anastrozole (ARIMIDEX) 1 mg tablet Take 1 Tablet (1 mg) by mouth daily. 90 Tablet 3 5 Active anastrozole (ARIMIDEX) 1 mg tablet Take 1 Tablet (1 mg) by mouth daily. 90 Tablet 3 4 08/05/19 25 Discontinu ed(Reorder ) Active Problems No known active problems Encounters Date Type Department Care Team Description 08/04/2024 1:00 PM CDT Office Visit [facility] Oncology and Hematology - [place] [address] [place] [address] Shmuel Bertrand MD Iron overload (Primary Dx); Malignant neoplasm of central portion of right breast in female, estrogen receptor positive (CMS/HCC) 07/23/2024 External Device Data STL ABSTRACTION Provider, Abstract 07/23/2024 Orders Only [facility] Oncology and Hematology - [place] [address] [place] [address] Shmuel Bertrand MD 07/15/2024 External Device Data STL ABSTRACTION Provider, Abstract 07/15/2024 External Device Data STL ABSTRACTION Provider, Abstract 07/12/2024 External Device Data STL ABSTRACTION Provider, Abstract 07/11/2024 External Device Data STL ABSTRACTION Provider, Abstract 07/08/2024 External Device Data STL ABSTRACTION Provider, Abstract 06/24/2024 External Device Data STL ABSTRACTION Provider, Abstract 06/17/2024 Telephone [facility] Oncology and Hematology [place] [address] [place] [address] Shmuel Bertrand MD Lab Authorization 06/17/2024 Abstract [facility] Oncology and Hematology [place] [address] [place] [address] Shmuel Bertrand MD 06/13/2024 Telephone [facility] Oncology and Hematology - [place] [address] [place] [address] Shmuel Bertrand MD lab work for appointment [...] on file Legal 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 Gender Identity Not on file Sexual Orientation Not on file Last Filed Vital Signs Vital Sign Reading Time Taken Comments Blood Pressure 133/82 08/04/2024 1:04 PM CDT Pulse 88 08/04/2024 1:04 PM CDT Temperature 36.3 C (97.3 F) 08/04/2024 1:04 PM CDT Respiratory Rate 15 08/04/2024 1:04 PM CDT Oxygen Saturation 98% 08/04/2024 1:04 PM CDT Inhaled Oxygen Concentration - - Weight 73.4 kg (161 lb 12.8 oz) 08/04/2024 1:04 PM CDT Height - - Body Mass Index - - Plan of Treatment Upcoming Encounters Date Type Department Care Team (Late st Contact Info) Description 08/13/2024 4:00 PM CDT Telephone Check Up [facility] Oncology [facility] Hematology [facility] [address] [place] [address] Shmuel Bertrand MD [email or web address] [place] [phone] 02/04/2025 11:45 AM CDT Office Visit [facility] Oncology and Hematology [facility] [address] [place] [address] Shmuel Bertrand MD [email or web address] [place] [phone] Health Maintenance Due Date Last Done Comments DTAP/TDAP/TD VACCINES (1 - Tdap) 1987 HEPATITIS B VACCINES (1 of 3 - 19+ 3-dose series) 02/05 Preventative Visit-Managed Medicaid 1987 HPV/Cotest (21-29) 1989 CERVICAL CANCER SCREENING 1998 HPV/Cotest (30-65) 1998 PAP SMEAR 1998 FIT-DNA Q 3 years 2013 FIT/FOBT Q 1 year 2013 Flex Sig/CT Colonography Q 5 years 2013 ZOSTER VACCINE (1 of 2) 2018 COLORECTAL SCREENING 01/20/2023 01/20/2013 Colorectal Cancer Screening 01/20/2023 INFLUENZA VACCINE (#1) 2023 Procedures Procedure Name Priority Date/Time Associated Diagnosis Comments CHG HEREDITARY HEMOCHROM GENE Routine 07/10/2024 3:38 PM MACHINE SET UP from Last 3 Months Results * CHG HEREDITARY HEMOCHROM GENE (07/10/2024 3:38 PM MACHINE SET UP) Shmuel Bertrand MD [facility] - LABORATORY Final Result from Last 3 Months Insurance [facility] MEDICAID Care Teams Ear Mold Laboratory Technician Relationship Specialty Start Date End Date Chirag Cordoba MD [address] [place] [address] PCP - General Internal Medicine 10/19/22
--- OUTSIDE RECORDS SUMMARY | 2024-08-04 14:50 | XMS_ITS | Patient Health Record ---
Author Organization [facility] Address [address] [place] [address] Care Team Providers Care Riprap Placer Name Role Phone Adalid HARRY, Chirag Primary Care Provider Unav ailable ERIC SALES COACH, WILFREDO Unavailable [phone] ALLERGIES Allergen (clinical drug ingredient) Drug/Non Drug Allergy documented on EMR Reaction Allergy Type Onset Date Status ibuprofen Ibuprofen Unknown Drug Allergy Active REASON FOR REFERRAL No Information PLAN OF TREATMENT No Information Insurance Providers Payer Name Payer Address Payer Phone Subscriber Number Group Number Insured Name Patient Relationship to Insured Coverage Start Date Coverage End Date [address] [id number] [phone] [id number] Flavia Patrick Self - patient is the insured MEDICAL (GENERAL) HISTORY Medical History History ICD Code carpal tunnel hyperlipidemia anxiety
--- OUTSIDE RECORDS SUMMARY | 2024-08-04 14:50 | XMS_ITS | Clinical Summary ---
Author Organization [facility] Medical Office Building A Address [address] [place] [address] Care Team Providers Care General Studies Program Chair Name Role Phone Josef Castro MD Primary [...] (06/16/2022): Added automatically from request for surgery [id number] Mixed hyperlipidemia 11/04/2020 Gastric perforation 09/10/2020 Assessment & Plan (09/30/2020 9:40 AM CDT): I will make a referral to 1 of the gold leaf gilder for an upper endoscopy. 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 Gender Identity Not on file Sexual Orientation [...] this topic Medical Devices Implanted Type [facility] Worker Device Identifier Shelf Expiration Date Model / Serial / Lot Allosource 10cm Frozen Graft Bone Fibula Segment [id number] - [id number] - [id number] Implanted:Qty: 1 on 06/21/2022 by Destiny Mayorga MD at [facility] Bone Right: Humerus Allosource [id number] 01/14/2026 [id number] / [id number] / [id number] Synthes Lcp Combi Philos [id number] 3 Hole Shaft Lock Compression 241.901 - S0 - [id number] Implanted:Qty: 1 on 06/21/2022 by Destiny Mayorga MD at [facility] Plate Right: Humerus Synthes I 241.901 / 0 / Synthes 3.5mm 6mm 22mm 2.5mm Self Tap Small Hexagonal Socket Low Profile 204.822 - S0 - [id number] Implanted:Qty: 1 on 06/21/2022 by Destiny Mayorga MD at [facility] Screw Right: Humerus Synthes I 204.822 / 0 / Synthes 3.5mm 2.9mm 24mm Self Tap Lock Stardrive Conical Head Pelvis T15 212.108 - S0 - [id number] Implanted:Qty: 1 on 06/21/2022 by Destiny Mayorga MD at [facility] Screw Right: Humerus Synthes I 212.108 / 0 / Synthes 3.5mm 6mm 26mm 2.5mm Self Tap Small Hexagonal Socket Low Profile 204.826 - S0 - [id number] Implanted:Qty: 1 on 06/21/2022 by Destiny Mayorga MD at [facility] Screw Right: Humerus Synthes I 204.826 / 0 / Synthes 3.5mm 2.9mm 36mm Self Tap Lock Stardrive Conical Head T15 Full 212.115 - S0 - [id number] Implanted:Qty: 3 on 06/21/2022 by Destiny Mayorga MD at [facility] Screw Right: Humerus Synthes I 212.115 / 0 / Synthes 3.5mm 2.9mm 45mm Self Tap Lock Stardrive Conical Head T15 Full 212.119 - S0 - [id number] Implanted:Qty: 2 on 06/21/2022 by Destiny Mayorga MD at [facility] Screw Right: Humerus Synthes I 212.119 / 0 / Synthes 3.5mm 2.9mm 42mm Self Tap Lock Stardrive Conical Head Full Thread 212.118 - S0 - [id number] Implanted:Qty: 1 on 06/21/2022 by Destiny Mayorga MD at [facility] Screw Right: Humerus Synthes I 212.118 / 0 / Synthes 3.5mm 2.9mm 46mm Self Tap Lock Stardrive Conical Head T15 Full 212.136 - [id number] Implanted:Qty: 1 on 06/21/2022 by Destiny Mayorga MD at [facility] Screw Right: Humerus Synthes I 212.136 / / Synthes 3.5mm 2.9mm 44mm Self Tap Lock Stardrive Conical Head T15 Full 212.134 - S0 - [id number] Implanted:Qty: 1 on 06/21/2022 by Destiny Mayorga MD at [facility] Screw Right: Humerus Synthes I 212.134 / 0 / Synthes 3.5mm 2.9mm 48mm Self Tap Lock Fix Angle Low Profile Pelvis Full 212.120 - S0 - [id number] Implanted:Qty: 1 on 06/21/2022 by Destiny Mayorga MD at [facility] Screw Right: Humerus Synthes I 212.120 [...] last revised on 19. Testing performed by: [address] [address] Hep B core IgM Nonreactive Nonreactive Deins LEDESMA (DIMITRIS) Comment: Interpretive Data If HepB Core IgM Ab is reported as Equivocal, a new sample should be drawn in two weeks for testing. Current interpretive data was last revised on 19. Testing performed by: [facility], [address] [place] [address]., [address] Hep C Ab Nonreactive Nonreactive JOESPH LEDESMA [...] last revised on 2019. Testing performed by: [facility], [address] [place] [address]., [address] HepBsAg Nonreactive Nonreactive JOESPH LEDESMA (DIMITRIS) Comment:Testing performed by : [address] [address] Blood specimen (specimen) 09/11/2020 5:18 AM CDT 09/11/2020 11:17 AM CDT us Allison Price MD LAB MICROBIOLOGY - GENERAL OR DERABLES Final Result JOESPH LEDESMA (DIMITRIS 1 [facility] Department [place] [address] * COLONOSCOPY (01/20/2013 12:00 AM CDT) Anatomical Region Laterality Modality Other Narrative 01/20/2013 12:00 AM CDT Ordered by an unspecified provider. Procedure Note Provider, MD Edie - 01/20/2013 12:00 AM CDT PROCEDURE REPORT Patient: ZENAIDA ARREAGA Account: [id number] Room No: : 1970 Patient Type: SDS [...] 10:23 PM CDT Dia Mamm R Acc#: [id number] DATE OF EXAM: Jan 01 2013 Performed [...] Edie - 08/30/2016 Diag Mamm R Acc#: [id number] DATE OF EXAM: Jan 01 2013 Performed [...] Most Recently Relevant to Health Maintenance Insurance [place] [address] [facility] Advance Directives For more information, please contact: [phone] * Full Code (Latest Code Status on File) Date Activated Date Inactivated Comments 02/21/2023 12:16 PM 02/21/2023 6:09 PM * Full Code Date Activated Date Inactivated Comments 09/10/2020 4:50 PM 09/17/2020 4:48 PM Care Teams General Studies Program Chair Relationship Specialty Start Date End Date Josef Castro MD [address] [address] PCP - General 11/04/20
--- OUTSIDE RECORDS SUMMARY | 2024-08-04 14:50 | XMS_ITS | Encounter Summary ---
Author Organization [facility] Address [address] [place] [address] Care Team Providers Care Machine Ii Engraver Name Role Phone Chirag Cordoba MD Primary Care Provider [phone] Reason for Visit * Reason Comments Follow Up Encounter Details Date Type Department Care Team (Late st Contact Info) Description 08/04/2024 1:00 PM CDT Office Visit [facility] Oncology and Hematology - [place] [address] [facility] [address] [place] [address] Shmuel Bertrand MD [address] [facility] [address] [place] [address] Iron overload (Primary Dx); Malignant neoplasm of central portion of right breast in female, estrogen receptor positive (CMS/HCC) Social History Tobacco Use Types Packs/Day Years Used Date Smoking Tobacco: Never Smokeless Tobacco: Never Tobacco Cessation:Counseling Given: Not Answered Alcohol Use Standard Drinks/Week Comments Yes 0 (1 standard drink = 0.6 oz pur e alcohol) occasional Comments Unknown Sex and Gender Information Value Date Recorded Sex Assigned at Not on file 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 Ki-67 8% status post needle biopsy of the right breast 7 o'clock position mass on January 18, 2023. 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 CURRENT TREATMENT Anastrozole 1 mg daily started in May 2023 TREATMENT HISTORY Status post bilateral mastectomy with the left prophylactic mastectomy done on March 27, 2023 and immediate reconstruction. SUBJECTIVE Patient came into the office for follow-up visit. She denies any chest pain and shortness of breath. Denies any new lumps bumps and lymphadenopathy. Weight and appetite stable. She has quit drinking 1 month ago. No other new complaint. Review of system Constitutional: Patient did not mention fevers, sweats, weight and appetite stable, denies any tiredness and fatigue HEENT: Patient did not mention sinus congestion, hearing or vision problems Respiratory: Patient did not mention cough, dyspnea, wheeze Cardiovascular: Patient did not mention chest pain, exertional chest pressure/discomfort, nausea, syncope, shortness of breath GI: Patient did not mention constipation, diarrhea, dsyphagia, reflux symptoms, vomiting, melena : Patient did not mention dysuria, frequency, incontinence, urgency Integumentary system: no lymphadenopathy, sweats, flushing Musculoskeletal: Patient not mention: myalgia, arthralgia Neurological: Patient did not mention blurry or disturbed vision, numbness/weakness, dizziness Skin: No lumps, bumps or rashes. 12 point review of system was reviewed Objective: Vital signs in last 24 hours: As per nursing note Exam: General appearance: alert, cooperative, no distress, appears stated age Head: normocephalic, without obvious abnormality, atraumatic Eyes: conjunctivae/corneas clear, EOM's intact Ears: normal external ear canals AU Nose: Nares normal. Septum midline. Mucosa normal. No drainage or sinus tenderness Throat: Lips, mucosa, and tongue normal. Teeth and gums normal Neck: supple, symmetrical, trachea midline. Lungs: clear to auscultation bilaterally Heart: regular rate and rhythm, S1, S2 normal, no murmur, click, rub or gallop Abdomen: soft, non-tender. Bowel sounds normal. No masses, No organomegaly Extremities: extremities normal, atraumatic, no cyanosis or edema Skin: Skin color, texture, turgor normal. No rashes or lesions Lymph nodes: No lymphadenopathy Neuro: No obvious focal deficit Bilateral breast examination showed postoperative and reconstructive changes without any masses lymphadenopathy. Exam as above PATH LABS Labs from January 27 showed creatinine 0.6 hemoglobin 13.3 platelet 82,000 WBC 4.5 CA 15-3 normalat 13 Labs from February 04 showed vitamin B12 585 iron 197 saturation 85% ferritin 309 @IMAGEIMP@ Assessment: Plan: There are no active problems to display for this patient. 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 Ki-67 8% status post needle biopsy of the right breast 7 o'clock position mass on January 18, 2023. Patient now had bilateral mastectomy with left prophylactic mastectomy done on March 27, 2023. Labs showed invasive ductal carcinoma 1.7 cm in the right breast, margins negative. 1 lymph node negative for metastatic carcinoma. Tempus next generation sequencing showed negative deleterious mutations. Patient refused to get any HER2/mac directed therapy. Patient started anastrozole in May 2023. There is no evidence of relapse of disease on my examination. I will see her back in 6 months with repeat labs. She will continue anastrozole that she has been tolerating well and will receive a refill today. 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 She has quit drinking wine just about a month ago. I will check iron studies today and we will callher next week to discuss possible phlebotomy based on the levels. Bone health. Continue vitamin D. 08/04/2024 Shmuel Bertrand MD documented in this encounter Plan of Treatment Upcoming Encounters Date Type Department Care Team (Late st Contact Info) Description 08/13/2024 4:00 PM CDT Telephone Check Up [facility] Oncology and Hematology [place] [address] [address] [place] [address] Shmuel Bertrand MD [address] [place] [address] 02/04/2025 11:45 AM CDT Office Visit [facility] Oncology and Hematology [facility] [address] [place] [address] Shmuel Bertrand MD [address] [facility] [address] [place] [address] Scheduled Orders Name Type Priority Associated Diagnoses Orde r Schedule CBC WITHOUT DIFFERENTIAL Lab Stat Iron overload Expected: 02/03/2025, Expires: 08/04/2025 COMPREHENSIVE METABOLIC PANEL Lab Stat Iron overload Expected: 02/03/2025, Expires: 08/04/2025 FERRITIN Lab Routine Iron overload Expected: 02/03/2025, Expires: 08/04/2025 IRON, TIBC, AND PERCENT SATURATION Lab Routine Iron overload Expected: 02/03/2025, Expires: 08/04/2025 CANCER ANTIGEN 15-3 Lab Routine Malignant neoplasm of central portion of right breast in female, estrogen receptor positive (CMS/HCC) Expected: 02/03/2025, Expires: 08/04/2025 FERRITIN Lab Routine Iron overload Expected: 08/04/2024, Expires: 08/04/2025 IRON, TIBC, AND PERCENT SATURATION Lab Routine Iron overload Expected: 08/04/2024, Expires: 08/04/2025 documented as of this encounter Visit Diagnoses Diagnosis Iron overload- Primary Other disorders of iron metabolism Malignant neoplasm of central portion of right breast in female, estrogen receptor positive (CMS/HCC) documented in this encounter Care Teams Machine Ii Engraver Relationship Specialty Start Date End Date Chirag Cordoba MD [facility] [facility] [place] [address] PCP - General Internal Medicine 10/19/22 documented as of this encounter
--- OUTSIDE RECORDS SUMMARY | 2024-08-04 14:50 | XMS_ITS | Referral Summary ---
Author Organization [facility] Medical Office Building A Address [address] [place] [address] Care Team Providers Care Strategy Manager Name Role Phone Josef Castro MD Primary [...] (06/16/2022): Added automatically from request for surgery [id number] Mixed hyperlipidemia 11/04/2020 Gastric perforation 09/10/2020 Assessment & Plan (09/30/2020 9:40 AM CDT): I will make a referral to 1 of the control systems designer for an upper endoscopy. 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 Gender Identity Not on file Sexual Orientation [...] on file Medical Devices Implanted Type Area Inventory Associate Device Identifier Shelf Expiration Date Model / Serial / Lot Allosource 10cm Frozen Graft Bone Fibula Segment [id number] - [id number] - [id number] Implanted:Qty: 1 on 06/21/2022 by Destiny Mayorga MD at [facility] Bone Right: Humerus Allosource [id number] 01/14/2026 [id number] / [id number] / [id number] Synthes Lcp Combi Philos 75p31p6.5mm 3 Hole Shaft Lock Compression 241.901 - S0 - [id number] Implanted:Qty: 1 on 06/21/2022 by Destiny Mayorga MD at [facility] Plate Right: Humerus Synthes I 241.901 / 0 / Synthes 3.5mm 6mm 22mm 2.5mm Self Tap Small Hexagonal Socket Low Profile 204.822 - S0 - [id number] Implanted:Qty: 1 on 06/21/2022 by Destiny Mayorga MD at [facility] Screw Right: Humerus Synthes I 204.822 / 0 / Synthes 3.5mm 2.9mm 24mm Self Tap Lock Stardrive Conical Head Pelvis T15 212.108 - S0 - [id number] Implanted:Qty: 1 on 06/21/2022 by Destiny Mayorga MD at [facility] Screw Right: Humerus Synthes I 212.108 / 0 / Synthes 3.5mm 6mm 26mm 2.5mm Self Tap Small Hexagonal Socket Low Profile 204.826 - S0 - [id number] Implanted:Qty: 1 on 06/21/2022 by Destiny Mayorga MD at [facility] Screw Right: Humerus Synthes I 204.826 / 0 / Synthes 3.5mm 2.9mm 36mm Self Tap Lock Stardrive Conical Head T15 Full 212.115 - S0 - [id number] Implanted:Qty: 3 on 06/21/2022 by Destiny Mayorga MD at [facility] Screw Right: Humerus Synthes I 212.115 / 0 / Synthes 3.5mm 2.9mm 45mm Self Tap Lock Stardrive Conical Head T15 Full 212.119 - S0 - [id number] Implanted:Qty: 2 on 06/21/2022 by Destiny Mayorga MD at [facility] Screw Right: Humerus Synthes I 212.119 / 0 / Synthes 3.5mm 2.9mm 42mm Self Tap Lock Stardrive Conical Head Full Thread 212.118 - S0 - [id number] Implanted:Qty: 1 on 06/21/2022 by Destiny Mayorga MD at [facility] Screw Right: Humerus Synthes I 212.118 / 0 / Synthes 3.5mm 2.9mm 46mm Self Tap Lock Stardrive Conical Head T15 Full 212.136 - [id number] Implanted:Qty: 1 on 06/21/2022 by Destiny Mayorga MD at [facility] Screw Right: Humerus Synthes I 212.136 / / Synthes 3.5mm 2.9mm 44mm Self Tap Lock Stardrive Conical Head T15 Full 212.134 - S0 - [id number] Implanted:Qty: 1 on 06/21/2022 by Destiny Mayorga MD at [facility] Screw Right: Humerus Synthes I 212.134 / 0 / Synthes 3.5mm 2.9mm 48mm Self Tap Lock Fix Angle Low Profile Pelvis Full 212.120 - S0 - [id number] Implanted:Qty: 1 on 06/21/2022 by Destiny Mayorga MD at [facility] Screw Right: Humerus Synthes I [...] last revised on 19. Testing performed by: [address] [address] Hep B core IgM Nonreactive Nonreactive Denis LEDESMA (DIMITRIS) Comment: Interpretive Data If HepB Core IgM Ab is reported as Equivocal, a new sample should be drawn in two weeks for testing. Current interpretive data was last revised on 19. Testing performed by: [address] [address] Hep C Ab Nonreactive Nonreactive JOESPH [facility] [...] last revised on 2019. Testing performed by: [address] [place] [address] HepBsAg Nonreactive Nonreactive ALISSADONTRELL CALLIE (DIMITRIS) Comment:Testing performed by : [facility], [address] [place] [address], [place]., [address] Blood specimen (specimen) 09/11/2020 5:18 AM CDT 09/11/2020 11:17 AM CDT us Allison Price MD LAB MICROBIOLOGY - GENERAL OR DERABLES Final Result JOESPH LEDESMA (DIMITRIS) 1 [facility] Department [place] [address] * COLONOSCOPY (01/20/2013 12:00 AM CDT) Anatomical Region Laterality Modality Other Narrative 01/20/2013 12:00 AM CDT Ordered by an unspecified provider. Procedure Note Provider, MD Edie - 01/20/2013 12:00 AM CDT PROCEDURE REPORT Patient: ZENAIDA ARREAGA Account: [id number] Room No: : 1970 Patient Type: [facility] Attend.: Tunde Miner M.D. Admit Date: 01/20/2013 [...] 10:23 PM CDT Diag Mamm R Acc#: [id number] DATE OF EXAM: Jan 01 2013 Performed [...] Edie - 08/30/2016 Diag Mamm R Acc#: [id number] DATE OF EXAM: Jan 01 2013 Performed [...] interpretation of these images. This facility utilizes [facility] system to notify patients of yearly mammograms. [...] Most Recently Relevant to Health Maintenance Insurance [facility] Advance Directives For more information, please contact: [phone] * Full Code (Latest Code Status on File) Date Activated Date Inactivated Comments 02/21/2023 12:16 PM 02/21/2023 6:09 PM * Full Code Date Activated Date Inactivated Comments 09/10/2020 4:50 PM 09/17/2020 4:48 PM Care Teams Strategy Manager Relationship Specialty Start Date End Date Josef Castro MD [address] [address] PCP - General 11/04/20
--- OUTSIDE RECORDS SUMMARY | 2024-08-04 14:50 | XMS_ITS | Encounter Summary ---
Author Organization [facility] Address [address] [place] [address] Care Team Providers Care Therapy Tech Name Role Phone Chirag Cordoba MD Primary Care Provider [phone] Encounter Details Date Type Department Care Team (Late st Contact Info) Description 05/16/2008 Outpatient Historical [facility] Er, Authorized P NO ADDRESS ON FILE Jorge Oliva MD [address] [place] [id number] Social History Tobacco Use Types Packs/Day Years Used Date Smoking Tobacco: Never Assessed Comments Unknown Sex and Gender Information Value Date Recorded Sex Assigned at Not on file Legal Sex Female 5:41 AM DISC JOCKEY Gender Identity Not on file Sexual Orientation Not on file documented as of this encounter Plan of Treatment Upcoming Encounters Date Type Department Care Team (Late st Contact Info) Description 08/13/2024 4:00 PM CDT Telephone Check Up [facility] Oncology and Hematology - [address] [place] [address] Shmuel Bertrand MD [address] [place] [phone] 02/04/2025 11:45 AM CDT Office Visit [facility] Oncology and Hematology - Edgardo [address] [place] [phone] Shmuel Bertrand MD [address] [place] [phone] documented as of this encounter Procedures Procedure Name Priority Date/Time Associated Diagnosis Comments US PELVIS + TRANSVAG NON OB Stat 05/16/2008 3:06 PM DISC JOCKEY POC , URINE Routine 05/16/2008 2:59 PM DISC JOCKEY POC URINALYSIS DIPSTICK NON AUTOMATED Routine 05/16/2008 2:59 PM DISC JOCKEY CBC WITH DIFFERENTIAL Stat 05/16/2008 2:26 PM DISC JOCKEY COMPREHENSIVE METABOLIC PANEL Stat 05/16/2008 2:26 PM DISC JOCKEY documented in this encounter Results * US PELVIS + TRANSVAG NON OB (05/16/2008 3:06 PM DISC JOCKEY) Anatomical Region Laterality Modality Pelvis Other 05/16/2008 3:06 PM DISC JOCKEY Narrative 05/17/2008 7:19 AM DISC JOCKEY [facility] [address], [place] [address] Admit Date: 05/16/2008 ALINE ARREAAGJAVIER Cheng Sex: F Admit Prov: EASTON LEONG Date: 1970 Primary Care Prov: CMRN: [id number] Room: [facility] SSN: [id number] IMAGING SERVICES Ordering Prov: N/A Accession Number: [id number] Interpretation ULTRASOUND OF PELVIS TRANSABDOMINAL AND TRANSVAGINAL [...] room at 1505 hours. . Dictated by: DAVID SEWELL 05/16/2008 15:04 Electronically signed by: DAVID SEWELL 05/17/2008 07:18 Transcribed: 05/16/2008 15:52 AMK Procedure Note David Sewell - 05/17/[address] [address] Admit Date: 05/16/2008 ZENAIDA ARREAGA Sex: F Admit Prov: ER, AUTHORIZED P Date:1970 Primary Care Prov: CMRN: [id number] [facility]: [id number] IM[facility]ING [facility] Ordering Prov: N/A Interpretation ULTRASOUND [...] URINALYSIS DIPSTICK NON AUTOMATED (05/16/2008 2:59 PM DISC JOCKEY) UROBILINOGEN UA 1+ (1 mg/dL) <=1 mg/dL [facility] SPECIFIC GRAVITY UA 1.025 1.001 - 1.030 [facility] GLUCOSE UA Negative Negative [facility] COLOR UA Yellow [facility] LEUKOCYTE ESTERASE UA Negative Negative [facility] NITRITE UA Negative Negative [facility] BILIRUBIN UA 1+(A) Negative [facility] PH UA 5.0 5.0 - 8.0 [facility] KETONES UA 1+ (Small)(A) Negative [facility] CLARITY UA Clear [facility] BLOOD UA 1+(A) Negative [facility] PROTEIN UA Negative Negative [facility] Urine specimen (specimen) 05/16/2008 2:59 PM DISC JOCKEY 05/16/2008 2:59 PM DISC JOCKEY us Authorized P Er POINT OF CARE TESTING Final Resu lt Performing Organization Address [facility] de Phone Number INTERFACE SYSTEM Refer to clinic/hospital department [facility] CLIA# [id number] [address] [place] [address] * POC , URINE (05/16/2008 2:59 PM DISC JOCKEY) , URINE POC Negative Negative [facility] SPECIFIC GRAVITY UA 1.025 1.001 - 1.035 [facility] Urine specimen (specimen) 05/16/2008 2:59 PM DISC JOCKEY 05/16/2008 2:59 PM DISC JOCKEY us Authorized P Er POINT OF CARE TESTING Final Resu lt Performing Organization Address City/[facility]/ZIP Co de Phone Number INTERFACE SYSTEM Refer to clinic/hospital department [facility] CLIA# [id number] [address] [place], [place] [address] * (ABNORMAL) CBC WITH DIFFERENTIAL (05/16/2008 2:26 PM DISC JOCKEY) PLATELETS 222 140 - 350 K/uL [facility] HEMOGLOBIN 12.8 11.8 - 14.8 g/dL [facility] RDW 12.9 11.5 - 14.5 % [facility] WBC 4.7 4.0 - 9.8 K/uL [facility] MCH 30.0 27.2 - 32.6 pg [facility] MPV 8.7(L) 9.3 - 12.4 fL [facility] HEMATOCRIT 38.7 35.5 - 44.0 % [facility] RDW-STDEV 42.6 37.1 - 48.7 fL [facility] RBC 4.27 3.90 - 4.90 M/uL [facility] MCHC 33.1 31.5 - 35.5 % [facility] MCV 90.6 82.0 - 99.0 fL [facility] EOSINOPHILS 1 0 - 7 % [facility] EOSINOPHIL ABSOLUTE 0.06 0.00 - 0.70 K/uL [facility] LYMPHOCYTES 37 16 - 45 % [facility] LYMPHOCYTE ABSOLUTE 1.74 0.70 - 4.50 K/uL [facility] BASOPHILS 0 0 - 2 % [facility] BASOPHILS ABSOLUTE 0.02 0.00 - 0.20 K/uL [facility] MONOCYTES 11 3 - 13 % [facility] MONOCYTE ABSOLUTE 0.51 0.10 - 1.30 K/uL [facility] NEUTROPHILS 50 45 - 70 % [facility] NEUTROPHIL ABSOLUTE 2.35 1.90 - 7.00 K/uL [facility] Blood specimen (specimen) 05/16/2008 2:26 PM DISC JOCKEY 05/16/2008 2:36 PM DISC JOCKEY us Authorized P Er HEMATOLOGY ORDERABLES Edited INTERFACE SYSTEM Refer to clinic/hospital department [facility] CLIA# [id number] [address] [place] [address] * (ABNORMAL) COMPREHENSIVE METABOLIC PANEL (05/16/2008 2:26 PM DISC JOCKEY) ALKALINE PHOSPHATASE 30(L) 35 - 104 U/L [facility] BILIRUBIN TOTAL 0.7 0.2 - 1.0 mg/dL [facility] CO2 24 22 - 30 mmol/L [facility] TOTAL PROTEIN 6.6 6.3 - 8.6 g/dL [facility] POTASSIUM 3.6 3.5 - 4.9 mmol/L [facility] GLUCOSE 100(H) 65 - 99 mg/dL [facility] AST 16 12 - 32 U/L [facility] BUN 8 6 - 20 mg/dL [facility] CALCIUM 8.7 8.6 - 10.2 mg/dL [facility] CHLORIDE 105 96 - 108 mmol/L [facility] ALBUMIN 4.0 3.4 - 4.8 g/dL [facility] CREATININE 0.69 0.51 - 0.95 mg/dL [facility] SODIUM 138 135 - 145 mmol/L [facility] ALT 9 0 - 31 U/L [facility] GFR, >60 >=60 mL/min/1. 7 sq meter [facility] GFR >60 >=60 mL/min/1. 7 sq meter [facility] Comment: Modification of Diet in Renal Disease (MDRD) study formula. Estimated GFR rate interpretative information for both Americans and non- Americans is available on the [facility] at: [email or web address] Select: Lab Policies and Procedures Select: Reference Ranges - GFR Blood specimen (specimen) 05/16/2008 2:26 PM DISC JOCKEY 05/16/2008 2:36 PM DISC JOCKEY us Authorized P Er CHEMISTRY ORDERABLES Edited INTERFACE SYSTEM Refer to clinic/hospital department [facility] CLIA# [id number] [address] [place] [address] documented in this encounter Visit Diagnoses Not on filedocumented in this encounter Care Teams Therapy Tech Relationship Specialty Start Date End Date Chirag Cordoba MD [facility] [place] [phone] PCP - General Internal Medicine 10/19/22 documented as of this encounter
[2024-08-04 14:55] LABS: Iron 107 ug/dL (37-170)
[2024-08-04 15:08] LABS: Percent Iron Saturation 45 % (20-50)
== END 2024-08-04 13:33 | disposition home or self-care (01) ==
LOC: ANHLAB 13:33
PROVIDERS: PCP Internal Medicine; Visit Provider Internal Medicine Hematology & Oncology
DX: E83.19 Other disorders of iron metabolism (principal)
CPT/HCPCS: 36415; 82728; 83540; 83550

== ENCOUNTER 2024-11-15 00:48 | Emergency (ER) | payer OTHER, SELFPAY ==
--- NOTE | ~2024-11-15 | XR_ITS ---
EXAMINATION: XR chest 1V portable DATE: 11/15/2024 01:24 INDICATION: Left rib pain TECHNIQUE: frontal view of the chest was obtained. COMPARISON: Chest radiograph dated 01/28/2024 FINDINGS: Decreased lung volumes. Bilateral breast implants projecting over the lower lungs. No pulmonary edema , pleural effusion or pneumothorax. Heart size is normal with prominent left paracardial fat pad. Raoul te and screw fixation at the proximal right humerus. IMPRESSION: 1. No acute cardiopulmonary disease. Reviewed, dictated and finalized at location A.
--- OUTSIDE RECORDS SUMMARY | 2024-11-15 00:51 | XMS_ITS | Data Portability ---
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 Does have a new partner since divorce ; await pap results. menopause relatively asymptomatic. needs a mammogram to assess rt breast more clearly with a ruptured implant. Should see platics. 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 Not available 10/07/2024 16:47:10 Plan of Treatment Reminders Order Date Submit Date Provider Last Modified By Organization Details Last Modified Time Details Appointments None recorded. Lab cytology report, thin prep, smear or scraping, cervical or vaginal 2024 025 [facility], [address], [address], [place], [address], 5 11:22:03 cytology report, thin prep, smear or scraping, cervical or vaginal 2020 021 [facility], [address], [address], [place], [address], 07:14:00 Referral None recorded. Procedures None recorded. Surgeries None recorded. Imaging MAMMO, screening, digital, bilateral 2024 025 [email or web address] [facility] Scheduling, [address] [place], [address], 5 14:14:26 MAMMO, screening, digital, bilateral 2020 021 [email or web address] Erwin[facility] (Radiology), [address] [place], [address], 1 16:52:03 Medication Orders None recorded. Patient TargetsNo targets recorded. Patient Instructions Encounter Date Encounter Id Patient Instructions Last Modified By Organization Details Last Modified Time 11/15/2020 [id number] learning about breast cancer screening Not available 11/15/2020 16:51:58 10/07/2024 [id number] mammogram: about this test [email or web address] Not available 10/07/2024 16:28:18 A healthy lifestyle: care instructions Not available 10/07/2024 16:28:18 Reason for Referral None Reported. Results Created Date Observation Date Name Description Value Unit Range Abnormal Flag Note LastModifiedBy Organization Detail LastModifiedTime 11/16/1911/17/2020 IGP, RFX APTIM A HPV ASCU diagnosis: Commen t NEGAT SLIME FOR INTRA EPITH ELIAL LESIO N OR ANAHI REILLY . REACT SLIME CELLU LAR FERNANDES ES AND/O R REPAI R ARE PRESE NT. Not Available [facility] ([facility]) [address], [place], [address], 11/18/2020 07:14:00 11/16/19 21 11/17/2020 IGP, RFX APTIM A HPV ASCU specimen adequacy: Commen t Satis facto ry for evalu ation . Endoc ervic al and/o r squam ous metap lasti c cells (endo cervi billy compo nent) are prese nt. Not Available [facility] ([facility]) [address], [place], [address], 11/18/2020 07:14:00 11/16/19 21 11/17/2020 IGP, RFX APTIM A HPV ASCU clinician provided ICD10: Anitra giraldo Z01.4 19 Not Available [facility] ([facility]) [address] [place], [address], 11/18/2020 07:14:00 11/16/19 21 11/17/2020 IGP, RFX APTIM A HPV ASCU performed by: Anitra Delong eh, Cytot meagan guzman t (ASCP ) Not Available [facility] ([facility]) [address] [place], [address], 11/18/2020 07:14:00 11/16/19 21 11/17/2020 IGP, RFX APTIM A HPV ASCU electronical ly signed by: Anitra Elder MD, Patho logis t Not Available [facility] ([facility]) [address] [place], [address], 11/18/2020 07:14:00 11/16/19 21 11/17/2020 IGP, RFX APTIM A HPV ASCU . . Not Available [facility] ([facility]) [address] [place], [address], 11/18/2020 07:14:00 11/16/1911/17/2020 IGP, RFX APTIM A HPV ASCU note: Anitra giraldo The Pap smear is a scree kari test desig lisseth to aid in the detec tion of ivonne ligna nt and malig nant condi tions of the uteri ne cervi x. It is not a diagn ostic proce dure and shoul d not be used as the sole means of detec ting cervi billy cance r. Both false -posi tive and false -nega tive repor ts do occur . Not Available [facility] ([facility]) [address] [place], [address], 11/18/2020 07:14:00 11/16/19 21 11/17/2020 IGP, RFX APTIM A HPV ASCU test methodology: Commen t This liqui d based ThinP rep(R ) pap test was flakito montanez with the use of an image guide tonja bird. Not Available [facility] ([facility]) [address], [place], [address], 11/18/2020 07:14:00 11/16/19 21 11/17/2020 IGP, RFX APTIM A HPV ASCU . Commen t The HPV DNA refle x crite leroy were not met with this speci men resul t there fore, no HPV testi ng was perfo rmed. Not Available [facility] ([facility]) [address], [place], [address], 11/18/2020 07:14:00 10/08/19 25 10/09/2024 IGP, RFX APTIM A HPV ASCU diagnosis: COMMEN T NEGAT SLIME FOR INTRA EPITH ELIAL LESIO N OR ANAHI REILLY . Not Available [facility] ([facility]) [address], [place], [address], 10/09/2024 11:22:03 10/08/19 25 10/09/2024 IGP, RFX APTIM A HPV ASCU specimen adequacy: COMMEN T Satis facto ry for evalu ation . No endoc ervic al compo nent is ident ified . Not Available [facility] ([facility]) [address], [place], [address], 10/09/2024 11:22:03 10/08/19 25 10/09/2024 IGP, RFX APTIM A HPV ASCU clinician provided ICD10: ANITRA T Z01.4 19 Not Available [facility] ([facility]) [address] [place], [address], 10/09/2024 11:22:03 10/08/19 25 10/09/2024 IGP, RFX APTIM A HPV ASCU performed by: ANITRA sierra Cytol ogsoheila (ASCP ) Not Available [facility] ([facility]) [address] [place], [address], 10/09/2024 11:22:03 10/08/19 25 10/09/2024 IGP, RFX APTIM A HPV ASCU . . Not Available [facility] ([facility]) [address] [place], [address], 10/09/2024 11:22:03 10/08/19 25 10/09/2024 IGP, RFX APTIM A HPV ASCU note: ANITRA Giraldo The Pap smear is a scree kari test desig lisseth to aid in the detec tion of ivonne ligna nt and malig nant condi tions of the uteri ne cervi x. It is not a diagn ostic proce dure and shoul d not be used as the sole means of detec ting cervi billy cance r. Both false -posi tive and false -nega tive repor ts do occur . Not Available [facility] ([facility]) [address] [place], [address], 10/09/2024 11:22:03 10/08/19 25 10/09/2024 IGP, RFX APTIM A HPV ASCU test methodology: ANITRA Giraldo This liqui d based ThinP rep(R ) pap test was scree lisseth with the use of an image guide d syste m. Not Available [facility] ([facility]) [address] [place], [address], 10/09/2024 11:22:03 10/08/19 25 10/09/2024 IGP, RFX APTIM A HPV ASCU . ANITRA Giraldo The HPV DNA refle x crite leroy were not met with this speci men resul t there fore, no HPV testi ng was perfo rmed. Not Available [facility] ([facility]) [address], [place], [address], 10/09/2024 11:22:03 Result Notes None recorded. Problems Name Problem SNOMED Code Status Onset Date Resolution Date Notes Provider Name and Address Organization Details Recorded Time Hypertensive disorder 97129575 Active 2020 JEET Philip [facility] 16:44:59 Problem Notes None recorded. Procedures Surgical History Date Name Laterality Status Provider Name and Address Organization Details Recorded Time 10/08/19 25 Date of Last Pap Smear completed Daysi Gates RN [facility] 10/09/2024 11:24:42 exploratory laparotomy completed JEET Philip [facility] 11/15/2020 16:50:28 Imaging Results None recorded. Procedure Notes None recorded. Medical Equipment None Reported. Allergies Allergen ID Allergen Name Allergen Category Reaction Reaction Severity Criticality Documentation Date Start Date Code Code System Note Provider Name and Address Organization Details Recorded Time 276546 ibuprofen medicatio n Not available Not available Not available 11/15/2020 5640 RxNorm JEET Philip, [facility] 16:44:31 Medications Name Sig Start Date Stop Date Status Note LastModified by Organization Details LastModified Time anastrozole 1 mg tablet active Not Available Not Available Not Available azithromyci n 250 mg tablet TAKE 2 TABLETS BY MOUTH ON DAY 1 AND THEN TAKE 1 TABLET BY MOUTH ONCE A DAY ON DAY 2 THROUGH DAY 5 11/15 completed Not Available Not Available Not Available alprazolam 0.5 mg tablet active Not Available Not Available Not Available amitriptyli ne 10 mg tablet active Not Available Not Available Not Available benzonatate 100 mg capsule TAKE 1 CAPSULE BY MOUTH EVERY 8 HOURS NEEDED FOR COUGH AND CONGESTIO N 11/15 completed Not Available Not Available Not Available pantoprazol e 40 mg tablet,sherron yed release TAKE 1 TABLET BY MOUTH EVERY 12 HOURS active Not Available Not Available No t Available FML Forte 0.25 % eye drops,suspe nsion INSTILL ONE DROP INTO BOTH EYES DAILY BEFORE SLEEPING active Not Available Not Available No t Available gabapentin 300 mg capsule TAKE 1 CAPSULE BY MOUTH AT BEDTIME FOR NERVE PAIN active Not Available Not Available No t Available amoxicillin 875 mg-potassishawna pelon clavulanate 125 mg tablet TAKE 1 TABLET BY MOUTH TWICE DAILY 11/15 completed Not Available Not Available Not Available quetiapine 50 mg tablet TAKE 1 2 TO 1 (ONE HALF TO ONE) TABLET BY MOUTH ONCE DAILY AT BEDTIME 11/15 completed Not Available Not Available Not Available Vitals Date Recorded Body height Body mass index (BMI) Body weight Systolic And Diastolic Provider Name and Address Organization Details Last Updated DateTime 10/07/2024 165.1 cm 26.5 kg/m2 43426.47 g 126/83 mm[Hg] JEET Philip [facility] 10/07/2024 16:23:16 Date Recorded Body height Body mass index (BMI) Body weight Systolic And Diastolic Provider Name and Address Organization Details Last Updated DateTime 11/15/2020 165.1 cm 26 kg/m2 56808.7 g 110/72 mm[Hg] JEET Philip [facility] 11/15/2020 16:44:02 Social History Question Answer Notes LastModified by Organizat ion Details LastModified Time Tobacco Smoking Status Never Smoker JEET Philip [facility] 11/15/2020 16:51:21 Do You Have An Advance Directive? No Information n ot available 11/15/2020 Is Blood Transfusion Acceptable In An Emergency? Yes Information not available 11/15/2020 In The 14 Days Before Symptom Onset, Have You Had Close Contact With A Laboratory-confirm ed COVID-19 While That Case Was Ill? No Information n ot available 11/15/2020 In The 14 Days Before Symptom Onset, Have You Had Close Contact With A Person Who Is Under Investigation For COVID-19 While That Person Was Ill? No Information not available 11/15/2020 Have You Been To An Area Known To Be High Risk For COVID-19? No Information not available 11/15/2020 What Was The Date Of Your Most Recent Tobacco Screening? 10/07/2024 Information not available 10/07/2024 How Many Children Do You Have? 1 Information not available 11/15/2020 Has Tobacco Cessation Counseling Been Provided? No Information not available 11/15/2020 Sex: Female Functional Status Question Answer Note LastModified by Organizat ion Details LastModified Time Do you use any illicit or recreational drugs? No Information not available 11/15/2020 Do you or have you ever used any other forms of tobacco or nicotine? No Information not available 11/15/2020 What is your level of alcohol consumption? None Information not available 11/15/2020 Mental Status None recorded. Family History Relationship Description Onset Age of this Age Resolved Age Notes LastModified by Organization Details LastModified Time Mother Hypertensive disorder cgracema Not available 2020 16:46:45 Mother Malignant neoplastic disease Abdomi n cgracema Not available 11/15/2020 16:49:12 Sister Malignant tumor of breast cgracema Not available 2020 16:50:48 Medical History Condition Response Other N High Blood Pressure Y Breast Cancer N Thyroid Problems N Kidney or Bladder Problems N Lung Disease N Depression N Blood Clots N GI Problems N Acne N Breast Problem N Eating Disorder N Anemia N Anesthesia Complications N Headaches/Migraines N Ovarian Cancer N Diabetes N Anxiety Disorder N Muscle, Joint, or Bone Problems N Blood Transfusions N Seizures/Epilepsy N Polyps N Infertility N Acid Reflux (GERD) N Cancer N Abuse/Domestic Violence N Asthma N Endometriosis N High Cholesterol N Hepatitis N Liver Disease N Heart Disease N Pre-Eclampsia N Osteoporosis N Gynecological History Statement/Question Response If Post Menopausal, Age at Menopause 48 Menses Monthly N STIs/STDs N HPV Vaccine N Date of Last Pap Smear 10/07/2024 Sexual Problems? N Age at Menarche 12 Current Control Method Menopause LMP Unknown Obstetrics History GPAL:G 3 P 2 0 1 2 Type Value Full Term 2 Induced 1 Living 2 Total 3 Immunizations Vaccine Type Date Status Note Provider Nam e and Address Organization Details Recorded Time COVID-19 vaccine, vector-nr, rS-Ad26, PF, 0.5 mL 09/15/2021 completed Not Available [facility] 16:14:54 Past Encounters Encounter ID Performer Location Encounter Start Date Encounter Closed Date Diagnosis/Indication Diagnosis SNOMED-CT Code Diagnosis ICD10 Code Diagnosis Note [id number] MD Guille Paige 14 [address] [facility] [address] [place] [address] 11/15/2020 16:29:13 11/16/2020 08:11:09 Gynecologic examination 40294675 Z01.419 Screening for malignant neoplasm of breast 518724161 Z12.39 [id number] Deborah Sloan MD Erwinna 14 OB [address] [facility] [place] [address] 10/07/2024 16:05:32 10/08/2024 16:13:59 Depression screening positive 0398897817 23374 Z13.31 Overweight 452736844 E66 .3 Gynecologi c examination 51425077 Z01.419 Screening mammography 24 042406 Z12.31 Malignant tumor of breast 700811742 C50.919 Health Concerns Section Related Observation LastModified by Organization Detai ls LastModified Time None Recorded Concern Status LastModified by Organization Details LastModified Time None Recorded Advance Directives Directive N: Payers Insurance Date Sequence Insurance Name Policy Number Policy Almeida Covered Member ID Almeida Member ID Guarantor Name 10/09/2024 1 [facility] ON OR AFTER 11/04/20 (MEDICAID REPLACEMENT - HMO) Flavia Patrick [id number] Flavia Patrick 10/09/2024 1 [facility] PRIOR TO 11/04/2020 (MEDICAID REPLACEMENT - HMO) Flavia Patrick [id number] Flavia Patrick 10/09/2024 1 [place] [facility] [facility] [employer] Flavia Patrick [id number] Flavia Patrick 08/19/2019 1 *SELF PAY* Poonam Patrick 10/09/2024 1 [facility] (MEDICAID HMO) [id number] Flavia Patrick [id number] Flavia Patrick Notes Date Note Type Note Provider Name and Address Organization Details Recorded Time 11/15/2020 text/html 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 ( unclear how long...) Menopausal. 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 Difficult history involving a stomach tear and COVID hospitalization. 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 bypatient.Menopausal Symptoms:no menopausal symptoms; normal vaginal lubrication Vaginal Bleeding:history of menopause having occurred; no history of post menopausal bleeding Urinary Symptoms:no hematuria; no incontinence; no nocturia; no urinary frequency Vulva:no genital lesion; no vulvar atrophy Vagina:normal vaginal discharge; no vaginal atrophy Breast:no breast lump; no nipple discharge; no breast pain Sexual Complaints:no sexual complaints Psychological Symptoms:no depression; no anxiety Over 4 years since last visit In 2022 she was attacked by a cat and was mauled enough that she needed a CT scan, when 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 ( SHe told me I should have been doing those mammograms you gave me) Eventually had a bilateral mastectomy with reconstruction Also fractured her shoulder falling on ice in 2022 relatively asymptomatic menopause. was not on tamoxifen, has had no bleeding. Doesnt believe she had a breast/ovarian cancer gene Deborah Sloan MD Attn: [address] [place], [address], [facility] 10/07/2024 16:47:27 OBGyn Episode No OBEpisode recorded.
--- OUTSIDE RECORDS SUMMARY | 2024-11-15 00:51 | XMS_ITS | Encounter Summary ---
Author Organization [facility] Address [address] [place] [address] Care Team Providers Care Ground Operations Crew Member Name Role Phone Chirag Cordoba MD Primary Care Provider [phone] Encounter Details Date Type Department Care Team (Late st Contact Info) Description 05/16/2008 Outpatient Historical [facility] Er, Authorized P NO ADDRESS ON FILE Jorge Oliva MD [address] [place] [id number] Social History Tobacco Use Types Packs/Day Years Used Date Smoking Tobacco: Never Assessed Comments Unknown Sex and Gender Information Value Date Recorded Sex Assigned at Not on file Legal Sex Female 5:41 AM ELECTRONICS ENGINEERING MANAGER Gender Identity Not on file Sexual Orientation Not on file documented as of this encounter Plan of Treatment Upcoming Encounters Date Type Department Care Team (Late st Contact Info) Description 02/04/2025 11:45 AM CDT Office Visit [facility] Oncology and Hematology - Edgardo [address] [facility] [address] [place] [address] Shmuel Bertrand MD [address] [facility] [address] [place] [address] documented as of this encounter Procedures Procedure Name Priority Date/Time Associated Diagnosis Comments US PELVIS + TRANSVAG NON OB Stat 05/16/2008 3:06 PM ELECTRONICS ENGINEERING MANAGER POC , URINE Routine 05/16/2008 2:59 PM ELECTRONICS ENGINEERING MANAGER POC URINALYSIS DIPSTICK NON AUTOMATED Routine 05/16/2008 2:59 PM ELECTRONICS ENGINEERING MANAGER CBC WITH DIFFERENTIAL Stat 05/16/2008 2:26 PM ELECTRONICS ENGINEERING MANAGER COMPREHENSIVE METABOLIC PANEL Stat 05/16/2008 2:26 PM ELECTRONICS ENGINEERING MANAGER documented in this encounter Results * US PELVIS + TRANSVAG NON OB (05/16/2008 3:06 PM ELECTRONICS ENGINEERING MANAGER) Anatomical Region Laterality Modality Pelvis Other 05/16/2008 3:06 PM ELECTRONICS ENGINEERING MANAGER Narrative 05/17/2008 7:19 AM ELECTRONICS ENGINEERING MANAGER [facility] [address], [place] [address] Admit Date: 05/16/2008 ZENAIDA ARREAGA Sex: F Admit Prov: ER, AUTHORIZED P Date: 1970 Primary Care Prov: CMRN: [id number] Room: ER-A SSN: [id number] IMAGING SERVICES Ordering Prov: N/A Accession Number: [id number] Interpretation ULTRASOUND OF PELVIS TRANSABDOMINAL AND TRANSVAGINAL [...] AMK Procedure Note Keiko Sewell - 05/17/2008 [facility] [address], [place] [address] Admit Date: 05/16/2008 ZENAIDA ARREAGA Sex: F Admit Prov: EASTON LEONG Date:1970 Primary Care Prov: CMRN: [id number] Room: [facility] SSN: [id number] IMAGING SERVICES Ordering Prov: N/A Interpretation ULTRASOUND [...] URINALYSIS DIPSTICK NON AUTOMATED (05/16/2008 2:59 PM ELECTRONICS ENGINEERING MANAGER) UROBILINOGEN UA 1+ (1 mg/dL) <=1 mg/dL [facility] SPECIFIC GRAVITY UA 1.025 1.001 - 1.030 [facility] GLUCOSE UA Negative Negative [facility] COLOR UA Yellow [facility] LEUKOCYTE ESTERASE UA Negative Negative [facility] NITRITE UA Negative Negative [facility] BILIRUBIN UA 1+(A) Negative [facility] PH UA 5.0 5.0 - 8.0 [facility] KETONES UA 1+ (Small)(A) Negative [facility] CLARITY UA Clear [facility] BLOOD UA 1+(A) Negative [facility] PROTEIN UA Negative Negative [facility] Urine specimen (specimen) 05/16/2008 2:59 PM ELECTRONICS ENGINEERING MANAGER 05/16/2008 2:59 PM ELECTRONICS ENGINEERING MANAGER us Authorized P Er POINT OF CARE TESTING Final Resu lt Performing Organization Address [facility] de Phone Number INTERFACE SYSTEM Refer to clinic/hospital department [facility] CLIA# [id number] [address] [place] [address] * POC , URINE (05/16/2008 2:59 PM ELECTRONICS ENGINEERING MANAGER) , URINE POC Negative Negative [facility] SPECIFIC GRAVITY UA 1.025 1.001 - 1.035 [facility] Urine specimen (specimen) 05/16/2008 2:59 PM ELECTRONICS ENGINEERING MANAGER 05/16/2008 2:59 PM ELECTRONICS ENGINEERING MANAGER us Authorized P Er POINT OF CARE TESTING Final Resu lt Performing Organization Address [facility] de Phone Number INTERFACE SYSTEM Refer to clinic/hospital department [facility] CLIA# [id number] [address] [place] [address] * (ABNORMAL) CBC WITH DIFFERENTIAL (05/16/2008 2:26 PM ELECTRONICS ENGINEERING MANAGER) PLATELETS 222 140 - 350 K/uL [facility] HEMOGLOBIN 12.8 11.8 - 14.8 g/dL [facility] RDW 12.9 11.5 - 14.5 % [facility] WBC 4.7 4.0 - 9.8 K/uL [facility] MCH 30.0 27.2 - 32.6 pg [facility] MPV 8.7(L) 9.3 - 12.4 fL [facility] HEMATOCRIT 38.7 35.5 - 44.0 % [facility] RDW-STDEV 42.6 37.1 - 48.7 fL [facility] RBC 4.27 3.90 - 4.90 M/uL [facility] MCHC 33.1 31.5 - 35.5 % [facility] MCV 90.6 82.0 - 99.0 fL [facility] EOSINOPHILS 1 0 - 7 % [facility] EOSINOPHIL ABSOLUTE 0.06 0.00 - 0.70 K/uL [facility] LYMPHOCYTES 37 16 - 45 % [facility] LYMPHOCYTE ABSOLUTE 1.74 0.70 - 4.50 K/uL [facility] BASOPHILS 0 0 - 2 % [facility] BASOPHILS ABSOLUTE 0.02 0.00 - 0.20 K/uL [facility] MONOCYTES 11 3 - 13 % [facility] MONOCYTE ABSOLUTE 0.51 0.10 - 1.30 K/uL [facility] NEUTROPHILS 50 45 - 70 % [facility] NEUTROPHIL ABSOLUTE 2.35 1.90 - 7.00 K/uL [facility] Blood specimen (specimen) 05/16/2008 2:26 PM ELECTRONICS ENGINEERING MANAGER 05/16/2008 2:36 PM ELECTRONICS ENGINEERING MANAGER us Authorized P Er HEMATOLOGY ORDERABLES Edited INTERFACE SYSTEM Refer to clinic/hospital department [facility] CLIA# [id number] [address] [place] [address] * (ABNORMAL) COMPREHENSIVE METABOLIC PANEL (05/16/2008 2:26 PM ELECTRONICS ENGINEERING MANAGER) ALKALINE PHOSPHATASE 30(L) 35 - 104 U/L [facility] BILIRUBIN TOTAL 0.7 0.2 - 1.0 mg/dL [facility] CO2 24 22 - 30 mmol/L [facility] TOTAL PROTEIN 6.6 6.3 - 8.6 g/dL [facility] POTASSIUM 3.6 3.5 - 4.9 mmol/L [facility] GLUCOSE 100(H) 65 - 99 mg/dL [facility] AST 16 12 - 32 U/L [facility] BUN 8 6 - 20 mg/dL [facility] CALCIUM 8.7 8.6 - 10.2 mg/dL [facility] CHLORIDE 105 96 - 108 mmol/L [facility] ALBUMIN 4.0 3.4 - 4.8 g/dL [facility] CREATININE 0.69 0.51 - 0.95 mg/dL [facility] SODIUM 138 135 - 145 mmol/L [facility] ALT 9 0 - 31 U/L [facility] GFR, >60 >=60 mL/min/1. 7 sq meter [facility] GFR >60 >=60 mL/min/1. 7 sq meter [facility] Comment: Modification of Diet in Renal Disease (MDRD) study formula. Estimated GFR rate interpretative information for both Americans and non- Americans is available on the [facility] Intranet at: [email or web address] Select: Lab Policies and Procedures Select: Reference Ranges - GFR Blood specimen (specimen) 05/16/2008 2:26 PM ELECTRONICS ENGINEERING MANAGER 05/16/2008 2:36 PM ELECTRONICS ENGINEERING MANAGER us Authorized P Er CHEMISTRY ORDERABLES Edited INTERFACE SYSTEM Refer to clinic/hospital department [facility] CLIA# [id number] [address] [place] [address] documented in this encounter Visit Diagnoses Not on filedocumented in this encounter Care Teams Ground Operations Crew Member Relationship Specialty Start Date End Date Chirag Cordoba MD [facility] [facility] [place] [address] PCP - General Internal Medicine 10/19/22 documented as of this encounter
--- OUTSIDE RECORDS SUMMARY | 2024-11-15 00:51 | XMS_ITS | Clinical Summary ---
Author Organization [facility] Medical Office Building A Address [address] [place] [address] Care Team Providers Care Climate Change Risk Assessor Name Role Phone Josef Castro MD Primary [...] (06/16/2022): Added automatically from request for surgery [id number] Mixed hyperlipidemia 11/04/2020 Gastric perforation 09/10/2020 Assessment & Plan (09/30/2020 9:40 AM CDT): I will make a referral to 1 of the exercise science internship for an upper endoscopy. 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 Hx Other Medical 12/01/2012 ER [facility] [...] on file Legal Sex Female 11:24 AM WATER/WASTEWATER ENGINEER Gender Identity Not on file Sexual Orientation [...] 12:20 PM CDT Height 165.1 cm (5' 5) 02/21/2023 12:20 PM CDT Body Mass Index [...] ( season) 2024 09/15/2021 Influenza Vaccine (#1) 2025 Colon Cancer Screening-CT Colonography Discontinued 01/20/2013 Colon Cancer Screening-DNA Stool Discontinued 01/20/2013 Colon Cancer Screening-FIT Discontinued 01/20/2013 Colon Cancer Screening-Sigmoidoscopy Discontinued 01/20/2013 Hepatitis C Screening Completed 09/11/2020 Pneumococcal vaccine <65 Aged Out No longer eligible based on patient's age to complete this topic Medical Devices Implanted Type Area Moshgiach Device Identifier Shelf Expiration Date Model / Serial / Lot Allosource 10cm Frozen Graft Bone Fibula Segment [id number] - [id number] - [id number] Implanted:Qty: 1 on 06/21/2022 by Destiny Mayorga MD at [facility] Bone Right: Humerus Allosource [id number] 01/14/2026 [id number] / [id number] / [id number] Synthes Lcp Combi Philos [id number] 3 Hole Shaft Lock Compression 241.901 - S0 - [id number] Implanted:Qty: 1 on 06/21/2022 by Destiny Mayorga MD at [facility] Plate Right: Humerus Synthes I 241.901 / 0 / Synthes 3.5mm 6mm 22mm 2.5mm Self Tap Small Hexagonal Socket Low Profile 204.822 - S0 - [id number] Implanted:Qty: 1 on 06/21/2022 by Destiny Mayorga MD at [facility] Screw Right: Humerus Synthes I 204.822 / 0 / Synthes 3.5mm 2.9mm 24mm Self Tap Lock Stardrive Conical Head Pelvis T15 212.108 - S0 - [id number] Implanted:Qty: 1 on 06/21/2022 by Destiny Mayorga MD at [facility] Screw Right: Humerus Synthes I 212.108 / 0 / Synthes 3.5mm 6mm 26mm 2.5mm Self Tap Small Hexagonal Socket Low Profile 204.826 - S0 - [id number] Implanted:Qty: 1 on 06/21/2022 by Destiny Mayorga MD at [facility] Screw Right: Humerus Synthes I 204.826 / 0 / Synthes 3.5mm 2.9mm 36mm Self Tap Lock Stardrive Conical Head T15 Full 212.115 - S0 - [id number] Implanted:Qty: 3 on 06/21/2022 by Destiny Mayorga MD at [facility] Screw Right: Humerus Synthes I 212.115 / 0 / Synthes 3.5mm 2.9mm 45mm Self Tap Lock Stardrive Conical Head T15 Full 212.119 - S0 - [id number] Implanted:Qty: 2 on 06/21/2022 by Destiny Mayorga MD at [facility] Screw Right: Humerus Synthes I 212.119 / 0 / Synthes 3.5mm 2.9mm 42mm Self Tap Lock Stardrive Conical Head Full Thread 212.118 - S0 - [id number] Implanted:Qty: 1 on 06/21/2022 by Destiny Mayorga MD at [facility] Screw Right: Humerus Synthes I 212.118 / 0 / Synthes 3.5mm 2.9mm 46mm Self Tap Lock Stardrive Conical Head T15 Full 212.136 - [id number] Implanted:Qty: 1 on 06/21/2022 by Destiny Mayorga MD at [facility] Screw Right: Humerus Synthes I 212.136 / / Synthes 3.5mm 2.9mm 44mm Self Tap Lock Stardrive Conical Head T15 Full 212.134 - S0 - [id number] Implanted:Qty: 1 on 06/21/2022 by Destiny Mayorga MD at [facility] Screw Right: Humerus Synthes I 212.134 / 0 / Synthes 3.5mm 2.9mm 48mm Self Tap Lock Fix Angle Low Profile Pelvis Full 212.120 - S0 - [id number] Implanted:Qty: 1 on 06/21/2022 by Destiny Mayorga MD at [facility] Screw Right: Humerus Synthes I 212.120 / [...] last revised on 19. Testing performed by: [address] [address] Hep B core IgM Nonreactive Nonreactive Denis LEDESMA (DIMITRIS) Comment: Interpretive Data If HepB Core IgM Ab is reported as Equivocal, a new sample should be drawn in two weeks for testing. Current interpretive data was last revised on 19. Testing performed by: [facility], [address] [place] [address]., [address] Hep C Ab Nonreactive Nonreactive JOESPH LEDESMA [...] last revised on 2019. Testing performed by: [facility], [address] [place] [address]., [address] HepBsAg Nonreactive Nonreactive JOESPH LEDESMA (DIMITRIS) Comment:Testing performed by : [address] [address] Blood specimen (specimen) 09/11/2020 5:18 AM CDT 09/11/2020 11:17 AM CDT us Allison Price MD LAB MICROBIOLOGY - GENERAL OR DERABLES Final Result JOESPH LEDESMA (DIMITRIS 1 [facility] Department [place] [address] * COLONOSCOPY (01/20/2013 12:00 AM CDT) Anatomical Region Laterality Modality Other Narrative 01/20/2013 12:00 AM CDT Ordered by an unspecified provider. Procedure Note Provider, MD Edie - 01/20/2013 12:00 AM CDT PROCEDURE REPORT Patient: ZENAIDA ARREAGA Account: [id number] Room No: : 1970 Patient Type: SDS [...] 10:23 PM CDT Dia Mamm R Acc#: [id number] DATE OF EXAM: Jan 01 2013 Performed [...] Edie - 08/30/2016 Diag Mamm R Acc#: [id number] DATE OF EXAM: Jan 01 2013 Performed [...] Most Recently Relevant to Health Maintenance Insurance [address] [address] [facility] Advance Directives For more information, please contact: [phone] * Full Code (Latest Code Status on File) Date Activated Date Inactivated Comments 02/21/2023 12:16 PM 02/21/2023 6:09 PM * Full Code Date Activated Date Inactivated Comments 09/10/2020 4:50 PM 09/17/2020 4:48 PM Care Teams Climate Change Risk Assessor Relationship Specialty Start Date End Date Josef Castro MD [address] [place] [place] [address] PCP - General 11/04/20
--- OUTSIDE RECORDS SUMMARY | 2024-11-15 00:51 | XMS_ITS | Referral Summary ---
Author Organization [facility] Medical Office Building A Address [address] [place] [address] Care Team Providers Care Communications Electrician Supervisor Name Role Phone Josef Castro MD Primary [...] (06/16/2022): Added automatically from request for surgery [id number] Mixed hyperlipidemia 11/04/2020 Gastric perforation 09/10/2020 Assessment & Plan (09/30/2020 9:40 AM CDT): I will make a referral to 1 of the bond clerk for an upper endoscopy. 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 Gender Identity Not on file Sexual Orientation [...] on file Medical Devices Implanted Type Area Apprentice Instrument Technician Device Identifier Shelf Expiration Date Model / Serial / Lot Allosource 10cm Frozen Graft Bone Fibula Segment [id number] - [id number] - [id number] Implanted:Qty: 1 on 06/21/2022 by Destiny Mayorga MD at [facility] Bone Right: Humerus Allosource [id number] 01/14/2026 [id number] / [id number] / [id number] Synthes Lcp Combi Philos [id number] 3 Hole Shaft Lock Compression 241.901 - S0 - [id number] Implanted:Qty: 1 on 06/21/2022 by Destiny Mayorga MD at [facility] Plate Right: Humerus Synthes I 241.901 / 0 / Synthes 3.5mm 6mm 22mm 2.5mm Self Tap Small Hexagonal Socket Low Profile 204.822 - S0 - [id number] Implanted:Qty: 1 on 06/21/2022 by Destiny Mayorga MD at [facility] Screw Right: Humerus Synthes I 204.822 / 0 / Synthes 3.5mm 2.9mm 24mm Self Tap Lock Stardrive Conical Head Pelvis T15 212.108 - S0 - [id number] Implanted:Qty: 1 on 06/21/2022 by Destiny Mayorga MD at [facility] Screw Right: Humerus Synthes I 212.108 / 0 / Synthes 3.5mm 6mm 26mm 2.5mm Self Tap Small Hexagonal Socket Low Profile 204.826 - S0 - [id number] Implanted:Qty: 1 on 06/21/2022 by Destiny Mayorga MD at [facility] Screw Right: Humerus Synthes I 204.826 / 0 / Synthes 3.5mm 2.9mm 36mm Self Tap Lock Stardrive Conical Head T15 Full 212.115 - S0 - [id number] Implanted:Qty: 3 on 06/21/2022 by Destiny Mayorga MD at [facility] Screw Right: Humerus Synthes I 212.115 / 0 / Synthes 3.5mm 2.9mm 45mm Self Tap Lock Stardrive Conical Head T15 Full 212.119 - S0 - [id number] Implanted:Qty: 2 on 06/21/2022 by Destiny Mayorga MD at [facility] Screw Right: Humerus Synthes I 212.119 / 0 / Synthes 3.5mm 2.9mm 42mm Self Tap Lock Stardrive Conical Head Full Thread 212.118 - S0 - [id number] Implanted:Qty: 1 on 06/21/2022 by Destiny Mayorga MD at [facility] Screw Right: Humerus Synthes I 212.118 / 0 / Synthes 3.5mm 2.9mm 46mm Self Tap Lock Stardrive Conical Head T15 Full 212.136 - [id number] Implanted:Qty: 1 on 06/21/2022 by Destiny Mayorga MD at [facility] Screw Right: Humerus Synthes I 212.136 / / Synthes 3.5mm 2.9mm 44mm Self Tap Lock Stardrive Conical Head T15 Full 212.134 - S0 - [id number] Implanted:Qty: 1 on 06/21/2022 by Destiny Mayorga MD at [facility] Screw Right: Humerus Synthes I 212.134 / 0 / Synthes 3.5mm 2.9mm 48mm Self Tap Lock Fix Angle Low Profile Pelvis Full 212.120 - S0 - [id number] Implanted:Qty: 1 on 06/21/2022 by Destiny Mayorga MD at [facility] Screw Right: Humerus Synthes I 212.120 [...] last revised on 19. Testing performed by: [address] [address] Hep B core IgM Nonreactive Nonreactive Denis LEDESMA (DIMITRIS) Comment: Interpretive Data If HepB Core IgM Ab is reported as Equivocal, a new sample should be drawn in two weeks for testing. Current interpretive data was last revised on 19. Testing performed by: [address] [address] Hep C Ab Nonreactive Nonreactive [facility] [...] revised on 2019. Testing performed by: [address] [place]., [address] HepBsAg Nonreactive Nonreactive ALISSADONTRELL CALLIE (DIMITRIS) Comment:Testing performed by : [facility], [address] [place] [address], [place]., [address] Blood specimen (specimen) 09/11/2020 5:18 AM CDT 09/11/2020 11:17 AM CDT us Allison Price MD LAB MICROBIOLOGY - GENERAL OR DERABLES Final Result JOESPH LEDESMA (DIMITRIS) 1 [facility] Department [place] [address] * COLONOSCOPY (01/20/2013 12:00 AM CDT) Anatomical Region Laterality Modality Other Narrative 01/20/2013 12:00 AM CDT Ordered by an unspecified provider. Procedure Note Provider, MD Edie - 01/20/2013 12:00 AM CDT PROCEDURE REPORT Patient: ZENAIDA ARREAGA Account: [id number] Room No: : 1970 Patient Type: [facility] Attend.: Tunde Miner M.D. Admit Date: [...] 10:23 PM CDT Diag Mamm R Acc#: [id number] DATE OF EXAM: Jan 01 2013 Performed [...] Edie - 08/30/2016 Diag Mamm R Acc#: [id number] DATE OF EXAM: Jan 01 2013 Performed [...] interpretation of these images. This facility utilizes Glass system to notify patients of yearly mammograms. [...] Most Recently Relevant to Health Maintenance Insurance [facility] Advance Directives For more information, please contact: [phone] * Full Code (Latest Code Status on File) Date Activated Date Inactivated Comments 02/21/2023 12:16 PM 02/21/2023 6:09 PM * Full Code Date Activated Date Inactivated Comments 09/10/2020 4:50 PM 09/17/2020 4:48 PM Care Teams Communications Electrician Supervisor Relationship Specialty Start Date End Date Josef Castro MD [address] [address] PCP - General 11/04/20
--- OUTSIDE RECORDS SUMMARY | 2024-11-15 00:51 | XMS_ITS | Patient Health Record ---
Author Organization [facility] Address [address] [place] [address] Care Team Providers Care Gis Software Developer Name Role Phone Adalid HARRY, Chirag Primary Care Provider Unav ailable ERIC BALANCE WHEEL SCREW HOLE DRILLER, WILFREDO Unavailable [phone] Allergies Allergen (clinical drug ingredient) Drug/Non Drug Allergy documented on EMR Reaction Allergy Type Onset Date Status ibuprofen Ibuprofen Unknown Drug Allergy Active Reason For Referral No Information Plan Of Treatment No Information Insurance Providers Payer Name Payer Address Payer Phone Subscriber Number Group Number Insured Name Patient Relationship to Insured Coverage Start Date Coverage End Date [address] [id number] [phone] [id number] Flavia Patrick Self - patient is the insured Medical (General) History Medical History History ICD Code carpal tunnel hyperlipidemia anxiety
--- OUTSIDE RECORDS SUMMARY | 2024-11-15 00:51 | XMS_ITS | Clinical Summary ---
Author Organization [facility] Address [address] [place] [address] Care Team Providers Care Coil Winder Name Role Phone Unavailable Primary Care Provider Unavailabl e Source Comments [facility],non-owned Affiliates and Associated Physician Practices is amultiple site organization consisting of ambulatory clinics and hospital sitesin [place], [place], [place] and [place]. This disclosure is being madepursuant to the Care Everywhere program and may not contain all information available regarding this patient. Last updated 18.[facility] Allergies No known active allergies Medications * Be aware that medications may not be up to date on this document. Alwaysverify current medications with the patient. ALPRAZolam (XANAX) 0.5 MG tablet Take 0.5 mg by mouth 2 times daily 1 Active amoxicillin-cla vulanate (AUGMENTIN) 875-125 MG tablet Take 875 mg by mouth 2 times daily 0 Active atorvastatin (LIPITOR) 80 MG tablet 1 Active azithromycin (ZITHROMAX) 250 MG tablet TK 2 TS PO ON DAY 1, THEN TK 1 T PO D FOR 4 DAYS DIRECTED. TAKE WITH FOOD 1 Active benzonatate (TESSALON) 100 MG capsule TAKE 1 CAPSULE BY MOUTH EVERY 8 HOURS NEEDED FOR COUGH AND CONGESTION 0 Active cetirizine (ZYRTEC) 10 MG tablet Take 10 mg by mouth once daily 1 Active ciprofloxacin (CIPRO) 500 MG tablet 1 Active fenofibrate (TRICOR) 145 MG tablet 1 Active fluticasone propionate (FLONASE) 50 MCG/ACT nasal spray SHAKE LIQUID AND USE 1 SPRAY IN EACH NOSTRIL TWICE DAILY 1 Active gabapentin (NEURONTIN) 300 MG capsule Take 300 mg by mouth Active gabapentin (NEURONTIN) 300 MG capsule TAKE 1 CAPSULE BY MOUTH AT BEDTIME FOR NERVE PAIN. INCREASE TO 2 TIMES DAILY NEEDED 1 Active metroNIDAZOLE (FLAGYL) 500 MG tablet 1 Active ondansetron, disintegrating, (ZOFRAN ODT) 8 MG tablet DISSOLVE 1 TABLET ON THE TONGUE EVERY 8 HOURS 1 Active pantoprazole EC (PROTONIX) 40 MG tablet 1 Active QUEtiapine (SEROQUEL) 50 MG tablet TAKE 1 2 TO 1 (ONE HALF TO ONE) TABLET BY MOUTH ONCE DAILY AT BEDTIME 0 Active amitriptyline (ELAVIL) 10 MG tabletIndicatio ns:Neuropathy,N europathic pain Take 3 (three) tablets by mouth at bedtime 90 tablet 3 1 Active Active Problems No known active problems Social History Tobacco Use Types Packs/Day Years Used Date Smoking Tobacco: Never Assessed Comments Unknown Sex and Gender Information Value Date Recorded Sex Assigned at Not on file Legal Sex Female 4:11 AM ASSISTANT PROFESSOR SCULPTURE Gender Identity Not on file Sexual Orientation [...] - COLON CA SCREENING 1970 MAMMOGRAM 1970 HIV SCREENING 1983 HEPATITIS C SCREENING 02/27/1986 DTAP/TDAP/TD VACCINES (1 - Tdap) 1987 HEPATITIS B VACCINE (1 of 3 - 19+ 3-dose series) 1987 PAP SMEAR 1989 PNEUMOCOCCAL VACCINE 50+ (1 of 1 - PCV) 2018 ZOSTER VACCINE (1 of 2) 2018 COVID-19 VACCINE (1 - 2023-2 5 season) 2024 DEPRESSION SCREENING 05/07/2024 INFLUENZA VACCINE (#1) 2025 HIB VACCINE Aged Out No longer eligi [...] on patient's age to complete this topic Insurance [facility]
--- OUTSIDE RECORDS SUMMARY | 2024-11-15 00:51 | XMS_ITS | Clinical Summary ---
Author Organization [facility] Marisa blancas [facility] Address [address] [place] [address] [place] [address] Care Team Providers Care Comp Field Case Manager Name Role Phone Chirag Cordoba MD Primary Care Provider [phone] Allergies Active Allergy Reactions Criticality Noted Date Comments Ibuprofen Hives High 10/19/2022 Medications ALPRAZolam (XANAX) 0.5 mg tablet Take 0.5 mg by mouth 2 times daily. 10/25/2020 Active amitriptyline (ELAVIL) 10 mg tablet Take 30 mg by mouth. 12/08/2020 Active multivitamin (DAILY-KAUSHIK) tablet Take 1 Tablet by mouth daily. Active CALCIUM CARBONATE-VITAMI N D3 ORAL Take by mouth. Active POTASSIUM CITRATE ORAL Take by mouth. Active ZINC SULFATE ORAL Take by mouth. Active anastrozole (ARIMIDEX) 1 mg tablet Take 1 Tablet (1 mg) by mouth daily. 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 Gender Identity Not on file Sexual Orientation [...] Description 02/04/2025 11:45 AM CDT Office Visit [facility] Oncology and Hematology [facility] [address] [place] [address] [facility] [address] [place] [address] Shmuel Bertrand MD [address] [facility] [address] [place] [address] Health Maintenance Due Date Last Done Comments DTAP/TDAP/TD VACCINES (1 - Tdap) 1987 HEPATITIS B VACCINES (1 of 3 - 19+ 3-dose series) 02/05 HPV/Cotest (21-29) 1989 CERVICAL CANCER SCREENING 1998 HPV/Cotest (30-65) 1998 PAP SMEAR 1998 FIT-DNA Q 3 years 2013 FIT/FOBT Q 1 year 2013 Flex Sig/CT Colonography Q 5 years 2013 ZOSTER VACCINE (1 of 2) 2018 COLORECTAL SCREENING 01/20/2023 01/20/2013 Colorectal Cancer Screening 01/20/2023 INFLUENZA VACCINE (#1) 2024 Insurance [facility] MEDICAID Care Teams Comp Field Case Manager Relationship Specialty Start Date End Date Chirag Cordoba MD [address] [place] [address] PCP - General Internal Medicine 10/19/22
[2024-11-15 00:59] VITALS: BP 110/81; PULSE 97; RESP 16; O2SAT 93
--- NOTE | 2024-11-15 01:15 | ED_ITS ---
HPI - Fall General Chief Complaint: Fall Stated Complaint: fall / possible rib dx Time Seen by Provider: 11/15/24 01:04 History of Present Illness HPI Narrative: Patient is a 54-year-old female who presents emergency department this evening status post a ground level fall. Patient states that she fell over the toilet on the bathroom stating that she does have peripheral neuropathy and that will sometimes cause her to have a frequent falls. Denies any near-syncope/lightheadedness/dizziness prior to the fall confirming that it was purely mechanical. Denies hitting her head. Denies any blood thinner use. Patient is complaining of left lower rib pain. Denies any additional symptoms or concerns. Related Data Home Medications ?Medication ?Instructions ?Recorded ?Confirmed ?Last Taken ?Type alprazolam 0.5 mg tablet 0.5 mg PO BID PRN Anxiety 10/11/22 06/29/24 Unknown History multivitamin 1 tablet PO DAILY 03/21/23 06/29/24 Unknown History amitriptyline 10 mg tablet 10 mg PO QHS 04/09/23 06/29/24 Unknown History anastrozole 1 mg tablet 1 mg PO HS 06/29/24 06/29/24 Unknown History ascorbic acid (vitamin C) 250 mg 250 mg PO DAILY 06/29/24 06/29/24 Unknown History tablet (Vitamin C) calcium carbonate (Calcium Antacid) 200 mg PO BID PRN dyspepsia 06/29/24 06/29/24 06/29/24 History cholecalciferol (vitamin D3) 25 25 mcg PO DAILY 06/29/24 06/29/24 Unknown History mcg (1,000 unit) capsule (Vitamin D3) Allergies Allergy/AdvReac Type Severity Reaction Status Date / Time ibuprofen Allergy Mild PALPITATION Verified 11/15/24 00:49 S Review of Systems Review of Systems: All systems are reviewed and are negative unless stated otherwise in the HPI. [facility] Past Medical History Medical History Pancreatitis Alcohol abuse Breast cancer Depression Fatty liver Anxiety and depression Surgical History Surgical History History of open reduction and internal fixation (ORIF) procedure (06/2022) repair right humeral fracture History of bilateral mastectomy History of tubal ligation Family History Family History Sibling Acute myocardial infarction Diabetes mellitus Sibling Asthma Diabetes mellitus Breast cancer Father Diabetes mellitus Cerebrovascular accident Hypertension Mother Diabetes mellitus Chronic obstructive pulmonary disease Congestive heart failure Colon cancer Hypertension Sibling Diabetes mellitus Hypertension Sibling Diabetes mellitus Sibling Diabetes mellitus Social History Social History Social History: Surrogate decision maker: Monica Moizmaureen (friend). Code status: Full code. Smoking status: Never smoker Second hand tobacco smoke exposure: Yes Alcohol intake: current Drinks per week: 28 Alcohol use details: Heavy drinker, up to a bottle of wine a day in addition to gin Substance use: never Substance use type: does not use Do You Feel Safe in your Home?: Yes Lack of Transportation: No Lack of Food: Never True Current Housing: I Have Housing Concerned About Future Housing: No Difficulty Paying Gas/Electric Bills: No Difficulty Paying for Meds: No Currently Unemployed: No Education: Decline to Answer Difficulty w/ Childcare or Family Care: No Living arrangements: with family Additional living arrangements comments: Lives with boyfriend in [place]. Additional occupation/education comments: Not currently employed. Spiritual care concerns: No Exam Narrative: General: Alert, awake, afebrile, in no acute distress. HEENT: PERRL, no rhinorrhea, no post nasal drip, oropharynx clear. Neck: Trachea midline, no JVD, no lymphadenopathy. Cardiovascular: Regular rate and rhythm, no murmurs, rubs or gallops, no peripheral edema. Respiratory: Clear to auscultation bilaterally, no tachypnea, no wheezing, no rhonchi, no rubs, no respiratory distress. Abdomen: Soft, nontender, nondistended, no rebound, no guarding, no peritoneal signs. Musculoskeletal: No joint swelling or deformity, normal muscle tone, tenderness palpation over the left lower ribcage. Skin: No rashes or petechia, no signs of infection. Psychiatric: Alert and oriented, normal behavior and judgment for situation. Neurological: Alert and oriented to person, place, and time. Follows all commands. No focal deficits, speech is clear and fluent. Course Vital Signs Vital signs: Vital Signs Pulse Rate 97 11/15/24 00:59 Respiratory Rate 16 11/15/24 00:59 Blood Pressure 110/81 11/15/24 00:59 Pulse Oximetry 93 11/15/24 00:59 Oxygen Delivery Room Air 11/15/24 00:59 Pulse Rate 97 11/15/24 00:59 Respiratory Rate 16 11/15/24 00:59 Blood Pressure 110/81 11/15/24 00:59 Pulse Oximetry 93 11/15/24 00:59 Oxygen Delivery Room Air 11/15/24 00:59 MDM - Fall MDM Narrative Medical decision making narrative: The patient was evaluated by myself in the emergency department. History is obtained from patient who is an independent historian and physical exam was performed. External medical records were reviewed at this time. Patient was administered an oral norco 5-325mg and a Lidoderm patch. Imaging studies obtained included CXR which was independently interpreted by me revealing no acute process, which is pending final radiology interpretation. Patient was informed that she will be treated as a rib fracture evening she is symptomatic. Provided with an incentive spirometer and instructed on how to use it. Differential diagnosis considerations include rib fracture versus rib contusion, musculoskeletal strain. Comorbidities impacting this visit include none. I have evaluated and discussed social determinants of health with the patient that could potentially impact subsequent diagnosis and treatment plans. On repeat assessment of the patient, reevaluation revealed that the patient is doing well and is in no acute distress. Patient symptoms have improved since she arrived to our emergency department. Repeat vital signs were all reviewed and noted to be stable. Differential diagnosis and treatment plan were discussed with the patient at bedside. Patient agrees with discussion and after shared medical decision making agrees with discharge. All questions were answered to the patient's satisfaction. Patient will follow up with her PCP in 3-5 days. Script for [place] and Lidoderm patches were sent to patient's pharmacy Patient was provided with strict return precautions and instructed to return to the emergency department if any new or worsening symptoms develop. The patient was discharged in stable condition. Discharge Plan Discharge Clinical Impression: Fall from ground level, Rib pain on left side Patient Disposition: Home Condition: Improved Instructions: Antibiotic Form, Fall Prevention (ED), Rib Contusion (ED) Additional Instructions: Please follow-up with your family doctor within the next 3-5 days. Return to emergency department if any new or worsening symptoms develop. Use the prescribed medications as instructed to help with your rib pain. Make sure you are using the incentive spirometer as well instructed in the ED. Patient Language: Uzbek Prescriptions: New hydrocodone-acetaminophen 5-325 mg tablet 1 tablet PO Q8H PRN (Reason: pain) Qty: 10 0RF lidocaine [Lidoderm] 5 % adhesive patch,medicated 1 patch topical DAILY Qty: 15 0RF Rx Instructions: leave on most painful area for up to 12 hrs No Action amitriptyline 10 mg tablet 10 mg PO QHS Patient Comments: states she takes as needed for sleep alprazolam 0.5 mg tablet 0.5 mg PO BID PRN (Reason: Anxiety) multivitamin Tablet 1 tablet PO DAILY calcium carbonate [Calcium Antacid] 200 mg calcium (500 mg) tablet,chewable 200 mg PO BID PRN (Reason: dyspepsia) ascorbic acid (vitamin C) [Vitamin C] 250 mg tablet 250 mg PO DAILY anastrozole 1 mg tablet 1 mg PO HS cholecalciferol (vitamin D3) [Vitamin D3] 25 mcg (1,000 unit) capsule 25 mcg PO DAILY pantoprazole [Protonix] 40 mg tablet,delayed release (DR/EC) 40 mg PO Q12H Qty: 60 0RF Follow-up/Referrals: Neo,Esperanza Perrin NP [Primary Care Provider] - 3 Days Time of Disposition: 01:51
--- OUTSIDE RECORDS SUMMARY | 2024-11-15 01:15 | XMS_ITS | Referral Summary ---
Author Organization [facility] Medical Office Building A Address [address] [place] [address] Care Team Providers Care Agronomy Specialist Name Role Phone Josef Castro MD Primary [...] (06/16/2022): Added automatically from request for surgery [id number] Mixed hyperlipidemia 11/04/2020 Gastric perforation 09/10/2020 Assessment & Plan (09/30/2020 9:40 AM CDT): I will make a referral to 1 of the housecalls nurse for an upper endoscopy. 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 Gender Identity Not on file Sexual [...] on file Medical Devices Implanted Type Area Quarry Plug And Feather Driller Device Identifier Shelf Expiration Date Model / Serial / Lot Allosource 10cm Frozen Graft Bone Fibula Segment [id number] - [id number] - [id number] Implanted:Qty: 1 on 06/21/2022 by Destiny Mayorga MD at [facility] Bone Right: Humerus Allosource [id number] 01/14/2026 [id number] / [id number] / [id number] Synthes Lcp Combi Philos [id number] 3 Hole Shaft Lock Compression 241.901 - S0 - [id number] Implanted:Qty: 1 on 06/21/2022 by Destiny Mayorga MD at [facility] Plate Right: Humerus Synthes I 241.901 / 0 / Synthes 3.5mm 6mm 22mm 2.5mm Self Tap Small Hexagonal Socket Low Profile 204.822 - S0 - [id number] Implanted:Qty: 1 on 06/21/2022 by Destiny Mayorga MD at [facility] Screw Right: Humerus Synthes I 204.822 / 0 / Synthes 3.5mm 2.9mm 24mm Self Tap Lock Stardrive Conical Head Pelvis T15 212.108 - S0 - [id number] Implanted:Qty: 1 on 06/21/2022 by Destiny Mayorga MD at [facility] Screw Right: Humerus Synthes I 212.108 / 0 / Synthes 3.5mm 6mm 26mm 2.5mm Self Tap Small Hexagonal Socket Low Profile 204.826 - S0 - [id number] Implanted:Qty: 1 on 06/21/2022 by Destiny Mayorga MD at [facility] Screw Right: Humerus Synthes I 204.826 / 0 / Synthes 3.5mm 2.9mm 36mm Self Tap Lock Stardrive Conical Head T15 Full 212.115 - S0 - [id number] Implanted:Qty: 3 on 06/21/2022 by Destiny Mayorga MD at [facility] Screw Right: Humerus Synthes I 212.115 / 0 / Synthes 3.5mm 2.9mm 45mm Self Tap Lock Stardrive Conical Head T15 Full 212.119 - S0 - [id number] Implanted:Qty: 2 on 06/21/2022 by Destiny Mayorga MD at [facility] Screw Right: Humerus Synthes I 212.119 / 0 / Synthes 3.5mm 2.9mm 42mm Self Tap Lock Stardrive Conical Head Full Thread 212.118 - S0 - [id number] Implanted:Qty: 1 on 06/21/2022 by Destiny Mayorga MD at [facility] Screw Right: Humerus Synthes I 212.118 / 0 / Synthes 3.5mm 2.9mm 46mm Self Tap Lock Stardrive Conical Head T15 Full 212.136 - [id number] Implanted:Qty: 1 on 06/21/2022 by Destiny Mayorga MD at [facility] Screw Right: Humerus Synthes I 212.136 / / Synthes 3.5mm 2.9mm 44mm Self Tap Lock Stardrive Conical Head T15 Full 212.134 - S0 - [id number] Implanted:Qty: 1 on 06/21/2022 by Destiny Mayorga MD at [facility] Screw Right: Humerus Synthes I 212.134 / 0 / Synthes 3.5mm 2.9mm 48mm Self Tap Lock Fix Angle Low Profile Pelvis Full 212.120 - S0 - [id number] Implanted:Qty: 1 on 06/21/2022 by Destiny Mayorga MD at [facility] Screw Right: Humerus Synthes I 212.120 [...] last revised on 19. Testing performed by: [address] [address] Hep B core IgM Nonreactive Nonreactive Denis LEDESMA (DIMITRIS) Comment: Interpretive Data If HepB Core IgM Ab is reported as Equivocal, a new sample should be drawn in two weeks for testing. Current interpretive data was last revised on 19. Testing performed by: [address] [address] Hep C Ab Nonreactive Nonreactive [facility] [...] last revised on 2019. Testing performed by: [address] [place]., [address] HepBsAg Nonreactive Nonreactive ALISSADONTRELL CALLIE (DIMITRIS) Comment:Testing performed by : [facility], [address] [place] [address], [place]., [address] Blood specimen (specimen) 09/11/2020 5:18 AM CDT 09/11/2020 11:17 AM CDT us Allison Price MD LAB MICROBIOLOGY - GENERAL OR DERABLES Final Result JOESPH LEDESMA (DIMITRIS) [address] [facility] [place] [address] * COLONOSCOPY (01/20/2013 12:00 AM CDT) Anatomical Region Laterality Modality Other Narrative 01/20/2013 12:00 AM CDT Ordered by an unspecified provider. Procedure Note Provider, MD Edie - 01/20/2013 12:00 AM CDT PROCEDURE REPORT Patient: ZENAIDA ARREAGA Account: [id number] Room No: : 1970 Patient Type: [facility] Attend.: Tunde Miner M.D. Admit [...] 10:23 PM CDT Diag Mamm R Acc#: [id number] DATE OF EXAM: Jan 01 2013 Performed [...] Edie - 08/30/2016 Diag Mamm R Acc#: [id number] DATE OF EXAM: Jan 01 2013 Performed [...] interpretation of these images. This facility utilizes Cell>Point system to notify patients of yearly mammograms. [...] Most Recently Relevant to Health Maintenance Insurance [facility] Advance Directives For more information, please contact: [phone] * Full Code (Latest Code Status on File) Date Activated Date Inactivated Comments 02/21/2023 12:16 PM 02/21/2023 6:09 PM * Full Code Date Activated Date Inactivated Comments 09/10/2020 4:50 PM 09/17/2020 4:48 PM Care Teams Agronomy Specialist Relationship Specialty Start Date End Date Josef Castro MD [address] [place] [address] PCP - General 11/04/20
--- OUTSIDE RECORDS SUMMARY | 2024-11-15 01:15 | XMS_ITS | Clinical Summary ---
Author Organization [facility] Address [address] [address] Care Team Providers Care Marker Machine Attendant Name Role Phone Unavailable Primary Care Provider Unavailabl e Source Comments [facility],non-owned Affiliates and Associated Physician Practices is amultiple site organization consisting of ambulatory clinics and hospital sitesin [place], [place], [place] and [place]. This disclosure is being madepursuant to the Care Everywhere program and may not contain all information available regarding this patient. 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
--- OUTSIDE RECORDS SUMMARY | 2024-11-15 01:15 | XMS_ITS | Encounter Summary ---
Author Organization [facility] Address [address] [place] [address] Care Team Providers Care Customer Service Associate Name Role Phone Chirag Cordoba MD Primary Care Provider [phone] Encounter Details Date Type Department Care Team (Late st Contact Info) Description 05/16/2008 Outpatient Historical [facility] Er, Authorized P NO ADDRESS ON FILE Jorge Oliva MD [address] [place] [address] Social History Tobacco Use Types Packs/Day Years Used Date Smoking Tobacco: Never Assessed Comments Unknown Sex and Gender Information Value Date Recorded Sex Assigned at Not on file Legal Sex Female 5:41 AM CUSTOMER SUCCESS SPECIALIST Gender Identity Not on file Sexual Orientation Not on file documented as of this encounter Plan of Treatment Upcoming Encounters Date Type Department Care Team (Late st Contact Info) Description 02/04/2025 11:45 AM CDT Office Visit [facility] Oncology and Hematology - [place] [address] [facility] [address] [place] [address] Shmuel Bertrand MD [address] [facility] [address] [place] [address] documented as of this encounter Procedures Procedure Name Priority Date/Time Associated Diagnosis Comments US PELVIS + TRANSVAG NON OB Stat 05/16/2008 3:06 PM CUSTOMER SUCCESS SPECIALIST POC , URINE Routine 05/16/2008 2:59 PM CUSTOMER SUCCESS SPECIALIST POC URINALYSIS DIPSTICK NON AUTOMATED Routine 05/16/2008 2:59 PM CUSTOMER SUCCESS SPECIALIST CBC WITH DIFFERENTIAL Stat 05/16/2008 2:26 PM CUSTOMER SUCCESS SPECIALIST COMPREHENSIVE METABOLIC PANEL Stat 05/16/2008 2:26 PM CUSTOMER SUCCESS SPECIALIST documented in this encounter Results * US PELVIS + TRANSVAG NON OB (05/16/2008 3:06 PM CUSTOMER SUCCESS SPECIALIST) Anatomical Region Laterality Modality Pelvis Other 05/16/2008 3:06 PM CUSTOMER SUCCESS SPECIALIST Narrative 05/17/2008 7:19 AM CUSTOMER SUCCESS SPECIALIST [facility] [address] [place], [place] [address] Admit Date: 05/16/2008 ZENAIDA ARREAGA Sex: F Admit Prov: ER, AUTHORIZED P Date: 1970 Primary Care Prov: CMRN: [id number] Room: ER-A SSN: [id number] IMAGING SERVICES Ordering Prov: N/A Accession Number: [id number] Interpretation ULTRASOUND OF PELVIS TRANSABDOMINAL AND TRANSVAGINAL [...] AMK Procedure Note Keiko Sewell - 05/17/2008 [facility] [address] [place], [place] [address] Admit Date: 05/16/2008 ZENAIDA ARREAGA Sex: F Admit Prov: EASTON LEONG Date:1970 Primary Care Prov: CMRN: [id number] Room: [facility] SSN: [id number] IMAGING SERVICES Ordering Prov: N/A Interpretation ULTRASOUND [...] URINALYSIS DIPSTICK NON AUTOMATED (05/16/2008 2:59 PM CUSTOMER SUCCESS SPECIALIST) UROBILINOGEN UA 1+ (1 mg/dL) <=1 mg/dL [facility] [place] [facility] SPECIFIC GRAVITY UA 1.025 1.001 - 1.030 [facility] GLUCOSE UA Negative Negative [facility] COLOR UA Yellow [facility] LEUKOCYTE ESTERASE UA Negative Negative [facility] NITRITE UA Negative Negative [facility] BILIRUBIN UA 1+(A) Negative [facility] PH UA 5.0 5.0 - 8.0 [facility] KETONES UA 1+ (Small)(A) Negative [facility] CLARITY UA Clear [facility] BLOOD UA 1+(A) Negative [facility] PROTEIN UA Negative Negative [facility] Urine specimen (specimen) 05/16/2008 2:59 PM CUSTOMER SUCCESS SPECIALIST 05/16/2008 2:59 PM CUSTOMER SUCCESS SPECIALIST us Authorized P Er POINT OF CARE TESTING Final Resu lt Performing Organization Address [facility] de Phone Number INTERFACE SYSTEM Refer to clinic/hospital department [facility] CLIA# [id number] [address] [place] [address] * POC , URINE (05/16/2008 2:59 PM CUSTOMER SUCCESS SPECIALIST) , URINE POC Negative Negative [facility] SPECIFIC GRAVITY UA 1.025 1.001 - 1.035 [facility] Urine specimen (specimen) 05/16/2008 2:59 PM CUSTOMER SUCCESS SPECIALIST 05/16/2008 2:59 PM CUSTOMER SUCCESS SPECIALIST us Authorized P Er POINT OF CARE TESTING Final Resu lt Performing Organization Address [facility] de Phone Number INTERFACE SYSTEM Refer to clinic/hospital department [facility] CLIA# [id number] [address] [place] [address] * (ABNORMAL) CBC WITH DIFFERENTIAL (05/16/2008 2:26 PM CUSTOMER SUCCESS SPECIALIST) PLATELETS 222 140 - 350 K/uL [facility] HEMOGLOBIN 12.8 11.8 - 14.8 g/dL [facility] RDW 12.9 11.5 - 14.5 % [facility] WBC 4.7 4.0 - 9.8 K/uL [facility] MCH 30.0 27.2 - 32.6 pg [facility] MPV 8.7(L) 9.3 - 12.4 fL [facility] HEMATOCRIT 38.7 35.5 - 44.0 % [facility] RDW-STDEV 42.6 37.1 - 48.7 fL [facility] RBC 4.27 3.90 - 4.90 M/uL [facility] MCHC 33.1 31.5 - 35.5 % [facility] MCV 90.6 82.0 - 99.0 fL [facility] EOSINOPHILS 1 0 - 7 % [facility] EOSINOPHIL ABSOLUTE 0.06 0.00 - 0.70 K/uL [facility] LYMPHOCYTES 37 16 - 45 % [facility] LYMPHOCYTE ABSOLUTE 1.74 0.70 - 4.50 K/uL [facility] BASOPHILS 0 0 - 2 % [facility] BASOPHILS ABSOLUTE 0.02 0.00 - 0.20 K/uL [facility] MONOCYTES 11 3 - 13 % [facility] MONOCYTE ABSOLUTE 0.51 0.10 - 1.30 K/uL [facility] NEUTROPHILS 50 45 - 70 % [facility] NEUTROPHIL ABSOLUTE 2.35 1.90 - 7.00 K/uL [facility] Blood specimen (specimen) 05/16/2008 2:26 PM CUSTOMER SUCCESS SPECIALIST 05/16/2008 2:36 PM CUSTOMER SUCCESS SPECIALIST us Authorized P Er HEMATOLOGY ORDERABLES Edited INTERFACE SYSTEM Refer to clinic/hospital department [facility] CLIA# [id number] [address] [place] [address] * (ABNORMAL) COMPREHENSIVE METABOLIC PANEL (05/16/2008 2:26 PM CUSTOMER SUCCESS SPECIALIST) ALKALINE PHOSPHATASE 30(L) 35 - 104 U/L [facility] BILIRUBIN TOTAL 0.7 0.2 - 1.0 mg/dL [facility] CO2 24 22 - 30 mmol/L [facility] TOTAL PROTEIN 6.6 6.3 - 8.6 g/dL [facility] POTASSIUM 3.6 3.5 - 4.9 mmol/L [facility] GLUCOSE 100(H) 65 - 99 mg/dL [facility] AST 16 12 - 32 U/L [facility] BUN 8 6 - 20 mg/dL [facility] CALCIUM 8.7 8.6 - 10.2 mg/dL [facility] CHLORIDE 105 96 - 108 mmol/L [facility] ALBUMIN 4.0 3.4 - 4.8 g/dL [facility] CREATININE 0.69 0.51 - 0.95 mg/dL [facility] SODIUM 138 135 - 145 mmol/L [facility] ALT 9 0 - 31 U/L [facility] GFR, >60 >=60 mL/min/1. 7 sq meter [facility] GFR >60 >=60 mL/min/1. 7 sq meter [facility] Comment: Modification of Diet in Renal Disease (MDRD) study formula. Estimated GFR rate interpretative information for both Americans and non- Americans is available on the [facility] Intranet at: [email or web address] Select: Lab Policies and Procedures Select: Reference Ranges - GFR Blood specimen (specimen) 05/16/2008 2:26 PM CUSTOMER SUCCESS SPECIALIST 05/16/2008 2:36 PM CUSTOMER SUCCESS SPECIALIST us Authorized P Er CHEMISTRY ORDERABLES Edited INTERFACE SYSTEM Refer to clinic/hospital department [facility] CLIA# [id number] [address] [place] [address] documented in this encounter Visit Diagnoses Not on filedocumented in this encounter Care Teams Customer Service Associate Relationship Specialty Start Date End Date Chirag Cordoba MD [facility] [place] [address] PCP - General Internal Medicine 10/19/22 documented as of this encounter
--- OUTSIDE RECORDS SUMMARY | 2024-11-15 01:15 | XMS_ITS | Clinical Summary ---
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 Gender Identity Not on file Sexual [...] Description 02/04/2025 11:45 AM CDT Office Visit [facility] Oncology and Hematology [facility] [address] [place] [address] [facility] [address] [place] [address] Shmuel Bertrand MD [address] [facility] [address] [place] [address] Health Maintenance Due Date Last [...] Screening 01/20/2023 INFLUENZA VACCINE (#1) 2024 Insurance [facility] MEDICAID Care Teams Skilled Laborer Relationship Specialty Start Date End Date Chirag Cordoba MD [address] [facility] [place] [address] PCP - General Internal Medicine 10/19/22
--- OUTSIDE RECORDS SUMMARY | 2024-11-15 01:15 | XMS_ITS | Clinical Summary ---
Author Organization [facility] Medical Office Building A Address [address] [place] [address] Care Team Providers Care Traffic Safety Administrator Name Role Phone Josef Castro MD Primary [...] (06/16/2022): Added automatically from request for surgery [id number] Mixed hyperlipidemia 11/04/2020 Gastric perforation 09/10/2020 Assessment & Plan (09/30/2020 9:40 AM CDT): I will make a referral to 1 of the disabilities caregiver for an upper endoscopy. Based on the [...] tremulous, anxious Will start on [facility] alcohol withdrawal protocol with IV ativan sins the patient currently NPO Start on IV folate, and thiamin Seizure precautions Fall precautions Will get SWcx, Discussed and encouraged to stop drinking ELEAZAR (generalized anxiety disorder) 09/10/2020 Assessment & Plan (09/10/2020 9:43 PM CDT): Holding xanax , patient is NPO Started on IV ativan To be used per [facility] protocol for symptomatic control for anxiety [...] Hx Other Medical Dermatofibroma Hx Other Medical 01-STABBER Hx Other Medical 12/01/2012 [facility] BP [...] on file 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 Gender Identity Not on file Sexual [...] this topic Medical Devices Implanted Type Area Scouring Train Operator Device Identifier Shelf Expiration Date Model / Serial / Lot Allosource 10cm Frozen Graft Bone Fibula Segment [id number] - [id number] - [id number] Implanted:Qty: 1 on 06/21/2022 by Destiny Mayorga MD at [facility] Bone Right: Humerus Allosource [id number] 01/14/2026 [id number] / [id number] / [id number] Synthes Lcp Combi Philos [id number] 3 Hole Shaft Lock Compression 241.901 - S0 - [id number] Implanted:Qty: 1 on 06/21/2022 by Destiny Mayorga MD at [facility] Plate Right: Humerus Synthes I 241.901 / 0 / Synthes 3.5mm 6mm 22mm 2.5mm Self Tap Small Hexagonal Socket Low Profile 204.822 - S0 - [id number] Implanted:Qty: 1 on 06/21/2022 by Destiny Mayorga MD at [facility] Screw Right: Humerus Synthes I 204.822 / 0 / Synthes 3.5mm 2.9mm 24mm Self Tap Lock Stardrive Conical Head Pelvis T15 212.108 - S0 - [id number] Implanted:Qty: 1 on 06/21/2022 by Destiny Mayorga MD at [facility] Screw Right: Humerus Synthes I 212.108 / 0 / Synthes 3.5mm 6mm 26mm 2.5mm Self Tap Small Hexagonal Socket Low Profile 204.826 - S0 - [id number] Implanted:Qty: 1 on 06/21/2022 by Destiny Mayorga MD at [facility] Screw Right: Humerus Synthes I 204.826 / 0 / Synthes 3.5mm 2.9mm 36mm Self Tap Lock Stardrive Conical Head T15 Full 212.115 - S0 - [id number] Implanted:Qty: 3 on 06/21/2022 by Destiny Mayorga MD at [facility] Screw Right: Humerus Synthes I 212.115 / 0 / Synthes 3.5mm 2.9mm 45mm Self Tap Lock Stardrive Conical Head T15 Full 212.119 - S0 - [id number] Implanted:Qty: 2 on 06/21/2022 by Destiny Mayorga MD at [facility] Screw Right: Humerus Synthes I 212.119 / 0 / Synthes 3.5mm 2.9mm 42mm Self Tap Lock Stardrive Conical Head Full Thread 212.118 - S0 - [id number] Implanted:Qty: 1 on 06/21/2022 by Destiny Mayorga MD at [facility] Screw Right: Humerus Synthes I 212.118 / 0 / Synthes 3.5mm 2.9mm 46mm Self Tap Lock Stardrive Conical Head T15 Full 212.136 - [id number] Implanted:Qty: 1 on 06/21/2022 by Destiny Mayorga MD at [facility] Screw Right: Humerus Synthes I 212.136 / / Synthes 3.5mm 2.9mm 44mm Self Tap Lock Stardrive Conical Head T15 Full 212.134 - S0 - [id number] Implanted:Qty: 1 on 06/21/2022 by Destiny Mayorga MD at [facility] Screw Right: Humerus Synthes I 212.134 / 0 / Synthes 3.5mm 2.9mm 48mm Self Tap Lock Fix Angle Low Profile Pelvis Full 212.120 - S0 - [id number] Implanted:Qty: 1 on 06/21/2022 by Destiny Mayorga MD at [facility] Screw Right: Humerus Synthes I [...] last revised on 19. Testing performed by: [address] [address] Hep B core IgM Nonreactive Nonreactive Denis LEDESMA (DIMITRIS) Comment: Interpretive Data If HepB Core IgM Ab is reported as Equivocal, a new sample should be drawn in two weeks for testing. Current interpretive data was last revised on 19. Testing performed by: [facility], [address] [place] [address]., [address] Hep C Ab Nonreactive Nonreactive JOESPH LEDESMA [...] last revised on 2019. Testing performed by: [facility], [address] [place] [address]., [address] HepBsAg Nonreactive Nonreactive JOESPH LEDESMA (DIMITRIS) Comment:Testing performed by : [address] [address] Blood specimen (specimen) 09/11/2020 5:18 AM CDT 09/11/2020 11:17 AM CDT us Allison Price MD LAB MICROBIOLOGY - GENERAL OR DERABLES Final Result JOESPH LEDESMA (DIMITRIS [address] [facility] Department [place] [address] * COLONOSCOPY (01/20/2013 12:00 AM CDT) Anatomical Region Laterality Modality Other Narrative 01/20/2013 12:00 AM CDT Ordered by an unspecified provider. Procedure Note Provider, MD Edie - 01/20/2013 12:00 AM CDT PROCEDURE REPORT Patient: ZENAIDA ARREAGA Account: [id number] Room No: : 1970 Patient Type: SDS [...] 10:23 PM CDT Dia Mamm R Acc#: [id number] DATE OF EXAM: Jan 01 2013 Performed [...] Edie - 08/30/2016 Diag Mamm R Acc#: [id number] DATE OF EXAM: Jan 01 2013 Performed [...] Most Recently Relevant to Health Maintenance [place] [address] [address] [facility] Advance Directives For more information, please contact: [phone] * Full Code (Latest Code Status on File) Date Activated Date Inactivated Comments 02/21/2023 12:16 PM 02/21/2023 6:09 PM * Full Code Date Activated Date Inactivated Comments 09/10/2020 4:50 PM 09/17/2020 4:48 PM Care Teams Traffic Safety Administrator Relationship Specialty Start Date End Date Josef Castro MD [address] [place] [address] PCP - General 11/04/20
[2024-11-15] MEDS: HYDROcodone/acetaminophen (*CRX) 5-325 MG TABLET 1 TAB PO (01:46)
[2024-11-15] MEDS: LIDOCAINE 5% PATCH 1 PATCH TRANSDERM (01:46)
== END 2024-11-15 02:05 | disposition home or self-care (01) ==
PROVIDERS: Emergency Provider Emergency Medicine; PCP Nurse Practitioner Adult Health
DX: R07.89 Other chest pain (principal); G62.9 Polyneuropathy, unspecified; F32.A Depression, unspecified; F41.9 Anxiety disorder, unspecified; Z85.3 Personal history of malignant neoplasm of breast; Z90.13 Acquired absence of bilateral breasts and nipples; Z77.22 Contact with and (suspected) exposure to environmental tobacco smoke (acute) (chronic); W18.09XA Striking against other object with subsequent fall, initial encounter
CPT/HCPCS: 71045; 99283; A9270

== ENCOUNTER 2025-01-28 13:11 | Outpatient (CLI) | payer OTHER, SELFPAY ==
--- OUTSIDE RECORDS SUMMARY | 2025-01-28 13:16 | XMS_ITS | Clinical Summary ---
Author Organization [facility] Marisa blancas [facility] Address [address] [place] [address] [place] [address] Care Team Providers Care Financial Reporting Specialist Name Role Phone Chirag Cordoba MD Primary Care Provider [phone] Allergies Active Allergy Reactions Criticality Noted Date [...] Encounters Date Type Department Care Team Description 12/09/2024 External Device Data [facility]STRACTION Provider, Abstract 11/19/2024 External Device Data [facility] Provider, Abstract 11/18/2024 External Device Data [facility] Provider, Abstract [...] on file Legal Sex Female 5:41 AM 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 Gender Identity Not on file Sexual Orientation [...] Description 02/04/2025 11:45 AM CDT Office Visit [facility] Oncology and Hematology [facility] [address] [facility] [address] [place] [address] Shmuel Bertrand MD [address] [facility] [address] [place] [address] Health Maintenance Due Date Last [...] Screening 01/20/2023 INFLUENZA VACCINE (#1) 2024 Insurance [facility] MEDICAID Care Teams Financial Reporting Specialist Relationship Specialty Start Date End Date Chirag Cordoba MD [facility] [facility] [place] [address] PCP - General Internal Medicine 10/19/22
--- OUTSIDE RECORDS SUMMARY | 2025-01-28 13:16 | XMS_ITS | Clinical Summary ---
Author Organization [facility] Medical Office Building A Address [address] [place] [address] Care Team Providers Care Fire Production Operator Name Role Phone Josef Castro MD Primary [...] (06/16/2022): Added automatically from request for surgery [id number] Mixed hyperlipidemia 11/04/2020 Gastric perforation 09/10/2020 Assessment & Plan (09/30/2020 9:40 AM CDT): I will make a referral to 1 of the outside plant technician for an upper endoscopy. Based on the [...] Currently tremulous, anxious Will start on [facility] alcohol withdrawal protocol with IV ativan sins the patient currently NPO Start on IV folate, and thiamin Seizure precautions Fall precautions Will get SWcx, Discussed and encouraged to stop drinking ELEAZAR (generalized anxiety disorder) 09/10/2020 Assessment & Plan (09/10/2020 9:43 PM CDT): Holding xanax , patient is NPO Started on IV ativan To be used per [facility] protocol for symptomatic control for anxiety [...] Hx Other Medical Dermatofibroma Hx Other Medical 01-DIRECTOR OF CORPORATE RESPONSIBILITY Hx Other Medical 12/01/2012 [facility] BP [...] on file 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 Gender Identity Not on file Sexual Orientation [...] Screening-Colonoscopy 01/20/2023 01/20/2013 Covid-19 Vaccine ( season) 2025 09/15/2021 Influenza Vaccine (#1) 2025 Colon Cancer Screening-CT Colonography Discontinued 01/20/2013 Colon Cancer Screening-DNA Stool Discontinued 01/20/2013 Colon Cancer Screening-FIT Discontinued 01/20/2013 Colon Cancer Screening-Sigmoidoscopy Discontinued 01/20/2013 Hepatitis C Screening Completed 09/11/2020 Pneumococcal vaccine <65 Aged Out No longer eligible based on patient's age to complete this topic Medical Devices Implanted Type Area Nuclear Plant Equipment Operator Device Identifier Shelf Expiration Date Model / Serial / Lot Allosource 10cm Frozen Graft Bone Fibula Segment [id number] - [id number] - [id number] Implanted:Qty: 1 on 06/21/2022 by Destiny Mayorga MD at [facility] Bone Right: Humerus Allosource [id number] 01/14/2026 [id number] / [id number] / [id number] Synthes Lcp Combi Philos 04s86v6.5mm 3 Hole Shaft Lock Compression 241.901 - S0 - [id number] Implanted:Qty: 1 on 06/21/2022 by Destiny Mayorga MD at [facility] Plate Right: Humerus Synthes I 241.901 / 0 / Synthes 3.5mm 6mm 22mm 2.5mm Self Tap Small Hexagonal Socket Low Profile 204.822 - S0 - [id number] Implanted:Qty: 1 on 06/21/2022 by Destiny Mayorga MD at [facility] Screw Right: Humerus Synthes I 204.822 / 0 / Synthes 3.5mm 2.9mm 24mm Self Tap Lock Stardrive Conical Head Pelvis T15 212.108 - S0 - [id number] Implanted:Qty: 1 on 06/21/2022 by Destiny Mayorga MD at [facility] Screw Right: Humerus Synthes I 212.108 / 0 / Synthes 3.5mm 6mm 26mm 2.5mm Self Tap Small Hexagonal Socket Low Profile 204.826 - S0 - [id number] Implanted:Qty: 1 on 06/21/2022 by Destiny Mayorga MD at [facility] Screw Right: Humerus Synthes I 204.826 / 0 / Synthes 3.5mm 2.9mm 36mm Self Tap Lock Stardrive Conical Head T15 Full 212.115 - S0 - [id number] Implanted:Qty: 3 on 06/21/2022 by Destiny Mayorga MD at [facility] Screw Right: Humerus Synthes I 212.115 / 0 / Synthes 3.5mm 2.9mm 45mm Self Tap Lock Stardrive Conical Head T15 Full 212.119 - S0 - [id number] Implanted:Qty: 2 on 06/21/2022 by Destiny Mayorga MD at [facility] Screw Right: Humerus Synthes I 212.119 / 0 / Synthes 3.5mm 2.9mm 42mm Self Tap Lock Stardrive Conical Head Full Thread 212.118 - S0 - [id number] Implanted:Qty: 1 on 06/21/2022 by Destiny Mayorga MD at [facility] Screw Right: Humerus Synthes I 212.118 / 0 / Synthes 3.5mm 2.9mm 46mm Self Tap Lock Stardrive Conical Head T15 Full 212.136 - [id number] Implanted:Qty: 1 on 06/21/2022 by Destiny Mayorga MD at [facility] Screw Right: Humerus Synthes I 212.136 / / Synthes 3.5mm 2.9mm 44mm Self Tap Lock Stardrive Conical Head T15 Full 212.134 - S0 - [id number] Implanted:Qty: 1 on 06/21/2022 by Destiny Mayorga MD at [facility] Screw Right: Humerus Synthes I 212.134 / 0 / Synthes 3.5mm 2.9mm 48mm Self Tap Lock Fix Angle Low Profile Pelvis Full 212.120 - S0 - [id number] Implanted:Qty: 1 on 06/21/2022 by Destiny Mayorga MD at [facility] Screw Right: Humerus Synthes I 212.120 [...] last revised on 19. Testing performed by: [address] [address] Hep B core IgM Nonreactive Nonreactive Denis LEDESMA (DIMITRIS) Comment: Interpretive Data If HepB Core IgM Ab is reported as Equivocal, a new sample should be drawn in two weeks for testing. Current interpretive data was last revised on 19. Testing performed by: [facility], [address] [place] [address]., [address] Hep C Ab Nonreactive Nonreactive JOESPH LEDESMA [...] last revised on 2019. Testing performed by: [facility], [address] [place] [address]., [address] HepBsAg Nonreactive Nonreactive JOESPH LEDESMA (DIMITRIS) Comment:Testing performed by : [address] [address] Blood specimen (specimen) 09/11/2020 5:18 AM CDT 09/11/2020 11:17 AM CDT us Allison Price MD LAB MICROBIOLOGY - GENERAL OR DERABLES Final Result JOESPH LEDESMA (DIMITRIS [address] [facility] Department [place] [address] * COLONOSCOPY (01/20/2013 12:00 AM CDT) Anatomical Region Laterality Modality Other Narrative 01/20/2013 12:00 AM CDT Ordered by an unspecified provider. Procedure Note Provider, MD Edie - 01/20/2013 12:00 AM CDT PROCEDURE REPORT Patient: ZENAIDA ARREAGA Account: [id number] Room No: : 1970 Patient Type: SDS [...] 10:23 PM CDT Dia Mamm R Acc#: [id number] DATE OF EXAM: Jan 01 2013 Performed [...] Edie - 08/30/2016 Diag Mamm R Acc#: [id number] DATE OF EXAM: Jan 01 2013 Performed [...] Most Recently Relevant to Health Maintenance [place] [address] [facility] Advance Directives For more information, please contact: [phone] * Full Code (Latest Code Status on File) Date Activated Date Inactivated Comments 02/21/2023 12:16 PM 02/21/2023 6:09 PM * Full Code Date Activated Date Inactivated Comments 09/10/2020 4:50 PM 09/17/2020 4:48 PM Care Teams Fire Production Operator Relationship Specialty Start Date End Date Josef Castro MD [address] [place] [address] PCP - General 11/04/20
--- OUTSIDE RECORDS SUMMARY | 2025-01-28 13:16 | XMS_ITS | Patient Health Record ---
Author Organization [facility] Address [address] [facility] [address] [place] [address] Care Team Providers Care Title Abstractor Name Role Phone Adalid HARRY, Chirag Primary Care Provider Unav ailable ERIC GASOLINE TRACTOR OPERATOR, WILFREDO Unavailable Allergies Allergen (clinical drug ingredient) Drug/Non Drug Allergy documented on EMR Reaction Allergy Type Onset Date Status ibuprofen Ibuprofen Unknown Drug Allergy Active Reason For Referral No Information Plan Of Treatment No Information Insurance Providers Payer Name Payer Address Payer Phone Subscriber Number Group Number Insured Name Patient Relationship to Insured Coverage Start Date Coverage End Date [address] [id number] Flavia Patrick Self - patient is the insured Medical (General) History Medical History History ICD Code carpal tunnel hyperlipidemia anxiety
--- OUTSIDE RECORDS SUMMARY | 2025-01-28 13:16 | XMS_ITS | Clinical Summary ---
Author Organization [facility] Address [address] [place] [address] Care Team Providers Care Management Trainer Name Role Phone Unavailable Primary Care Provider Unavailabl e Source Comments [facility],non-owned Affiliates and Associated Physician Practices is amultiple site organization consisting of ambulatory clinics and hospital sitesin [place], [place], [place] and [place]. This disclosure is being madepursuant to the Care Everywhere program and may not contain all information available regarding this patient. 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
--- OUTSIDE RECORDS SUMMARY | 2025-01-28 13:16 | XMS_ITS | Encounter Summary ---
Author Organization [facility] Address [address] [place] [address] Care Team Providers Care Wet Mix Operator Name Role Phone Chirag Cordoba MD Primary Care Provider +1 [phone] Encounter Details Date Type Department Care Team (Late st Contact Info) Description 05/16/2008 Emergency [facility]Y [facility] Er, Authorized P NO ADDRESS ON FILE Jorge Oliva MD [address] [place] [phone] Social History Tobacco Use Types Packs/Day Years Used Date Smoking Tobacco: Never Assessed Comments Unknown Sex and Gender Information Value Date Recorded Sex Assigned at Not on file Legal Sex Female 5:41 AM RESEARCH ANIMAL FACILITY SUPERVISOR Gender Identity Not on file Sexual Orientation Not on file documented as of this encounter Plan of Treatment Upcoming Encounters Date Type Department Care Team (Late st Contact Info) Description 02/04/2025 11:45 AM CDT Office Visit [facility] Oncology and Hematology - Edgardo [address] [facility] [address] [place] [address] Shmuel Bertrand MD [address] [facility] [address] [place] [address] documented as of this encounter Procedures Procedure Name Priority Date/Time Associated Diagnosis Comments US PELVIS + TRANSVAG NON OB Stat 05/16/2008 3:06 PM RESEARCH ANIMAL FACILITY SUPERVISOR POC , URINE Routine 05/16/2008 2:59 PM RESEARCH ANIMAL FACILITY SUPERVISOR POC URINALYSIS DIPSTICK NON AUTOMATED Routine 05/16/2008 2:59 PM RESEARCH ANIMAL FACILITY SUPERVISOR CBC WITH DIFFERENTIAL Stat 05/16/2008 2:26 PM RESEARCH ANIMAL FACILITY SUPERVISOR COMPREHENSIVE METABOLIC PANEL Stat 05/16/2008 2:26 PM RESEARCH ANIMAL FACILITY SUPERVISOR documented in this encounter Results * US PELVIS + TRANSVAG NON OB (05/16/2008 3:06 PM RESEARCH ANIMAL FACILITY SUPERVISOR) Anatomical Region Laterality Modality Pelvis Other 05/16/2008 3:06 PM RESEARCH ANIMAL FACILITY SUPERVISOR Narrative 05/17/2008 7:19 AM RESEARCH ANIMAL FACILITY SUPERVISOR [facility] [address], [place] [address] Admit Date: 05/16/2008 ZENAIDA ARREAGA Sex: F Admit Prov: ER, AUTHORIZED P Date: 1970 Primary Care Prov: CMRN: [id number] Room: ER-A SSN: [id number] IMAGING SERVICES Ordering Prov: N/A Accession Number: [id number] Interpretation ULTRASOUND OF PELVIS TRANSABDOMINAL AND TRANSVAGINAL [...] AMK Procedure Note Keiko Sewell - 05/17/2008 [facility] [address], [place] [address] Admit Date: 05/16/2008 ZENAIDA ARREAGA Sex: F Admit Prov: EASTON LEONG Date:1970 Primary Care Prov: CMRN: [id number] Room: [facility] SSN: [id number] IMAGING SERVICES Ordering Prov: N/A Interpretation ULTRASOUND [...] URINALYSIS DIPSTICK NON AUTOMATED (05/16/2008 2:59 PM RESEARCH ANIMAL FACILITY SUPERVISOR) UROBILINOGEN UA 1+ (1 mg/dL) <=1 mg/dL S [facility] SPECIFIC GRAVITY UA 1.025 1.001 - 1.030 [facility] GLUCOSE UA Negative Negative [facility] COLOR UA Yellow [facility] LEUKOCYTE ESTERASE UA Negative Negative [facility] NITRITE UA Negative Negative [facility] BILIRUBIN UA 1+(A) Negative [facility] PH UA 5.0 5.0 - 8.0 [facility] KETONES UA 1+ (Small)(A) Negative [facility] CLARITY UA Clear [facility] BLOOD UA 1+(A) Negative [facility] PROTEIN UA Negative Negative [facility] Urine specimen (specimen) 05/16/2008 2:59 PM RESEARCH ANIMAL FACILITY SUPERVISOR 05/16/2008 2:59 PM RESEARCH ANIMAL FACILITY SUPERVISOR us Authorized P Er POINT OF CARE TESTING Final Resu lt Performing Organization Address [facility] de Phone Number INTERFACE SYSTEM Refer to clinic/hospital department [facility] CLIA# [id number] [address] [place] [address] * POC , URINE (05/16/2008 2:59 PM RESEARCH ANIMAL FACILITY SUPERVISOR) , URINE POC Negative Negative [facility] SPECIFIC GRAVITY UA 1.025 1.001 - 1.035 [facility] Urine specimen (specimen) 05/16/2008 2:59 PM RESEARCH ANIMAL FACILITY SUPERVISOR 05/16/2008 2:59 PM RESEARCH ANIMAL FACILITY SUPERVISOR us Authorized P Er POINT OF CARE TESTING Final Resu lt Performing Organization Address [facility] de Phone Number INTERFACE SYSTEM Refer to clinic/hospital department [facility] CLIA# [id number] [address] [place] [address] * (ABNORMAL) CBC WITH DIFFERENTIAL (05/16/2008 2:26 PM RESEARCH ANIMAL FACILITY SUPERVISOR) PLATELETS 222 140 - 350 K/uL [facility] HEMOGLOBIN 12.8 11.8 - 14.8 g/dL [facility] RDW 12.9 11.5 - 14.5 % [facility] WBC 4.7 4.0 - 9.8 K/uL [facility] MCH 30.0 27.2 - 32.6 pg [facility] MPV 8.7(L) 9.3 - 12.4 fL [facility] HEMATOCRIT 38.7 35.5 - 44.0 % [facility] RDW-STDEV 42.6 37.1 - 48.7 fL [facility] RBC 4.27 3.90 - 4.90 M/uL [facility] MCHC 33.1 31.5 - 35.5 % [facility] MCV 90.6 82.0 - 99.0 fL [facility] EOSINOPHILS 1 0 - 7 % [facility] EOSINOPHIL ABSOLUTE 0.06 0.00 - 0.70 K/uL [facility] LYMPHOCYTES 37 16 - 45 % [facility] LYMPHOCYTE ABSOLUTE 1.74 0.70 - 4.50 K/uL [facility] BASOPHILS 0 0 - 2 % [facility] BASOPHILS ABSOLUTE 0.02 0.00 - 0.20 K/uL [facility] MONOCYTES 11 3 - 13 % [facility] MONOCYTE ABSOLUTE 0.51 0.10 - 1.30 K/uL [facility] NEUTROPHILS 50 45 - 70 % [facility] NEUTROPHIL ABSOLUTE 2.35 1.90 - 7.00 K/uL [facility] Blood specimen (specimen) 05/16/2008 2:26 PM RESEARCH ANIMAL FACILITY SUPERVISOR 05/16/2008 2:36 PM RESEARCH ANIMAL FACILITY SUPERVISOR us Authorized P Er HEMATOLOGY ORDERABLES Edited INTERFACE SYSTEM Refer to clinic/hospital department [facility] CLIA# [id number] [address] [place] [address] * (ABNORMAL) COMPREHENSIVE METABOLIC PANEL (05/16/2008 2:26 PM RESEARCH ANIMAL FACILITY SUPERVISOR) ALKALINE PHOSPHATASE 30(L) 35 - 104 U/L [facility] BILIRUBIN TOTAL 0.7 0.2 - 1.0 mg/dL [facility] CO2 24 22 - 30 mmol/L [facility] TOTAL PROTEIN 6.6 6.3 - 8.6 g/dL [facility] POTASSIUM 3.6 3.5 - 4.9 mmol/L [facility] GLUCOSE 100(H) 65 - 99 mg/dL [facility] AST 16 12 - 32 U/L [facility] BUN 8 6 - 20 mg/dL [facility] CALCIUM 8.7 8.6 - 10.2 mg/dL [facility] CHLORIDE 105 96 - 108 mmol/L [facility] ALBUMIN 4.0 3.4 - 4.8 g/dL [facility] CREATININE 0.69 0.51 - 0.95 mg/dL [facility] SODIUM 138 135 - 145 mmol/L [facility] ALT 9 0 - 31 U/L [facility] GFR, >60 >=60 mL/min/1. 7 sq meter [facility] GFR >60 >=60 mL/min/1. 7 sq meter [facility] Comment: Modification of Diet in Renal Disease (MDRD) study formula. Estimated GFR rate interpretative information for both Americans and non- Americans is available on the [facility] Intranet at: [email or web address] Select: Lab Policies and Procedures Select: Reference Ranges - GFR Blood specimen (specimen) 05/16/2008 2:26 PM RESEARCH ANIMAL FACILITY SUPERVISOR 05/16/2008 2:36 PM RESEARCH ANIMAL FACILITY SUPERVISOR us Authorized P Er CHEMISTRY ORDERABLES Edited INTERFACE SYSTEM Refer to clinic/hospital department [facility] CLIA# [id number] [address] [place] [address] documented in this encounter Visit Diagnoses Not on filedocumented in this encounter Care Teams Wet Mix Operator Relationship Specialty Start Date End Date Chirag Cordoba MD [facility] [facility] [place] [address] PCP - General Internal Medicine 10/19/22 documented as of this encounter
[2025-01-28 13:29] LABS: Hematocrit 37.7 % (37.0-47.0); Hemoglobin 12.6 g/dL (12.0-15.0); Mean Corpuscular HGB Conc 33.4 g/dl (32-36); Mean Corpuscular Hemoglobin 33.6 pg (26-34); Mean Corpuscular Volume 100.5 fl (80-100); Platelet Count Result 127 k/mm3 (150-375); Red Blood Count 3.75 M/mm3 (4.2-5.4); White Blood Count 5.5 K/mm3 (4.5-10.0)
[2025-01-28 16:55] LABS: Alanine Aminotransferase 45 U/L (6-35); Albumin Level 4.6 g/dL (3.5-5.1); Alkaline Phosphatase 57 U/L (38-126); Anion Gap 11 mmol/L (4-12); Aspartate Amino Transferase 109 U/L (14-36); Bilirubin,Total 0.7 mg/dL (0.2-1.3); Blood Urea Nitrogen 18 mg/dL (7-17); Calcium 9.7 mg/dL (8.4-10.2); Carbon Dioxide 26 mmol/L (22-30); Chloride 99 mmol/L (98-107); Estimated Glomerular Filt Rate > 60; Glucose 103 mg/dL (65-110); Potassium 3.5 mmol/L (3.4-5.0); Sodium 136 mmol/L (137-145); Total Protein 8.2 g/dL (6.3-8.2)
[2025-01-28 16:59] LABS: Iron 80 ug/dL (37-170)
[2025-01-28 17:17] LABS: Percent Iron Saturation 30 % (20-50)
[2025-01-28 17:42] LABS: Ferritin 296.00 ng/mL (11.1-264)
== END 2025-01-28 13:12 | disposition home or self-care (01) ==
LOC: ANHLAB 13:12
PROVIDERS: PCP Nurse Practitioner Adult Health; Visit Provider Internal Medicine Hematology & Oncology
DX: E83.19 Other disorders of iron metabolism (principal); C50.111 Malignant neoplasm of central portion of right female breast; Z17.0 Estrogen receptor positive status [ER+]
CPT/HCPCS: 36415; 80053; 82728; 83540; 83550; 85027; 86300

== ENCOUNTER 2025-03-04 06:07 | Emergency (ER) | payer OTHER, SELFPAY ==
[2025-03-04] VITALS (9 sets, daily range): BP systolic 103–127; BP diastolic 82–101; PULSE 92–120; RESP 14–22; TEMP 37; O2SAT 91–100
--- NOTE | ~2025-03-04 | XR_ITS ---
Examination: XR chest 1V portable Clinical History: chest pain cough fever hx of breast ca Comparison: 11/15/2024 Technique: Portable AP Findings: Heart size normal. Lungs clear. No acute bony abnormality. Breast implants. IMPRESSION: 1. No acute cardiopulmonary findings given portable technique. Reviewed, dictated and finalized at location R.
--- NOTE | ~2025-03-04 | CT_ITS ---
CT abdomen pelvis w con Clinical History: bl flank pain, poss pyelo vs stone . Comparison: CT chest abdomen pelvis 06/29/2024 MRCP 07/03/2024 Technique: Axial images lung bases to symphysis pubis IV contrast information not listed in PACS Coronal, sagittal reformats CT images acquired with automatic exposure control for dose reduction DLP: 725 mGy-cm Findings: Lung bases: Clear. Visualized heart and pericardium: Unremarkable. Liver: Enlarged. Steatosis. Gallbladder: Unremarkable. Spleen: Unremarkable. Pancreas: Chronic central ductal dilatation. Adrenal glands: Unremarkable. Kidneys: Right kidney- No hydronephrosis. No renal stones. Left kidney- No hydronephrosis. No renal stones. Distal esophagus/stomach: Mild distal esophageal wall thickening/esophagitis. Small bowel loops: Normal caliber and wall thickness. Colon: Diverticula. Normal caliber and wall thickness. Normal RLQ appendix. Nodes: No enlarged nodes. Peritoneum: No ascites. No free air. Urinary bladder: Unremarkable. Uterus: Probable fibroid. Adnexa: No masses. Bones: No acute bony abnormality. Soft tissues: Unremarkable. Aorta: No aneurysm or dissection. IVC: Unremarkable. Main portal vein/SMV/splenic vein: Patent. IMPRESSION: 1. No acute findings. Reviewed, dictated and finalized at location R. IMPRESSION: 1. No acute findings.
--- OUTSIDE RECORDS SUMMARY | 2025-03-04 06:09 | XMS_ITS | Clinical Summary ---
Author Organization [facility] Marisa blancas Julian[place] Address [address] [place] [address] Care Team Providers Care Exerciser Horse Name Role Phone Chirag Cordoba MD Primary Care Provider [phone] [phone] Allergies Active Allergy Reactions Criticality Noted Date [...] Encounters Date Type Department Care Team Description 2025 External Device Data STL ABSTRACTION Provider, Abstract 01/29/2025 Orders Only [facility] Oncology and Hematology - Edgardo [address] [place] [address] Shmuel Bertrand MD 01/28/2025 Orders Only [facility] Oncology and Hematology [place] [address] [place] [address] Shmuel Bertrand MD 12/09/2024 External Device Data STL ABSTRACTION Provider, [...] on file Legal Sex Female 5:41 AM AREA LOSS PREVENTION MANAGER Gender Identity Not on file Sexual [...] Care Team (Late st Contact Info) Description 05/28/2025 1:15 PM AREA LOSS PREVENTION MANAGER Office Visit [facility] Oncology and Hematology [facility] [address] [place] [address] [address] [place] [address] Shmuel Bertrand MD [address] [facility] [address] [place] [address] Health Maintenance Due Date Last [...] Cancer Screening 01/20/2023 INFLUENZA VACCINE (#1) 2024 Procedures Procedure Name Priority Date/Time Associated Diagnosis Comments CBC WITH AUTODIFFERENTIAL Routine 2024 4:01 PM CDT CHG CA 15 3 Routine 01/28/2025 3:34 PM CDT COMPREHENSIVE METABOLIC PANEL Routine 01/28/2025 10:36 AM CDT from Last 3 Months Results * CBC WITH AUTODIFFERENTIAL (01/28/2025 4:01 PM CDT) Blood us Shmuel Bertrand MD HEMATOLOGY ORDERABLES Final Res ult * CHG CA 15 3 (01/28/2025 3:34 PM CDT) us Shmuel Bertrand MD [facility]G - LABORATORY Final Result * COMPREHENSIVE METABOLIC PANEL (01/28/2025 10:36 AM CDT) Blood us Shmuel Bertrand MD CHEMISTRY ORDERABLES Final Resu lt from Last 3 Months Insurance [facility] MED[facility] Care Teams Exerciser Horse Relationship Specialty Start Date End Date Chirag Cordoba MD [address] [facility] [address] [place] [phone] PCP - General Internal Medicine 10/19/22
--- OUTSIDE RECORDS SUMMARY | 2025-03-04 06:09 | XMS_ITS | Encounter Summary ---
Author Organization [facility] Address [address] [place] [address] Care Team Providers Care Industrial Engineer Name Role Phone Chirag Cordoba MD Primary Care Provider [phone] [phone] Encounter Details Date Type Department Care Team (Late st Contact Info) Description 05/16/2008 Emergency [facility] EMERGENCY RO[facility] Er, Authorized P NO ADDRESS ON FILE Jorge Oliva MD [address] [place] [address] Social History Tobacco Use Types Packs/Day Years Used Date Smoking Tobacco: Never Assessed Comments Unknown Sex and Gender Information Value Date Recorded Sex Assigned at Not on file Legal Sex Female 5:41 AM OPHTHALMIC AIDE Gender Identity Not on file Sexual Orientation Not on file documented as of this encounter Plan of Treatment Upcoming Encounters Date Type Department Care Team (Late st Contact Info) Description 05/28/2025 1:15 PM OPHTHALMIC AIDE Office Visit [facility] Oncology and Hematology - Edgardo [address] [facility] [address] [place] [address] Shmuel Bertrand MD [address] [facility] [address] [place] [address] documented as of this encounter Procedures Procedure Name Priority Date/Time Associated Diagnosis Comments US PELVIS + TRANSVAG NON OB Stat 05/16/2008 3:06 PM OPHTHALMIC AIDE POC , URINE Routine 05/16/2008 2:59 PM OPHTHALMIC AIDE POC URINALYSIS DIPSTICK NON AUTOMATED Routine 05/16/2008 2:59 PM OPHTHALMIC AIDE CBC WITH DIFFERENTIAL Stat 05/16/2008 2:26 PM OPHTHALMIC AIDE COMPREHENSIVE METABOLIC PANEL Stat 05/16/2008 2:26 PM OPHTHALMIC AIDE documented in this encounter Results * US PELVIS + TRANSVAG NON OB (05/16/2008 3:06 PM OPHTHALMIC AIDE) Anatomical Region Laterality Modality Pelvis Other 05/16/2008 3:06 PM OPHTHALMIC AIDE Narrative 05/17/2008 7:19 AM OPHTHALMIC AIDE [facility] [address] [place], [place] [address] Admit Date: 05/16/2008 JACQUIE ARREAGACA Prosper Sex: F Admit Prov: ER, AUTHORIZED P Date: 1970 Primary Care Prov: CMRN: [id number] Room: ER-A SSN: [id number] IMAGING SERVICES Ordering Prov: N/A Accession Number: [id number] Interpretation ULTRASOUND OF PELVIS TRANSABDOMINAL AND TRANSVAGINAL [...] AMK Procedure Note Keiko Sewell - 05/17/2008 [place] [place], [place] [address] Admit Date: 05/16/2008 ZENAIDA ARREAGA Sex: F Admit Prov: EASTON LEONG Date:1970 Primary Care Prov: CMRN: [id number] Room: [facility] SSN: [id number] IMAGING SERVICES Ordering Prov: N/A Interpretation ULTRASOUND [...] URINALYSIS DIPSTICK NON AUTOMATED (05/16/2008 2:59 PM OPHTHALMIC AIDE) UROBILINOGEN UA 1+ (1 mg/dL) <=1 mg/dL S [facility] SPECIFIC GRAVITY UA 1.025 1.001 - 1.030 [facility] GLUCOSE UA Negative Negative [facility] COLOR UA Yellow [facility] LEUKOCYTE ESTERASE UA Negative Negative [facility] NITRITE UA Negative Negative [facility] BILIRUBIN UA 1+(A) Negative [facility] PH UA 5.0 5.0 - 8.0 [facility] KETONES UA 1+ (Small)(A) Negative [facility] CLARITY UA Clear [facility] BLOOD UA 1+(A) Negative [facility] PROTEIN UA Negative Negative [facility] Urine specimen (specimen) 05/16/2008 2:59 PM OPHTHALMIC AIDE 05/16/2008 2:59 PM OPHTHALMIC AIDE us Authorized P Er POINT OF CARE TESTING Final Resu lt Performing Organization Address [facility] de Phone Number INTERFACE SYSTEM Refer to clinic/hospital department [facility] CLIA# [id number] [address] [place] [address] * POC , URINE (05/16/2008 2:59 PM OPHTHALMIC AIDE) , URINE POC Negative Negative [facility] SPECIFIC GRAVITY UA 1.025 1.001 - 1.035 [facility] Urine specimen (specimen) 05/16/2008 2:59 PM OPHTHALMIC AIDE 05/16/2008 2:59 PM OPHTHALMIC AIDE us Authorized P Er POINT OF CARE TESTING Final Resu lt Performing Organization Address [facility] de Phone Number INTERFACE SYSTEM Refer to clinic/hospital department [facility] CLIA# [id number] [address] [place] [address] * (ABNORMAL) CBC WITH DIFFERENTIAL (05/16/2008 2:26 PM OPHTHALMIC AIDE) PLATELETS 222 140 - 350 K/uL [facility] HEMOGLOBIN 12.8 11.8 - 14.8 g/dL [facility] RDW 12.9 11.5 - 14.5 % [facility] WBC 4.7 4.0 - 9.8 K/uL [facility] MCH 30.0 27.2 - 32.6 pg [facility] MPV 8.7(L) 9.3 - 12.4 fL [facility] HEMATOCRIT 38.7 35.5 - 44.0 % [facility] RDW-STDEV 42.6 37.1 - 48.7 fL [facility] RBC 4.27 3.90 - 4.90 M/uL [facility] MCHC 33.1 31.5 - 35.5 % [facility] MCV 90.6 82.0 - 99.0 fL [facility] EOSINOPHILS 1 0 - 7 % [facility] EOSINOPHIL ABSOLUTE 0.06 0.00 - 0.70 K/uL [facility] LYMPHOCYTES 37 16 - 45 % [facility] LYMPHOCYTE ABSOLUTE 1.74 0.70 - 4.50 K/uL [facility] BASOPHILS 0 0 - 2 % [facility] BASOPHILS ABSOLUTE 0.02 0.00 - 0.20 K/uL [facility] MONOCYTES 11 3 - 13 % [facility] MONOCYTE ABSOLUTE 0.51 0.10 - 1.30 K/uL [facility] NEUTROPHILS 50 45 - 70 % [facility] NEUTROPHIL ABSOLUTE 2.35 1.90 - 7.00 K/uL [facility] Blood specimen (specimen) 05/16/2008 2:26 PM OPHTHALMIC AIDE 05/16/2008 2:36 PM OPHTHALMIC AIDE us Authorized P Er HEMATOLOGY ORDERABLES Edited INTERFACE SYSTEM Refer to clinic/hospital department [facility] CLIA# [id number] [address] [place] [address] * (ABNORMAL) COMPREHENSIVE METABOLIC PANEL (05/16/2008 2:26 PM OPHTHALMIC AIDE) ALKALINE PHOSPHATASE 30(L) 35 - 104 U/L [facility] BILIRUBIN TOTAL 0.7 0.2 - 1.0 mg/dL [facility] CO2 24 22 - 30 mmol/L [facility] TOTAL PROTEIN 6.6 6.3 - 8.6 g/dL [facility] POTASSIUM 3.6 3.5 - 4.9 mmol/L [facility] GLUCOSE 100(H) 65 - 99 mg/dL [facility] AST 16 12 - 32 U/L [facility] BUN 8 6 - 20 mg/dL [facility] CALCIUM 8.7 8.6 - 10.2 mg/dL [facility] CHLORIDE 105 96 - 108 mmol/L [facility] ALBUMIN 4.0 3.4 - 4.8 g/dL [facility] CREATININE 0.69 0.51 - 0.95 mg/dL [facility] SODIUM 138 135 - 145 mmol/L [facility] ALT 9 0 - 31 U/L [facility] GFR, >60 >=60 mL/min/1. 7 sq meter [facility] GFR >60 >=60 mL/min/1. 7 sq meter [facility] Comment: Modification of Diet in Renal Disease (MDRD) study formula. Estimated GFR rate interpretative information for both Americans and non- Americans is available on the [facility] Intranet at: [email or web address] Select: Lab Policies and Procedures Select: Reference Ranges - GFR Blood specimen (specimen) 05/16/2008 2:26 PM OPHTHALMIC AIDE 05/16/2008 2:36 PM OPHTHALMIC AIDE us Authorized P Er CHEMISTRY ORDERABLES Edited INTERFACE SYSTEM Refer to clinic/hospital department [facility] CLIA# [id number] [address] [place] [address] documented in this encounter Visit Diagnoses Not on filedocumented in this encounter Care Teams Industrial Engineer Relationship Specialty Start Date End Date Chirag Cordoba MD [facility] [place] [address] PCP - General Internal Medicine 10/19/22 documented as of this encounter
--- OUTSIDE RECORDS SUMMARY | 2025-03-04 06:09 | XMS_ITS | Encounter Summary ---
Author Organization [facility] Address [address] [place] [address] Care Team Providers Care Instructional Design Technologist Name Role Phone Chirag Cordoba MD Primary Care Provider [phone] Encounter Details Date Type Department Care Team (Late st Contact Info) Description 2025 External Device Data STL ABSTRACTION [...] on file Legal Sex Female 5:41 AM DRIER AND PULVERIZER TENDER Gender Identity Not on file Sexual Orientation Not on file documented as of this encounter Plan of Treatment Upcoming Encounters Date Type Department Care Team (Late st Contact Info) Description 05/28/2025 1:15 PM DRIER AND PULVERIZER TENDER Office Visit [facility] Oncology and Hematology - [place]gardo [address] [place] [address] [facility] [address] [place] [address] Shmuel Bertrand MD [address] [facility] [address] [place] [address] documented as of this encounter Visit Diagnoses Not on filedocumented in this encounter Care Teams Instructional Design Technologist Relationship Specialty Start Date End Date Chirag Cordoba MD [address] [facility] [place] [phone] PCP - General Internal Medicine 10/19/22 documented as of this encounter
--- OUTSIDE RECORDS SUMMARY | 2025-03-04 06:09 | XMS_ITS | Clinical Summary ---
Author Organization [facility] A Address [address] [place] [address] Care Team Providers Care Railroad Passenger Agent Name Role Phone Josef Castro MD Primary [...] (06/16/2022): Added automatically from request for surgery [id number] Mixed hyperlipidemia 11/04/2020 Gastric perforation 09/10/2020 Assessment & Plan (09/30/2020 9:40 AM CDT): I will make a referral to 1 of the athletic trainer for an upper endoscopy. Based on the [...] Currently tremulous, anxious Will start on [facility] alcohol withdrawal protocol with IV ativan sins the patient currently NPO Start on IV folate, and thiamin Seizure precautions Fall precautions Will get SWcx, Discussed and encouraged to stop drinking ELEAZAR (generalized anxiety disorder) 09/10/2020 Assessment & Plan (09/10/2020 9:43 PM CDT): Holding xanax , patient is NPO Started on IV ativan To be used per [facility] protocol for symptomatic control for anxiety [...] Hx Other Medical Dermatofibroma Hx Other Medical 01-STEP DOWN SPECIALIST Hx Other Medical 12/01/2012 ER [facility] BP [...] on file Legal Sex Female 11:24 AM WELFARE SERVICE AIDE Gender Identity Not on file Sexual [...] this topic Medical Devices Implanted Type Area Plant Operations Engineer Device Identifier Shelf Expiration Date Model / Serial / Lot Allosource 10cm Frozen Graft Bone Fibula Segment [id number] - [id number] - [id number] Implanted:Qty: 1 on 06/21/2022 by Destiny Mayorga MD at [facility] Bone Right: Humerus Allosource [id number] 01/14/2026 [id number] / [id number] / [id number] Synthes Lcp Combi Philos [id number] 3 Hole Shaft Lock Compression 241.901 - S0 - [id number] Implanted:Qty: 1 on 06/21/2022 by Destiny Mayorga MD at [facility] Plate Right: Humerus Synthes I 241.901 / 0 / Synthes 3.5mm 6mm 22mm 2.5mm Self Tap Small Hexagonal Socket Low Profile 204.822 - S0 - [id number] Implanted:Qty: 1 on 06/21/2022 by Destiny Mayorga MD at [facility] Screw Right: Humerus Synthes I 204.822 / 0 / Synthes 3.5mm 2.9mm 24mm Self Tap Lock Stardrive Conical Head Pelvis T15 212.108 - S0 - [id number] Implanted:Qty: 1 on 06/21/2022 by Destiny Mayorga MD at [facility] Screw Right: Humerus Synthes I 212.108 / 0 / Synthes 3.5mm 6mm 26mm 2.5mm Self Tap Small Hexagonal Socket Low Profile 204.826 - S0 - [id number] Implanted:Qty: 1 on 06/21/2022 by Destiny Mayorga MD at [facility] Screw Right: Humerus Synthes I 204.826 / 0 / Synthes 3.5mm 2.9mm 36mm Self Tap Lock Stardrive Conical Head T15 Full 212.115 - S0 - [id number] Implanted:Qty: 3 on 06/21/2022 by Destiny Mayorga MD at [facility] Screw Right: Humerus Synthes I 212.115 / 0 / Synthes 3.5mm 2.9mm 45mm Self Tap Lock Stardrive Conical Head T15 Full 212.119 - S0 - [id number] Implanted:Qty: 2 on 06/21/2022 by Destiny Mayorga MD at [facility] Screw Right: Humerus Synthes I 212.119 / 0 / Synthes 3.5mm 2.9mm 42mm Self Tap Lock Stardrive Conical Head Full Thread 212.118 - S0 - [id number] Implanted:Qty: 1 on 06/21/2022 by Destiny Mayorga MD at [facility] Screw Right: Humerus Synthes I 212.118 / 0 / Synthes 3.5mm 2.9mm 46mm Self Tap Lock Stardrive Conical Head T15 Full 212.136 - [id number] Implanted:Qty: 1 on 06/21/2022 by Destiny Mayorga MD at [facility] Screw Right: Humerus Synthes I 212.136 / / Synthes 3.5mm 2.9mm 44mm Self Tap Lock Stardrive Conical Head T15 Full 212.134 - S0 - [id number] Implanted:Qty: 1 on 06/21/2022 by Destiny Mayorga MD at [facility] Screw Right: Humerus Synthes I 212.134 / 0 / Synthes 3.5mm 2.9mm 48mm Self Tap Lock Fix Angle Low Profile Pelvis Full 212.120 - S0 - [id number] Implanted:Qty: 1 on 06/21/2022 by Destiny Mayorga MD at [facility] Screw Right: Humerus Synthes I 212.120 / [...] revised on 19. Testing performed by: [address] [address] Hep B core IgM Nonreactive Nonreactive Denis LEDESMA (DIMITRIS) Comment: Interpretive Data If HepB Core IgM Ab is reported as Equivocal, a new sample should be drawn in two weeks for testing. Current interpretive data was last revised on 19. Testing performed by: [facility], [address] [place] [address]., [address] Hep C Ab Nonreactive Nonreactive JOESPH LEDESMA [...] last revised on 2019. Testing performed by: [facility], [address] [place] [address]., [address] HepBsAg Nonreactive Nonreactive JOESPH LEDESMA (DIMITRIS) Comment:Testing performed by : [address] [address] Blood specimen (specimen) 09/11/2020 5:18 AM CDT 09/11/2020 11:17 AM CDT us Allison Price MD LAB MICROBIOLOGY - GENERAL OR DERABLES Final Result JOESPH LEDESMA (DIMITRIS 1 [facility] Department [place] [address] * COLONOSCOPY (01/20/2013 12:00 AM CDT) Anatomical Region Laterality Modality Other Narrative 01/20/2013 12:00 AM CDT Ordered by an unspecified provider. Procedure Note Provider, MD Edie - 01/20/2013 12:00 AM CDT PROCEDURE REPORT Patient: ZENAIDA ARREAGA Account: [id number] Room No: : 1970 Patient Type: SDS [...] 10:23 PM CDT Dia Mamm R Acc#: [id number] DATE OF EXAM: Jan 01 2013 Performed [...] Edie - 08/30/2016 Diag Mamm R Acc#: [id number] DATE OF EXAM: Jan 01 2013 Performed [...] Most Recently Relevant to Health Maintenance Insurance [place] [address] [facility] Advance Directives For more information, please contact: [phone] * Full Code (Latest Code Status on File) Date Activated Date Inactivated Comments 02/21/2023 12:16 PM 02/21/2023 6:09 PM * Full Code Date Activated Date Inactivated Comments 09/10/2020 4:50 PM 09/17/2020 4:48 PM Care Teams Railroad Passenger Agent Relationship Specialty Start Date End Date Josef Castro MD [address] [address] PCP - General 11/04/20
--- OUTSIDE RECORDS SUMMARY | 2025-03-04 06:09 | XMS_ITS | Clinical Summary ---
Author Organization [facility] Address [address] [place] [address] Care Team Providers Care Transition Lead Name Role Phone Unavailable Primary Care Provider Unavailabl e Source Comments [facility],non-owned Affiliates and Associated Physician Practices is amultiple site organization consisting of ambulatory clinics and hospital sitesin [place], [place], [place] and [place]. This disclosure is being madepursuant to the Care Everywhere program and may not contain all information available regarding this patient. Last updated 18.[facility] Kamida Allergies No known active allergies Medications * [...] on file Legal Sex Female 4:11 AM MANAGEMENT AND BUDGET ANALYST Gender Identity Not on file Sexual Orientation [...] patient's age to complete this topic Insurance [facility]
--- OUTSIDE RECORDS SUMMARY | 2025-03-04 06:09 | XMS_ITS | Patient Health Record ---
Author Organization [facility] Address [address] [place] [address] Care Team Providers Care Cane Loader Name Role Phone Adalid HARRY, Chirag Primary Care Provider Unav ailable ERIC SITE SAFETY MANAGER, WILFREDO Unavailable [phone] Allergies Allergen (clinical drug ingredient) Drug/Non Drug Allergy documented on EMR Reaction Allergy Type Onset Date Status ibuprofen Ibuprofen Unknown Drug Allergy Active Reason For Referral No Information Plan Of Treatment No Information Insurance Providers Payer Name Payer Address Payer Phone Subscriber Number Group Number Insured Name Patient Relationship to Insured Coverage Start Date Coverage End Date [address] [id number] Flavia Patrick Self - patient is the insured Medical (General) History Medical History History ICD Code carpal tunnel hyperlipidemia anxiety
--- NOTE | 2025-03-04 06:10 | ECG_ITS ---
Test Date: 2025-03-04 06:15:05 Measurements Intervals [place] Rate: 115 P: 37 HI: 139 QRS: 10 QRSD: 80 T: 66 QT: 321 QTc: 445 Interpretive Statements SINUS TACHYCARDIA BASELINE WANDER- AVR, AVL, AVF ABNORMAL ECG No previous ECG available for comparison Electronically Signed On 03-04-2025 07:59:00 CDT by Dago Weinberg D.O.
[2025-03-04 06:36] LABS: Hematocrit 45.3 % (37.0-47.0); Hemoglobin 15.6 g/dL (12.0-15.0); Immature Granulocyte Percent A 0.3 % (0-0.5); Immature Platelet Fraction Pct 4.9 % (0.9-11.2); Lymphocytes Absolute Auto 2.42 K/mm3 (0.9-3.2); Mean Corpuscular HGB Conc 34.4 g/dl (32-36); Mean Corpuscular Hemoglobin 33.0 pg (26-34); Mean Corpuscular Volume 95.8 fl (80-100); Nucleated Red Blood Cells Absolute Auto 0.000 K/mm3 (0.0-0.012); Nucleated Red Blood Cells Perc 0.0 % (0.0-0.2); Platelet Count Result 99 k/mm3 (150-375); Red Blood Count 4.73 M/mm3 (4.2-5.4); White Blood Count 7.2 K/mm3 (4.5-10.0)
--- NOTE | 2025-03-04 06:46 | ED.GENADULT ---
HPI - General Adult General Chief complaint: Unspecified <Killian Rodriguez MD - Last Filed: 03/04/25 07:20> Stated complaint: chest pain, kidneys hurt, cough, ROCA <Killian Rodriguez MD - Last Filed: 03/04/25 07:20> Time Seen by Provider: 03/04/25 06:09 <Killian Rodriguez MD - Last Filed: 03/04/25 07:20> Source: patient <Killian Rodriguez MD - Last Filed: 03/04/25 07:20> Mode of arrival: ambulatory <Killian Rodriguez MD - Last Filed: 03/04/25 07:20> Limitations: no limitations <Killian Rodriguez MD - Last Filed: 03/04/25 07:20> History of Present Illness HPI narrative: This is a 55-year-old female with history of borderline diabetes, alcoholism with history of alcohol withdrawal but not withdrawal seizures, neuropathy who presents to the ED for a constellation of complaints. Patient states that for the past day or so, she has been having diffuse body shakes with chest pain, bilateral flank pain abdominal pain, nausea but no vomiting. She states that for a couple days prior to this, she has also been having some congestion and a sore throat with a nonproductive cough. She states that she has had alcohol withdrawals in the past. She took some of her Xanax yesterday for her anxiety and did have some mild improvement of her shaking. It worsened this morning prompting her to come to the ED for further evaluation. Patient states that her last drink was approximately 60 hours ago. Denies any other substance abuse. <Killian Rodriguez MD - Last Filed: 03/04/25 07:20> Related Data Home medications: Home Medications ?Medication ?Instructions ?Recorded ?Confirmed ?Last Taken ?Type alprazolam 0.5 mg tablet 0.5 mg PO BID PRN Anxiety 10/11/22 06/29/24 Unknown History multivitamin 1 tablet PO DAILY 03/21/23 06/29/24 Unknown History amitriptyline 10 mg tablet 10 mg PO QHS 04/09/23 06/29/24 Unknown History anastrozole 1 mg tablet 1 mg PO HS 06/29/24 06/29/24 Unknown History ascorbic acid (vitamin C) 250 mg 250 mg PO DAILY 06/29/24 06/29/24 Unknown History tablet (Vitamin C) calcium carbonate (Calcium Antacid) 200 mg PO BID PRN dyspepsia 06/29/24 06/29/24 06/29/24 History cholecalciferol (vitamin D3) 25 25 mcg PO DAILY 06/29/24 06/29/24 Unknown History mcg (1,000 unit) capsule (Vitamin D3) <Killian Rodriguez MD - Last Filed: 03/04/25 07:20> Allergies/adverse reactions: Allergies Allergy/AdvReac Type Severity Reaction Status Date / Time ibuprofen Allergy Mild PALPITATION Verified 03/04/25 06:45 S gabapentin AdvReac Mild insomnia Verified 03/04/25 06:55 <Killian Rodriguez MD - Last Filed: 03/04/25 07:20> Review of Systems Review of Systems: Except as documented, all other systems reviewed and negative <Killian Rodriguez MD - Last Filed: 03/04/25 07:20> PMFSH Past Medical History Medical History: Medical History Pancreatitis Alcohol abuse Breast cancer Depression Fatty liver Anxiety and depression <Killian Rodriguez MD - Last Filed: 03/04/25 07:20> Surgical History Surgical History: Surgical History History of open reduction and internal fixation (ORIF) procedure (06/2022) repair right humeral fracture History of bilateral mastectomy History of tubal ligation <Killian Rodriguez MD - Last Filed: 03/04/25 07:20> Family History Family History: Family History Sibling Acute myocardial infarction Diabetes mellitus Sibling Asthma Diabetes mellitus Breast cancer Father Diabetes mellitus Cerebrovascular accident Hypertension Mother Diabetes mellitus Chronic obstructive pulmonary disease Congestive heart failure Colon cancer Hypertension Sibling Diabetes mellitus Hypertension Sibling Diabetes mellitus Sibling Diabetes mellitus <Killian Rodriguez MD - Last Filed: 03/04/25 07:20> Social History Social History: Social History Social History: Surrogate decision maker: Monica Li (friend). Code status: Full code. Smoking status: Never smoker Second hand tobacco smoke exposure: Yes Alcohol intake: current Drinks per week: 28 Alcohol use details: Heavy drinker, up to a bottle of wine a day in addition to gin Substance use: never Substance use type: does not use Do You Feel Safe in your Home?: Yes Lack of Transportation: No Lack of Food: Never True Current Housing: I Have Housing Concerned About Future Housing: No Difficulty Paying Gas/Electric Bills: No Difficulty Paying for Meds: No Currently Unemployed: No Education: Decline to Answer Difficulty w/ Childcare or Family Care: No Living arrangements: with family Additional living arrangements comments: Lives with boyfriend in [place]. Additional occupation/education comments: Not currently employed. Spiritual care concerns: No <Killian Rodriguez MD - Last Filed: 03/04/25 07:20> Exam Narrative: APPEARANCE: Anxious appearing, nontoxic, resting in bed EYES: EOMI HEENT: Normocephalic, atraumatic, OMM RESPIRATORY: No respiratory distress Clear to auscultation bilaterally with no rhonchi wheezing or rales. CARDIOVASCULAR: Tachycardic with regular rhythm without murmurs rubs or gallops. ABDOMINAL: Soft, nontender, nondistended, no rebound or guarding MUSCULOSKELETAl: Moves all extremities. No clubbing, cyanosis or edema. NEURO: Awake and alert. Following commands, speech normal, no focal deficits. Tremor noted SKIN:: Warm, dry. No rashes lesions or abrasions PSYCHIATRIC: Feels anxious <Killian Rodriguez MD - Last Filed: 03/04/25 07:20> Course Reevaluation(s) Reevaluation #1: I assumed care of this patient at shift change with pending labs and disposition. Patient comfortably resting no further episodes of chest pain or nausea. Informed her about the lab work, CT findings. <Pascual Peña MD - Last Filed: 03/04/25 10:10> Date: 03/04/25 <Pascual Peña MD - Last Filed: 03/04/25 10:10> Vital Signs Vital signs: Vital Signs Temperature 37.0 C 03/04/25 06:11 Pulse Rate 113 H 03/04/25 06:11 Respiratory Rate 14 03/04/25 06:11 Blood Pressure 127/91 H 03/04/25 06:11 Pulse Oximetry 98 03/04/25 06:11 Oxygen Delivery Room Air 03/04/25 06:11 Temperature 37.0 C 03/04/25 06:11 Pulse Rate 104 H 03/04/25 07:34 Respiratory Rate 16 03/04/25 07:32 Blood Pressure 103/83 03/04/25 07:32 Pulse Oximetry 98 03/04/25 07:32 Oxygen Delivery Room Air 03/04/25 06:11 <Killian Rodriguez MD - Last Filed: 03/04/25 07:20> Vital Signs Temperature 37.0 C 03/04/25 06:11 Pulse Rate 113 H 03/04/25 06:11 Respiratory Rate 14 03/04/25 06:11 Blood Pressure 127/91 H 03/04/25 06:11 Pulse Oximetry 98 03/04/25 06:11 Oxygen Delivery Room Air 03/04/25 06:11 Temperature 37.0 C 03/04/25 06:11 Pulse Rate 104 H 03/04/25 07:34 Respiratory Rate 16 03/04/25 07:32 Blood Pressure 103/83 03/04/25 07:32 Pulse Oximetry 98 03/04/25 07:32 Oxygen Delivery Room Air 03/04/25 06:11 <Pascual Peña MD - Last Filed: 03/04/25 10:10> Medical Decision Making MDM Narrative Medical decision making narrative: 55-year-old female Presenting for a constellation of complaints as above. On initial evaluation patient was in no acute distress afebrile, hemodynamic stable. Differentials include but are not limited to: Alcohol withdrawal, substance abuse, viral syndrome, UTI, pyelonephritis, gastroenteritis, GERD Notable exam findings: Anxious appearing, tremor, tachycardia. Heart and lungs clear otherwise. Notable lab findings: Hypokalemic to 2.8. UA potentially consistent with UTI but does appear to be a contaminated sample. Patient given 40 mEq of potassium chloride. Patient signed out to Dr. Peña for remaining workup. <Killian Rodriguez MD - Last Filed: 03/04/25 07:20> Vital Signs Vital Signs: Vital Signs Temperature 37.0 C 03/04/25 06:11 Pulse Rate 113 H 03/04/25 06:11 Respiratory Rate 14 03/04/25 06:11 Blood Pressure 127/91 H 03/04/25 06:11 Pulse Oximetry 98 03/04/25 06:11 Oxygen Delivery Room Air 03/04/25 06:11 Temperature 37.0 C 03/04/25 06:11 Pulse Rate 104 H 03/04/25 07:34 Respiratory Rate 16 03/04/25 07:32 Blood Pressure 103/83 03/04/25 07:32 Pulse Oximetry 98 03/04/25 07:32 Oxygen Delivery Room Air 03/04/25 06:11 <Killian Rodriguez MD - Last Filed: 03/04/25 07:20> Vital Signs Temperature 37.0 C 03/04/25 06:11 Pulse Rate 113 H 03/04/25 06:11 Respiratory Rate 14 03/04/25 06:11 Blood Pressure 127/91 H 03/04/25 06:11 Pulse Oximetry 98 03/04/25 06:11 Oxygen Delivery Room Air 03/04/25 06:11 Temperature 37.0 C 03/04/25 06:11 Pulse Rate 104 H 03/04/25 07:34 Respiratory Rate 16 03/04/25 07:32 Blood Pressure 103/83 03/04/25 07:32 Pulse Oximetry 98 03/04/25 07:32 Oxygen Delivery Room Air 03/04/25 06:11 <Pascual Peña MD - Last Filed: 03/04/25 10:10> Lab Data Lab results reviewed: Yes I reviewed the patient's lab results. <Killian Rodriguez MD - Last Filed: 03/04/25 07:20> Result diagrams: 03/04/25 06:21 03/04/25 06:21 <Killian Rodriguez MD - Last Filed: 03/04/25 07:20> Labs: Lab Results 03/04/25 03/04/25 03/04/25 Range/Units 06:21 06:23 06:33 WBC 7.2 (4.5-10.0) K/mm3 RBC 4.73 (4.2-5.4) M/mm3 Hgb 15.6 H D (12.0-15.0) g/dL Hct 45.3 (37.0-47.0) % MCV 95.8 (80-100) fl MCH 33.0 (26-34) pg MCHC 34.4 (32-36) g/dl RDW 12.1 (11.5-14.5) % Plt Count 99 L (150-375) k/mm3 MPV 9.9 (7.4-10.4) fl Immature Gran % (Auto) 0.3 (0-0.5) % Neut % (Auto) 56.2 (45.5-73.1) % Lymph % (Auto) 33.4 (18.3-44.2) % [place] % (Auto) 8.6 H (2.6-8.5) % Eos % (Auto) 0.8 (0-4.4) % Baso % (Auto) 0.7 (0.2-1.2) % Lymph # (Auto) 2.42 (0.9-3.2) K/mm3 [place] # (Auto) 0.6 (0.1-0.6) K/mm3 Eos # (Auto) 0.1 (0-0.3) K/mm3 Baso # (Auto) 0.1 (0.0-0.1) K/mm3 Abs Immat Gran (auto) 0.02 (0.00-0.031) K/mm3 Absolute Neuts (auto) 4.1 (1.3-6.7) K/mm3 Absolute Nucleated RBC 0.000 (0.0-0.012) K/mm3 Nucleated RBC % 0.0 (0.0-0.2) % % Immature Plt Fraction 4.9 (0.9-11.2) % Sodium 132 L (137-145) mmol/L Potassium 2.8 L* (3.4-5.0) mmol/L Chloride 90 L (98-107) mmol/L Carbon Dioxide 30 (22-30) mmol/L Anion Gap 12 (4-12) mmol/L BUN 16 (7-17) mg/dL Creatinine 0.84 (0.7-1.0) mg/dL Estim Creat Clear Calc 58 ml/min Estimated GFR > 60 (59 - ) Glucose 93 (65-110) mg/dL Lactic Acid 1.8 (0.7-2.0) mmol/L Calcium 9.6 (8.4-10.2) mg/dL Magnesium 1.3 L (1.6-2.3) mg/dL Total Bilirubin 2.4 H (0.2-1.3) mg/dL AST 82 H (14-36) U/L ALT 27 (6-35) U/L Alkaline Phosphatase 71 (38-126) U/L Troponin I < 0.012 (0.000-0.034) ng/mL NT-Pro-B Natriuret Pep 287 H (19.9-100) pg/mL Total Protein 9.0 H (6.3-8.2) g/dL Albumin 4.9 (3.5-5.1) g/dL Lipase 181 (23-300) U/L Urine Color Dark yellow (Yellow) Urine Appearance Turbid H (Clear) Urine pH 5.0 (5.0-9.0) Ur Specific Stover 1.034 (1.001-1.035) Urine Protein 2+ H (Negative) mg/dL Urine Glucose (UA) Negative (Negative) mg/dL Urine Ketones 1+ H (Negative) mg/dL Ur Blood (Man) Negative (Negative) Urine Nitrate Positive H (Negative) Urine Bilirubin 2+ H (Negative) Urine Urobilinogen 1.0 (<2.0) mg/dL Add Ur Microanalysis Reviewed Leukocyte Esterase Rfl 1+ H (Negative) DELORES/UL Urine RBC 3-5 H (0-2) /hpf Urine WBC 6-10 H (0-3) /hpf Ur Squamous Epith Cells Many H (Few) /hpf Urine Bacteria 3+ H /hpf Urine Casts >20 Urine Opiates Screen Negative (Negative) Urine Methadone Screen Negative (Negative) Ur Barbiturates Screen Negative (Negative) Ur Phencyclidine Scrn Negative (Negative) Ur Amphetamine Screen Negative (Negative) U Benzodiazepines Scrn Positive A (Negative) Urine Cocaine Screen Negative (Negative) U Cannabinoids Screen Negative (Negative) Ethyl Alcohol < 10 (<10) mg/dL Influenza A (RT-PCR) (Negative) Influenza B (RT-PCR) (Negative) RSV (RT-PCR) (Negative) SARS-CoV-2 RNA (RT-PCR) (Negative) 03/04/25 03/04/25 Range/Units 06:59 09:38 WBC (4.5-10.0) K/mm3 RBC (4.2-5.4) M/mm3 Hgb (12.0-15.0) g/dL Hct (37.0-47.0) % MCV (80-100) fl MCH (26-34) pg MCHC (32-36) g/dl RDW (11.5-14.5) % Plt Count (150-375) k/mm3 MPV (7.4-10.4) fl Immature Gran % (Auto) (0-0.5) % Neut % (Auto) (45.5-73.1) % Lymph % (Auto) (18.3-44.2) % Ell[place] % (Auto) (2.6-8.5) % Eos % (Auto) (0-4.4) % Baso % (Auto) (0.2-1.2) % Lymph # (Auto) (0.9-3.2) K/mm3 [place] # (Auto) (0.1-0.6) K/mm3 Eos # (Auto) (0-0.3) K/mm3 Baso # (Auto) (0.0-0.1) K/mm3 Abs Immat Gran (auto) (0.00-0.031) K/mm3 Absolute Neuts (auto) (1.3-6.7) K/mm3 Absolute Nucleated RBC (0.0-0.012) K/mm3 Nucleated RBC % (0.0-0.2) % % Immature Plt Fraction (0.9-11.2) % Sodium (137-145) mmol/L Potassium (3.4-5.0) mmol/L Chloride (98-107) mmol/L Carbon Dioxide (22-30) mmol/L Anion Gap (4-12) mmol/L BUN (7-17) mg/dL Creatinine (0.7-1.0) mg/dL Estim Creat Clear Calc ml/min Estimated GFR (59 - ) Glucose (65-110) mg/dL Lactic Acid (0.7-2.0) mmol/L Calcium (8.4-10.2) mg/dL Magnesium (1.6-2.3) mg/dL Total Bilirubin (0.2-1.3) mg/dL AST (14-36) U/L ALT (6-35) U/L Alkaline Phosphatase (38-126) U/L Troponin I Pending (0.000-0.034) ng/mL NT-Pro-B Natriuret Pep (19.9-100) pg/mL Total Protein (6.3-8.2) g/dL Albumin (3.5-5.1) g/dL Lipase (23-300) U/L Urine Color (Yellow) Urine Appearance (Clear) Urine pH (5.0-9.0) Ur Specific Stover (1.001-1.035) Urine Protein (Negative) mg/dL Urine Glucose (UA) (Negative) mg/dL Urine Ketones (Negative) mg/dL Ur Blood (Man) (Negative) Urine Nitrate (Negative) Urine Bilirubin (Negative) Urine Urobilinogen (<2.0) mg/dL Add Ur Microanalysis Leukocyte Esterase Rfl (Negative) DELORES/UL Urine RBC (0-2) /hpf Urine WBC (0-3) /hpf Ur Squamous Epith Cells (Few) /hpf Urine Bacteria /hpf Urine Casts Urine Opiates Screen (Negative) Urine Methadone Screen (Negative) Ur Barbiturates Screen (Negative) Ur Phencyclidine Scrn (Negative) Ur Amphetamine Screen (Negative) U Benzodiazepines Scrn (Negative) Urine Cocaine Screen (Negative) U Cannabinoids Screen (Negative) Ethyl Alcohol (<10) mg/dL Influenza A (RT-PCR) Negative (Negative) Influenza B (RT-PCR) Negative (Negative) RSV (RT-PCR) Negative (Negative) SARS-CoV-2 RNA (RT-PCR) Negative (Negative) <Killian Rodriguez MD - Last Filed: 03/04/25 07:20> Lab Results 03/04/25 03/04/25 03/04/25 Range/Units 06:21 06:23 06:33 WBC 7.2 (4.5-10.0) K/mm3 RBC 4.73 (4.2-5.4) M/mm3 Hgb 15.6 H D (12.0-15.0) g/dL Hct 45.3 (37.0-47.0) % MCV 95.8 (80-100) fl MCH 33.0 (26-34) pg MCHC 34.4 (32-36) g/dl RDW 12.1 (11.5-14.5) % Plt Count 99 L (150-375) k/mm3 MPV 9.9 (7.4-10.4) fl Immature Gran % (Auto) 0.3 (0-0.5) % Neut % (Auto) 56.2 (45.5-73.1) % Lymph % (Auto) 33.4 (18.3-44.2) % [place] % (Auto) 8.6 H (2.6-8.5) % Eos % (Auto) 0.8 (0-4.4) % Baso % (Auto) 0.7 (0.2-1.2) % Lymph # (Auto) 2.42 (0.9-3.2) K/mm3 [place] # (Auto) 0.6 (0.1-0.6) K/mm3 Eos # (Auto) 0.1 (0-0.3) K/mm3 Baso # (Auto) 0.1 (0.0-0.1) K/mm3 Abs Immat Gran (auto) 0.02 (0.00-0.031) K/mm3 Absolute Neuts (auto) 4.1 (1.3-6.7) K/mm3 Absolute Nucleated RBC 0.000 (0.0-0.012) K/mm3 Nucleated RBC % 0.0 (0.0-0.2) % % Immature Plt Fraction 4.9 (0.9-11.2) % Sodium 132 L (137-145) mmol/L Potassium 2.8 L* (3.4-5.0) mmol/L Chloride 90 L (98-107) mmol/L Carbon Dioxide 30 (22-30) mmol/L Anion Gap 12 (4-12) mmol/L BUN 16 (7-17) mg/dL Creatinine 0.84 (0.7-1.0) mg/dL Estim Creat Clear Calc 58 ml/min Estimated GFR > 60 (59 - ) Glucose 93 (65-110) mg/dL Lactic Acid 1.8 (0.7-2.0) mmol/L Calcium 9.6 (8.4-10.2) mg/dL Magnesium 1.3 L (1.6-2.3) mg/dL Total Bilirubin 2.4 H (0.2-1.3) mg/dL AST 82 H (14-36) U/L ALT 27 (6-35) U/L Alkaline Phosphatase 71 (38-126) U/L Troponin I < 0.012 (0.000-0.034) ng/mL NT-Pro-B Natriuret Pep 287 H (19.9-100) pg/mL Total Protein 9.0 H (6.3-8.2) g/dL Albumin 4.9 (3.5-5.1) g/dL Lipase 181 (23-300) U/L Urine Color Dark yellow (Yellow) Urine Appearance Turbid H (Clear) Urine pH 5.0 (5.0-9.0) Ur Specific Stover 1.034 (1.001-1.035) Urine Protein 2+ H (Negative) mg/dL Urine Glucose (UA) Negative (Negative) mg/dL Urine Ketones 1+ H (Negative) mg/dL Ur Blood (Man) Negative (Negative) Urine Nitrate Positive H (Negative) Urine Bilirubin 2+ H (Negative) Urine Urobilinogen 1.0 (<2.0) mg/dL Add Ur Microanalysis Reviewed Leukocyte Esterase Rfl 1+ H (Negative) DELORES/UL Urine RBC 3-5 H (0-2) /hpf Urine WBC 6-10 H (0-3) /hpf Ur Squamous Epith Cells Many H (Few) /hpf Urine Bacteria 3+ H /hpf Urine Casts >20 Urine Opiates Screen Negative (Negative) Urine Methadone Screen Negative (Negative) Ur Barbiturates Screen Negative (Negative) Ur Phencyclidine Scrn Negative (Negative) Ur Amphetamine Screen Negative (Negative) U Benzodiazepines Scrn Positive A (Negative) Urine Cocaine Screen Negative (Negative) U Cannabinoids Screen Negative (Negative) Ethyl Alcohol < 10 (<10) mg/dL Influenza A (RT-PCR) (Negative) Influenza B (RT-PCR) (Negative) RSV (RT-PCR) (Negative) SARS-CoV-2 RNA (RT-PCR) (Negative) 03/04/25 03/04/25 Range/Units 06:59 09:38 WBC (4.5-10.0) K/mm3 RBC (4.2-5.4) M/mm3 Hgb (12.0-15.0) g/dL Hct (37.0-47.0) % MCV (80-100) fl MCH (26-34) pg MCHC (32-36) g/dl RDW (11.5-14.5) % Plt Count (150-375) k/mm3 MPV (7.4-10.4) fl Immature Gran % (Auto) (0-0.5) % Neut % (Auto) (45.5-73.1) % Lymph % (Auto) (18.3-44.2) % [place] % (Auto) (2.6-8.5) % Eos % (Auto) (0-4.4) % Baso % (Auto) (0.2-1.2) % Lymph # (Auto) (0.9-3.2) K/mm3 [place] # (Auto) (0.1-0.6) K/mm3 Eos # (Auto) (0-0.3) K/mm3 Baso # (Auto) (0.0-0.1) K/mm3 Abs Immat Gran (auto) (0.00-0.031) K/mm3 Absolute Neuts (auto) (1.3-6.7) K/mm3 Absolute Nucleated RBC (0.0-0.012) K/mm3 Nucleated RBC % (0.0-0.2) % % Immature Plt Fraction (0.9-11.2) % Sodium (137-145) mmol/L Potassium (3.4-5.0) mmol/L Chloride (98-107) mmol/L Carbon Dioxide (22-30) mmol/L Anion Gap (4-12) mmol/L BUN (7-17) mg/dL Creatinine (0.7-1.0) mg/dL Estim Creat Clear Calc ml/min Estimated GFR (59 - ) Glucose (65-110) mg/dL Lactic Acid (0.7-2.0) mmol/L Calcium (8.4-10.2) mg/dL Magnesium (1.6-2.3) mg/dL Total Bilirubin (0.2-1.3) mg/dL AST (14-36) U/L ALT (6-35) U/L Alkaline Phosphatase (38-126) U/L Troponin I Pending (0.000-0.034) ng/mL NT-Pro-B Natriuret Pep (19.9-100) pg/mL Total Protein (6.3-8.2) g/dL Albumin (3.5-5.1) g/dL Lipase (23-300) U/L Urine Color (Yellow) Urine Appearance (Clear) Urine pH (5.0-9.0) Ur Specific Stover (1.001-1.035) Urine Protein (Negative) mg/dL Urine Glucose (UA) (Negative) mg/dL Urine Ketones (Negative) mg/dL Ur Blood (Man) (Negative) Urine Nitrate (Negative) Urine Bilirubin (Negative) Urine Urobilinogen (<2.0) mg/dL Add Ur Microanalysis Leukocyte Esterase Rfl (Negative) DELORES/UL Urine RBC (0-2) /hpf Urine WBC (0-3) /hpf Ur Squamous Epith Cells (Few) /hpf Urine Bacteria /hpf Urine Casts Urine Opiates Screen (Negative) Urine Methadone Screen (Negative) Ur Barbiturates Screen (Negative) Ur Phencyclidine Scrn (Negative) Ur Amphetamine Screen (Negative) U Benzodiazepines Scrn (Negative) Urine Cocaine Screen (Negative) U Cannabinoids Screen (Negative) Ethyl Alcohol (<10) mg/dL Influenza A (RT-PCR) Negative (Negative) Influenza B (RT-PCR) Negative (Negative) RSV (RT-PCR) Negative (Negative) SARS-CoV-2 RNA (RT-PCR) Negative (Negative) <Pascual Peña MD - Last Filed: 03/04/25 10:10> Imaging Data Radiologist's impression: ITS Impressions Chest X-Ray 03/04/25 07:17 IMPRESSION: 1. No acute cardiopulmonary findings given portable technique. Abdomen/Pelvis CT 03/04/25 07:22 IMPRESSION: 1. No acute findings. <Pascual Peña MD - Last Filed: 03/04/25 10:10> ECG Data EKG #1: Attestation: I personally reviewed and interpreted this ECG as follows: <Killian Rodriguez MD - Last Filed: 03/04/25 07:20> ECG completion date: 03/04/25 <Killian Rodriguez MD - Last Filed: 03/04/25 07:20> ECG completion time: 06:15 <Killian Rodriguez MD - Last Filed: 03/04/25 07:20> Interpretation: Sinus tachycardia rate of 115, normal axis, normal intervals, no acute ST or T-wave changes <Killian Rodriguez MD - Last Filed: 03/04/25 07:20> Discharge Plan Discharge Clinical Impression: Epigastric pain, Hypokalemia <Killian Rodriguez MD - Last Filed: 03/04/25 07:20> Patient Disposition: Home <Killian Rodriguez MD - Last Filed: 03/04/25 07:20> Condition: Stable <Killian Rodriguez MD - Last Filed: 03/04/25 07:20> Instructions: Abdominal Pain (ED) <Killian Rodriguez MD - Last Filed: 03/04/25 07:20> Additional Instructions: Continue home medications. follow with your doctor. <Killian Rodriguez MD - Last Filed: 03/04/25 07:20> Patient Language: Macedonian <Killian Rodriguez MD - Last Filed: 03/04/25 07:20> Prescriptions: No Action amitriptyline 10 mg tablet 10 mg PO QHS Patient Comments: states she takes as needed for sleep alprazolam 0.5 mg tablet 0.5 mg PO BID PRN (Reason: Anxiety) hydrocodone-acetaminophen 5-325 mg tablet 1 tablet PO Q8H PRN (Reason: pain) Qty: 10 0RF lidocaine [Lidoderm] 5 % adhesive patch,medicated 1 patch topical DAILY Qty: 15 0RF Rx Instructions: leave on most painful area for up to 12 hrs multivitamin Tablet 1 tablet PO DAILY calcium carbonate [Calcium Antacid] 200 mg calcium (500 mg) tablet,chewable 200 mg PO BID PRN (Reason: dyspepsia) ascorbic acid (vitamin C) [Vitamin C] 250 mg tablet 250 mg PO DAILY anastrozole 1 mg tablet 1 mg PO HS cholecalciferol (vitamin D3) [Vitamin D3] 25 mcg (1,000 unit) capsule 25 mcg PO DAILY pantoprazole [Protonix] 40 mg tablet,delayed release (DR/EC) 40 mg PO Q12H Qty: 60 0RF <Killian Rodriguez MD - Last Filed: 03/04/25 07:20> Follow-up/Referrals: Noe,Esperanza Perrin NP [Primary Care Provider, Unknown] <Killian Rodriguez MD - Last Filed: 03/04/25 07:20> Time of Disposition: 10:10 <Killian Rodriguez MD - Last Filed: 03/04/25 07:20> 10:10 <Pascula Peña MD - Last Filed: 03/04/25 10:10>
[2025-03-04 06:51] LABS: Add Urine Microscopic? YES; Appearance Urine Turbid (Clear); Glucose Urine UA Negative (Negative); Leukocyte Esterase Ur 1+ LEU/UL (Negative); Need Manual Microscopic Reviewed; Nitrate Urine Positive (Negative); Non Pathogenic Casts >20; Specific Grav Ur 1.034 (1.001-1.035)
[2025-03-04 06:55] LABS: Alanine Aminotransferase 27 U/L (6-35); Albumin Level 4.9 g/dL (3.5-5.1); Alkaline Phosphatase 71 U/L (38-126); Anion Gap 12 mmol/L (4-12); Aspartate Amino Transferase 82 U/L (14-36); Bilirubin,Total 2.4 mg/dL (0.2-1.3); Blood Urea Nitrogen 16 mg/dL (7-17); Calcium 9.6 mg/dL (8.4-10.2); Carbon Dioxide 30 mmol/L (22-30); Chloride 90 mmol/L (98-107); Estimated CRCL calculation 58 ml/min; Estimated Glomerular Filt Rate > 60; Glucose 93 mg/dL (65-110); Lipase 181 U/L (23-300); Potassium 2.8 mmol/L (3.4-5.0); Sodium 132 mmol/L (137-145); Total Protein 9.0 g/dL (6.3-8.2)
[2025-03-04 07:05] LABS: NT Pro B Type Natriuretic Pept 287 pg/mL (19.9-100); Troponin I < 0.012 ng/mL (0.000-0.034)
[2025-03-04] MEDS: LORazepam (*CRX) 1 MG TABLET 4 MG PO (07:11)
[2025-03-04] MEDS: POTASSIUM CHLORIDE 20 MEQ ER TABLET 40 MEQ PO (07:11)
[2025-03-04 07:14] LABS: Cannabinoid Screen Urine Negative (Negative)
[2025-03-04 07:21] LABS: Magnesium 1.3 mg/dL (1.6-2.3)
[2025-03-04] MEDS: PANTOPRAZOLE SOD SESQUIHYDRATE 20 MG TAB PO (07:25)
[2025-03-04] MEDS: CALCIUM CARBONATE (TUMS) 500 MG (200 MG ELEMENTAL) PO (07:26)
[2025-03-04] MEDS: PANTOPRAZOLE SODIUM IV 40 MG VIAL IV PUSH (07:29)
[2025-03-04 07:41] LABS: Influenza A QL RT-PCR Negative (Negative); Influenza B QL RT-PCR Negative (Negative); RSV RNA, RT-PCR Negative (Negative); SARS-CoV-2 RNA PCR Negative (Negative)
--- NOTE | 2025-03-04 09:43 | ECG_ITS ---
Test Date: 2025-03-04 09:46:34 Measurements Intervals [place] Rate: 104 P: 36 NE: 136 QRS: 8 QRSD: 78 T: 58 QT: 339 QTc: 446 Interpretive Statements SINUS TACHYCARDIA VOLTAGE CRITERIA FOR LVH CONSIDER INFERIOR INFARCT, AGE INDETERMINATE ABNORMAL ECG Compared to ECG 03/04/2025 06:15:05 HEART RATE HAS DECREASED Electronically Signed On 03-04-2025 10:36:17 CDT by Dago Weinberg D.O.
[2025-03-04 10:11] LABS: Troponin I < 0.012 ng/mL (0.000-0.034)
== END 2025-03-04 10:38 | disposition home or self-care (01) ==
PROVIDERS: Student in an Organized Health Care Education/Training Program; Emergency Provider Family Medicine; PCP Nurse Practitioner Adult Health
DX: R10.13 Epigastric pain (principal); E87.6 Hypokalemia; Z20.822 Contact with and (suspected) exposure to COVID-19; R73.03 Prediabetes; F10.20 Alcohol dependence, uncomplicated; F32.A Depression, unspecified; F41.9 Anxiety disorder, unspecified; Z85.3 Personal history of malignant neoplasm of breast; Z90.13 Acquired absence of bilateral breasts and nipples; Z77.22 Contact with and (suspected) exposure to environmental tobacco smoke (acute) (chronic); Y90.0 Blood alcohol level of less than 20 mg/100 ml; R00.0 Tachycardia, unspecified; R94.31 Abnormal electrocardiogram [ECG] [EKG]
CPT/HCPCS: 36415; 71045; 74177; 80053; 80307; 81001; 82077; 83605; 83690; 83735; 83880; 84484; 85025; 85055; 87637; 93005; 96374; 99284; A9270; J2470; Q9967

== ENCOUNTER 2025-04-01 08:15 | Outpatient (CLI) | payer OTHER, SELFPAY ==
--- OUTSIDE RECORDS SUMMARY | 2025-04-01 08:22 | XMS_ITS | Clinical Summary ---
Author Organization [facility] Marisa blancas Julianna Address [address] [place] [address] Care Team Providers Care Dog Control Officer Name Role Phone Chirag Cordoba MD Primary Care Provider +1 [phone] Allergies Active Allergy Reactions Criticality Noted Date [...] Encounters Date Type Department Care Team Description 03/24/2025 External Device Data STL ABSTRACTION Provider, Abstract 03/04/2025 External Device Data STL ABSTRACTION Provider, Abstract 2025 External Device Data STL ABSTRACTION Provider, Abstract 01/29/2025 Orders Only [facility] Oncology and Hematology - Edgardo [address] [place] [address] Shmuel Bertrand MD 01/28/2025 Orders Only [facility] Oncology and Hematology - Edgardo [address] [place] [address] Shmuel Bertrand MD from Last 3 Months Family History Medical [...] on file 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 Gender Identity Not on file Sexual Orientation [...] st Contact Info) Description 05/28/2025 1:15 PM FARMWORKER FRYER FARM Office Visit [facility] Oncology and Hematology [facility] [address] [address] Shmuel Bertrand MD [address] [facility] [address] [place] [address] Health Maintenance Due Date Last [...] Resu lt from Last 3 Months Insurance [facility] MEDICAID Care Teams Dog Control Officer Relationship Specialty Start Date End Date Chirag Cordoba MD [address] [facility] [place] [phone] PCP - General Internal Medicine 10/19/22
--- OUTSIDE RECORDS SUMMARY | 2025-04-01 08:22 | XMS_ITS | Patient Health Record ---
Author Organization [facility] Address [address] [facility] [address] [place] [address] Care Team Providers Care Baggage Agent Supervisor Name Role Phone Adalid HARRY, Chirag Primary Care Provider Unav ailable ERIC CARTOGRAPHY PROFESSOR, WILFREDO Unavailable [phone] Allergies Allergen (clinical drug ingredient) Drug/Non Drug Allergy documented on EMR Reaction Allergy Type Onset Date Status ibuprofen Ibuprofen Unknown Drug Allergy Active Reason For Referral No Information Plan Of Treatment No Information Insurance Providers Payer Name Payer Address Payer Phone Subscriber Number Group Number Insured Name Patient Relationship to Insured Coverage Start Date Coverage End Date [address] [id number] Flavia Patrick Self - patient is the insured Medical (General) History Medical History History ICD Code carpal tunnel hyperlipidemia anxiety
--- OUTSIDE RECORDS SUMMARY | 2025-04-01 08:22 | XMS_ITS | Clinical Summary ---
Author Organization [facility] Address [address] [facility] [place] [address] Care Team Providers Care Soda Room Operator Name Role Phone Unavailable Primary Care Provider Unavailabl e Source Comments [facility],non-owned Affiliates and Associated Physician Practices is amultiple site organization consisting of ambulatory clinics and hospital sitesin [place], [place], [place] and [place]. This disclosure is being madepursuant to the Care Everywhere program and may not contain all information available regarding this patient. 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
--- OUTSIDE RECORDS SUMMARY | 2025-04-01 08:22 | XMS_ITS | Encounter Summary ---
Author Organization [facility] Address [address] [place] [address] Care Team Providers Care Electric Motor Fitter Name Role Phone Chirag Cordoba MD Primary Care Provider [phone] Encounter Details Date Type Department Care Team (Late st Contact Info) Description 05/16/2008 Emergency [facility] Er, Authorized P NO ADDRESS ON FILE Jorge Oliva MD [address] [place] [id number] Social History Tobacco Use Types Packs/Day Years Used Date Smoking Tobacco: Never Assessed Comments Unknown Sex and Gender Information Value Date Recorded Sex Assigned at Not on file Legal Sex Female 5:41 AM PLATINUM SMITH Gender Identity Not on file Sexual Orientation Not on file documented as of this encounter Plan of Treatment Upcoming Encounters Date Type Department Care Team (Late st Contact Info) Description 05/28/2025 1:15 PM PLATINUM SMITH Office Visit [facility] Oncology and Hematology - [place]gardo [address] [place] [address] [facility] [address] [place] [address] Shmuel Bertrand MD [address] [facility] [address] [place] [address] documented as of this encounter Procedures Procedure Name Priority Date/Time Associated Diagnosis Comments US PELVIS + TRANSVAG NON OB Stat 05/16/2008 3:06 PM PLATINUM SMITH POC , URINE Routine 05/16/2008 2:59 PM PLATINUM SMITH POC URINALYSIS DIPSTICK NON AUTOMATED Routine 05/16/2008 2:59 PM PLATINUM SMITH CBC WITH DIFFERENTIAL Stat 05/16/2008 2:26 PM PLATINUM SMITH COMPREHENSIVE METABOLIC PANEL Stat 05/16/2008 2:26 PM PLATINUM SMITH documented in this encounter Results * US PELVIS + TRANSVAG NON OB (05/16/2008 3:06 PM PLATINUM SMITH) Anatomical Region Laterality Modality Pelvis Other 05/16/2008 3:06 PM PLATINUM SMITH Narrative 05/17/2008 7:19 AM PLATINUM SMITH [facility] [address], [place] [address] Admit Date: 05/16/2008 ZENAIDA ARREAGA Sex: F Admit Prov: ER, AUTHORIZED P Date: 1970 Primary Care Prov: CMRN: [id number] Room: ER-A SSN: [id number] IMAGING SERVICES Ordering Prov: N/A Accession Number: [id number] Interpretation ULTRASOUND OF PELVIS TRANSABDOMINAL AND TRANSVAGINAL [...] 07:18 Transcribed: 05/16/2008 15:52 AMK Procedure Note Kieko Sewell - 05/17/2008 [facility] [address] [place], [place] [address] Admit Date: 05/16/2008 ZENAIDA ARREAGA Sex: F Admit Prov: EASTON LEONG Date:1970 Primary Care Prov: CMRN: [id number] [facility]: [id number] IMAGING SERVICES Ordering Prov: N/A Interpretation ULTRASOUND [...] URINALYSIS DIPSTICK NON AUTOMATED (05/16/2008 2:59 PM PLATINUM SMITH) UROBILINOGEN UA 1+ (1 mg/dL) <=1 mg/dL S [facility] SPECIFIC GRAVITY UA 1.025 1.001 - 1.030 [facility] GLUCOSE UA Negative Negative [facility] COLOR UA Yellow [facility] LEUKOCYTE ESTERASE UA Negative Negative [facility] NITRITE UA Negative Negative [facility] BILIRUBIN UA 1+(A) Negative [facility] PH UA 5.0 5.0 - 8.0 [facility] KETONES UA 1+ (Small)(A) Negative [facility] CLARITY UA Clear [facility] BLOOD UA 1+(A) Negative [facility] PROTEIN UA Negative Negative [facility] Urine specimen (specimen) 05/16/2008 2:59 PM PLATINUM SMITH 05/16/2008 2:59 PM PLATINUM SMITH us Authorized P Er POINT OF CARE TESTING Final Resu lt Performing Organization Address [facility] de Phone Number INTERFACE SYSTEM Refer to clinic/hospital department [facility] CLIA# [id number] [address] [place] [address] * POC , URINE (05/16/2008 2:59 PM PLATINUM SMITH) , URINE POC Negative Negative [facility] SPECIFIC GRAVITY UA 1.025 1.001 - 1.035 [facility] Urine specimen (specimen) 05/16/2008 2:59 PM PLATINUM SMITH 05/16/2008 2:59 PM PLATINUM SMITH us Authorized P Er POINT OF CARE TESTING Final Resu lt Performing Organization Address [facility] Co de Phone Number INTERFACE SYSTEM Refer to clinic/hospital department [facility] CLIA# [id number] [address] [place] [address] * (ABNORMAL) CBC WITH DIFFERENTIAL (05/16/2008 2:26 PM PLATINUM SMITH) PLATELETS 222 140 - 350 K/uL [facility] HEMOGLOBIN 12.8 11.8 - 14.8 g/dL [facility] RDW 12.9 11.5 - 14.5 % [facility] WBC 4.7 4.0 - 9.8 K/uL [facility] MCH 30.0 27.2 - 32.6 pg [facility] MPV 8.7(L) 9.3 - 12.4 fL [facility] HEMATOCRIT 38.7 35.5 - 44.0 % [facility] RDW-STDEV 42.6 37.1 - 48.7 fL [facility] RBC 4.27 3.90 - 4.90 M/uL [facility] MCHC 33.1 31.5 - 35.5 % [facility] MCV 90.6 82.0 - 99.0 fL [facility] EOSINOPHILS 1 0 - 7 % [facility] EOSINOPHIL ABSOLUTE 0.06 0.00 - 0.70 K/uL [facility] LYMPHOCYTES 37 16 - 45 % [facility] LYMPHOCYTE ABSOLUTE 1.74 0.70 - 4.50 K/uL [facility] BASOPHILS 0 0 - 2 % [facility] BASOPHILS ABSOLUTE 0.02 0.00 - 0.20 K/uL [facility] MONOCYTES 11 3 - 13 % [facility] MONOCYTE ABSOLUTE 0.51 0.10 - 1.30 K/uL [facility] NEUTROPHILS 50 45 - 70 % [facility] NEUTROPHIL ABSOLUTE 2.35 1.90 - 7.00 K/uL [facility] Blood specimen (specimen) 05/16/2008 2:26 PM PLATINUM SMITH 05/16/2008 2:36 PM PLATINUM SMITH us Authorized P Er HEMATOLOGY ORDERABLES Edited INTERFACE SYSTEM Refer to clinic/hospital department [facility] CLIA# [id number] [address] [place] [address] * (ABNORMAL) COMPREHENSIVE METABOLIC PANEL (05/16/2008 2:26 PM PLATINUM SMITH) ALKALINE PHOSPHATASE 30(L) 35 - 104 U/L [facility] BILIRUBIN TOTAL 0.7 0.2 - 1.0 mg/dL [facility] CO2 24 22 - 30 mmol/L [facility] TOTAL PROTEIN 6.6 6.3 - 8.6 g/dL [facility] POTASSIUM 3.6 3.5 - 4.9 mmol/L [facility] GLUCOSE 100(H) 65 - 99 mg/dL [facility] AST 16 12 - 32 U/L [facility] BUN 8 6 - 20 mg/dL [facility] CALCIUM 8.7 8.6 - 10.2 mg/dL [facility] CHLORIDE 105 96 - 108 mmol/L [facility] ALBUMIN 4.0 3.4 - 4.8 g/dL [facility] CREATININE 0.69 0.51 - 0.95 mg/dL [facility] SODIUM 138 135 - 145 mmol/L [facility] ALT 9 0 - 31 U/L [facility] GFR, >60 >=60 mL/min/1. 7 sq meter [facility] GFR >60 >=60 mL/min/1. 7 sq meter [facility] Comment: Modification of Diet in Renal Disease (MDRD) study formula. Estimated GFR rate interpretative information for both Americans and non- Americans is available on the [facility] Intranet at: [email or web address] Select: Lab Policies and Procedures Select: Reference Ranges - GFR Blood specimen (specimen) 05/16/2008 2:26 PM PLATINUM SMITH 05/16/2008 2:36 PM PLATINUM SMITH us Authorized P Er CHEMISTRY ORDERABLES Edited INTERFACE SYSTEM Refer to clinic/hospital department [facility] CLIA# [id number] [address] [place] [address] documented in this encounter Visit Diagnoses Not on filedocumented in this encounter Care Teams Electric Motor Fitter Relationship Specialty Start Date End Date Chirag Cordoba MD [facility] [facility] [place] [address] PCP - General Internal Medicine 10/19/22 documented as of this encounter
--- OUTSIDE RECORDS SUMMARY | 2025-04-01 08:22 | XMS_ITS | Clinical Summary ---
Author Organization [facility] Address [address] [place] [address] Care Team Providers Care Hospice Aide Name Role Phone Josef Castro MD Primary [...] (06/16/2022): Added automatically from request for surgery [id number] Mixed hyperlipidemia 11/04/2020 Gastric perforation 09/10/2020 Assessment & Plan (09/30/2020 9:40 AM CDT): I will make a referral to 1 of the store facility technician for an upper endoscopy. Based on [...] ago, Currently tremulous, anxious Will start on [facility] alcohol withdrawal protocol with IV ativan sins the patient currently NPO Start on IV folate, and thiamin Seizure precautions Fall precautions Will get SWcx, Discussed and encouraged to stop drinking LEEAZAR (generalized anxiety disorder) 09/10/2020 Assessment & Plan (09/10/2020 9:43 PM CDT): Holding xanax , patient is NPO Started on IV ativan To be used per [facility] protocol for symptomatic control for [...] Hx Other Medical Dermatofibroma Hx Other Medical 01-THERAPIST RADIATION Hx Other Medical 12/01/2012 ER [facility] BP [...] on file 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 Gender Identity Not on file Sexual Orientation [...] Colon Cancer Screening-Colonoscopy 01/20/2023 01/20/2013 Covid-19 Vaccine (2 - 2025-26 season) 2025 09/15/2021 Influenza Vaccine (#1) 2025 Colon Cancer Screening-CT Colonography Discontinued 01/20/2013 Colon Cancer Screening-DNA Stool Discontinued 01/20/2013 Colon Cancer Screening-FIT Discontinued 01/20/2013 Colon Cancer Screening-Sigmoidoscopy Discontinued 01/20/2013 Hepatitis C Screening Completed 09/11/2020 Pneumococcal vaccine <65 Aged Out No longer eligible based on patient's age to complete this topic Medical Devices Implanted Type Area Installation Specialist Device Identifier Shelf Expiration Date Model / Serial / Lot Allosource 10cm Frozen Graft Bone Fibula Segment [id number] - [id number] - [id number] Implanted:Qty: 1 on 06/21/2022 by Destiny Mayorga MD at [facility] Bone Right: Humerus Allosource [id number] 01/14/2026 [id number] / [id number] / [id number] Synthes Lcp Combi Philos [id number] 3 Hole Shaft Lock Compression 241.901 - S0 - [id number] Implanted:Qty: 1 on 06/21/2022 by Destiny Mayorga MD at [facility] Plate Right: Humerus Synthes I 241.901 / 0 / Synthes 3.5mm 6mm 22mm 2.5mm Self Tap Small Hexagonal Socket Low Profile 204.822 - S0 - [id number] Implanted:Qty: 1 on 06/21/2022 by Destiny Mayorga MD at [facility] Screw Right: Humerus Synthes I 204.822 / 0 / Synthes 3.5mm 2.9mm 24mm Self Tap Lock Stardrive Conical Head Pelvis T15 212.108 - S0 - [id number] Implanted:Qty: 1 on 06/21/2022 by Destiny Mayorga MD at [facility] Screw Right: Humerus Synthes I 212.108 / 0 / Synthes 3.5mm 6mm 26mm 2.5mm Self Tap Small Hexagonal Socket Low Profile 204.826 - S0 - [id number] Implanted:Qty: 1 on 06/21/2022 by Destiny Mayorga MD at [facility] Screw Right: Humerus Synthes I 204.826 / 0 / Synthes 3.5mm 2.9mm 36mm Self Tap Lock Stardrive Conical Head T15 Full 212.115 - S0 - [id number] Implanted:Qty: 3 on 06/21/2022 by Destiny Mayorga MD at [facility] Screw Right: Humerus Synthes I 212.115 / 0 / Synthes 3.5mm 2.9mm 45mm Self Tap Lock Stardrive Conical Head T15 Full 212.119 - S0 - [id number] Implanted:Qty: 2 on 06/21/2022 by Destiny Mayorga MD at [facility] Screw Right: Humerus Synthes I 212.119 / 0 / Synthes 3.5mm 2.9mm 42mm Self Tap Lock Stardrive Conical Head Full Thread 212.118 - S0 - [id number] Implanted:Qty: 1 on 06/21/2022 by Destiny Mayorga MD at [facility] Screw Right: Humerus Synthes I 212.118 / 0 / Synthes 3.5mm 2.9mm 46mm Self Tap Lock Stardrive Conical Head T15 Full 212.136 - [id number] Implanted:Qty: 1 on 06/21/2022 by Destiny Mayorga MD at [facility] Screw Right: Humerus Synthes I 212.136 / / Synthes 3.5mm 2.9mm 44mm Self Tap Lock Stardrive Conical Head T15 Full 212.134 - S0 - [id number] Implanted:Qty: 1 on 06/21/2022 by Destiny Mayorga MD at [facility] Screw Right: Humerus Synthes I 212.134 / 0 / Synthes 3.5mm 2.9mm 48mm Self Tap Lock Fix Angle Low Profile Pelvis Full 212.120 - S0 - [id number] Implanted:Qty: 1 on 06/21/2022 by Destiny Mayorga MD at [facility] Screw Right: Humerus Synthes I 212.120 [...] last revised on 19. Testing performed by: [address] [address] Hep B core IgM Nonreactive Nonreactive C NANO [facility]ES[facility] ([facility]) Comment: Interpretive Data If HepB Core IgM Ab is reported as Equivocal, a new sample should be drawn in two weeks for testing. Current interpretive data was last revised on 19. Testing performed by: [facility], [address] [place] [address]., [address] Hep C Ab Nonreactive Nonreactive [facility]ESPH LEDESMA [...] last revised on 2019. Testing performed by: [facility], [address] [place] [address]., [address] HepBsAg Nonreactive Nonreactive [facility] ([facility]) Comment:Testing performed by : [address] [address] Blood specimen (specimen) 09/11/2020 5:18 AM CDT 09/11/2020 11:17 AM CDT us Allison Price MD LAB MICROBIOLOGY - GENERAL OR DERABLES Final Result [facility] ([facility]) [address] [facility] [place] [address] * COLONOSCOPY (01/20/2013 12:00 AM CDT) Anatomical Region Laterality Modality Other Narrative 01/20/2013 12:00 AM CDT Ordered by an unspecified provider. Procedure Note Provider, MD Edie - 01/20/2013 12:00 AM CDT PROCEDURE REPORT Patient: ZENAIDA ARREAGA Account: [id number] Room No: : 1970 Patient Type: SDS [...] 10:23 PM CDT Dia Mamm R Acc#: [id number] DATE OF EXAM: Jan 01 2013 Performed [...] Edie - 08/30/2016 Diag Mamm R Acc#: [id number] DATE OF EXAM: Jan 01 2013 Performed [...] Most Recently Relevant to Health Maintenance Insurance [facility] Advance Directives For more information, please contact: [phone] * Full Code (Latest Code Status on File) Date Activated Date Inactivated Comments 02/21/2023 12:16 PM 02/21/2023 6:09 PM * Full Code Date Activated Date Inactivated Comments 09/10/2020 4:50 PM 09/17/2020 4:48 PM Care Teams Hospice Aide Relationship Specialty Start Date End Date Josef Castro MD [address] [facility] [place] [address] PCP - General 11/04/20
[2025-04-01 10:16] LABS: Alanine Aminotransferase 113 U/L (6-35); Albumin Level 4.2 g/dL (3.5-5.1); Alkaline Phosphatase 93 U/L (38-126); Anion Gap 9 mmol/L (4-12); Aspartate Amino Transferase 160 U/L (14-36); Bilirubin,Total 3.2 mg/dL (0.2-1.3); Blood Urea Nitrogen 11 mg/dL (7-17); Calcium 9.3 mg/dL (8.4-10.2); Carbon Dioxide 28 mmol/L (22-30); Chloride 94 mmol/L (98-107); Estimated Glomerular Filt Rate > 60; Glucose 111 mg/dL (65-110); Potassium 3.3 mmol/L (3.4-5.0); Sodium 131 mmol/L (137-145); Total Protein 7.9 g/dL (6.3-8.2)
[2025-04-01 10:21] LABS: Hematocrit 43.9 % (37.0-47.0); Hemoglobin 14.9 g/dL (12.0-15.0); Immature Platelet Fraction Pct 3.2 % (0.9-11.2); Mean Corpuscular HGB Conc 33.9 g/dl (32-36); Mean Corpuscular Hemoglobin 32.8 pg (26-34); Mean Corpuscular Volume 96.7 fl (80-100); Platelet Count Result 130 k/mm3 (150-375); Red Blood Count 4.54 M/mm3 (4.2-5.4); White Blood Count 5.2 K/mm3 (4.5-10.0)
== END 2025-04-01 08:16 | disposition home or self-care (01) ==
LOC: ANHLAB 08:16
PROVIDERS: PCP Nurse Practitioner Adult Health; Visit Provider Anesthesiology
DX: Z01.818 Encounter for other preprocedural examination (principal); E87.6 Hypokalemia
CPT/HCPCS: 36415; 80053; 85027; 85055

== ENCOUNTER 2025-04-10 11:39 | Outpatient (CLI) | payer OTHER, SELFPAY ==
--- OUTSIDE RECORDS SUMMARY | 2025-04-10 11:48 | XMS_ITS | Clinical Summary ---
Author Organization [facility] Marisa blancas Julianna Address [address] [place] [address] Care Team Providers Care Trust Advisor Name Role Phone Chirag Cordoba MD Primary Care Provider [phone] Allergies Active Allergy Reactions Criticality Noted Date [...] STL ABSTRACTION Provider, Abstract 01/29/2025 Orders Only [facility] Oncology and Hematology - Edgardo [address] [place] [address] Shmuel Bertrand MD 01/28/2025 Orders Only [facility] Oncology and Hematology - Edgardo [address] [place] [address] Shmuel Bertrand MD from Last [...] on file Legal Sex Female 5:41 AM PUBLIC INFORMATION RELATIONS MANAGER Gender Identity Not on file Sexual [...] st Contact Info) Description 05/28/2025 1:15 PM PUBLIC INFORMATION RELATIONS MANAGER Office Visit [facility] Oncology and Hematology [facility] [address] [address] Shmuel Bertrand MD [address] [facility] [address] [place] [address] Health Maintenance Due Date Last [...] Resu lt from Last 3 Months Insurance [facility] MEDICAID Care Teams Trust Advisor Relationship Specialty Start Date End Date Chirag Cordoba MD [address] [facility] [place] [phone] PCP - General Internal Medicine 10/19/22
--- OUTSIDE RECORDS SUMMARY | 2025-04-10 11:48 | XMS_ITS | Clinical Summary ---
Author Organization [facility] Address [address] [facility] [place] [address] Care Team Providers Care Furnace Packer Name Role Phone Unavailable Primary Care Provider Unavailabl e Source Comments [facility],non-owned Affiliates and Associated Physician Practices is amultiple site organization consisting of ambulatory clinics and hospital sitesin [place], [place], [place] and [place]. This disclosure is being madepursuant to the Care Everywhere program and may not contain all information available regarding this patient. 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
--- OUTSIDE RECORDS SUMMARY | 2025-04-10 11:48 | XMS_ITS | Patient Health Record ---
Author Organization [facility] Address [address] [facility] [facility] [address] [place] [address] Care Team Providers Care Shot Man Name Role Phone Adalid HARRY, Chirag Primary Care Provider Unav ailable ERIC HINGING MACHINE OPERATOR, WILFREDO Unavailable Allergies Allergen (clinical drug ingredient) Drug/Non Drug Allergy documented on EMR Reaction Allergy Type Onset Date Status ibuprofen Ibuprofen Unknown Drug Allergy Active Reason For Referral No Information Plan Of Treatment No Information Insurance Providers Payer Name Payer Address Payer Phone Subscriber Number Group Number Insured Name Patient Relationship to Insured Coverage Start Date Coverage End Date [address] [id number] Flavia Patrick Self - patient is the insured Medical (General) History Medical History History ICD Code carpal tunnel hyperlipidemia anxiety
--- OUTSIDE RECORDS SUMMARY | 2025-04-10 11:48 | XMS_ITS | Encounter Summary ---
Author Organization [facility] Address [address] [place] [address] Care Team Providers Care Supervisor Machine Setter Name Role Phone Chirag Cordoba MD Primary Care Provider [phone] Encounter Details Date Type Department Care Team (Late st Contact Info) Description 05/16/2008 Emergency [facility] Er, Authorized P NO ADDRESS ON FILE Jorge Oilva MD [address] [place] [id number] Social History Tobacco Use Types Packs/Day Years Used Date Smoking Tobacco: Never Assessed Comments Unknown Sex and Gender Information Value Date Recorded Sex Assigned at Not on file Legal Sex Female 5:41 AM TRACK EQUIPMENT OPERATOR Gender Identity Not on file Sexual Orientation Not on file documented as of this encounter Plan of Treatment Upcoming Encounters Date Type Department Care Team (Late st Contact Info) Description 05/28/2025 1:15 PM TRACK EQUIPMENT OPERATOR Office Visit [facility]ology - [place] [address] [place] [address] [facility] [address] [place] [address] Shmuel Bertrand MD [address] [facility] [address] [place] [address] documented as of this encounter Procedures Procedure Name Priority Date/Time Associated Diagnosis Comments US PELVIS + TRANSVAG NON OB Stat 05/16/2008 3:06 PM TRACK EQUIPMENT OPERATOR POC , URINE Routine 05/16/2008 2:59 PM TRACK EQUIPMENT OPERATOR POC URINALYSIS DIPSTICK NON AUTOMATED Routine 05/16/2008 2:59 PM TRACK EQUIPMENT OPERATOR CBC WITH DIFFERENTIAL Stat 05/16/2008 2:26 PM TRACK EQUIPMENT OPERATOR COMPREHENSIVE METABOLIC PANEL Stat 05/16/2008 2:26 PM TRACK EQUIPMENT OPERATOR documented in this encounter Results * US PELVIS + TRANSVAG NON OB (05/16/2008 3:06 PM TRACK EQUIPMENT OPERATOR) Anatomical Region Laterality Modality Pelvis Other 05/16/2008 3:06 PM TRACK EQUIPMENT OPERATOR Narrative 05/17/2008 7:19 AM TRACK EQUIPMENT OPERATOR [facility] [address], [place] [address] Admit Date: 05/16/2008 ZENAIDA ARREAGA Sex: F Admit Prov: ER, AUTHORIZED P Date: 1970 Primary Care Prov: CMRN: [id number] Room: ER-A SSN: [id number] IMAGING SERVICES Ordering Prov: N/A Accession Number: [id number] Interpretation ULTRASOUND OF PELVIS TRANSABDOMINAL AND TRANSVAGINAL [...] AMK Procedure Note Keiko Sewell - 05/17/2008 [facility] [address] [place], [place] [address] Admit Date: 05/16/2008 ZENAIDA ARREAGA Sex: F Admit Prov: EASTON LEONG Date:1970 Primary Care Prov: CMRN: [id number] [facility] SS[facility]: [id number] IMAGING SERVICES Ordering Prov: N/A Interpretation ULTRASOUND [...] URINALYSIS DIPSTICK NON AUTOMATED (05/16/2008 2:59 PM TRACK EQUIPMENT OPERATOR) UROBILINOGEN UA 1+ (1 mg/dL) <=1 mg/dL S [facility] SPECIFIC GRAVITY UA 1.025 1.001 - 1.030 [facility] GLUCOSE UA Negative Negative [facility] COLOR UA Yellow [facility] LEUKOCYTE ESTERASE UA Negative Negative [facility] NITRITE UA Negative Negative [facility] BILIRUBIN UA 1+(A) Negative [facility] PH UA 5.0 5.0 - 8.0 [facility] KETONES UA 1+ (Small)(A) Negative [facility] CLARITY UA Clear [facility] BLOOD UA 1+(A) Negative [facility] PROTEIN UA Negative Negative [facility] Urine specimen (specimen) 05/16/2008 2:59 PM TRACK EQUIPMENT OPERATOR 05/16/2008 2:59 PM TRACK EQUIPMENT OPERATOR us Authorized P Er POINT OF CARE TESTING Final Resu lt Performing Organization Address [facility] de Phone Number INTERFACE SYSTEM Refer to clinic/hospital department [facility] CLIA# [id number] [address] [place] [address] * POC , URINE (05/16/2008 2:59 PM TRACK EQUIPMENT OPERATOR) , URINE POC Negative Negative [facility] SPECIFIC GRAVITY UA 1.025 1.001 - 1.035 [facility] Urine specimen (specimen) 05/16/2008 2:59 PM TRACK EQUIPMENT OPERATOR 05/16/2008 2:59 PM TRACK EQUIPMENT OPERATOR us Authorized P Er POINT OF CARE TESTING Final Resu lt Performing Organization Address [facility] Co de Phone Number INTERFACE SYSTEM Refer to clinic/hospital department [facility] CLIA# [id number] [address] [place] [address] * (ABNORMAL) CBC WITH DIFFERENTIAL (05/16/2008 2:26 PM TRACK EQUIPMENT OPERATOR) PLATELETS 222 140 - 350 K/uL [facility] HEMOGLOBIN 12.8 11.8 - 14.8 g/dL [facility] RDW 12.9 11.5 - 14.5 % [facility] WBC 4.7 4.0 - 9.8 K/uL [facility] MCH 30.0 27.2 - 32.6 pg [facility] MPV 8.7(L) 9.3 - 12.4 fL [facility] HEMATOCRIT 38.7 35.5 - 44.0 % [facility] RDW-STDEV 42.6 37.1 - 48.7 fL [facility] RBC 4.27 3.90 - 4.90 M/uL [facility] MCHC 33.1 31.5 - 35.5 % [facility] MCV 90.6 82.0 - 99.0 fL [facility] EOSINOPHILS 1 0 - 7 % [facility] EOSINOPHIL ABSOLUTE 0.06 0.00 - 0.70 K/uL [facility] LYMPHOCYTES 37 16 - 45 % [facility] LYMPHOCYTE ABSOLUTE 1.74 0.70 - 4.50 K/uL [facility] BASOPHILS 0 0 - 2 % [facility] BASOPHILS ABSOLUTE 0.02 0.00 - 0.20 K/uL [facility] MONOCYTES 11 3 - 13 % [facility] MONOCYTE ABSOLUTE 0.51 0.10 - 1.30 K/uL [facility] NEUTROPHILS 50 45 - 70 % [facility] NEUTROPHIL ABSOLUTE 2.35 1.90 - 7.00 K/uL [facility] Blood specimen (specimen) 05/16/2008 2:26 PM TRACK EQUIPMENT OPERATOR 05/16/2008 2:36 PM TRACK EQUIPMENT OPERATOR us Authorized P Er HEMATOLOGY ORDERABLES Edited INTERFACE SYSTEM Refer to clinic/hospital department [facility] CLIA# [id number] [address] [place] [address] * (ABNORMAL) COMPREHENSIVE METABOLIC PANEL (05/16/2008 2:26 PM TRACK EQUIPMENT OPERATOR) ALKALINE PHOSPHATASE 30(L) 35 - 104 U/L [facility] BILIRUBIN TOTAL 0.7 0.2 - 1.0 mg/dL [facility] CO2 24 22 - 30 mmol/L [facility] TOTAL PROTEIN 6.6 6.3 - 8.6 g/dL [facility] POTASSIUM 3.6 3.5 - 4.9 mmol/L [facility] GLUCOSE 100(H) 65 - 99 mg/dL [facility] AST 16 12 - 32 U/L [facility] BUN 8 6 - 20 mg/dL [facility] CALCIUM 8.7 8.6 - 10.2 mg/dL [facility] CHLORIDE 105 96 - 108 mmol/L [facility] ALBUMIN 4.0 3.4 - 4.8 g/dL [facility] CREATININE 0.69 0.51 - 0.95 mg/dL [facility] SODIUM 138 135 - 145 mmol/L [facility] ALT 9 0 - 31 U/L [facility] GFR, >60 >=60 mL/min/1. 7 sq meter [facility] GFR >60 >=60 mL/min/1. 7 sq meter [facility] Comment: Modification of Diet in Renal Disease (MDRD) study formula. Estimated GFR rate interpretative information for both Americans and non- Americans is available on the [facility] Intranet at: [email or web address] Select: Lab Policies and Procedures Select: Reference Ranges - GFR Blood specimen (specimen) 05/16/2008 2:26 PM TRACK EQUIPMENT OPERATOR 05/16/2008 2:36 PM TRACK EQUIPMENT OPERATOR us Authorized P Er CHEMISTRY ORDERABLES Edited INTERFACE SYSTEM Refer to clinic/hospital department [facility] CLIA# [id number] [address] [place] [address] documented in this encounter Visit Diagnoses Not on filedocumented in this encounter Care Teams Supervisor Machine Setter Relationship Specialty Start Date End Date Chirag Cordoba MD [facility] [address] PCP - General Internal Medicine 10/19/22 documented as of this encounter
--- OUTSIDE RECORDS SUMMARY | 2025-04-10 11:48 | XMS_ITS | Clinical Summary ---
Author Organization [facility] Address [address] [place] [address] Care Team Providers Care Oxide Furnace Tender Name Role Phone Josef Castro MD Primary [...] (06/16/2022): Added automatically from request for surgery [id number] Mixed hyperlipidemia 11/04/2020 Gastric perforation 09/10/2020 Assessment & Plan (09/30/2020 9:40 AM CDT): I will make a referral to 1 of the direct mail manager for an upper endoscopy. Based on [...] ago, Currently tremulous, anxious Will start on [facility] alcohol withdrawal protocol with IV ativan sins the patient currently NPO Start on IV folate, and thiamin Seizure precautions Fall precautions Will get SWcx, Discussed and encouraged to stop drinking ELEAZAR (generalized anxiety disorder) 09/10/2020 Assessment & Plan (09/10/2020 9:43 PM CDT): Holding xanax , patient is NPO Started on IV ativan To be used per [facility] protocol for symptomatic control for anxiety Severe [...] Hx Other Medical Dermatofibroma Hx Other Medical 01-HEEL LINING PASTER Hx Other Medical 12/01/2012 ER [facility] BP [...] on file Legal Sex Female 11:24 AM VEHICLE 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 Gender Identity Not on file Sexual Orientation [...] this topic Medical Devices Implanted Type Area Income Tax Expert Device Identifier Shelf Expiration Date Model / Serial / Lot Allosource 10cm Frozen Graft Bone Fibula Segment [id number] - [id number] - [id number] Implanted:Qty: 1 on 06/21/2022 by Destiny Mayorga MD at [facility] Bone Right: Humerus Allosource [id number] 01/14/2026 [id number] / [id number] / [id number] Synthes Lcp Combi Philos 84u16u8.5mm 3 Hole Shaft Lock Compression 241.901 - S0 - [id number] Implanted:Qty: 1 on 06/21/2022 by Destiny Mayorga MD at [facility] Plate Right: Humerus Synthes I 241.901 / 0 / Synthes 3.5mm 6mm 22mm 2.5mm Self Tap Small Hexagonal Socket Low Profile 204.822 - S0 - [id number] Implanted:Qty: 1 on 06/21/2022 by Destiny Mayorga MD at [facility] Screw Right: Humerus Synthes I 204.822 / 0 / Synthes 3.5mm 2.9mm 24mm Self Tap Lock Stardrive Conical Head Pelvis T15 212.108 - S0 - [id number] Implanted:Qty: 1 on 06/21/2022 by Destiny Mayorga MD at [facility] Screw Right: Humerus Synthes I 212.108 / 0 / Synthes 3.5mm 6mm 26mm 2.5mm Self Tap Small Hexagonal Socket Low Profile 204.826 - S0 - [id number] Implanted:Qty: 1 on 06/21/2022 by Destiny Mayorga MD at [facility] Screw Right: Humerus Synthes I 204.826 / 0 / Synthes 3.5mm 2.9mm 36mm Self Tap Lock Stardrive Conical Head T15 Full 212.115 - S0 - [id number] Implanted:Qty: 3 on 06/21/2022 by Destiny Mayorga MD at [facility] Screw Right: Humerus Synthes I 212.115 / 0 / Synthes 3.5mm 2.9mm 45mm Self Tap Lock Stardrive Conical Head T15 Full 212.119 - S0 - [id number] Implanted:Qty: 2 on 06/21/2022 by Destiny Mayorga MD at [facility] Screw Right: Humerus Synthes I 212.119 / 0 / Synthes 3.5mm 2.9mm 42mm Self Tap Lock Stardrive Conical Head Full Thread 212.118 - S0 - [id number] Implanted:Qty: 1 on 06/21/2022 by Destiny Mayorga MD at [facility] Screw Right: Humerus Synthes I 212.118 / 0 / Synthes 3.5mm 2.9mm 46mm Self Tap Lock Stardrive Conical Head T15 Full 212.136 - [id number] Implanted:Qty: 1 on 06/21/2022 by Destiny Mayorga MD at [facility] Screw Right: Humerus Synthes I 212.136 / / Synthes 3.5mm 2.9mm 44mm Self Tap Lock Stardrive Conical Head T15 Full 212.134 - S0 - [id number] Implanted:Qty: 1 on 06/21/2022 by Destiny Mayorga MD at [facility] Screw Right: Humerus Synthes I 212.134 / 0 / Synthes 3.5mm 2.9mm 48mm Self Tap Lock Fix Angle Low Profile Pelvis Full 212.120 - S0 - [id number] Implanted:Qty: 1 on 06/21/2022 by Destiny Mayorga MD at [facility] Screw Right: Humerus Synthes I 212.120 [...] last revised on 19. Testing performed by: [address] [address] Hep B core IgM Nonreactive Nonreactive C NANO LEDESMA (DIMITRIS) Comment: Interpretive Data If HepB Core IgM Ab is reported as Equivocal, a new sample should be drawn in two weeks for testing. Current interpretive data was last revised on 19. Testing performed by: [facility], [address] [place] [address]., [address] Hep C Ab Nonreactive Nonreactive JOESPH LEDESMA [...] last revised on 2019. Testing performed by: [facility], [address] [place] [address]., [address] HepBsAg Nonreactive Nonreactive JOESPH LEDESMA ([place]IMITRIS) Comment:Testing performed by : [address] [address] Blood specimen (specimen) 09/11/2020 5:18 AM CDT 09/11/2020 11:17 AM CDT us Allison Price MD LAB MICROBIOLOGY - GENERAL OR DERABLES Final Result JOESPH LEDESMA (DIMITRIS) [address] [facility] Department [place] [address] * COLONOSCOPY (01/20/2013 12:00 AM CDT) Anatomical Region Laterality Modality Other Narrative 01/20/2013 12:00 AM CDT Ordered by an unspecified provider. Procedure Note Provider, MD Edie - 01/20/2013 12:00 AM CDT PROCEDURE REPORT Patient: ZENAIDA ARREAGA Account: [id number] Room No: : 1970 Patient Type: SDS [...] 10:23 PM CDT Dia Mamm R Acc#: [id number] DATE OF EXAM: Jan 01 2013 Performed [...] Edie - 08/30/2016 Diag Mamm R Acc#: [id number] DATE OF EXAM: Jan 01 2013 Performed [...] Most Recently Relevant to Health Maintenance Insurance [facility] Advance Directives For more information, please contact: [phone] * Full Code (Latest Code Status on File) Date Activated Date Inactivated Comments 02/21/2023 12:16 PM 02/21/2023 6:09 PM * Full Code Date Activated Date Inactivated Comments 09/10/2020 4:50 PM 09/17/2020 4:48 PM Care Teams Oxide Furnace Tender Relationship Specialty Start Date End Date Josef Castro MD [address] [place] [address] PCP - General 11/04/20
[2025-04-10 12:45] LABS: Alanine Aminotransferase 47 U/L (6-35); Albumin Level 3.9 g/dL (3.5-5.1); Alkaline Phosphatase 51 U/L (38-126); Anion Gap 5 mmol/L (4-12); Aspartate Amino Transferase 53 U/L (14-36); Bilirubin,Total 0.3 mg/dL (0.2-1.3); Blood Urea Nitrogen 3 mg/dL (7-17); Calcium 9.0 mg/dL (8.4-10.2); Carbon Dioxide 25 mmol/L (22-30); Chloride 110 mmol/L (98-107); Cholesterol 172 mg/dL (0-200); Estimated Glomerular Filt Rate > 60; Glucose 104 mg/dL (65-110); HDL Direct 61 mg/dL; Potassium 3.9 mmol/L (3.4-5.0); Sodium 140 mmol/L (137-145); Total Protein 7.2 g/dL (6.3-8.2); Triglycerides 192 mg/dL (<150)
== END 2025-04-10 11:40 | disposition home or self-care (01) ==
PROVIDERS: PCP Nurse Practitioner Adult Health
DX: E78.2 Mixed hyperlipidemia (principal); D64.9 Anemia, unspecified; R74.01 Elevation of levels of liver transaminase levels; Z00.01 Encounter for general adult medical examination with abnormal findings; E78.1 Pure hyperglyceridemia; M79.10 Myalgia, unspecified site; F43.23 Adjustment disorder with mixed anxiety and depressed mood
CPT/HCPCS: 36415; 80053; 80061